=== PATIENT | female | born 1970 | race Caucasian/White ===

== ENCOUNTER 2021-07-03 11:08 | Outpatient (REF) | payer OTHER, SELFPAY ==
--- NOTE | ~2021-07-03 | US_ITS ---
EXAMINATION: US VENOUS ULTRASOUND WITH DOPPLER LOWER EXTREMITY, LEFT CLINICAL INFORMATION: Left leg pain COMPARISON: None TECHNIQUE: Ultrasound of the deep veins is performed from the hip to the calf with compression sonography and color and pulse Doppler assessment. Spectral analysis with color-flow imaging is performed. FINDINGS: There is normal venous compression and respiratory variation and augmented flow. The visualized common femoral vein, superficial femoral vein, profunda femoral vein, popliteal vein, and the trifurcation region shows no evidence of deep venous thrombosis. There is no significant popliteal fossa cyst. There is a small amount of fluid in the muscle in the left medial calf in the area of patient's pain. Appearance is questionable for partial muscle tear. US/US venous duplex LE LT IMPRESSION: No DVT demonstrated in the left lower extremity.
== END 2021-07-03 11:09 | disposition home or self-care (01) ==
LOC: HO.US 11:08
PROVIDERS: PCP Internal Medicine; Visit Provider Advanced Practice Midwife
DX: M79.662 Pain in left lower leg (principal)
CPT/HCPCS: 93971

== ENCOUNTER → 2021-08-15 08:50 | Outpatient (BNVA) | payer OTHER, SELFPAY | PROVIDERS: PCP Internal Medicine; Visit Provider Physician Assistant | DX: S86.112A Strain of other muscle(s) and tendon(s) of posterior muscle group at lower leg level, left leg, initial encounter (principal) | CPT/HCPCS: 99202 ==

== ENCOUNTER 2022-03-23 15:58 | Inpatient (IN) | payer OTHER, SELFPAY ==
[2022-03-23 16:03] VITALS: BP 123/94; BP 138/90; PULSE 92; PULSE 97; RESP 18; TEMP 37.4; O2SAT 97; O2SAT 98; BMI 34.3
--- NOTE | 2022-03-23 16:31 | ECG_ITS ---
Test Reason : MED CLEARANCE Blood Pressure : / mmHG Vent. Rate : 091 BPM Atrial Rate : 091 BPM P-R Int : 134 ms QRS Dur : 078 ms QT Int : 380 ms P-R-T Axes : 046 063 056 degrees QTc Int : 467 ms Normal sinus rhythm Normal ECG When compared with ECG of 18-APR-2020 17:51, No significant change was found Referred By: Ofelia Wang Electronically Signed By:MICHAEL VELASCO MD
--- NOTE | 2022-03-23 16:41 | PC.NURSE ---
Attempted med rec- unable to complete due to questions of accurate list of medication. Pharmacy aware.
[2022-03-23 16:45] VITALS: RESP 16
[2022-03-23 16:57] LABS: Appearance Urine CLEAR; Color Urine YELLOW; Glucose Urine UA NEG (NEG); Leukocyte Esterase Urine NEG (NEG); Nitrite Urine NEG (NEG); PH 5.5 (5.0-8.0); Specific Gravity - Urine <= 1.005 (1.005-1.025); Urine Blood NEG (NEG); Urine Ketones NEG (NEG); Urine Protein NEG (NEG-TRACE)
--- NOTE | 2022-03-23 17:03 | PHA.MEDREC ---
MED REC COMPLETE Pharmacy Consult ? Medication Reconciliation Pharmacy has completed the medication reconciliation.
[2022-03-23 17:11] LABS: MANUAL DIFF FLAG NO
[2022-03-23 17:11] LABS: COVID-19 Test Negative (Negative); IDNOW Serial# 55D5AD1C
[2022-03-23 17:20] LABS: Basophils Absolute Auto 0.1 X10*3/uL (0.0-0.2); Basophils Percent Auto 0.5 % (0-2); Eosinophils Absolute Auto 0.2 X10*3/uL (0.0-0.4); Eosinophils Percent Auto 2.5 % (0-4); Hematocrit 37.7 % (37.0-47.0); Imm Gran Abs Auto 0.03 X10*3/uL (0.00-0.03); Imm Gran Pct Auto 0.3 % (0.0-0.4); Lymphocytes Absolute Auto 2.6 X10*3/uL (1.2-4.9); Lymphocytes Percent Auto 27.9 % (20-40); Mean Corpuscular HGB Conc 34.5 g/dl (31.0-35.0); Mean Corpuscular Hemoglobin 30.3 pg (27.0-33.0); Mean Corpuscular Volume 87.9 fL (80.0-98.0); Mean Platelet Volume 12.1 fL (9.4-12.3); Monocytes Absolute Auto 0.4 X10*3/uL (0.1-1.2); Monocytes Percent Auto 4.7 % (2-11); Neutrophils Absolute Auto 5.9 x10*3/uL (2.0-8.3); Neutrophils Percent Auto 64.1 % (45-73); Platelet Count 198 X10*3/uL (160-400); Red Blood Count 4.29 X10*6/uL (4.20-5.50); Red Cell Distribution Width 13.2 % (11.0-16.0); White Blood Count 9.1 X10*3/uL (4.8-10.8)
--- NOTE | 2022-03-23 17:21 | PC.NURSE ---
Per pt: okay to talk to Jeremias Ramos ([facility]) [phone] Jeremias was hyperverbal on phone during status update. We live in a mental health building, but separate. [the patient] walks 2 feet to my house. I noticed that she was almost ignoring me when I was speaking to her. I'm pretty sure she was hearing voices. how do you check for that? can you really tell? do you think it has to do with our home covid tests? spouse updated on team process and [facility] referral.
[2022-03-23 17:24] LABS: Amphetamine Screen Urine Not Detected (Not Detect); Barbiturates, Urine Not Detected (Not Detect); Benzodiazepines Screen Urine Not Detected (Not Detect); Cannabinoid Screen Urine Not Detected (Not Detect); Cocaine Screen Urine Not Detected (Not Detect); Fentanyl, urine Not Detected (Not Detect); Opiate Screen Urine Not Detected (Not Detect); Phencyclidine Screen Urine Not Detected (Not Detect)
[2022-03-23 17:30] LABS: Alanine Aminotransferase 23 U/L (0-31); Albumin Level 3.9 g/dL (3.5-5.0); Alkaline Phosphatase 125 U/L (39-117); Anion Gap 13 (12-20); Aspartate Amino Transferase 24 U/L (5-31); Bilirubin Total 0.6 mg/dL (0.0-1.0); Blood Urea Nitrogen 12 mg/dL (9-16); Calcium 8.4 mg/dL (8.4-10.2); Carbon Dioxide 24 mmol/L (22-29); Chloride 105 mmol/L (96-108); Creatinine Clr Calc Pharmacy 82.5; Estimated Glomerular Filt Rate > 60; Ethanol < 10 mg/dL; Glucose Random 85 mg/dL (60-115); Potassium 4.1 mmol/L (3.3-5.1); Sodium 138 mmol/L (135-145); Total Protein 6.3 g/dL (6.5-8.0)
[2022-03-23 18:00] VITALS: RESP 16
--- NOTE | 2022-03-23 18:01 | MHC.CARE ---
Per pt: okay to talk to Jeremias Ramos ([facility]) [phone] Jeremias called CARE team reporting Rita called him crying and stating she is alone . CARE informed him that there is an RN and staff in POD and she is not alone. He reports he called 911 after she reported audio hallucinations of her ex-fiance that was murdered telling her to 'kill herself . CARE explained the process and that she would get a crisis evaluation and disposition would be decided. He reports he will wait to called to provided collateral information.
--- NOTE | 2022-03-23 18:17 | PC.NURSE ---
Contact made to care team about Spouse's concerns. Spouse has contacted the BH pod multiple times asking similar questions. Care team reiterated education regarding BHN process.
--- NOTE | 2022-03-23 20:53 | ED_ITS ---
HPI - Psych General Chief Complaint: Psychiatric Symptoms <Ofelia WangSUGAR - Last Filed: 03/23/22 21:09> Stated Complaint: SI no plan <Ofelia Wang SUGAR - Last Filed: 03/23/22 21:09> Time Seen by Provider: 03/23/22 16:19 <Ofelia WangSUGAR - Last Filed: 03/23/22 21:09> Source: patient <Ofelia Wang SUGAR - Last Filed: 03/23/22 21:09> Mode of arrival: EMS <Ofelia WangSUGAR - Last Filed: 03/23/22 21:09> Limitations: no limitations <Ofelia Wang SUGAR - Last Filed: 03/23/22 21:09> History of Present Illness HPI Narrative: Patient presents emergency department via EMS for evaluation of suicidal ideations. She reports that for the past week she has been hearing auditory hallucinations of her ex-boyfriend's voice telling her to kill herself. States that she is being told to cut herself. States that she has no intention of acting on this, but she feels unsafe being at home. She states she is currently living at home with her fiance. She denies any recent medication changes. She denies any homicidal ideations. Denies fevers, chills, upper respiratory symptoms, chest pain, shortness of breath, difficulty breathing. <Ofelia WangSUGAR - Last Filed: 03/23/22 21:09> Related Data Home Medications: Home Medications Medication Instructions Recorded Confirmed albuterol sulfate 90 mcg/actuation 2 inh inhalation Q4H PRN 03/23/22 03/23/22 aerosol inhaler Respiratory Distress atorvastatin 20 mg tablet 20 mg PO BEDTIME 03/23/22 03/23/22 benztropine 0.5 mg tablet 0.5 mg PO BEDTIME 03/23/22 03/23/22 calcium carbonate 600 mg-vitamin 1 cap PO BID 03/23/22 03/23/22 D3 10 mcg (400 unit) capsule cariprazine 3 mg capsule (Vraylar) 3 mg PO DAILY 03/23/22 03/23/22 clonazepam 0.5 mg tablet 0.5 mg PO BEDTIME 03/23/22 03/23/22 clonazepam 0.5 mg tablet 0.5 mg PO DAILY PRN Anxiety 03/23/22 03/23/22 cyanocobalamin (vitamin B-12) 500 500 mcg PO DAILY 03/23/22 03/23/22 mcg tablet diclofenac sodium 1 % topical gel 2 g topical DAILY PRN Pain 03/23/22 03/23/22 duloxetine 60 mg capsule,delayed 60 mg PO BID 03/23/22 03/23/22 release fluticasone 100 mcg-salmeterol 50 1 puff inhalation BID 03/23/22 03/23/22 mcg/dose blistr powdr for inhalation haloperidol 10 mg tablet 1 tab PO BID 03/23/22 03/23/22 levothyroxine 50 mcg tablet 50 mcg PO DAILY@0600 03/23/22 03/23/22 lidocaine 5 % topical cream 1 appl topical BID 03/23/22 03/23/22 loratadine 10 mg tablet 10 mg PO DAILY 03/23/22 03/23/22 mirtazapine 7.5 mg tablet 7.5 mg PO BEDTIME 03/23/22 03/23/22 naproxen 500 mg tablet 500 mg PO BID PRN Moderate Pain 03/23/22 03/23/22 (Scale Score 5-6) nitrofurantoin macrocrystal 100 mg 100 mg PO DAILY PRN UTI PREVENTION 03/23/22 03/23/22 capsule sumatriptan succinate 50 mg tablet 50 mg PO DAILY PRN Migraine 03/23/22 03/23/22 (Imitrex) Headache verapamil 40 mg tablet 40 mg PO BID 03/23/22 03/23/22 <Ofelia Wang, TABLE ASSEMBLER [employer] - Last Filed: 03/23/22 21:09> Allergies/Adverse Reactions: Allergies Allergy/AdvReac Type Severity Reaction Status Date / Time amoxicillin [AMOXICILLIN] Allergy Intermediate HIVES Verified 03/23/22 16:51 carisoprodol [From SOMA] Allergy Intermediate HIVES Verified 03/23/22 16:51 Fish Containing Products Allergy Intermediate HIVES Verified 03/23/22 16:51 Penicillins [PENICILLINS] Allergy Intermediate HIVES Verified 03/23/22 16:51 latex [LATEX] Allergy Mild RASH Verified 03/23/22 16:51 fish Allergy Unknown shortness Uncoded 03/23/22 16:51 of breath MEAT AdvReac Mild SICK Uncoded 03/23/22 16:51 <Ofelia Wang CNP - Last Filed: 03/23/22 21:09> Review of Systems Review of Systems: Constitutional : No Fever, No Chills ENT/Mouth : No Ear Pain, No Nasal Congestion, No sore throat Eyes: No Eye Pain, No Swelling, No Redness Cardiovascular : No Chest Pain, No SOB Respiratory : No Cough, No Sputum, No Dyspnea Gastrointestinal : No Nausea, No Vomiting, No Diarrhea, No Hematochezia, No Melena Genitourinary : No Dysuria, No Urinary Frequency, No Hematuria Musculoskeletal : No Myalgias Skin : No Skin Lesions, No rash Neuro : No Weakness, No Numbness, No Paresthesias, No Dizziness, No Headache Psych : positive Anxiety, positive Depression, positive SI/HI Heme/Lymph: No Lymphadenopathy Endocrine : No Polyuria, No Polydipsia <Ofelia Wang CNP - Last Filed: 03/23/22 21:09> Yes all other systems are reviewed and are negative <Ofelia Wang CNP - Last Filed: 03/23/22 21:09> PMF Past Medical History Attestation statement: The following information was validated with the patient. <Ofelia Wang CNP - Last Filed: 03/23/22 21:09> Source: old records reviewed <Ofelia Wang CNP - Last Filed: 03/23/22 21:09> Medical History: Medical History Anxiety Asthma Borderline intellectual functioning Chronic back pain Classic migraine Depression History of ETOH abuse Hx of drug overdose Hx of renal calculi Ovarian cyst PTSD (post-traumatic stress disorder) Schizoaffective disorder Sight impaired <Ofelia Wang CNP - Last Filed: 03/23/22 21:09> Surgical History: Surgical History Hx of appendectomy Hx of cholecystectomy Hx of tubal ligation <Ofelia Wang CNP - Last Filed: 03/23/22 21:09> Social History Social History: Social History Alcohol intake: unknown Patient Tobacco Use Status: Tobacco use Unknown Smoked in Last 30 Days: Yes Use of substances other than those prescribed or required for medical reasons: Unknown Advance Directives: No Advance Directives Information Provided: No Current occupational status: unemployed Current occupation: rt handed <Ofelia Wang CNP - Last Filed: 03/23/22 21:09> Physical Exam Vital Signs: Vital Signs: Last Vital Signs Temp 98.3 F 03/24/22 07:54 Pulse 92 03/24/22 07:54 Resp 16 03/24/22 07:54 BP 146/80 H 03/24/22 07:54 Pulse Ox 96 03/24/22 07:54 O2 Del Method 03/24/22 07:54 BMI result Body Mass Index 34.3 <Ofelia Wang CNP - Last Filed: 03/23/22 21:09> Vital Signs: Last Vital Signs Temp 98.3 F 03/24/22 07:54 Pulse 92 03/24/22 07:54 Resp 16 03/24/22 07:54 BP 146/80 H 03/24/22 07:54 Pulse Ox 96 03/24/22 07:54 O2 Del Method 03/24/22 07:54 BMI result Body Mass Index 34.3 <Stephen Asif MD - Last Filed: 03/24/22 04:38> Vital Signs: Last Vital Signs Temp 98.3 F 03/24/22 07:54 Pulse 92 03/24/22 07:54 Resp 16 03/24/22 07:54 BP 146/80 H 03/24/22 07:54 Pulse Ox 96 03/24/22 07:54 O2 Del Method 03/24/22 07:54 BMI result Body Mass Index 34.3 <Maco Cedillo MD - Last Filed: 03/24/22 14:11> Appearance: Alert.?Oriented to person, place and time. No acute distress.?Normal affect. Eyes: Pupils equal, round and reactive to light.? ENT: Pharynx normal.?? Neck: Normal inspection.? Neck supple.?? CVS: Heart sounds normal. Normal heart rate and rhythm.? Pulses normal.?? Respiratory: No respiratory distress.? Lung sounds clear to auscultation bilaterally?? Abdomen: Soft and non-tender. Normoactive bowel sounds. Skin: Skin warm and dry.? Normal skin color.?.?? Extremities: No lower extremity edema.? Neuro: Moves all extremities spontaneously. Sensation intact bilaterally. CN II- XII intact. No focal neuro deficits. Ambulates with normal steady gait. <Ofelia Wang CNP - Last Filed: 03/23/22 21:09> Course Course Course Narrative: Patient is a 51-year-old female with a past medical history of anxiety, depression, asthma, history of EtOH abuse, history of overdose, PTSD, schizoaffective disorder who presents emergency department for evaluation of SI and auditory hallucinations. She reports feeling feeling unsafe being at home, she does report that she currently resides with her fiance but feels safe in her relationship denies any concerns for domestic violence. She states that she has been compliant with her medications, has not had any recent changes to her medications. She is overall well appearing, vital signs are stable, no apparent distress. Will obtain basic labs, COVID-19 testing, drug of abuse screen, ethanol level. Patient will need to be referred to crisis team for further evaluation and safe disposition planning. <Ofelia Wang CNP - Last Filed: 03/23/22 21:09> Reevaluation(s) Reevaluation #1: Serum labs overall unremarkable. COVID-19 testing is negative. EKG reveals normal sinus rhythm no acute ischemic findings. Toxicology is u nremarkable. Patient placed in physician observation at this time she needs additional time to be evaluated by crisis and has a disposition. <Ofelia Wang CNP - Last Filed: 03/23/22 21:09> Time: 21:04 <Ofelia Wang CNP - Last Filed: 03/23/22 21:09> Reevaluation #2: Start physician observation: The patient was seen by [facility]. The patient is having auditory hallucinations with commands to hurt h erself. Apparently she took a knife and put it to her throat but did not carry out with the 2 males told early do. Patient has had suicide attempt in the past by trying to hang herself with a bed sheet. Given these findings, the patient was placed on a Section 12 and [facility] will do a bed search. Therefore the patient will be placed in physician observation. The patient is a wake and alert no distress, lungs were clear, heart regular rate rhythm, abdomen soft nontender neurologic exam is nonfocal <Stephen Asif MD - Last Filed: 03/24/22 04:38> Time: 04:36 <Stephen Asif MD - Last Filed: 03/24/22 04:38> Time: 14:10 <Maco Cedillo MD - Last Filed: 03/24/22 14:11> Additional Reevaluation(s): Bed search continue on section 12 inpatient level of care <Maco Cedillo MD - Last Filed: 03/24/22 14:11> MDM - Psych Medical Records Attestation: I reviewed the patient's medical records. <Ofelia Wang CNP - Last Filed: 03/23/22 21:09> Lab Data Attestation: I reviewed the patient's lab results. <Ofelia Wang CNP - Last Filed: 03/23/22 21:09> Result diagrams: : 03/23/22 17:07 03/23/22 17:07 <Ofelia Wang CNP - Last Filed: 03/23/22 21:09> Labs: Lab Results 03/23/22 03/23/22 03/23/22 Range/Units 16:46 16:46 16:46 WBC (4.8-10.8) X10*3/uL RBC (4.20-5.50) X10*6/uL Hgb (12.0-16.0) g/dl Hct (37.0-47.0) % MCV (80.0-98.0) fL MCH (27.0-33.0) pg MCHC (31.0-35.0) g/dl RDW (11.0-16.0) % Plt Count (160-400) X10*3/uL MPV (9.4-12.3) fL Immature Gran % (Auto) (0.0-0.4) % Neut % (Auto) (45-73) % Lymph % (Auto) (20-40) % Towns % (Auto) (2-11) % Eos % (Auto) (0-4) % Baso % (Auto) (0-2) % Lymph # (Auto) (1.2-4.9) X10*3/uL Towns # (Auto) (0.1-1.2) X10*3/uL Eos # (Auto) (0.0-0.4) X10*3/uL Baso # (Auto) (0.0-0.2) X10*3/uL Abs Immat Gran (auto) (0.00-0.03) X10*3/uL Absolute Neuts (auto) (2.0-8.3) x10*3/uL Absolute Nucleated RBC (0.0-0.012) X10*3/uL Nucleated RBC % (auto) (0.0-0.2) /100WBC Sodium (135-145) mmol/L Potassium (3.3-5.1) mmol/L Chloride (96-108) mmol/L Carbon Dioxide (22-29) mmol/L Anion Gap (12-20) BUN (9-16) mg/dL Creatinine (0.5-1.4) mg/dL Estim Creat Clear Calc Estimated GFR Random Glucose (60-115) mg/dL Calcium (8.4-10.2) mg/dL Total Bilirubin (0.0-1.0) mg/dL AST (5-31) U/L ALT (0-31) U/L Alkaline Phosphatase (39-117) U/L Total Protein (6.5-8.0) g/dL Albumin (3.5-5.0) g/dL Urine Color YELLOW Urine Appearance CLEAR Urine pH 5.5 (5.0-8.0) Ur Specific [place] <= 1.005 (1.005-1.025) Urine Protein NEG (NEG-TRACE) MG/DL Urine Glucose (UA) NEG (NEG) MG/DL Urine Ketones NEG (NEG) MG/DL Urine Blood NEG (NEG) Urine Nitrite NEG (NEG) Ur Leukocyte Esterase NEG (NEG) Urine Opiates Screen Not Detected (Not Detect) Urine Fentanyl Screen Not Detected (Not Detect) Ur Barbiturates Screen Not Detected (Not Detect) Ur Phencyclidine Scrn Not Detected (Not Detect) Ur Amphetamines Screen Not Detected (Not Detect) U Benzodiazepines Scrn Not Detected (Not Detect) Urine Cocaine Screen Not Detected (Not Detect) U Marijuana (THC) Screen Not Detected (Not Detect) Ethyl Alcohol mg/dL COVID-19 (RAGHU) Negative (Negative) COVID-19 Clin Com See Note 03/23/22 03/23/22 Range/Units 17:07 17:07 WBC 9.1 (4.8-10.8) X10*3/uL RBC 4.29 (4.20-5.50) X10*6/uL Hgb 13.0 (12.0-16.0) g/dl Hct 37.7 (37.0-47.0) % MCV 87.9 (80.0-98.0) fL MCH 30.3 (27.0-33.0) pg MCHC 34.5 (31.0-35.0) g/dl RDW 13.2 (11.0-16.0) % Plt Count 198 (160-400) X10*3/uL MPV 12.1 (9.4-12.3) fL Immature Gran % (Auto) 0.3 (0.0-0.4) % Neut % (Auto) 64.1 (45-73) % Lymph % (Auto) 27.9 (20-40) % Towns % (Auto) 4.7 (2-11) % Eos % (Auto) 2.5 (0-4) % Baso % (Auto) 0.5 (0-2) % Lymph # (Auto) 2.6 (1.2-4.9) X10*3/uL Towns # (Auto) 0.4 (0.1-1.2) X10*3/uL Eos # (Auto) 0.2 (0.0-0.4) X10*3/uL Baso # (Auto) 0.1 (0.0-0.2) X10*3/uL Abs Immat Gran (auto) 0.03 (0.00-0.03) X10*3/uL Absolute Neuts (auto) 5.9 (2.0-8.3) x10*3/uL Absolute Nucleated RBC 0.000 (0.0-0.012) X10*3/uL Nucleated RBC % (auto) 0.0 (0.0-0.2) /100WBC Sodium 138 (135-145) mmol/L Potassium 4.1 (3.3-5.1) mmol/L Chloride 105 (96-108) mmol/L Carbon Dioxide 24 (22-29) mmol/L Anion Gap 13 (12-20) BUN 12 (9-16) mg/dL Creatinine 0.88 (0.5-1.4) mg/dL Estim Creat Clear Calc 82.5 Estimated GFR > 60 Random Glucose 85 (60-115) mg/dL Calcium 8.4 (8.4-10.2) mg/dL Total Bilirubin 0.6 (0.0-1.0) mg/dL AST 24 (5-31) U/L ALT 23 (0-31) U/L Alkaline Phosphatase 125 H (39-117) U/L Total Protein 6.3 L (6.5-8.0) g/dL Albumin 3.9 (3.5-5.0) g/dL Urine Color Urine Appearance Urine pH (5.0-8.0) Ur Specific [place] (1.005-1.025) Urine Protein (NEG-TRACE) MG/DL Urine Glucose (UA) (NEG) MG/DL Urine Ketones (NEG) MG/DL Urine Blood (NEG) Urine Nitrite (NEG) Ur Leukocyte Esterase (NEG) Urine Opiates Screen (Not Detect) Urine Fentanyl Screen (Not Detect) Ur Barbiturates Screen (Not Detect) Ur Phencyclidine Scrn (Not Detect) Ur Amphetamines Screen (Not Detect) U Benzodiazepines Scrn (Not Detect) Urine Cocaine Screen (Not Detect) U Marijuana (THC) Screen (Not Detect) Ethyl Alcohol < 10 mg/dL COVID-19 (RAGHU) (Negative) COVID-19 Clin Com <Ofelia Wang, TABLE ASSEM[employer]ER [employer] - Last Filed: 03/23/22 21:09> Lab Results 03/23/22 03/23/22 03/23/22 Range/Units 16:46 16:46 16:46 WBC (4.8-10.8) X10*3/uL RBC (4.20-5.50) X10*6/uL Hgb (12.0-16.0) g/dl Hct (37.0-47.0) % MCV (80.0-98.0) fL MCH (27.0-33.0) pg MCHC (31.0-35.0) g/dl RDW (11.0-16.0) % Plt Count (160-400) X10*3/uL MPV (9.4-12.3) fL Immature Gran % (Auto) (0.0-0.4) % Neut % (Auto) (45-73) % Lymph % (Auto) (20-40) % Towns % (Auto) (2-11) % Eos % (Auto) (0-4) % Baso % (Auto) (0-2) % Lymph # (Auto) (1.2-4.9) X10*3/uL Towns # (Auto) (0.1-1.2) X10*3/uL Eos # (Auto) (0.0-0.4) X10*3/uL Baso # (Auto) (0.0-0.2) X10*3/uL Abs Immat Gran (auto) (0.00-0.03) X10*3/uL Absolute Neuts (auto) (2.0-8.3) x10*3/uL Absolute Nucleated RBC (0.0-0.012) X10*3/uL Nucleated RBC % (auto) (0.0-0.2) /100WBC Sodium (135-145) mmol/L Potassium (3.3-5.1) mmol/L Chloride (96-108) mmol/L Carbon Dioxide (22-29) mmol/L Anion Gap (12-20) BUN (9-16) mg/dL Creatinine (0.5-1.4) mg/dL Estim Creat Clear Calc Estimated GFR Random Glucose (60-115) mg/dL Calcium (8.4-10.2) mg/dL Total Bilirubin (0.0-1.0) mg/dL AST (5-31) U/L ALT (0-31) U/L Alkaline Phosphatase (39-117) U/L Total Protein (6.5-8.0) g/dL Albumin (3.5-5.0) g/dL Urine Color YELLOW Urine Appearance CLEAR Urine pH 5.5 (5.0-8.0) Ur Specific [place] <= 1.005 (1.005-1.025) Urine Protein NEG (NEG-TRACE) MG/DL Urine Glucose (UA) NEG (NEG) MG/DL Urine Ketones NEG (NEG) MG/DL Urine Blood NEG (NEG) Urine Nitrite NEG (NEG) Ur Leukocyte Esterase NEG (NEG) Urine Opiates Screen Not Detected (Not Detect) Urine Fentanyl Screen Not Detected (Not Detect) Ur Barbiturates Screen Not Detected (Not Detect) Ur Phencyclidine Scrn Not Detected (Not Detect) Ur Amphetamines Screen Not Detected (Not Detect) U Benzodiazepines Scrn Not Detected (Not Detect) Urine Cocaine Screen Not Detected (Not Detect) U Marijuana (THC) Screen Not Detected (Not Detect) Ethyl Alcohol mg/dL COVID-19 (RAGHU) Negative (Negative) COVID-19 Clin Com See Note 03/23/22 03/23/22 Range/Units 17:07 17:07 WBC 9.1 (4.8-10.8) X10*3/uL RBC 4.29 (4.20-5.50) X10*6/uL Hgb 13.0 (12.0-16.0) g/dl Hct 37.7 (37.0-47.0) % MCV 87.9 (80.0-98.0) fL MCH 30.3 (27.0-33.0) pg MCHC 34.5 (31.0-35.0) g/dl RDW 13.2 (11.0-16.0) % Plt Count 198 (160-400) X10*3/uL MPV 12.1 (9.4-12.3) fL Immature Gran % (Auto) 0.3 (0.0-0.4) % Neut % (Auto) 64.1 (45-73) % Lymph % (Auto) 27.9 (20-40) % Towns % (Auto) 4.7 (2-11) % Eos % (Auto) 2.5 (0-4) % Baso % (Auto) 0.5 (0-2) % Lymph # (Auto) 2.6 (1.2-4.9) X10*3/uL Towns # (Auto) 0.4 (0.1-1.2) X10*3/uL Eos # (Auto) 0.2 (0.0-0.4) X10*3/uL Baso # (Auto) 0.1 (0.0-0.2) X10*3/uL Abs Immat Gran (auto) 0.03 (0.00-0.03) X10*3/uL Absolute Neuts (auto) 5.9 (2.0-8.3) x10*3/uL Absolute Nucleated RBC 0.000 (0.0-0.012) X10*3/uL Nucleated RBC % (auto) 0.0 (0.0-0.2) /100WBC Sodium 138 (135-145) mmol/L Potassium 4.1 (3.3-5.1) mmol/L Chloride 105 (96-108) mmol/L Carbon Dioxide 24 (22-29) mmol/L Anion Gap 13 (12-20) BUN 12 (9-16) mg/dL Creatinine 0.88 (0.5-1.4) mg/dL Estim Creat Clear Calc 82.5 Estimated GFR > 60 Random Glucose 85 (60-115) mg/dL Calcium 8.4 (8.4-10.2) mg/dL Total Bilirubin 0.6 (0.0-1.0) mg/dL AST 24 (5-31) U/L ALT 23 (0-31) U/L Alkaline Phosphatase 125 H (39-117) U/L Total Protein 6.3 L (6.5-8.0) g/dL Albumin 3.9 (3.5-5.0) g/dL Urine Color Urine Appearance Urine pH (5.0-8.0) Ur Specific [place] (1.005-1.025) Urine Protein (NEG-TRACE) MG/DL Urine Glucose (UA) (NEG) MG/DL Urine Ketones (NEG) MG/DL Urine Blood (NEG) Urine Nitrite (NEG) Ur Leukocyte Esterase (NEG) Urine Opiates Screen (Not Detect) Urine Fentanyl Screen (Not Detect) Ur Barbiturates Screen (Not Detect) Ur Phencyclidine Scrn (Not Detect) Ur Amphetamines Screen (Not Detect) U Benzodiazepines Scrn (Not Detect) Urine Cocaine Screen (Not Detect) U Marijuana (THC) Screen (Not Detect) Ethyl Alcohol < 10 mg/dL COVID-19 (RAGHU) (Negative) COVID-19 Clin Com <Stephen Asif MD - Last Filed: 03/24/22 04:38> Lab Results 0803/23/22 03/23/22 Range/Units 16:46 16:46 16:46 WBC (4.8-10.8) X10*3/uL RBC (4.20-5.50) X10*6/uL Hgb (12.0-16.0) g/dl Hct (37.0-47.0) % MCV (80.0-98.0) fL MCH (27.0-33.0) pg MCHC (31.0-35.0) g/dl RDW (11.0-16.0) % Plt Count (160-400) X10*3/uL MPV (9.4-12.3) fL Immature Gran % (Auto) (0.0-0.4) % Neut % (Auto) (45-73) % Lymph % (Auto) (20-40) % Towns % (Auto) (2-11) % Eos % (Auto) (0-4) % Baso % (Auto) (0-2) % Lymph # (Auto) (1.2-4.9) X10*3/uL Towns # (Auto) (0.1-1.2) X10*3/uL Eos # (Auto) (0.0-0.4) X10*3/uL Baso # (Auto) (0.0-0.2) X10*3/uL Abs Immat Gran (auto) (0.00-0.03) X10*3/uL Absolute Neuts (auto) (2.0-8.3) x10*3/uL Absolute Nucleated RBC (0.0-0.012) X10*3/uL Nucleated RBC % (auto) (0.0-0.2) /100WBC Sodium (135-145) mmol/L Potassium (3.3-5.1) mmol/L Chloride (96-108) mmol/L Carbon Dioxide (22-29) mmol/L Anion Gap (12-20) BUN (9-16) mg/dL Creatinine (0.5-1.4) mg/dL Estim Creat Clear Calc Estimated GFR Random Glucose (60-115) mg/dL Calcium (8.4-10.2) mg/dL Total Bilirubin (0.0-1.0) mg/dL AST (5-31) U/L ALT (0-31) U/L Alkaline Phosphatase (39-117) U/L Total Protein (6.5-8.0) g/dL Albumin (3.5-5.0) g/dL Urine Color YELLOW Urine Appearance CLEAR Urine pH 5.5 (5.0-8.0) Ur Specific [place] <= 1.005 (1.005-1.025) Urine Protein NEG (NEG-TRACE) MG/DL Urine Glucose (UA) NEG (NEG) MG/DL Urine Ketones NEG (NEG) MG/DL Urine Blood NEG (NEG) Urine Nitrite NEG (NEG) Ur Leukocyte Esterase NEG (NEG) Urine Opiates Screen Not Detected (Not Detect) Urine Fentanyl Screen Not Detected (Not Detect) Ur Barbiturates Screen Not Detected (Not Detect) Ur Phencyclidine Scrn Not Detected (Not Detect) Ur Amphetamines Screen Not Detected (Not Detect) U Benzodiazepines Scrn Not Detected (Not Detect) Urine Cocaine Screen Not Detected (Not Detect) U Marijuana (THC) Screen Not Detected (Not Detect) Ethyl Alcohol mg/dL COVID-19 (RAGHU) Negative (Negative) COVID-19 Clin Com See Note 03/23/22 03/23/22 Range/Units 17:07 17:07 WBC 9.1 (4.8-10.8) X10*3/uL RBC 4.29 (4.20-5.50) X10*6/uL Hgb 13.0 (12.0-16.0) g/dl Hct 37.7 (37.0-47.0) % MCV 87.9 (80.0-98.0) fL MCH 30.3 (27.0-33.0) pg MCHC 34.5 (31.0-35.0) g/dl RDW 13.2 (11.0-16.0) % Plt Count 198 (160-400) X10*3/uL MPV 12.1 (9.4-12.3) fL Immature Gran % (Auto) 0.3 (0.0-0.4) % Neut % (Auto) 64.1 (45-73) % Lymph % (Auto) 27.9 (20-40) % Towns % (Auto) 4.7 (2-11) % Eos % (Auto) 2.5 (0-4) % Baso % (Auto) 0.5 (0-2) % Lymph # (Auto) 2.6 (1.2-4.9) X10*3/uL Town[place] # (Auto) 0.4 (0.1-1.2) X10*3/uL Eos # (Auto) 0.2 (0.0-0.4) X10*3/uL Baso # (Auto) 0.1 (0.0-0.2) X10*3/uL Abs Immat Gran (auto) 0.03 (0.00-0.03) X10*3/uL Absolute Neuts (auto) 5.9 (2.0-8.3) x10*3/uL Absolute Nucleated RBC 0.000 (0.0-0.012) X10*3/uL Nucleated RBC % (auto) 0.0 (0.0-0.2) /100WBC Sodium 138 (135-145) mmol/L Potassium 4.1 (3.3-5.1) mmol/L Chloride 105 (96-108) mmol/L Carbon Dioxide 24 (22-29) mmol/L Anion Gap 13 (12-20) BUN 12 (9-16) mg/dL Creatinine 0.88 (0.5-1.4) mg/dL Estim Creat Clear Calc 82.5 Estimated GFR > 60 Random Glucose 85 (60-115) mg/dL Calcium 8.4 (8.4-10.2) mg/dL Total Bilirubin 0.6 (0.0-1.0) mg/dL AST 24 (5-31) U/L ALT 23 (0-31) U/L Alkaline Phosphatase 125 H (39-117) U/L Total Protein 6.3 L (6.5-8.0) g/dL Albumin 3.9 (3.5-5.0) g/dL Urine Color Urine Appearance Urine pH (5.0-8.0) Ur Specific [place] (1.005-1.025) Urine Protein (NEG-TRACE) MG/DL Urine Glucose (UA) (NEG) MG/DL Urine Ketones (NEG) MG/DL Urine Blood (NEG) Urine Nitrite (NEG) Ur Leukocyte Esterase (NEG) Urine Opiates Screen (Not Detect) Urine Fentanyl Screen (Not Detect) Ur Barbiturates Screen (Not Detect) Ur Phencyclidine Scrn (Not Detect) Ur Amphetamines Screen (Not Detect) U Benzodiazepines Scrn (Not Detect) Urine Cocaine Screen (Not Detect) U Marijuana (THC) Screen (Not Detect) Ethyl Alcohol < 10 mg/dL COVID-19 ([facility]) (Negative) COVID-19 Clin Com <Maco Cedillo MD - Last Filed: 03/24/22 14:11> ECG Data Attestation: I personally reviewed and interpreted this ECG as follows: <Ofelia Wang CNP - Last Filed: 03/23/22 21:09> ECG interpretation date: 03/23/22 <Ofelia Wang CNP - Last Filed: 03/23/22 21:09> Prior ECG tracings: available for review <Ofelia Wang CNP - Last Filed: 03/23/22 21:09> Interpretation: Rate: 91 Rhythm:? Normal sinus rhythm [place]:? Normal Normal P waves.? Normal JIMBO.?? Normal QRS complex.?? ST T wave :??No ST elevation, no ST depression, no T-wave inversion qTC:? 467 The study has been interpreted contemporaneously by me. <Ofelia Wang CNP - Last Filed: 03/23/22 21:09> Discharge Plan Discharge Clinical Impression: Suicidal ideations <Ofelia Wang CNP - Last Filed: 03/23/22 21:09> Patient Disposition: Still a Patient <Ofelia Wang CNP - Last Filed: 03/23/22 21:09> Prescriptions: No Action atorvastatin 20 mg Tablet 20 mg PO BEDTIME albuterol sulfate 90 mcg/actuation HFA aerosol inhaler 2 inh inhalation Q4H PRN (Reason: Respiratory Distress) levothyroxine 50 mcg Tablet 50 mcg PO DAILY@0600 cyanocobalamin (vitamin B-12) 500 mcg Tablet 500 mcg PO DAILY haloperidol 10 mg tablet 1 tab PO BID mirtazapine 7.5 mg Tablet 7.5 mg PO BEDTIME fluticasone propion-salmeterol 100-50 mcg/dose blister with device 1 puff inhalation BID loratadine 10 mg Tablet 10 mg PO DAILY naproxen 500 mg Tablet 500 mg PO BID PRN (Reason: Moderate Pain (Scale Score 5-6)) clonazepam 0.5 mg Tablet 0.5 mg PO BEDTIME Rx Instructions: administer 30 minutes before bedtime clonazepam 0.5 mg Tablet 0.5 mg PO DAILY PRN (Reason: Anxiety) benztropine 0.5 mg Tablet 0.5 mg PO BEDTIME verapamil 40 mg Tablet 40 mg PO BID duloxetine 60 mg Capsule,Delayed Release(Dr/Ec) 60 mg PO BID calcium carbonate-vitamin D3 [Calcium 600 with Vitamin D3] 600 mg-10 mcg (400 unit) Capsule 1 cap PO BID Vraylar 3 mg Capsule 3 mg PO DAILY diclofenac sodium 1 % Gel 2 g TOPICAL DAILY PRN (Reason: Pain) Rx Instructions: apply to single elbow, wrist or hand; for hand includes palm/fingers/back of hand sumatriptan succinate [Imitrex] 50 mg Tablet 50 mg PO DAILY PRN (Reason: Migraine Headache) Rx Instructions: do not exceed 4 doses per 24 hrs lidocaine 5 % Cream 1 appl TOPICAL BID nitrofurantoin macrocrystal 100 mg Capsule 100 mg PO DAILY PRN (Reason: UTI PREVENTION) Rx Instructions: must administer with a meal/food <Ofleia Wang, SUGAR - Last Filed: 03/23/22 21:09>
[2022-03-23 21:09] VITALS: BP 110/74; PULSE 109; RESP 17; O2SAT 96
[2022-03-23] MEDS: DULoxetine HCl 60 MG CAPSULE.DR PO (21:18)
[2022-03-23] MEDS: Benztropine Mesylate 0.5 MG TABLET PO (21:18)
[2022-03-23] MEDS: HaloperidoL 5 MG TABLET 10 MG PO (21:19)
[2022-03-23] MEDS: Mirtazapine 7.5 MG TABLET PO (21:19)
[2022-03-23] MEDS: Calcium + Vitamin D 250 MG TABLET 500 MG PO (21:19)
[2022-03-23] MEDS: clonazePAM 0.5 MG TABLET PO (21:19)
[2022-03-23] MEDS: Atorvastatin Calcium 20 MG TABLET PO (21:20)
[2022-03-23] MEDS: Lidocaine 4 % Cream KIT 1 APPL TOPICAL (21:20)
[2022-03-23] MEDS: Albuterol Sulfate 90 MCG 8 GM INHALER 2 PUFF INHALE (21:24)
[2022-03-23] MEDS: VerapamiL HCL 40 MG TABLET PO (21:53)
[2022-03-24] MEDS: clonazePAM 0.5 MG TABLET PO ×3 (03:57→20:09)
--- NOTE | 2022-03-24 04:35 | PC.NURSE ---
Patient slept adequate, woke up for BHN assessment, engaged well during assessment, disposition section 12 inpatient bed search, prn klonopin 0.5 mg administered at 0357 pending effect, behavior non concerning, will continue to monitor.
[2022-03-24] MEDS: Levothyroxine Sodium 50 MCG TABLET PO (07:03)
[2022-03-24] MEDS: HaloperidoL 5 MG TABLET 10 MG PO ×2 (07:37→20:09)
[2022-03-24] MEDS: Calcium + Vitamin D 250 MG TABLET 500 MG PO ×2 (07:38→20:08)
[2022-03-24] MEDS: Loratadine 10 MG TABLET PO (07:38)
[2022-03-24] MEDS: Cyanocobalamin (Vitamin B-12) 500 MCG TABLET PO (07:38)
[2022-03-24] MEDS: DULoxetine HCl 60 MG CAPSULE.DR PO ×2 (07:38→20:09)
[2022-03-24] MEDS: VerapamiL HCL 40 MG TABLET PO (07:44)
[2022-03-24] MEDS: Cariprazine HCl 3 MG CAPSULE PO (07:45)
[2022-03-24 07:54] VITALS: BP 146/80; PULSE 92; RESP 16; TEMP 36.8; O2SAT 96
[2022-03-24] MEDS: Lidocaine 4 % Cream KIT 1 APPL TOPICAL ×2 (08:01→20:33)
[2022-03-24] MEDS: Fluticasone/Vilanterol 100/25 BLST.W.DEV 1 PUFF INHALE (08:09)
--- NOTE | 2022-03-24 09:20 | PC.NURSE ---
Patient slept through the night, no distress observed/reported, medication compliant, behavior appropriate and non concerning, disposition per [facility] is section 12 inpatient bed search, will continue to monitor.
[2022-03-24 14:33] VITALS: BP 100/51; PULSE 77; RESP 16; TEMP 36.8; O2SAT 95
--- NOTE | 2022-03-24 17:54 | PC.NURSE ---
PT HAS BEEN IN [facility] THROUGHOUT THE DAY, ACTING APPROPRIATELY IN THE [place], STATING EFFECTIVENESS OF PRN ANXIETY RX SHE REQUESTED. REMAINS A [facility] BED SEARCH.
[2022-03-24] MEDS: Atorvastatin Calcium 20 MG TABLET PO (20:09)
[2022-03-24] MEDS: Mirtazapine 7.5 MG TABLET PO (20:09)
[2022-03-24] MEDS: Benztropine Mesylate 0.5 MG TABLET PO (20:09)
[2022-03-24 20:15] VITALS: BP 91/61; PULSE 87; RESP 16; TEMP 36.6; O2SAT 95
--- NOTE | 2022-03-25 05:19 | PC.NURSE ---
Patient slept through the night, no distress observed/reported, medication compliant, BP 91/61 @ 2015 HS Verapamil held, behavior appropriate and non concerning, disposition per [facility] is section 12 inpatient bed search, no update on bed search, will continue to monitor
[2022-03-25] MEDS: Levothyroxine Sodium 50 MCG TABLET PO (06:29)
--- NOTE | 2022-03-25 07:28 | PC.NURSE ---
patient appears to remain asleep respirations are even and unlabored patient appears in no distress
[2022-03-25] MEDS: HaloperidoL 5 MG TABLET 10 MG PO ×2 (09:39→20:22)
[2022-03-25] MEDS: Calcium + Vitamin D 250 MG TABLET 500 MG PO ×2 (09:39→20:21)
[2022-03-25] MEDS: Fluticasone/Vilanterol 100/25 BLST.W.DEV 1 PUFF INHALE (09:39)
[2022-03-25] MEDS: DULoxetine HCl 60 MG CAPSULE.DR PO ×2 (09:39→20:22)
[2022-03-25] MEDS: Cyanocobalamin (Vitamin B-12) 500 MCG TABLET PO (09:39)
[2022-03-25] MEDS: Cariprazine HCl 3 MG CAPSULE PO (09:40)
[2022-03-25] MEDS: Loratadine 10 MG TABLET PO (09:40)
[2022-03-25] MEDS: Lidocaine 4 % Cream KIT 1 APPL TOPICAL (09:40)
[2022-03-25] MEDS: VerapamiL HCL 40 MG TABLET PO ×2 (09:41→20:22)
[2022-03-25 11:54] LABS: COVID-19 Test Negative (Negative); IDNOW Serial# 08D9AD1C
[2022-03-25] MEDS: clonazePAM 0.5 MG TABLET PO ×2 (14:29→20:22)
[2022-03-25 17:29] VITALS: BP 124/69; PULSE 107; TEMP 36.1; O2SAT 95
--- NOTE | 2022-03-25 17:39 | PC.ADMIT ---
Addendum entered by Charla Walsh RN 03/25/22 18:51: pt reports that doing art helps her cope and her boyfriend is very supportive of her and denies any domestic abuse. pt is can be distracted at times moving from subjects to subject. Original Note: pt is a 51 year old who presents to from the [facility] ED at 1500 on CV status. pt is COVID negative, Utox negative. Per chart review, pt was evaluated by [facility] crisis with SI without a plan and auditory hallucinations of a female voice commanding her to slit her throat. EKG is normal. pt appears social and was able to answer questions during admission. pt has an extensive psychriatic issues including ETOH and schizoaffective.
[2022-03-25] MEDS: hydrOXYzine HCL 25 MG TABLET PO (18:04)
[2022-03-25] MEDS: Benztropine Mesylate 0.5 MG TABLET PO (20:22)
[2022-03-25] MEDS: Atorvastatin Calcium 20 MG TABLET PO (20:22)
[2022-03-25] MEDS: Mirtazapine 7.5 MG TABLET PO (21:02)
[2022-03-26 06:00] VITALS: BP 109/57; PULSE 85; RESP 18; TEMP 36; O2SAT 98
[2022-03-26] MEDS: Levothyroxine Sodium 50 MCG TABLET PO (06:42)
[2022-03-26 08:46] LABS: Estimated Average Glucose 97 mg/dL
[2022-03-26 08:53] LABS: Cholesterol 131 mg/dL; HDL Cholesterol 38 mg/dL; LDL Cholesterol Calculated 66 mg/dl; Triglycerides 139 mg/dL
[2022-03-26] MEDS: VerapamiL HCL 40 MG TABLET PO ×2 (09:14→20:17)
[2022-03-26] MEDS: DULoxetine HCl 60 MG CAPSULE.DR PO ×2 (09:14→20:18)
[2022-03-26] MEDS: HaloperidoL 5 MG TABLET 10 MG PO ×2 (09:14→20:16)
[2022-03-26] MEDS: Cyanocobalamin (Vitamin B-12) 500 MCG TABLET PO (09:14)
[2022-03-26] MEDS: Cariprazine HCl 3 MG CAPSULE PO (09:14)
[2022-03-26 09:15] LABS: Free T4 (Free Thyroxine) 0.96 ng/dL (0.71-1.85); Thyroid Stimulating Hormone 2.25 uIU/mL (0.32-4.0)
[2022-03-26] MEDS: Calcium + Vitamin D 250 MG TABLET 500 MG PO ×2 (09:15→20:15)
[2022-03-26] MEDS: Loratadine 10 MG TABLET PO (09:15)
[2022-03-26] MEDS: Fluticasone/Vilanterol 100/25 BLST.W.DEV 1 PUFF INHALE (09:15)
[2022-03-26] MEDS: Lidocaine 4 % Cream KIT 1 APPL TOPICAL (09:20)
[2022-03-26 09:27] LABS: Folate 10.5 ng/mL (> or = 4.0); Vitamin B12 1158 pg/mL (200-900)
--- NOTE | 2022-03-26 09:38 | HO.PSYADMNOT ---
HPI Date of Service: 03/26/22 Chief Complaint: Major Depression with Psychotic Features Sources of Information: patient interviewed, chart reviewed and crisis/core team assessment reviewed HPI Subjective Notes: Jones Warning and Conditional Voluntary Narrative: Patient is a 51-year-old female, client of [facility] with ACCS services, with hx of Schizoaffective disorder, PTSD, chronic UTI TBI who, has been stable and out of the hospital for the past 2 years but now presents for depression and command AH to harm herself and plan/intention to cut her neck. Patient is adherent with her medications and reports that she has overall done well for the past 2 years, without auditory hallucinations or much depression. Last week however she started thinking about her belated fiancee and started feeling sad and missing him, even thoughts of wanting to be with him; patient said she lost her appetite and was feeling overall depressed with increased trouble sleeping. On Friday for the 1st time she heard auditory hallucination of his voice telling her to cut her neck. Patient went and got a knife to do so but was stopped by her current boyfriend and presented to the hospital. Patient has a history of trauma and reports resurgence of nightmares for this past month in addition to her chronic intermittent flashbacks. Patient denies any ETOH/drug abuse. Patient wants to continue with her current medication regimen but is open to changes. Elsewhere patient reported that she has had intermittent auditory hallucinations for the past month Past Psychiatric History: last admission to [place] [id number] client of [facility] with ACCS service -out reach worker Alejo [phone] -[facility] motor coach supervisor Kiara [phone] -psychiatric provider Tom Davila [phone] Past suicide attempt reported in crisis note Medical Evaluation Reviewed: Yes [facility] Medical History (Updated 03/26/22 @ 14:57 by Dayron Fuentes MD) Anxiety Asthma Borderline intellectual functioning Chronic back pain Chronic post-traumatic stress disorder (PTSD) Classic migraine Depression History of ETOH abuse Hx of drug overdose Hx of renal calculi Ovarian cyst PTSD (post-traumatic stress disorder) Schizoaffective disorder Sight impaired TBI (traumatic brain injury) Surgical History Hx of appendectomy Hx of cholecystectomy Hx of tubal ligation Family History: Family history of substance abuse and mental health issues Social History: Born in [place] raised by both parents, now ; 2 sibling patient Pt and has 1 daughter Janelle murdered over 10 years ago Patient has current, supportive boyfriend for the past 10 years CHD services Lives alone in own apartment Substance History: History of alcohol, opiate, cocaine abuse, in sustained sobriety sober Trauma History: Childhood and adolescent trauma Diagnostics Vital Signs (24Hr): Vital Signs - 24 hr 03/25/22 17:29 03/26/22 06:00 Temperature 97 F 96.8 F Pulse Rate 107 H 85 Respiratory Rate 18 Blood Pressure 124/69 109/57 L Pulse Oximetry 95 98 Oxygen Delivery Method Room Air BMI result Body Mass Index 34.3 Labs Results: 03/23/22 17:07 03/23/22 17:07 Labs: Laboratory Results - last 48 hr 03/25/22 03/26/22 03/26/22 11:25 08:16 08:16 Estimat Average Glucose 97 Hemoglobin A1c % 5.0 Magnesium 2.0 Triglycerides 139 Cholesterol 131 LDL Cholesterol, Calc 66 HDL Cholesterol 38 Vitamin B12 Folate TSH 2.25 Free T4 0.96 COVID-19 ([facility]) Negative COVID-19 Clin Com See Note 03/26/22 08:16 Estimat Average Glucose Hemoglobin A1c % Magnesium Triglycerides Cholesterol LDL Cholesterol, Calc HDL Cholesterol Vitamin B12 1158 H Folate 10.5 TSH Free T4 COVID-19 ([facility]) COVID-19 Clin Com Meds/Allergies Meds Home Medications Medication Instructions Recorded Confirmed Type albuterol sulfate 90 mcg/actuation 2 inh inhalation Q4H PRN 03/23/22 03/23/22 History aerosol inhaler Respiratory Distress atorvastatin 20 mg tablet 20 mg PO BEDTIME 03/23/22 03/23/22 History benztropine 0.5 mg tablet 0.5 mg PO BEDTIME 03/23/22 03/23/22 History calcium carbonate 600 mg-vitamin 1 cap PO BID 03/23/22 03/23/22 History D3 10 mcg (400 unit) capsule cariprazine 3 mg capsule (Vraylar) 3 mg PO DAILY 03/23/22 03/23/22 History clonazepam 0.5 mg tablet 0.5 mg PO BEDTIME 03/23/22 03/23/22 History clonazepam 0.5 mg tablet 0.5 mg PO DAILY PRN Anxiety 03/23/22 03/23/22 History cyanocobalamin (vitamin B-12) 500 500 mcg PO DAILY 03/23/22 03/23/22 History mcg tablet diclofenac sodium 1 % topical gel 2 g topical DAILY PRN Pain 03/23/22 03/23/22 History duloxetine 60 mg capsule,delayed 60 mg PO BID 03/23/22 03/23/22 History release fluticasone 100 mcg-salmeterol 50 1 puff inhalation BID 03/23/22 03/23/22 History mcg/dose blistr powdr for inhalation haloperidol 10 mg tablet 1 tab PO BID 03/23/22 03/23/22 History levothyroxine 50 mcg tablet 50 mcg PO DAILY@0600 03/23/22 03/23/22 History lidocaine 5 % topical cream 1 appl topical BID 03/23/22 03/23/22 History loratadine 10 mg tablet 10 mg PO DAILY 03/23/22 03/23/22 History mirtazapine 7.5 mg tablet 7.5 mg PO BEDTIME 03/23/22 03/23/22 History naproxen 500 mg tablet 500 mg PO BID PRN Moderate Pain 03/23/22 03/23/22 History (Scale Score 5-6) nitrofurantoin macrocrystal 100 mg 100 mg PO DAILY PRN UTI PREVENTION 03/23/22 03/23/22 History capsule sumatriptan succinate 50 mg tablet 50 mg PO DAILY PRN Migraine 03/23/22 03/23/22 History (Imitrex) Headache verapamil 40 mg tablet 40 mg PO BID 03/23/22 03/23/22 History Allergies Allergies Allergy/AdvReac Type Severity Reaction Status Date / Time amoxicillin [AMOXICILLIN] Allergy Intermediate HIVES Verified 03/23/22 16:51 carisoprodol [From SOMA] Allergy Intermediate HIVES Verified 03/23/22 16:51 Fish Containing Products Allergy Intermediate HIVES Verified 03/23/22 16:51 Penicillins [PENICILLINS] Allergy Intermediate HIVES Verified 03/23/22 16:51 latex [LATEX] Allergy Mild RASH Verified 03/23/22 16:51 fish Allergy Unknown shortness Uncoded 03/23/22 16:51 of breath MEAT AdvReac Mild SICK Uncoded 03/23/22 16:51 Mental Status Exam Mental Status Exam Narrative: Pt is alert and oriented; behavior is cooperative, friendly and calm; patient is not in distress; dressed in hospital attire with unkempt hair but adequate hygiene; mood is described as sad and affect congruent, downcaste; eye contact appropriate; Speech is with chronic impediment; little bit slowed and soft; psychomotor retardation present; thought process is organized and goal directed; Thought content is missing fiance; otherwise pertinent to relevant topics; still with SI but less intense; no HI. AH continues; Patients insight and judgment are impaired but knows needs and wants tx. Assessment & Plan Assessment & Plan (1) Schizoaffective disorder: Status: Acute Code(s): F25.9 - Schizoaffective disorder, unspecified (2) Chronic post-traumatic stress disorder (PTSD): Status: Acute Code(s): F43.12 - Post-traumatic stress disorder, chronic (3) TBI (traumatic brain injury): Status: Acute Code(s): S06.9X9A - Unspecified intracranial injury with loss of consciousness of unspecified duration, initial encounter Plan Patient is a 51-year-old female, client of [facility] with ACCS services, with hx of Schizoaffective disorder, PTSD, chronic UTI, TBI who, has been stable and out of the hospital for the past 2 years but now presents for depression and command AH to harm herself and plan/intention to cut her neck. -patient reports that here aunt's with medications and that she has done over well for the past couple years; patient reports that depression has been going on for a week but seems like probably longer and early reported auditory hallucinations re-emerged about 4 weeks ago. Patient still feeling suicidal but no intent or plan and wants treatment. Not sure what trigger however patient does continue to have PTSD symptoms which are problematic - Trazodone 150mg qhs? Says has been on in the past but does not seem bed helpful Mirtazapine 7.5 mg q.h.s. was started in the ED for help with sleep and depression and though she says it has not helped with sleep, she does report that her depression and AH are a little less. Patient is already on multiple medications, including 2 antipsychotics and it is significant that she has been stable for about 2 years on current regimen. Will try to avoid polypharmacy. It is preferable to treat these current symptoms with medications with less side effect risks than antipsychotics. -starting Prazosin to see if symptoms can subside by eliminating nightmares (as nightmares can significantly effect the following day and may be etiology for decompensation) -will continue mirtazapine for now (started in ED) since patient reports feeling a little better (though this could also be milieu therapy) -It looks like patient was recently started on Vraylar 02/22; will try to confirm. Perhaps this medication is unnecessary mirtazapine and prazosin could be helpful PLAN CV Q 15 minute checks START Prazosin 1mg Qhs for nightmares (reviewed risks/side effects and patient agrees) CONTINUE Mirtazapine 7.5 mg q.h.s. (started in ED; but will dc to avoid polypharmacy; may restart) add back trazodone prn (she says was on 150mg in past but stopped working) continue cariprazine 3 mg capsule (Vraylar) daily (recently started) continue Clonazepam 0.5 mg q.h.s. and 0.5 mg p.r.n. daily continue Duloxetine DR 60 mg b.i.d. continue Haldol 10 mg b.i.d. continue Levothyroxine 50 mcg q.day continue benztropine 0.5 mg tablet bed Other home meds: Nifurnontin 100 mg daily p.r.n(?). UTI prevention Naproxen 500 mg b.i.d. p.r.n. Sumatriptan 50 mg daily p.r.n. migraine Verapamil 40 mg b.i.d. atorvastatin 20 mg tablet bed benztropine 0.5 mg tablet bed Albuterol inhaler Q for [place] -Discontinue B12 for now as it is supratherapeutic -hx of tubal ligation; Patient educated on: diagnosis, medication risk/benefits and therapeutic strategies Informed Consent: understands Reason for continued inpatient stay Substantial Risk for: harm to self and rapid decompensation
[2022-03-26] MEDS: clonazePAM 0.5 MG TABLET PO ×2 (14:37→20:15)
[2022-03-26] MEDS: Nicotine 21 MG PATCH.TD24 TRANSDERMA (14:38)
[2022-03-26 18:00] VITALS: BP 113/80; PULSE 110; RESP 18; TEMP 36; O2SAT 97
[2022-03-26] MEDS: Atorvastatin Calcium 20 MG TABLET PO (20:15)
[2022-03-26] MEDS: Benztropine Mesylate 0.5 MG TABLET PO (20:15)
[2022-03-26] MEDS: Prazosin HCL 1 MG CAPSULE PO (20:15)
[2022-03-26] MEDS: Mirtazapine 7.5 MG TABLET PO (20:16)
[2022-03-26] MEDS: traZODone HCL 50 MG TABLET PO ×2 (20:18→23:56)
[2022-03-26] MEDS: hydrOXYzine HCL 25 MG TABLET PO (23:56)
[2022-03-27] MEDS: Cariprazine HCl 1.5 MG CAPSULE PO ×2 (00:19→15:00)
[2022-03-27] MEDS: clonazePAM 0.5 MG TABLET PO ×2 (00:19→21:16)
[2022-03-27 09:00] VITALS: BP 108/61; PULSE 100; TEMP 36.4
[2022-03-27] MEDS: Nicotine 21 MG PATCH.TD24 TRANSDERMA (09:04)
[2022-03-27] MEDS: Lidocaine 4 % Cream KIT 1 APPL TOPICAL ×2 (09:04→21:25)
[2022-03-27] MEDS: Loratadine 10 MG TABLET PO (09:05)
[2022-03-27] MEDS: VerapamiL HCL 40 MG TABLET PO ×2 (09:05→21:14)
[2022-03-27] MEDS: Calcium + Vitamin D 250 MG TABLET 500 MG PO ×2 (09:05→21:13)
[2022-03-27] MEDS: Cyanocobalamin (Vitamin B-12) 500 MCG TABLET PO (09:05)
[2022-03-27] MEDS: HaloperidoL 5 MG TABLET 10 MG PO ×2 (09:05→21:15)
[2022-03-27] MEDS: Levothyroxine Sodium 50 MCG TABLET PO (09:05)
[2022-03-27] MEDS: Cariprazine HCl 3 MG CAPSULE PO (09:05)
[2022-03-27] MEDS: Fluticasone/Vilanterol 100/25 BLST.W.DEV 1 PUFF INHALE (09:06)
[2022-03-27] MEDS: DULoxetine HCl 60 MG CAPSULE.DR PO ×2 (09:19→21:16)
--- NOTE | 2022-03-27 11:23 | P.PNPSI_ITS ---
Subjective Subjective Date of Service: 03/27/22 Reason For Visit: Major Depression with Psychotic Features Interim History: reports still hearing AH, voices to hurt herself; they're scary....they say to slit my throat....i don't want to be but the voices are telling me to hurt myself. She reports and voice is of a fiance and a woman. Pt got prn of Vraylar and clonazepam last night and said it helped voices go away. Thinks voices are real and not mind playing tricks. She agrees to increase in daily dose. Trouble sleeping last night due to voices (and roommate snoring). Pt says she wants to retry trazodone and agrees to 100mg; agrees to stop Mirtazpine. No nightmares. Mental Status Exam Mental Status Exam Narrative: Pt is alert and oriented; behavior is cooperative, friendly and calm; patient is not in distress; dressed in casual cloths, groomed with good hygiene; mood is described as depressed and affect congruent, downcast; eye contact appropriate; Speech is with chronic impediment; little latent possibly due to some thought blocking; little bit slowed, normal volume; psychomotor retardation present; thought process maybe with some thought blocking; is concrete but goal directed; Thought content is on want to feel better and get AH resolved; also on missing fiance; otherwise pertinent to relevant topics; no active SI;no HI. Command AH continues; Patients insight and judgment are impaired but knows needs and wants tx. Diagnostics Vital Signs (24Hr): Vital Signs - 24 hr 03/26/22 18:00 Temperature 96.8 F Pulse Rate 110 H Respiratory Rate 18 Blood Pressure 113/80 Pulse Oximetry 97 Oxygen Delivery Method Room Air BMI result Body Mass Index 34.3 Labs Results: 03/23/22 17:07 03/23/22 17:07 Labs: Laboratory Results - last 48 hr 03/25/22 03/26/22 03/26/22 11:25 08:16 08:16 Estimat Average Glucose 97 Hemoglobin A1c % 5.0 Magnesium 2.0 Triglycerides 139 Cholesterol 131 LDL Cholesterol, Calc 66 HDL Cholesterol 38 Vitamin B12 Folate TSH 2.25 Free T4 0.96 COVID-19 ([facility]) Negative COVID-19 Clin Com See Note 03/26/22 08:16 Estimat Average Glucose Hemoglobin A1c % Magnesium Triglycerides Cholesterol LDL Cholesterol, Calc HDL Cholesterol Vitamin B12 1158 H Folate 10.5 TSH Free T4 COVID-19 ([facility]) COVID-19 Clin Com Medications Medications Current Medications Acetaminophen (Acetaminophen 325 Mg Tablet) 650 mg PO Q6H PRN PRN Reason: Headache/Pain Mild Scale (1-3) Al Hydroxide/Mg Hydroxide (Magnesium Hydrox/Alum Hydrox 30 Ml Oral.Susp) 30 ml PO Q6H PRN PRN Reason: Heartburn/Nausea Albuterol Sulfate (Albuterol Sulfate 90 Mcg 8 Gm Inhaler) 2 puff INHALE Q4H PRN PRN Reason: Respiratory Distress Last Admin: 03/23/22 21:24 Dose: 2 puff Atorvastatin Calcium (Atorvastatin Calcium 20 Mg Tablet) 20 mg PO BEDTIME [facility] Last Admin: 03/26/22 20:15 Dose: 20 mg Benztropine Mesylate (Benztropine Mesylate 0.5 Mg Tablet) 0.5 mg PO BEDTIME [facility] Last Admin: 03/26/22 20:15 Dose: 0.5 mg Calcium Carbonate/Cholecalciferol (Calcium + Vitamin D 250 Mg Tablet) 500 mg PO BID [facility] Last Admin: 03/27/22 09:05 Dose: 500 mg Cariprazine (Cariprazine Hcl 1.5 Mg Capsule) 1.5 mg PO ONCE ONE Stop: 03/27/22 11:23 Cariprazine (Cariprazine Hcl 1.5 Mg Capsule) 4.5 mg PO DAILY [facility] Clonazepam (Clonazepam 0.5 Mg Tablet) 0.5 mg PO BEDTIME [facility] Last Admin: 03/26/22 20:15 Dose: 0.5 mg Clonazepam (Clonazepam 0.5 Mg Tablet) 0.5 mg PO DAILY PRN PRN Reason: Anxiety Last Admin: 03/26/22 14:37 Dose: 0.5 mg Cyanocobalamin (Cyanocobalamin (Vitamin B-12) 500 Mcg Tablet) 500 mcg PO DAILY [facility] Last Admin: 03/27/22 09:05 Dose: 500 mcg Duloxetine HCl (Duloxetine Hcl 60 Mg Capsule.Dr) 60 mg PO BID [facility] Last Admin: 03/27/22 09:19 Dose: 60 mg Fluticasone/Vilanterol (Fluticasone/Vilanterol 100/25 Blst.W.Dev) 1 puff INHALE RDAILY [facility] Last Admin: 03/27/22 09:06 Dose: 1 puff Haloperidol (Haloperidol 5 Mg Tablet) 10 mg PO BID [facility] Last Admin: 03/27/22 09:05 Dose: 10 mg Hydroxyzine HCl (Hydroxyzine Hcl 25 Mg Tablet) 25 mg PO Q6H PRN PRN Reason: Anxiety Last Admin: 03/26/22 23:56 Dose: 25 mg Levothyroxine Sodium (Levothyroxine Sodium 50 Mcg Tablet) 50 mcg PO DAILY@0600 [facility] Last Admin: 03/27/22 09:05 Dose: 50 mcg Lidocaine HCl (Lidocaine 4 % Cream Kit) 1 appl TOPICAL BID [facility] Last Admin: 03/27/22 09:04 Dose: 1 appl Loratadine (Loratadine 10 Mg Tablet) 10 mg PO DAILY [facility] Last Admin: 03/27/22 09:05 Dose: 10 mg Magnesium Hydroxide (Milk Of Magnesia 30 Ml Oral.Susp) 30 ml PO DAILY PRN PRN Reason: Constipation Naproxen (Naproxen 500 Mg Tablet) 500 mg PO BID PRN PRN Reason: Moderate Pain (Scale Score 5-6) Nicotine (Nicotine 21 Mg Patch.Td24) 21 mg TRANSDERMA DAILY [facility] Last Admin: 03/27/22 09:04 Dose: 21 mg Nitrofurantoin Macrocrystals (Nitrofurantoin Macrocrystal 50 Mg Capsule) 100 mg PO DAILY PRN PRN Reason: UTI PREVENTION Prazosin HCl (Prazosin Hcl 1 Mg Capsule) 1 mg PO BEDTIME [facility]; Protocol Last Admin: 03/26/22 20:15 Dose: 1 mg Sumatriptan Succinate (Sumatriptan Succinate 50 Mg Tablet) 50 mg PO DAILY PRN PRN Reason: Migraine Headache Trazodone HCl (Trazodone Hcl 100 Mg Tablet) 100 mg PO BEDTIME [facility] Verapamil HCl (Verapamil Hcl 40 Mg Tablet) 40 mg PO BID [facility]; Protocol Last Admin: 03/27/22 09:05 Dose: 40 mg Allergies Allergies Allergy/AdvReac Type Severity Reaction Status Date / Time amoxicillin [AMOXICILLIN] Allergy Intermediate HIVES Verified 03/23/22 16:51 carisoprodol [From SOMA] Allergy Intermediate HIVES Verified 03/23/22 16:51 Fish Containing Products Allergy Intermediate HIVES Verified 03/23/22 16:51 Penicillins [PENICILLINS] Allergy Intermediate HIVES Verified 03/23/22 16:51 latex [LATEX] Allergy Mild RASH Verified 03/23/22 16:51 fish Allergy Unknown shortness Uncoded 03/23/22 16:51 of breath MEAT AdvReac Mild SICK Uncoded 03/23/22 16:51 Assessment & Plan Assessment & Plan (1) Schizoaffective disorder: Status: Acute Code(s): F25.9 - Schizoaffective disorder, unspecified (2) Chronic post-traumatic stress disorder (PTSD): Status: Acute Code(s): F43.12 - Post-traumatic stress disorder, chronic (3) TBI (traumatic brain injury): Status: Acute Code(s): S06.9X9A - Unspecified intracranial injury with loss of consciousness of unspecified duration, initial encounter Plan Patient is a 51-year-old female, client of [facility] with ACCS services, with hx of Schizoaffective disorder, PTSD, chronic UTI, TBI who, has been stable and out of the hospital for the past 2 years but now presents for depression and command AH to harm herself and plan/intention to cut her neck. -patient reports that here aunt's with medications and that she has done over well for the past couple years; patient reports that depression has been going on for a week but seems like probably longer and early reported auditory hallucinations re-emerged about 4 weeks ago. Patient still feeling suicidal but no intent or plan and wants treatment. Not sure what trigger however patient d oes continue to have PTSD symptoms which are problematic - Trazodone 150mg qhs? Says has been on in the past but does not seem bed helpful Mirtazapine 7.5 mg q.h.s. was started in the ED for help with sleep and depression and though she says it has not helped with sleep, she does report that her depression and AH are a little less. Patient is already on multiple medications, including 2 antipsychotics and it is significant that she has been stable for about 2 years on current regimen. Will try to avoid polypharmacy. It is preferable to treat these current symptoms with medications with less side effect risks than antipsychotics. -starting Prazosin to see if symptoms can subside by eliminating nightmares (as nightmares can significantly effect the following day and may be etiology for decompensation) -will continue mirtazapine for now (started in ED) since patient reports feeling a little better (though this could also be milieu therapy) -It looks like patient was recently started on Vraylar 02/22; will try to confirm. Perhaps this medication is unnecessary mirtazapine and prazosin could be helpful 03/27 still with CA[facility], depressed; increase Vraylar since prn helped reduce voices; still not sure if voices causing depression or vice versa. While want to avoid side-effect risks of antipsychotics, AH is scary and causing SI. PLAN CV Q 15 minute checks Continue Prazosin 1mg Qhs for nightmares (reviewed risks/side effects and patient agrees) DC Mirtazapine 7.5 mg q.h.s. (started in ED; but will dc to avoid polypharmacy; does not seem helpful for sleep) START trazodone 100mg (she says was on 150mg in past but stopped working) INCREASE TO cariprazine 4.5 mg capsule (Vraylar) daily (recently started last month) continue Clonazepam 0.5 mg q.h.s. and 0.5 mg p.r.n. daily continue Duloxetine DR 60 mg b.i.d. continue Haldol 10 mg b.i.d. continue Levothyroxine 50 mcg q.day continue benztropine 0.5 mg tablet bed Other home meds: Nifurnontin 100 mg daily p.r.n(?). UTI prevention Naproxen 500 mg b.i.d. p.r.n. Sumatriptan 50 mg daily p.r.n. migraine Verapamil 40 mg b.i.d. atorvastatin 20 mg tablet bed benztropine 0.5 mg tablet bed Albuterol inhaler Q for [place] -Discontinue B12 for now as it is supratherapeutic -hx of tubal ligation; I spent minutes with the patient and/or on the patient floor today, greater than?50% of which was spent counseling/coordinating care. Patient educated on: diagnosis and medication risk/benefits Informed Consent: understands, does not understand and further education needed Reason for contiued inpatient stay Substantial Risk for: harm to self and rapid decompensation
[2022-03-27] MEDS: hydrOXYzine HCL 25 MG TABLET PO (14:46)
[2022-03-27 21:00] VITALS: BP 97/63; PULSE 110; TEMP 36.2
[2022-03-27] MEDS: Prazosin HCL 1 MG CAPSULE PO (21:15)
[2022-03-27] MEDS: Atorvastatin Calcium 20 MG TABLET PO (21:15)
[2022-03-27] MEDS: traZODone HCL 100 MG TABLET PO (21:25)
[2022-03-27] MEDS: Benztropine Mesylate 0.5 MG TABLET PO (21:25)
[2022-03-28 08:30] VITALS: BP 105/77; PULSE 113; TEMP 35.9
--- NOTE | 2022-03-28 10:33 | P.PNPSI_ITS ---
Subjective Subjective Date of Service: 03/28/22 Reason For Visit: Major Depression with Psychotic Features Interim History: Patient reports she slept well last night. She says she still depressed and still intermittently hearing auditory hallucinations but these have lessened in intensity; no SI. Golf Course Architect discussed case with her termite renewal inspector boyfriend who says that patient was doing great up until this past weekend; he said they got into an argument because she accused him of messing around which he says is unfounded but that as long as he has known her she has struggled with being jealous. An argument ensued and he said just get your shit and go. He was not really ending the relationship and did not want her to leave but just was upset and said this thing in a heated moment. He also reports that he apologized and that they made up. It was after this that she started to complain of auditory hallucinations of her blanca. He said he was looking at her and could tell she was upset. She said she had some kind of a blackout and then shared about the command auditory hallucinations to herself. He asked if she wanted him to call an ambulance which she did. Jeremias says she did not talk about suicide at all and that there was no knife involved in any way (patient said she put a knife to her neck to slit her throat and that her boyfriend stopped her). He says it has been years since she complained of auditory hallucinations however he says it has happened in the past at different times. Golf Course Architect further reviewed history and prior admission notes for talk about patient's AH being more likely trauma related and mood congruent then psychotic; also at past admissions some concern for the veracity of patient's report about suicidality Diagnostics Vital Signs (24Hr): Vital Signs - 24 hr 03/27/22 21:00 Temperature 97.2 F Pulse Rate 110 H Blood Pressure 97/63 BMI result Body Mass Index 34.3 Labs Results: 03/23/22 17:07 03/23/22 17:07 Medications Medications Current Medications Acetaminophen (Acetaminophen 325 Mg Tablet) 650 mg PO Q6H PRN PRN Reason: Headache/Pain Mild Scale (1-3) Al Hydroxide/Mg Hydroxide (Magnesium Hydrox/Alum Hydrox 30 Ml Oral.Susp) 30 ml PO Q6H PRN PRN Reason: Heartburn/Nausea Albuterol Sulfate (Albuterol Sulfate 90 Mcg 8 Gm Inhaler) 2 puff INHALE Q4H PRN PRN Reason: Respiratory Distress Last Admin: 03/23/22 21:24 Dose: 2 puff Atorvastatin Calcium (Atorvastatin Calcium 20 Mg Tablet) 20 mg PO BEDTIME [facility] Last Admin: 03/27/22 21:15 Dose: 20 mg Benztropine Mesylate (Benztropine Mesylate 0.5 Mg Tablet) 0.5 mg PO BEDTIME [facility] Last Admin: 03/27/22 21:25 Dose: 0.5 mg Calcium Carbonate/Cholecalciferol (Calcium + Vitamin D 250 Mg Tablet) 500 mg PO BID [facility] Last Admin: 03/27/22 21:13 Dose: 500 mg Cariprazine (Cariprazine Hcl 1.5 Mg Capsule) 4.5 mg PO DAILY [facility] Clonazepam (Clonazepam 0.5 Mg Tablet) 0.5 mg PO BEDTIME [facility] Last Admin: 03/27/22 21:16 Dose: 0.5 mg Clonazepam (Clonazepam 0.5 Mg Tablet) 0.5 mg PO DAILY PRN PRN Reason: Anxiety Last Admin: 03/26/22 14:37 Dose: 0.5 mg Cyanocobalamin (Cyanocobalamin (Vitamin B-12) 500 Mcg Tablet) 500 mcg PO DAILY [facility] Last Admin: 03/27/22 09:05 Dose: 500 mcg Duloxetine HCl (Duloxetine Hcl 60 Mg Capsule.Dr) 60 mg PO BID [facility] Last Admin: 03/27/22 21:16 Dose: 60 mg Fluticasone/Vilanterol (Fluticasone/Vilanterol 100/25 Blst.W.Dev) 1 puff INHALE RDAILY [facility] Last Admin: 03/27/22 09:06 Dose: 1 puff Haloperidol (Haloperidol 5 Mg Tablet) 10 mg PO BID [facility] Last Admin: 03/27/22 21:15 Dose: 10 mg Hydroxyzine HCl (Hydroxyzine Hcl 25 Mg Tablet) 25 mg PO Q6H PRN PRN Reason: Anxiety Last Admin: 03/27/22 14:46 Dose: 25 mg Levothyroxine Sodium (Levothyroxine Sodium 50 Mcg Tablet) 50 mcg PO DAILY@0600 [facility] Last Admin: 03/27/22 09:05 Dose: 50 mcg Lidocaine HCl (Lidocaine 4 % Cream Kit) 1 appl TOPICAL BID [facility] Last Admin: 03/27/22 21:25 Dose: 1 appl Loratadine (Loratadine 10 Mg Tablet) 10 mg PO DAILY [facility] Last Admin: 03/27/22 09:05 Dose: 10 mg Magnesium Hydroxide (Milk Of Magnesia 30 Ml Oral.Susp) 30 ml PO DAILY PRN PRN Reason: Constipation Naproxen (Naproxen 500 Mg Tablet) 500 mg PO BID PRN PRN Reason: Moderate Pain (Scale Score 5-6) Nicotine (Nicotine 21 Mg Patch.Td24) 21 mg TRANSDERMA DAILY [facility] Last Admin: 03/27/22 09:04 Dose: 21 mg Nitrofurantoin Macrocrystals (Nitrofurantoin Macrocrystal 50 Mg Capsule) 100 mg PO DAILY PRN PRN Reason: UTI PREVENTION Prazosin HCl (Prazosin Hcl 1 Mg Capsule) 1 mg PO BEDTIME [facility]; Protocol Last Admin: 03/27/22 21:15 Dose: 1 mg Sumatriptan Succinate (Sumatriptan Succinate 50 Mg Tablet) 50 mg PO DAILY PRN PRN Reason: Migraine Headache Trazodone HCl (Trazodone Hcl 100 Mg Tablet) 100 mg PO BEDTIME [facility] Last Admin: 03/27/22 21:25 Dose: 100 mg Verapamil HCl (Verapamil Hcl 40 Mg Tablet) 40 mg PO BID [facility]; Protocol Last Admin: 03/27/22 21:14 Dose: 40 mg Allergies Allergies Allergy/AdvReac Type Severity Reaction Status Date / Time amoxicillin [AMOXICILLIN] Allergy Intermediate HIVES Verified 03/23/22 16:51 carisoprodol [From SOMA] Allergy Intermediate HIVES Verified 03/23/22 16:51 Fish Containing Products Allergy Intermediate HIVES Verified 03/23/22 16:51 Penicillins [PENICILLINS] Allergy Intermediate HIVES Verified 03/23/22 16:51 latex [LATEX] Allergy Mild RASH Verified 03/23/22 16:51 fish Allergy Unknown shortness Uncoded 03/23/22 16:51 of breath MEAT AdvReac Mild SICK Uncoded 03/23/22 16:51 Assessment & Plan Assessment & Plan (1) Schizoaffective disorder: Status: Acute Code(s): F25.9 - Schizoaffective disorder, unspecified (2) Chronic post-traumatic stress disorder (PTSD): Status: Acute Code(s): F43.12 - Post-traumatic stress disorder, chronic (3) TBI (traumatic brain injury): Status: Acute Code(s): S06.9X9A - Unspecified intracranial injury with loss of consciousness of unspecified duration, initial encounter Plan Patient is a 51-year-old female, client of [facility] with [facility] services, with hx of Schizoaffective disorder, PTSD, chronic UTI, TBI who, has been stable and out of the hospital for the past 2 years but now presents for depression and command AH to harm herself and plan/intention to cut her neck. -patient reports that here aunt's with medications and that she has done over well for the past couple years; patient reports that depression has been going on for a week but seems like probably longer and early reported auditory hallucinations re-emerged about 4 weeks ago. Patient still feeling suicidal but no intent or plan and wants treatment. Not sure what trigger however patient does continue to have PTSD symptoms which are problematic - Trazodone 150mg qhs? Says has been on in the past but does not seem bed helpful Mirtazapine 7.5 mg q.h.s. was started in the ED for help with sleep and depression and though she says it has not helped with sleep, she does report that her depression and AH are a little less. Patient is already on multiple medications, including 2 antipsychotics and it is significant that she has been stable for about 2 years on current regimen. Will try to avoid polypharmacy. It is preferable to treat these current symptoms with medications with less side effect risks than antipsychotics. -starting Prazosin to see if symptoms can subside by eliminating nightmares (as nightmares can significantly effect the following day and may be etiology for decompensation) -will continue mirtazapine for now (started in ED) since patient reports feeling a little better (though this could also be milieu therapy) -It looks like patient was recently started on Vraylar 02/22; will try to confirm. Perhaps this medication is unnecessary mirtazapine and prazosin could be helpful 03/27 still with CAH, depressed; increase Vraylar since prn helped reduce voices; still not sure if voices causing depression or vice versa. While want to avoid side-effect risks of antipsychotics, AH is scary and causing SI. 03/28 Golf Course Architect discussed case with her long-term boyfriend who says that patient was doing great up until this past weekend; he said they got into an argument because she accused him of messing around which he says is unfounded but that as long as he has known her she has struggled with being jealous. An argument ensued and he said just get your shit and go. He was not really ending the relationship and did not want her to leave but just was upset and said this thing in a heated moment. He also reports that he apologized and that they made up. It was after this that she started to complain of auditory hallucinations of her blanca. He said he was looking at her and could tell she was upset. She said she had some kind of a blackout and then shared about the command auditory hallucinations to herself. He asked if she wanted him to call an ambulance which she did. Jeremias says she did not talk about suicide at all and that there was no knife involved in any way (patient said she put a knife to her neck to slit her throat and that her boyfriend stopped her). He says it has been years since she complained of auditory hallucinations however he says it has happened in the past at different times. Golf Course Architect further reviewed history and prior admission notes for talk about patient 's AH being more likely trauma related and mood congruent then psychotic -patient out-patient staff reports that they have some concerns that patient more likely than not, is hoping to stay in the hospital for an extended period of time, wanting the attention and a break from her home living PLAN CV Q 15 minute checks Continue Prazosin 1mg Qhs for nightmares (reviewed risks/side effects and reji brown agrees) DC Mirtazapine 7.5 mg q.h.s. (started in ED; but will dc to avoid polypharmacy; does not seem helpful for sleep) START trazodone 100mg (she says was on 150mg in past but stopped working) INCREASE TO cariprazine 4.5 mg capsule (Vraylar) daily (recently started last month) continue Clonazepam 0.5 mg q.h.s. and 0.5 mg p.r.n. daily continue Duloxetine DR 60 mg b.i.d. continue Haldol 10 mg b.i.d. continue Levothyroxine 50 mcg q.day continue benztropine 0.5 mg tablet bed Other home meds: Nifurnontin 100 mg daily p.r.n(?). UTI prevention Naproxen 500 mg b.i.d. p.r.n. Sumatriptan 50 mg daily p.r.n. migraine Verapamil 40 mg b.i.d. atorvastatin 20 mg tablet bed benztropine 0.5 mg tablet bed Albuterol inhaler Q for [place] -Discontinue B12 for now as it is supratherapeutic -hx of tubal ligation; I spent minutes with the patient and/or on the patient floor today, greater than?50% of which was spent counseling/coordinating care. Patient educated on: medication risk/benefits Informed Consent: understands Reason for contiued inpatient stay Substantial Risk for: inability to function
[2022-03-28] MEDS: Levothyroxine Sodium 50 MCG TABLET PO (11:12)
[2022-03-28] MEDS: HaloperidoL 5 MG TABLET 10 MG PO ×2 (11:13→19:49)
[2022-03-28] MEDS: Loratadine 10 MG TABLET PO (11:13)
[2022-03-28] MEDS: DULoxetine HCl 60 MG CAPSULE.DR PO ×2 (11:13→19:49)
[2022-03-28] MEDS: VerapamiL HCL 40 MG TABLET PO ×2 (11:13→20:06)
[2022-03-28] MEDS: Fluticasone/Vilanterol 100/25 BLST.W.DEV 1 PUFF INHALE (11:14)
[2022-03-28] MEDS: Calcium + Vitamin D 250 MG TABLET 500 MG PO ×2 (11:14→20:13)
[2022-03-28] MEDS: Cyanocobalamin (Vitamin B-12) 500 MCG TABLET PO (11:14)
[2022-03-28] MEDS: Cariprazine HCl 1.5 MG CAPSULE 4.5 MG PO (11:24)
[2022-03-28] MEDS: Nicotine 21 MG PATCH.TD24 TRANSDERMA (11:25)
[2022-03-28 11:30] VITALS: BP 114/64; PULSE 75; TEMP 36.3
[2022-03-28 18:00] VITALS: BP 132/82; PULSE 99; RESP 16; TEMP 36.5; O2SAT 99
[2022-03-28] MEDS: Benztropine Mesylate 0.5 MG TABLET PO (19:48)
[2022-03-28] MEDS: Atorvastatin Calcium 20 MG TABLET PO (19:49)
[2022-03-28] MEDS: traZODone HCL 100 MG TABLET PO (19:49)
[2022-03-28] MEDS: clonazePAM 0.5 MG TABLET PO (19:49)
[2022-03-28] MEDS: Prazosin HCL 1 MG CAPSULE PO (19:49)
[2022-03-29] MEDS: Levothyroxine Sodium 50 MCG TABLET PO (06:10)
[2022-03-29 08:25] VITALS: BP 114/58; PULSE 91; RESP 17; TEMP 36.3; O2SAT 96
[2022-03-29] MEDS: Cyanocobalamin (Vitamin B-12) 500 MCG TABLET PO (08:52)
[2022-03-29] MEDS: HaloperidoL 5 MG TABLET 10 MG PO ×2 (08:52→21:36)
[2022-03-29] MEDS: Cariprazine HCl 1.5 MG CAPSULE 4.5 MG PO (08:52)
[2022-03-29] MEDS: DULoxetine HCl 60 MG CAPSULE.DR PO ×2 (08:52→21:36)
[2022-03-29] MEDS: Calcium + Vitamin D 250 MG TABLET 500 MG PO ×2 (08:52→21:36)
[2022-03-29] MEDS: VerapamiL HCL 40 MG TABLET PO ×2 (08:53→21:36)
[2022-03-29] MEDS: Loratadine 10 MG TABLET PO (08:53)
[2022-03-29] MEDS: Milk of Magnesia 30 ML ORAL.SUSP PO (08:53)
[2022-03-29] MEDS: Fluticasone/Vilanterol 100/25 BLST.W.DEV 1 PUFF INHALE (09:02)
--- NOTE | 2022-03-29 10:36 | HO.PSYCHPN ---
Subjective Subjective Date of Service: 03/29/22 Reason For Visit: Major Depression with Psychotic Features Interim History: Patient continues to sleep much of the day however She said she is feeling all right And not as depressed. Still reports hearing auditory hallucinations. Oracle Dba shared about her boyfriend's comments about their argument and she said that it was indeed a trigger to her feeling depressed. She agrees that she said something that probably hurt his feelings, prompting him to say something her fund return. Initially she said she was not ready to make up, but said she will reconsider this. Oracle Dba prompted her to get out of bed and socialize in the milieu; patient was able to smile and even chuckle in agreement that this would be helpful. Mental Status Exam Mental Status Exam Narrative: Pt is alert and oriented; behavior is cooperative, friendly and calm; patient is not in distress; dressed in casual cloths, groomed with good hygiene; mood is described as All right and affect congruent, Brighter; eye contact appropriate; Speech is with chronic impediment; Not much latency; Normal rate, normal volume; Still somepsychomotor retardation present; thought process overall goal oriented; remains concrete. Thought content is on Argument with boyfriend and getting AH resolved; otherwise pertinent to relevant topics; no active SI;no HI. She reports AH continues; Patients insight and judgment are impaired but improved. Diagnostics Vital Signs (24Hr): Vital Signs - 24 hr 03/28/22 11:30 03/28/22 18:00 03/29/22 08:25 Temperature 97.4 F 97.7 F 97.4 F Pulse Rate 75 99 91 Respiratory Rate 16 17 Blood Pressure 114/64 132/82 114/58 L Pulse Oximetry 99 96 Oxygen Delivery Method Room Air Room Air BMI result Body Mass Index 34.3 Labs Results: 03/23/22 17:07 03/23/22 17:07 Medications Medications Current Medications Acetaminophen (Acetaminophen 325 Mg Tablet) 650 mg PO Q6H PRN PRN Reason: Headache/Pain Mild Scale (1-3) Al Hydroxide/Mg Hydroxide (Magnesium Hydrox/Alum Hydrox 30 Ml Oral.Susp) 30 ml PO Q6H PRN PRN Reason: Heartburn/Nausea Albuterol Sulfate (Albuterol Sulfate 90 Mcg 8 Gm Inhaler) 2 puff INHALE Q4H PRN PRN Reason: Respiratory Distress Last Admin: 03/23/22 21:24 Dose: 2 puff Atorvastatin Calcium (Atorvastatin Calcium 20 Mg Tablet) 20 mg PO BEDTIME [facility] Last Admin: 03/28/22 19:49 Dose: 20 mg Benztropine Mesylate (Benztropine Mesylate 0.5 Mg Tablet) 0.5 mg PO BEDTIME [facility] Last Admin: 03/28/22 19:48 Dose: 0.5 mg Calcium Carbonate/Cholecalciferol (Calcium + Vitamin D 250 Mg Tablet) 500 mg PO BID [facility] Last Admin: 03/29/22 08:52 Dose: 500 mg Cariprazine (Cariprazine Hcl 1.5 Mg Capsule) 4.5 mg PO DAILY [facility] Last Admin: 03/29/22 08:52 Dose: 4.5 mg Cyanocobalamin (Cyanocobalamin (Vitamin B-12) 500 Mcg Tablet) 500 mcg PO DAILY [facility] Last Admin: 03/29/22 08:52 Dose: 500 mcg Duloxetine HCl (Duloxetine Hcl 60 Mg Capsule.Dr) 60 mg PO BID [facility] Last Admin: 03/29/22 08:52 Dose: 60 mg Fluticasone/Vilanterol (Fluticasone/Vilanterol 100/25 Blst.W.Dev) 1 puff INHALE RDAILY [facility] Last Admin: 03/29/22 09:02 Dose: 1 puff Haloperidol (Haloperidol 5 Mg Tablet) 10 mg PO BID [facility] Last Admin: 03/29/22 08:52 Dose: 10 mg Hydroxyzine HCl (Hydroxyzine Hcl 25 Mg Tablet) 25 mg PO Q6H PRN PRN Reason: Anxiety Last Admin: 03/27/22 14:46 Dose: 25 mg Levothyroxine Sodium (Levothyroxine Sodium 50 Mcg Tablet) 50 mcg PO DAILY@0600 [facility] Last Admin: 03/29/22 06:10 Dose: 50 mcg Lidocaine HCl (Lidocaine 4 % Cream Kit) 1 appl TOPICAL BID [facility] Last Admin: 03/29/22 09:07 Dose: Not Given Loratadine (Loratadine 10 Mg Tablet) 10 mg PO DAILY [facility] Last Admin: 03/29/22 08:53 Dose: 10 mg Magnesium Hydroxide (Milk Of Magnesia 30 Ml Oral.Susp) 30 ml PO DAILY PRN PRN Reason: Constipation Last Admin: 03/29/22 08:53 Dose: 30 ml Naproxen (Naproxen 500 Mg Tablet) 500 mg PO BID PRN PRN Reason: Moderate Pain (Scale Score 5-6) Nicotine (Nicotine 21 Mg Patch.Td24) 21 mg TRANSDERMA DAILY [facility] Last Admin: 03/29/22 09:08 Dose: 21 mg Nitrofurantoin Macrocrystals (Nitrofurantoin Macrocrystal 50 Mg Capsule) 100 mg PO DAILY PRN PRN Reason: UTI PREVENTION Prazosin HCl (Prazosin Hcl 1 Mg Capsule) 1 mg PO BEDTIME [facility]; Protocol Last Admin: 03/28/22 19:49 Dose: 1 mg Sumatriptan Succinate (Sumatriptan Succinate 50 Mg Tablet) 50 mg PO DAILY PRN PRN Reason: Migraine Headache Trazodone HCl (Trazodone Hcl 100 Mg Tablet) 100 mg PO BEDTIME [facility] Last Admin: 03/28/22 19:49 Dose: 100 mg Verapamil HCl (Verapamil Hcl 40 Mg Tablet) 40 mg PO BID [facility]; Protocol Last Admin: 03/29/22 08:53 Dose: 40 mg Allergies Allergies Allergy/AdvReac Type Severity Reaction Status Date / Time amoxicillin [AMOXICILLIN] Allergy Intermediate HIVES Verified 03/23/22 16:51 carisoprodol [From SOMA] Allergy Intermediate HIVES Verified 03/23/22 16:51 Fish Containing Products Allergy Intermediate HIVES Verified 03/23/22 16:51 Penicillins [PENICILLINS] Allergy Intermediate HIVES Verified 03/23/22 16:51 latex [LATEX] Allergy Mild RASH Verified 03/23/22 16:51 fish Allergy Unknown shortness Uncoded 03/23/22 16:51 of breath MEAT AdvReac Mild SICK Uncoded 03/23/22 16:51 Assessment & Plan Assessment & Plan (1) Schizoaffective disorder: Status: Acute Code(s): F25.9 - Schizoaffective disorder, unspecified (2) Chronic post-traumatic stress disorder (PTSD): Status: Acute Code(s): F43.12 - Post-traumatic stress disorder, chronic (3) TBI (traumatic brain injury): Status: Acute Code(s): S06.9X9A - Unspecified intracranial injury with loss of consciousness of unspecified duration, initial encounter Plan Patient is a 51-year-old female, client of [facility] with [facility] services, with hx of Schizoaffective disorder, PTSD, chronic UTI, TBI who, has been stable and out of the hospital for the past 2 years but now presents for depression and command AH to harm herself and plan/intention to cut her neck. -patient reports that here aunt's with medications and that she has done over well for the past couple years; patient reports that depression has been going on for a week but seems like probably longer and early reported auditory hallucinations re-emerged about 4 weeks ago. Patient still feeling suicidal but no intent or plan and wants treatment. Not sure what trigger however patient does continue to have PTSD symptoms which are problematic - Trazodone 150mg qhs? Says has been on in the past but does not seem bed helpful Mirtazapine 7.5 mg q.h.s. was started in the ED for help with sleep and depression and though she says it has not helped with sleep, she does report that her depression and AH are a little less. Patient is already on multiple medications, including 2 antipsychotics and it is significant that she has been stable for about 2 years on current regimen. Will try to avoid polypharmacy. It is preferable to treat these current symptoms with medications with less side effect risks than antipsychotics. -starting Prazosin to see if symptoms can subside by eliminating nightmares (as nightmares can significantly effect the following day and may be etiology for decompensation) -will continue mirtazapine for now (started in ED) since patient reports feeling a little better (though this could also be milieu therapy) -It looks like patient was recently started on Vraylar 02/22; will try to confirm. Perhaps this medication is unnecessary mirtazapine and prazosin could be helpful 03/27 still with CAH, depressed; increase Vraylar since prn helped reduce voices; still not sure if voices causing depression or vice versa. While want to avoid side-effect risks of antipsychotics, AH is scary and causing SI. 03/28 Oracle Dba discussed case with her computer terminal operator boyfriend who says that patient was doing great up until this past weekend; he said they got into an argument because she accused him of messing around which he says is unfounded but that as long as he has known her she has struggled with being jealous. An argument ensued and he said just get your shit and go. He was not really ending the relationship and did not want her to leave but just was upset and said this thing in a heated moment. He also reports that he apologized and that they made up. It was after this that she started to complain of auditory hallucinations of her blanca. He said he was looking at her and could tell she was upset. She said she had some kind of a blackout and then shared about the command auditory hallucinations to herself. He asked if she wanted him to call an ambulance which she did. Jeremias says she did not talk about suicide at all and that there was no knife involved in any way (patient said she put a knife to her neck to slit her throat and that her boyfriend stopped her). He says it has been years since she complained of auditory hallucinations however he says it has happened in the past at different times. Oracle Dba further reviewed history and prior admission notes for talk about patient's AH being more likely trauma related and mood congruent then psychotic; Also in prior notes, patient reported overdose of medications but the veracity of Her report was questioned as it did not seem to match up with collateral. -patient out-patient staff reports that they have some concerns that patient more likely than not, is hoping to stay in the hospital for an extended period of time, wanting the attention and a break from her home living 03/29 Affect brighter and she smiled and chuckled today. Says depression a little better. Continues to complain of auditory hallucinations, however given history and recent triggering event, it seems more likely these are mood congruent. Will leave current medications as they are. Patient agrees that her decompensation was triggered by an argument with her boyfriend; she is considering resolving the issue but not quite there yet. PLAN CV Q 15 minute checks Continue Prazosin 1mg Qhs for nightmares (reviewed risks/side effects and patient agrees) DC Mirtazapine 7.5 mg q.h.s. (started in ED; but will dc to avoid polypharmacy; does not seem helpful for sleep) START trazodone 100mg (she says was on 150mg in past but stopped working) INCREASEd TO cariprazine 4.5 mg capsule (Vraylar) daily (recently started last month) continue Clonazepam 0.5 mg q.h.s. and 0.5 mg p.r.n. daily continue Duloxetine DR 60 mg b.i.d. continue Haldol 10 mg b.i.d. continue Levothyroxine 50 mcg q.day continue benztropine 0.5 mg tablet bed Other home meds: Nifurnontin 100 mg daily p.r.n(?). UTI prevention Naproxen 500 mg b.i.d. p.r.n. Sumatriptan 50 mg daily p.r.n. migraine Verapamil 40 mg b.i.d. atorvastatin 20 mg tablet bed benztropine 0.5 mg tablet bed Albuterol inhaler Q for [place] -Discontinue B12 for now as it is supratherapeutic -hx of tubal ligation; I spent minutes with the patient and/or on the patient floor today, greater than?50% of which was spent counseling/coordinating care. Patient educated on: diagnosis and therapeutic strategies Informed Consent: understands and further education needed Reason for contiued inpatient stay Substantial Risk for: stable for discharge
[2022-03-29] MEDS: hydrOXYzine HCL 25 MG TABLET PO (15:36)
[2022-03-29 18:00] VITALS: BP 97/65; PULSE 104; RESP 14; TEMP 36.3
[2022-03-29] MEDS: traZODone HCL 100 MG TABLET PO (21:36)
[2022-03-29] MEDS: Prazosin HCL 1 MG CAPSULE PO (21:36)
[2022-03-29] MEDS: Atorvastatin Calcium 20 MG TABLET PO (21:36)
[2022-03-29] MEDS: Benztropine Mesylate 0.5 MG TABLET PO (21:37)
[2022-03-30] MEDS: traZODone HCL 100 MG TABLET PO ×2 (01:28→19:28)
[2022-03-30 06:00] VITALS: BP 124/60; PULSE 77
[2022-03-30] MEDS: Cariprazine HCl 1.5 MG CAPSULE 4.5 MG PO (08:21)
[2022-03-30] MEDS: VerapamiL HCL 40 MG TABLET PO ×2 (08:21→19:28)
[2022-03-30] MEDS: Calcium + Vitamin D 250 MG TABLET 500 MG PO ×2 (08:21→19:29)
[2022-03-30] MEDS: Loratadine 10 MG TABLET PO (08:21)
[2022-03-30] MEDS: Cyanocobalamin (Vitamin B-12) 500 MCG TABLET PO (08:21)
[2022-03-30] MEDS: Levothyroxine Sodium 50 MCG TABLET PO (08:21)
[2022-03-30] MEDS: DULoxetine HCl 60 MG CAPSULE.DR PO ×2 (08:21→19:28)
[2022-03-30] MEDS: HaloperidoL 5 MG TABLET 10 MG PO ×2 (08:21→19:29)
[2022-03-30] MEDS: Fluticasone/Vilanterol 100/25 BLST.W.DEV 1 PUFF INHALE (08:22)
--- NOTE | 2022-03-30 16:29 | P.PNPSI_ITS ---
Subjective Subjective Date of Service: 03/30/22 Reason For Visit: Major Depression with Psychotic Features Interim History: Patient reports mood is a little better; denies SI. Still has auditory hallucinations but she says they are mostly just at nighttime and not really present during the day. She agrees to increasing prazosin. Patient said she had a good talk with her boyfriend and the to have reconciled. She agrees that relationships take hard work. Patient out of bed today, showered, dressed and in the milieu. Mental Status Exam Mental Status Exam Narrative: Pt is alert and oriented; behavior is cooperative, friendly and calm; patient is not in distress; dressed in casual cloths, groomed with good hygiene; mood is described as ok and affect congruent, Brighter; eye contact appropriate; Speech is with chronic impediment; Not much latency; Normal rate, normal volume; Still somepsychomotor retardation present; thought process overall goal oriented; remains concrete. Thought content is on Argument with boyfriend and getting AH resolved; otherwise pertinent to relevant topics; no active SI;no HI. She reports AH continues; Patients insight and judgment are impaired but improved. Diagnostics Vital Signs (24Hr): Vital Signs - 24 hr 03/29/22 18:00 03/30/22 06:00 Temperature 97.4 F Pulse Rate 104 H 77 Respiratory Rate 14 Blood Pressure 97/65 124/60 BMI result Body Mass Index 34.3 Labs Results: 03/23/22 17:07 03/23/22 17:07 Medications Medications Current Medications Acetaminophen (Acetaminophen 325 Mg Tablet) 650 mg PO Q6H PRN PRN Reason: Headache/Pain Mild Scale (1-3) Al Hydroxide/Mg Hydroxide (Magnesium Hydrox/Alum Hydrox 30 Ml Oral.Susp) 30 ml PO Q6H PRN PRN Reason: Heartburn/Nausea Albuterol Sulfate (Albuterol Sulfate 90 Mcg 8 Gm Inhaler) 2 puff INHALE Q4H PRN PRN Reason: Respiratory Distress Last Admin: 03/23/22 21:24 Dose: 2 puff Atorvastatin Calcium (Atorvastatin Calcium 20 Mg Tablet) 20 mg PO BEDTIME [facility] Last Admin: 03/29/22 21:36 Dose: 20 mg Benztropine Mesylate (Benztropine Mesylate 0.5 Mg Tablet) 0.5 mg PO BEDTIME [facility] Last Admin: 03/29/22 21:37 Dose: 0.5 mg Calcium Carbonate/Cholecalciferol (Calcium + Vitamin D 250 Mg Tablet) 500 mg PO BID [facility] Last Admin: 03/30/22 08:21 Dose: 500 mg Cariprazine (Cariprazine Hcl 1.5 Mg Capsule) 4.5 mg PO DAILY [facility] Last Admin: 03/30/22 08:21 Dose: 4.5 mg Cyanocobalamin (Cyanocobalamin (Vitamin B-12) 500 Mcg Tablet) 500 mcg PO DAILY [facility] Last Admin: 03/30/22 08:21 Dose: 500 mcg Duloxetine HCl (Duloxetine Hcl 60 Mg Capsule.Dr) 60 mg PO BID [facility] Last Admin: 03/30/22 08:21 Dose: 60 mg Fluticasone/Vilanterol (Fluticasone/Vilanterol 100/25 Blst.W.Dev) 1 puff INHALE RDAILY [facility] Last Admin: 03/30/22 08:22 Dose: 1 puff Haloperidol (Haloperidol 5 Mg Tablet) 10 mg PO BID [facility] Last Admin: 03/30/22 08:21 Dose: 10 mg Hydroxyzine HCl (Hydroxyzine Hcl 25 Mg Tablet) 25 mg PO Q6H PRN PRN Reason: Anxiety Last Admin: 03/29/22 15:36 Dose: 25 mg Levothyroxine Sodium (Levothyroxine Sodium 50 Mcg Tablet) 50 mcg PO DAILY@0600 [facility] Last Admin: 03/30/22 08:21 Dose: 50 mcg Lidocaine HCl (Lidocaine 4 % Cream Kit) 1 appl TOPICAL BID [facility] Last Admin: 03/30/22 08:25 Dose: Not Given Loratadine (Loratadine 10 Mg Tablet) 10 mg PO DAILY [facility] Last Admin: 03/30/22 08:21 Dose: 10 mg Magnesium Hydroxide (Milk Of Magnesia 30 Ml Oral.Susp) 30 ml PO DAILY PRN PRN Reason: Constipation Last Admin: 03/29/22 08:53 Dose: 30 ml Naproxen (Naproxen 500 Mg Tablet) 500 mg PO BID PRN PRN Reason: Moderate Pain (Scale Score 5-6) Nicotine (Nicotine 21 Mg Patch.Td24) 21 mg TRANSDERMA DAILY [facility] Last Admin: 03/30/22 08:22 Dose: Not Given Nitrofurantoin Macrocrystals (Nitrofurantoin Macrocrystal 50 Mg Capsule) 100 mg PO DAILY PRN PRN Reason: UTI PREVENTION Prazosin HCl (Prazosin Hcl 1 Mg Capsule) 2 mg PO BEDTIME [facility]; Protocol Sumatriptan Succinate (Sumatriptan Succinate 50 Mg Tablet) 50 mg PO DAILY PRN PRN Reason: Migraine Headache Trazodone HCl (Trazodone Hcl 100 Mg Tablet) 100 mg PO BEDTIME [facility] Last Admin: 03/30/22 01:28 Dose: 100 mg Verapamil HCl (Verapamil Hcl 40 Mg Tablet) 40 mg PO BID [facility]; Protocol Last Admin: 03/30/22 08:21 Dose: 40 mg Allergies Allergies Allergy/AdvReac Type Severity Reaction Status Date / Time amoxicillin [AMOXICILLIN] Allergy Intermediate HIVES Verified 03/23/22 16:51 carisoprodol [From SOMA] Allergy Intermediate HIVES Verified 03/23/22 16:51 Fish Containing Products Allergy Intermediate HIVES Verified 03/23/22 16:51 Penicillins [PENICILLINS] Allergy Intermediate HIVES Verified 03/23/22 16:51 latex [LATEX] Allergy Mild RASH Verified 03/23/22 16:51 fish Allergy Unknown shortness Uncoded 03/23/22 16:51 of breath MEAT AdvReac Mild SICK Uncoded 03/23/22 16:51 Assessment & Plan Assessment & Plan (1) Schizoaffective disorder: Status: Acute Code(s): F25.9 - Schizoaffective disorder, unspecified (2) Chronic post-traumatic stress disorder (PTSD): Status: Acute Code(s): F43.12 - Post-traumatic stress disorder, chronic (3) TBI (traumatic brain injury): Status: Acute Code(s): S06.9X9A - Unspecified intracranial injury with loss of consciousness of unspecified duration, initial encounter Plan Patient is a 51-year-old female, client of [facility] with ACCS services, with hx of Schizoaffective disorder, PTSD, chronic UTI, TBI who, has been stable and out of the hospital for the past 2 years but now presents for depression and command AH to harm herself and plan/intention to cut her neck. -patient reports that here aunt's with medications and that she has done over well for the past couple years; patient reports that depression has been going on for a week but seems like probably longer and early reported auditory hallucinations re-emerged about 4 weeks ago. Patient still feeling suicidal but no intent or plan and wants treatment. Not sure what trigger however patient does continue to have PTSD symptoms which are problematic - Trazodone 150mg qhs? Says has been on in the past but does not seem bed helpful Mirtazapine 7.5 mg q.h.s. was started in the ED for help with sleep and depression and though she says it has not helped with sleep, she does report that her depression and AH are a little less. Patient is already on multiple medications, including 2 antipsychotics and it is significant that she has been stable for about 2 years on current regimen. Will try to avoid polypharmacy. It is preferable to treat these current symptoms with medications with less side effect risks than antipsychotics. -starting Prazosin to see if symptoms can subside by eliminating nightmares (as nightmares can significantly effect the following day and may be etiology for decompensation) -will continue mirtazapine for now (started in ED) since patient reports feeling a little better (though this could also be milieu therapy) -It looks like patient was recently started on Vraylar 02/22; will try to confirm. Perhaps this medication is unnecessary mirtazapine and prazosin could be helpful 03/27 still with CAH, depressed; increase Vraylar since prn helped reduce voices; still not sure if voices causing depression or vice versa. While want to avoid side-effect risks of antipsychotics, AH is scary and causing SI. 03/28 Manager Cardiology discussed case with her assisted boyfriend who says that patient was doing great up until this past weekend; he said they got into an argument because she accused him of messing around which he says is unfounded but that as long as he has known her she has struggled with being jealous. An argument ensued and he said just get your shit and go. He was not really ending the relationship and did not want her to leave but just was upset and said this thing in a heated moment. He also reports that he apologized and that they made up. It was after this that she started to complain of auditory hallucinations of her blanca. He said he was looking at her and could tell she was upset. She said she had some kind of a blackout and then shared about the command auditory hallucinations to herself. He asked if she wanted him to call an ambulance which she did. Jeremias says she did not talk about suicide at all and that there was no knife involved in any way (patient said she put a knife to her neck to slit her throat and that her boyfriend stopped her). He says it has been years since she complained of auditory hallucinations however he says it has happened in the past at different times. Manager Cardiology further reviewed history and prior admission notes for talk about patient's AH being more likely trauma related and mood congruent then psychotic; Also in prior notes, patient reported overdose of medications but the veracity of Her report was questioned as it did not seem to match up with collateral. -patient out-patient staff reports that they have some concerns that patient more likely than not, is hoping to stay in the hospital for an extended period of time, wanting the attention and a break from her home living 03/29 Affect brighter and she smiled and chuckled today. Says depression a little better. Continues to complain of auditory hallucinations, however given history and recent triggering event, it seems more likely these are mood congruent. Will leave current medications as they are. Patient agrees that her decompensation was triggered by an argument with her boyfriend; she is considering resolving the issue but not quite there yet. 03/30 patient's mood remains better and no SI. AH also remains but she says it is mostly just at night other supporting likelihood that they are mood congruent. Made up with boyfriend and is feeling better about it. PLAN CV Q 15 minute checks Increased to Prazosin 2mg Qhs for nightmares (reviewed risks/side effects and patient agrees) DC Mirtazapine 7.5 mg q.h.s. (started in ED; but will dc to avoid polypharmacy; does not seem helpful for sleep) START trazodone 100mg (she says was on 150mg in past but stopped working) INCREASEd TO cariprazine 4.5 mg capsule (Vraylar) daily (recently started last month) continue Clonazepam 0.5 mg q.h.s. and 0.5 mg p.r.n. daily continue Duloxetine DR 60 mg b.i.d. continue Haldol 10 mg b.i.d. continue Levothyroxine 50 mcg q.day continue benztropine 0.5 mg tablet bed Other home meds: Nifurnontin 100 mg daily p.r.n(?). UTI prevention Naproxen 500 mg b.i.d. p.r.n. Sumatriptan 50 mg daily p.r.n. migraine Verapamil 40 mg b.i.d. atorvastatin 20 mg tablet bed benztropine 0.5 mg tablet bed Albuterol inhaler Q for MS -Discontinue B12 for now as it is supratherapeutic -hx of tubal ligation; I spent minutes with the patient and/or on the patient floor today, greater than?50% of which was spent counseling/coordinating care. Patient educated on: diagnosis, medication risk/benefits and therapeutic strategies Informed Consent: understands Reason for contiued inpatient stay Substantial Risk for: stable for discharge
[2022-03-30 19:25] VITALS: BP 121/82; PULSE 78; RESP 14; TEMP 36.6; O2SAT 95
[2022-03-30] MEDS: Prazosin HCL 1 MG CAPSULE 2 MG PO (19:27)
[2022-03-30] MEDS: Atorvastatin Calcium 20 MG TABLET PO (19:28)
[2022-03-30] MEDS: Benztropine Mesylate 0.5 MG TABLET PO (19:28)
[2022-03-31 09:18] VITALS: BP 121/75; PULSE 85; RESP 16; TEMP 36.5
[2022-03-31] MEDS: HaloperidoL 5 MG TABLET 10 MG PO ×2 (09:19→20:20)
[2022-03-31] MEDS: Calcium + Vitamin D 250 MG TABLET 500 MG PO ×2 (09:19→20:19)
[2022-03-31] MEDS: DULoxetine HCl 60 MG CAPSULE.DR PO ×2 (09:20→20:19)
[2022-03-31] MEDS: Cariprazine HCl 1.5 MG CAPSULE 4.5 MG PO (09:20)
[2022-03-31] MEDS: Levothyroxine Sodium 50 MCG TABLET PO (09:21)
[2022-03-31] MEDS: VerapamiL HCL 40 MG TABLET PO ×2 (09:21→20:19)
[2022-03-31] MEDS: Cyanocobalamin (Vitamin B-12) 500 MCG TABLET PO (09:21)
[2022-03-31] MEDS: Loratadine 10 MG TABLET PO (09:21)
[2022-03-31] MEDS: Fluticasone/Vilanterol 100/25 BLST.W.DEV 1 PUFF INHALE (09:23)
--- NOTE | 2022-03-31 13:54 | HO.PSYCHPN ---
Subjective Subjective Date of Service: 03/31/22 Reason For Visit: Major Depression with Psychotic Features Interim History: Patient reports that no auditory hallucinations last night. She said that she is feeling better and glad that the medication helped. No SI and depression continues to get better. Again sleeping in late but out of her room, showered and in the milieu. Mental Status Exam Mental Status Exam Narrative: Pt is alert and oriented; behavior is cooperative, friendly and calm; patient is not in distress; dressed in casual cloths, groomed with good hygiene; mood is described as better and affect congruent, Brighter; eye contact appropriate; Speech is with chronic impediment; some latency; Normal rate, normal volume; no psychomotor retardation present; thought process overall goal oriented; remains concrete. Thought content is on boyfriend, tx; otherwise pertinent to relevant topics; no active SI;no HI. No AH; Patients insight and judgment are impaired but adequate and likely baseline. Diagnostics Vital Signs (24Hr): Vital Signs - 24 hr 03/30/22 19:25 03/31/22 09:18 Temperature 97.8 F 97.7 F Pulse Rate 78 85 Respiratory Rate 14 16 Blood Pressure 121/82 121/75 Pulse Oximetry 95 Oxygen Delivery Method Room Air Room Air BMI result Body Mass Index 34.3 Labs Results: 03/23/22 17:07 03/23/22 17:07 Medications Medications Current Medications Acetaminophen (Acetaminophen 325 Mg Tablet) 650 mg PO Q6H PRN PRN Reason: Headache/Pain Mild Scale (1-3) Al Hydroxide/Mg Hydroxide (Magnesium Hydrox/Alum Hydrox 30 Ml Oral.Susp) 30 ml PO Q6H PRN PRN Reason: Heartburn/Nausea Albuterol Sulfate (Albuterol Sulfate 90 Mcg 8 Gm Inhaler) 2 puff INHALE Q4H PRN PRN Reason: Respiratory Distress Last Admin: 03/23/22 21:24 Dose: 2 puff Atorvastatin Calcium (Atorvastatin Calcium 20 Mg Tablet) 20 mg PO BEDTIME [facility] Last Admin: 03/30/22 19:28 Dose: 20 mg Benztropine Mesylate (Benztropine Mesylate 0.5 Mg Tablet) 0.5 mg PO BEDTIME [facility] Last Admin: 03/30/22 19:28 Dose: 0.5 mg Calcium Carbonate/Cholecalciferol (Calcium + Vitamin D 250 Mg Tablet) 500 mg PO BID [facility] Last Admin: 03/31/22 09:19 Dose: 500 mg Cariprazine (Cariprazine Hcl 1.5 Mg Capsule) 4.5 mg PO DAILY [facility] Last Admin: 03/31/22 09:20 Dose: 4.5 mg Cyanocobalamin (Cyanocobalamin (Vitamin B-12) 500 Mcg Tablet) 500 mcg PO DAILY [facility] Last Admin: 03/31/22 09:21 Dose: 500 mcg Duloxetine HCl (Duloxetine Hcl 60 Mg Capsule.Dr) 60 mg PO BID [facility] Last Admin: 03/31/22 09:20 Dose: 60 mg Fluticasone/Vilanterol (Fluticasone/Vilanterol 100/25 Blst.W.Dev) 1 puff INHALE RDAILY [facility] Last Admin: 03/31/22 09:23 Dose: 1 puff Haloperidol (Haloperidol 5 Mg Tablet) 10 mg PO BID [facility] Last Admin: 03/31/22 09:19 Dose: 10 mg Hydroxyzine HCl (Hydroxyzine Hcl 25 Mg Tablet) 25 mg PO Q6H PRN PRN Reason: Anxiety Last Admin: 03/29/22 15:36 Dose: 25 mg Levothyroxine Sodium (Levothyroxine Sodium 50 Mcg Tablet) 50 mcg PO DAILY@0600 [facility] Last Admin: 03/31/22 09:21 Dose: 50 mcg Lidocaine HCl (Lidocaine 4 % Cream Kit) 1 appl TOPICAL BID [facility] Last Admin: 03/31/22 09:22 Dose: Not Given Loratadine (Loratadine 10 Mg Tablet) 10 mg PO DAILY [facility] Last Admin: 03/31/22 09:21 Dose: 10 mg Magnesium Hydroxide (Milk Of Magnesia 30 Ml Oral.Susp) 30 ml PO DAILY PRN PRN Reason: Constipation Last Admin: 03/29/22 08:53 Dose: 30 ml Naproxen (Naproxen 500 Mg Tablet) 500 mg PO BID PRN PRN Reason: Moderate Pain (Scale Score 5-6) Nicotine (Nicotine 21 Mg Patch.Td24) 21 mg TRANSDERMA DAILY [facility] Last Admin: 03/31/22 09:22 Dose: Not Given Nitrofurantoin Macrocrystals (Nitrofurantoin Macrocrystal 50 Mg Capsule) 100 mg PO DAILY PRN PRN Reason: UTI PREVENTION Prazosin HCl (Prazosin Hcl 1 Mg Capsule) 2 mg PO BEDTIME [facility]; Protocol Last Admin: 03/30/22 19:27 Dose: 2 mg Sumatriptan Succinate (Sumatriptan Succinate 50 Mg Tablet) 50 mg PO DAILY PRN PRN Reason: Migraine Headache Trazodone HCl (Trazodone Hcl 100 Mg Tablet) 100 mg PO BEDTIME [facility] Last Admin: 03/30/22 19:28 Dose: 100 mg Verapamil HCl (Verapamil Hcl 40 Mg Tablet) 40 mg PO BID [facility]; Protocol Last Admin: 03/31/22 09:21 Dose: 40 mg Allergies Allergies Allergy/AdvReac Type Severity Reaction Status Date / Time amoxicillin [AMOXICILLIN] Allergy Intermediate HIVES Verified 03/23/22 16:51 carisoprodol [From SOMA] Allergy Intermediate HIVES Verified 03/23/22 16:51 Fish Containing Products Allergy Intermediate HIVES Verified 03/23/22 16:51 Penicillins [PENICILLINS] Allergy Intermediate HIVES Verified 03/23/22 16:51 latex [LATEX] Allergy Mild RASH Verified 03/23/22 16:51 fish Allergy Unknown shortness Uncoded 03/23/22 16:51 of breath MEAT AdvReac Mild SICK Uncoded 03/23/22 16:51 Assessment & Plan Assessment & Plan (1) Schizoaffective disorder: Status: Acute Code(s): F25.9 - Schizoaffective disorder, unspecified (2) Chronic post-traumatic stress disorder (PTSD): Status: Acute Code(s): F43.12 - Post-traumatic stress disorder, chronic (3) TBI (traumatic brain injury): Status: Acute Code(s): S06.9X9A - Unspecified intracranial injury with loss of consciousness of unspecified duration, initial encounter Plan Patient is a 51-year-old female, client of [facility] with ACCS services, with hx of Schizoaffective disorder, PTSD, chronic UTI, TBI who, has been stable and out of the hospital for the past 2 years but now presents for depression and command AH to harm herself and plan/intention to cut her neck. -patient reports that here aunt's with medications and that she has done over well for the past couple years; patient reports that depression has been going on for a week but seems like probably longer and early reported auditory hallucinations re-emerged about 4 weeks ago. Patient still feeling suicidal but no intent or plan and wants treatment. Not sure what trigger however patient does continue to have PTSD symptoms which are problematic - Trazodone 150mg qhs? Says has been on in the past but does not seem bed helpful Mirtazapine 7.5 mg q.h.s. was started in the ED for help with sleep and depression and though she says it has not helped with sleep, she does report that her depression and AH are a little less. Patient is already on multiple medications, including 2 antipsychotics and it is significant that she has been stable for about 2 years on current regimen. Will try to avoid polypharmacy. It is preferable to treat these current symptoms with medications with less side effect risks than antipsychotics. -starting Prazosin to see if symptoms can subside by eliminating nightmares (as nightmares can significantly effect the following day and may be etiology for decompensation) -will continue mirtazapine for now (started in ED) since patient reports feeling a little better (though this could also be milieu therapy) -It looks like patient was recently started on Vraylar 02/22; will try to confirm. Perhaps this medication is unnecessary mirtazapine and prazosin could be helpful 03/27 still with CAH, depressed; increase Vraylar since prn helped reduce voices; still not sure if voices causing depression or vice versa. While want to avoid side-effect risks of antipsychotics, AH is scary and causing SI. 03/28 Tool Maker Bench discussed case with her retirement boyfriend who says that patient was doing great up until this past weekend; he said they got into an argument because she accused him of messing around which he says is unfounded but that as long as he has known her she has struggled with being jealous. An argument ensued and he said just get your shit and go. He was not really ending the relationship and did not want her to leave but just was upset and said this thing in a heated moment. He also reports that he apologized and that they made up. It was after this that she started to complain of auditory hallucinations of her blanca. He said he was looking at her and could tell she was upset. She said she had some kind of a blackout and then shared about the command auditory hallucinations to herself. He asked if she wanted him to call an ambulance which she did. Jeremias says she did not talk about suicide at all and that there was no knife involved in any way (patient said she put a knife to her neck to slit her throat and that her boyfriend stopped her). He says it has been years since she complained of auditory hallucinations however he says it has happened in the past at different times. Tool Maker Bench further reviewed history and prior admission notes for talk about patient's AH being more likely trauma related and mood congruent then psychotic; Also in prior notes, patient reported overdose of medications but the veracity of Her report was questioned as it did not seem to match up with collateral. -patient out-patient staff reports that they have some concerns that patient more likely than not, is hoping to stay in the hospital for an extended period of time, wanting the attention and a break from her home living 03/29 Affect brighter and she smiled and chuckled today. Says depression a little better. Continues to complain of auditory hallucinations, however given history and recent triggering event, it seems more likely these are mood congruent. Will leave current medications as they are. Patient agrees that her decompensation was triggered by an argument with her boyfriend; she is considering resolving the issue but not quite there yet. 03/30 patient's mood remains better and no SI. AH also remains but she says it is mostly just at night other supporting likelihood that they are mood congruent. Made up with boyfriend and is feeling better about it. 03/31 no AH last night and patient says she has feeling better still. Seems approaching baseline PLAN CV Q 15 minute checks continue Prazosin 2mg Qhs for nightmares (reviewed risks/side effects and patient agrees) DC Mirtazapine 7.5 mg q.h.s. (started in ED; but will dc to avoid polypharmacy; does not seem helpful for sleep) continue trazodone 100mg (she says was on 150mg in past but stopped working) INCREASEd TO cariprazine 4.5 mg capsule (Vraylar) daily (recently started last month) continue Clonazepam 0.5 mg q.h.s. and 0.5 mg p.r.n. daily continue Duloxetine DR 60 mg b.i.d. continue Haldol 10 mg b.i.d. continue Levothyroxine 50 mcg q.day continue benztropine 0.5 mg tablet bed Other home meds: Nifurnontin 100 mg daily p.r.n(?). UTI prevention Naproxen 500 mg b.i.d. p.r.n. Sumatriptan 50 mg daily p.r.n. migraine Verapamil 40 mg b.i.d. atorvastatin 20 mg tablet bed benztropine 0.5 mg tablet bed Albuterol inhaler Q for [place] -Discontinue B12 for now as it is supratherapeutic -hx of tubal ligation; I spent minutes with the patient and/or on the patient floor today, greater than?50% of which was spent counseling/coordinating care. Patient educated on: diagnosis and medication risk/benefits Informed Consent: understands Reason for contiued inpatient stay Substantial Risk for: stable for discharge
--- NOTE | 2022-03-31 14:02 | PC.NURSE ---
Patient reported to staff members that a fall occured while in the shower. Patient reported ?I fell down to my knees?. Patient denied any head injury during the incident. Post fall patient is alert and oriented x4, vital signs stable, 108/75, HR of 109, and Patient denied pain. Patient presented with a full range of motion BLE. No open areas, bruising, or redness on BLE. Doctor Alfredo notified.?Patient offered Tylenol and declined.
[2022-03-31] MEDS: hydrOXYzine HCL 25 MG TABLET PO (16:43)
[2022-03-31 16:45] VITALS: BP 97/60; PULSE 108; RESP 16; O2SAT 96
[2022-03-31] MEDS: Benztropine Mesylate 0.5 MG TABLET PO (20:19)
[2022-03-31] MEDS: Atorvastatin Calcium 20 MG TABLET PO (20:19)
[2022-03-31] MEDS: Prazosin HCL 1 MG CAPSULE 2 MG PO (20:20)
[2022-03-31] MEDS: traZODone HCL 100 MG TABLET PO (20:20)
[2022-03-31] MEDS: Acetaminophen 325 MG TABLET 650 MG PO (20:22)
[2022-03-31 20:24] VITALS: BP 93/67; PULSE 112
[2022-04-01 09:30] VITALS: BP 97/58; PULSE 87; RESP 20; TEMP 36.7; O2SAT 96
[2022-04-01] MEDS: Calcium + Vitamin D 250 MG TABLET 500 MG PO ×2 (09:31→20:23)
[2022-04-01] MEDS: HaloperidoL 5 MG TABLET 10 MG PO ×2 (09:31→20:23)
[2022-04-01] MEDS: Cariprazine HCl 1.5 MG CAPSULE 4.5 MG PO (09:32)
[2022-04-01] MEDS: Loratadine 10 MG TABLET PO (09:33)
[2022-04-01] MEDS: Cyanocobalamin (Vitamin B-12) 500 MCG TABLET PO (09:33)
[2022-04-01] MEDS: DULoxetine HCl 60 MG CAPSULE.DR PO ×2 (09:33→20:23)
[2022-04-01] MEDS: Levothyroxine Sodium 50 MCG TABLET PO (09:34)
[2022-04-01] MEDS: Nicotine 21 MG PATCH.TD24 TRANSDERMA (09:56)
[2022-04-01] MEDS: Fluticasone/Vilanterol 100/25 BLST.W.DEV 1 PUFF INHALE (09:56)
--- NOTE | 2022-04-01 11:43 | PC.NURSE ---
Late entry: Verapamil held in AM due to decreased BP, recent hx fall-MD notified.
--- NOTE | 2022-04-01 16:01 | P.PNPSI_ITS ---
Subjective Subjective Date of Service: 04/01/22 Reason For Visit: Major Depression with Psychotic Features Interim History: Patient reports that her depression remains much improved and denies any SI. She did have some AH last night but says overall it is much less. She feels ready to go home. Mental Status Exam Mental Status Exam Narrative: Pt is alert and oriented; behavior is cooperative, friendly and calm; patient is not in distress; dressed in casual cloths, groomed with good hygiene; mood is described as alright and affect congruent, Brighter; eye contact appropriate; Speech is with chronic impediment; some latency; Normal rate, normal volume; no psychomotor retardation present; thought process overall goal oriented; remains concrete. Thought content is on boyfriend, tx; otherwise pertinent to relevant topics; no active SI;no HI. No AH; Patients insight and judgment are impaired but adequate and likely baseline. Diagnostics Vital Signs (24Hr): Vital Signs - 24 hr 03/31/22 16:45 03/31/22 20:24 04/01/22 09:30 Temperature 98.0 F Pulse Rate 108 H 112 H 87 Respiratory Rate 16 20 Blood Pressure 97/60 93/67 97/58 L Pulse Oximetry 96 96 Oxygen Delivery Method Room Air Room Air BMI result Body Mass Index 34.3 Labs Results: 03/23/22 17:07 03/23/22 17:07 Medications Medications Current Medications Acetaminophen (Acetaminophen 325 Mg Tablet) 650 mg PO Q6H PRN PRN Reason: Headache/Pain Mild Scale (1-3) Last Admin: 03/31/22 20:22 Dose: 650 mg Al Hydroxide/Mg Hydroxide (Magnesium Hydrox/Alum Hydrox 30 Ml Oral.Susp) 30 ml PO Q6H PRN PRN Reason: Heartburn/Nausea Albuterol Sulfate (Albuterol Sulfate 90 Mcg 8 Gm Inhaler) 2 puff INHALE Q4H PRN PRN Reason: Respiratory Distress Last Admin: 03/23/22 21:24 Dose: 2 puff Atorvastatin Calcium (Atorvastatin Calcium 20 Mg Tablet) 20 mg PO BEDTIME TIRSO Last Admin: 03/31/22 20:19 Dose: 20 mg Benztropine Mesylate (Benztropine Mesylate 0.5 Mg Tablet) 0.5 mg PO BEDTIME TIRSO Last Admin: 03/31/22 20:19 Dose: 0.5 mg Calcium Carbonate/Cholecalciferol (Calcium + Vitamin D 250 Mg Tablet) 500 mg PO BID [facility] Last Admin: 04/01/22 09:31 Dose: 500 mg Cariprazine (Cariprazine Hcl 1.5 Mg Capsule) 4.5 mg PO DAILY [facility] Last Admin: 04/01/22 09:32 Dose: 4.5 mg Cyanocobalamin (Cyanocobalamin (Vitamin B-12) 500 Mcg Tablet) 500 mcg PO DAILY [facility] Last Admin: 04/01/22 09:33 Dose: 500 mcg Duloxetine HCl (Duloxetine Hcl 60 Mg Capsule.Dr) 60 mg PO BID [facility] Last Admin: 04/01/22 09:33 Dose: 60 mg Fluticasone/Vilanterol (Fluticasone/Vilanterol 100/25 Blst.W.Dev) 1 puff INHALE RDAILY [facility] Last Admin: 04/01/22 09:56 Dose: 1 puff Haloperidol (Haloperidol 5 Mg Tablet) 10 mg PO BID [facility] Last Admin: 04/01/22 09:31 Dose: 10 mg Hydroxyzine HCl (Hydroxyzine Hcl 25 Mg Tablet) 25 mg PO Q6H PRN PRN Reason: Anxiety Last Admin: 03/31/22 16:43 Dose: 25 mg Levothyroxine Sodium (Levothyroxine Sodium 50 Mcg Tablet) 50 mcg PO DAILY@0600 [facility] Last Admin: 04/01/22 09:34 Dose: 50 mcg Lidocaine HCl (Lidocaine 4 % Cream Kit) 1 appl TOPICAL BID [facility] Last Admin: 04/01/22 09:57 Dose: Not Given Loratadine (Loratadine 10 Mg Tablet) 10 mg PO DAILY [facility] Last Admin: 04/01/22 09:33 Dose: 10 mg Magnesium Hydroxide (Milk Of Magnesia 30 Ml Oral.Susp) 30 ml PO DAILY PRN PRN Reason: Constipation Last Admin: 03/29/22 08:53 Dose: 30 ml Naproxen (Naproxen 500 Mg Tablet) 500 mg PO BID PRN PRN Reason: Moderate Pain (Scale Score 5-6) Nicotine (Nicotine 21 Mg Patch.Td24) 21 mg TRANSDERMA DAILY [facility] Last Admin: 04/01/22 09:56 Dose: 21 mg Nitrofurantoin Macrocrystals (Nitrofurantoin Macrocrystal 50 Mg Capsule) 100 mg PO DAILY PRN PRN Reason: UTI PREVENTION Prazosin HCl (Prazosin Hcl 1 Mg Capsule) 2 mg PO BEDTIME [facility]; Protocol Last Admin: 03/31/22 20:20 Dose: 2 mg Sumatriptan Succinate (Sumatriptan Succinate 50 Mg Tablet) 50 mg PO DAILY PRN PRN Reason: Migraine Headache Trazodone HCl (Trazodone Hcl 100 Mg Tablet) 100 mg PO BEDTIME TIRSO Last Admin: 03/31/22 20:20 Dose: 100 mg Verapamil HCl (Verapamil Hcl 40 Mg Tablet) 40 mg PO BID TIRSO; Protocol Last Admin: 04/01/22 10:11 Dose: Not Given Allergies Allergies Allergy/AdvReac Type Severity Reaction Status Date / Time amoxicillin [AMOXICILLIN] Allergy Intermediate HIVES Verified 03/23/22 16:51 carisoprodol [From SOMA] Allergy Intermediate HIVES Verified 03/23/22 16:51 Fish Containing Products Allergy Intermediate HIVES Verified 03/23/22 16:51 Penicillins [PENICILLINS] Allergy Intermediate HIVES Verified 03/23/22 16:51 latex [LATEX] Allergy Mild RASH Verified 03/23/22 16:51 fish Allergy Unknown shortness Uncoded 03/23/22 16:51 of breath MEAT AdvReac Mild SICK Uncoded 03/23/22 16:51 Assessment & Plan Assessment & Plan (1) Schizoaffective disorder: Status: Acute Code(s): F25.9 - Schizoaffective disorder, unspecified (2) Chronic post-traumatic stress disorder (PTSD): Status: Acute Code(s): F43.12 - Post-traumatic stress disorder, chronic (3) TBI (traumatic brain injury): Status: Acute Code(s): S06.9X9A - Unspecified intracranial injury with loss of consciousness of unspeci fied duration, initial encounter Plan Patient is a 51-year-old female, client of [facility] with ACCS services, with hx of Schizoaffective disorder (vs mood congruent AH), PTSD, chronic UTI, TBI who, has been stable and out of the hospital for the past 2 years but now presents for depression and command AH to harm herself and plan/intention to cut her neck. -patient reports that here aunt's with medications and that she has done over well for the past couple years; patient reports that depression has been going on for a week but seems like probably longer and early reported auditory hallucinations re-emerged about 4 weeks ago. Patient still feeling suicidal but no intent or plan and wants treatment. Not sure what trigger however patient does continue to have PTSD symptoms which are problematic - Trazodone 150mg qhs? Says has been on in the past but does not seem bed helpful Mirtazapine 7.5 mg q.h.s. was started in the ED for help with sleep and depres venita and though she says it has not helped with sleep, she does report that her depression and AH are a little less. Patient is already on multiple medications, including 2 antipsychotics and it is significant that she has been stable for about 2 years on current regimen. Will try to avoid polypharmacy. It is preferable to treat these current symptoms with medications with less side effect risks than antipsychotics. -starting Prazosin to see if symptoms can subside by eliminating nightmares (as nightmares can significantly effect the following day and may be etiology for decompensation) -will continue mirtazapine for now (started in ED) since patient reports feeling a little better (though this could also be milieu therapy) -It looks like patient was recently started on Vraylar 02/22; will try to confirm. Perhaps this medication is unnecessary mirtazapine and prazosin could be helpful 03/27 still with CAH, depressed; increase Vraylar since prn helped reduce voices; still not sure if voices causing depression or vice versa. While want to avoid side-effect risks of antipsychotics, AH is scary and causing SI. 03/28 Primary Mill Roller discussed case with her shellacker boyfriend who says that patient was doing great up until this past weekend; he said they got into an argument because she accused him of messing around which he says is unfounded but that as long as he has known her she has struggled with being jealous. An argument ensued and he said just get your shit and go. He was not really ending the relationship and did not want her to leave but just was upset and said this thing in a heated moment. He also reports that he apologized and that they made up. It was after this that she started to complain of auditory hallucinations of her blanca. He said he was looking at her and could tell she was upset. She said she had some kind of a blackout and then shared about the command auditory hallucinations to herself. He asked if she wanted him to call an ambulance which she did. Jeremias says she did not talk about suicide at all and that there was no knife involved in any way (patient said she put a knife to her neck to slit her throat and that her boyfriend stopped her). He says it has been years since she complained of auditory hallucinations however he says it has happened in the past at different times. Primary Mill Roller further reviewed history and prior admission notes for talk about patient's AH being more likely trauma related and mood congruent then psychotic; Also in prior notes, patient reported overdose of medications but the veracity of Her report was questioned as it did not seem to match up with collateral. -patient out-patient staff reports that they have some concerns that patient more likely than not, is hoping to stay in the hospital for an extended period of time, wanting the attention and a break from her home living 03/29 Affect brighter and she smiled and chuckled today. Says depression a little better. Continues to complain of auditory hallucinations, however given history and recent triggering event, it seems more likely these are mood congruent. Will leave current medications as they are. Patient agrees that her decompensation was triggered by an argument with her boyfriend; she is considering resolving the issue but not quite there yet. 03/30 patient's mood remains better and no SI. AH also remains but she says it is mostly just at night other supporting likelihood that they are mood congruent. Made up with boyfriend and is feeling better about it. 03/31 no AH last night and patient says she has feeling better still. Seems approaching baseline 04/01 Some AH last night but overall they remain significantly decreased in patient remains in good mood and no SI. Will proceed with discharge plans. PLAN CV Q 15 minute checks continue Prazosin 2mg Qhs for nightmares (reviewed risks/side effects and patien t agrees) DC Mirtazapine 7.5 mg q.h.s. (started in ED; but will dc to avoid polypharmacy; does not seem helpful for sleep) continue trazodone 100mg (she says was on 150mg in past but stopped working) INCREASEd TO cariprazine 4.5 mg capsule (Vraylar) daily (recently started last month) continue Clonazepam 0.5 mg q.h.s. and 0.5 mg p.r.n. daily continue Duloxetine DR 60 mg b.i.d. continue Haldol 10 mg b.i.d. continue Levothyroxine 50 mcg q.day continue benztropine 0.5 mg tablet bed Other home meds: Nifurnontin 100 mg daily p.r.n(?). UTI prevention Naproxen 500 mg b.i.d. p.r.n. Sumatriptan 50 mg daily p.r.n. migraine Verapamil 40 mg b.i.d. atorvastatin 20 mg tablet bed benztropine 0.5 mg tablet bed Albuterol inhaler Q for ID -Discontinue B12 for now as it is supratherapeutic -hx of tubal ligation; I spent minutes with the patient and/or on the patient floor today, greater than?50% of which was spent counseling/coordinating care. Patient educated on: medication risk/benefits Informed Consent: understands Reason for contiued inpatient stay Substantial Risk for: stable for discharge
[2022-04-01] MEDS: hydrOXYzine HCL 25 MG TABLET PO (16:07)
[2022-04-01 18:00] VITALS: BP 89/58; PULSE 110; RESP 14; TEMP 36.6
[2022-04-01 20:22] VITALS: BP 94/60; PULSE 108
[2022-04-01] MEDS: traZODone HCL 100 MG TABLET PO (20:23)
[2022-04-01] MEDS: Atorvastatin Calcium 20 MG TABLET PO (20:23)
[2022-04-01] MEDS: Benztropine Mesylate 0.5 MG TABLET PO (20:23)
[2022-04-01] MEDS: Prazosin HCL 1 MG CAPSULE 2 MG PO (20:24)
[2022-04-01] MEDS: VerapamiL HCL 40 MG TABLET PO (20:24)
[2022-04-02 06:00] VITALS: BP 102/63; PULSE 82; RESP 18; TEMP 36.7; O2SAT 99
[2022-04-02] MEDS: Levothyroxine Sodium 50 MCG TABLET PO (06:00)
[2022-04-02 08:40] VITALS: BP 102/63; PULSE 82; RESP 18; TEMP 36.7; O2SAT 99
[2022-04-02] MEDS: Nicotine 21 MG PATCH.TD24 TRANSDERMA (09:24)
[2022-04-02] MEDS: Lidocaine 4 % Cream KIT 1 APPL TOPICAL (09:25)
[2022-04-02] MEDS: DULoxetine HCl 60 MG CAPSULE.DR PO (09:25)
[2022-04-02] MEDS: HaloperidoL 5 MG TABLET 10 MG PO (09:25)
[2022-04-02] MEDS: Cariprazine HCl 1.5 MG CAPSULE 4.5 MG PO (09:25)
[2022-04-02] MEDS: Calcium + Vitamin D 250 MG TABLET 500 MG PO (09:25)
--- NOTE | 2022-04-02 09:25 | PM.PSYDC ---
DS: Providers Provider Date of Service: 04/02/22 Date of admission: 03/25/22 14:26 Date of discharge: 04/02/22 Primary care physician: Bon Jurado MD Attending physician on admission: Dayron Fuentes Attending physician on discharge: Dayron Fuentes DS: Diagnosis Discharge Diagnosis (1) Schizoaffective disorder: Status: Acute (2) Chronic post-traumatic stress disorder (PTSD): Status: Acute (3) TBI (traumatic brain injury): Status: Acute DS: Medications Discharge Medications Home Medications: Home Medications Medication Instructions Recorded Confirmed albuterol sulfate 90 mcg/actuation 2 inh inhalation Q4H PRN 03/23/22 03/23/22 aerosol inhaler Respiratory Distress atorvastatin 20 mg tablet 20 mg PO BEDTIME 03/23/22 03/23/22 benztropine 0.5 mg tablet 0.5 mg PO BEDTIME 03/23/22 03/23/22 calcium carbonate 600 mg-vitamin 1 cap PO BID 03/23/22 03/23/22 D3 10 mcg (400 unit) capsule clonazepam 0.5 mg tablet 0.5 mg PO DAILY PRN Anxiety 03/23/22 03/23/22 cyanocobalamin (vitamin B-12) 500 500 mcg PO DAILY 03/23/22 03/23/22 mcg tablet diclofenac sodium 1 % topical gel 2 g topical DAILY PRN Pain 03/23/22 03/23/22 duloxetine 60 mg capsule,delayed 60 mg PO BID 03/23/22 03/23/22 release fluticasone 100 mcg-salmeterol 50 1 puff inhalation BID 03/23/22 03/23/22 mcg/dose blistr powdr for inhalation haloperidol 10 mg tablet 1 tab PO BID 03/23/22 03/23/22 levothyroxine 50 mcg tablet 50 mcg PO DAILY@0600 03/23/22 03/23/22 lidocaine 5 % topical cream 1 appl topical BID 03/23/22 03/23/22 loratadine 10 mg tablet 10 mg PO DAILY 03/23/22 03/23/22 naproxen 500 mg tablet 500 mg PO BID PRN Moderate Pain 03/23/22 03/23/22 (Scale Score 5-6) nitrofurantoin macrocrystal 100 mg 100 mg PO DAILY PRN UTI PREVENTION 03/23/22 03/23/22 capsule sumatriptan succinate 50 mg tablet 50 mg PO DAILY PRN Migraine 03/23/22 03/23/22 (Imitrex) Headache verapamil 40 mg tablet 40 mg PO BID 03/23/22 03/23/22 Previous Rx's Medication Instructions Recorded cariprazine 1.5 mg capsule 4.5 mg PO DAILY 30 days #90 caps 04/02/22 (Vraylar) prazosin 2 mg capsule 2 mg PO BEDTIME 30 days #30 caps 04/02/22 Mental Status Exam Mental Status Exam Narrative: Pt is alert and oriented; behavior is cooperative, friendly and calm; patient is not in distress; dressed in casual cloths, groomed with good hygiene; mood is described as euthymic and affect congruent, Brighter; eye contact appropriate; Speech is with chronic impediment; some latency; Normal rate, normal volume; no psychomotor retardation present; thought process overall goal oriented; remains concrete. Thought content is on boyfriend, tx; otherwise pertinent to relevant topics; no active SI;no HI. No AH; Patients insight and judgment are impaired but adequate and likely baseline. Data Data Completed and Pending Completed studies during hospitalization [Text1]: 03/26/22 08:16 Vitamin B12 1158 H Folate 10.5 DS: Summary Hospital Course Hospital Course: Patient is a 51-year-old female, client of [facility] with ACCS services, with hx of Schizoaffective disorder (vs mood congruent AH), PTSD, chronic UTI, TBI who, has been stable and out of the hospital for the past 2 years but now presents for depression and command AH to harm herself (on admission, she said she had a knife with thought to cut her neck; however boyfriend said this was not so at all and denies that she had SI). It was revealed that episode happened following argument with boyfriend. Otherwise patient reports that on current medications that she has done over well for the past couple years; boyfriend corroborates. - Trazodone 150mg qhs?? Says has been on in the past but does not seem bed helpful Mirtazapine 7.5 mg q.h.s. was started in the ED for help with sleep and depression and though she says it has not helped with sleep, she does report that her depression and AH are a little less. Patient is already on multiple medications, including 2 antipsychotics and it is significant that she has been stable for about 2 years on current regimen.? Will try to avoid polypharmacy.? It is preferable to treat these current symptoms with medications with less side effect risks than antipsychotics.? -starting Prazosin to see if symptoms can subside by eliminating nightmares (as nightmares can significantly effect the following day and may be etiology for decompensation) -will continue mirtazapine for now (started in ED) since patient reports feeling a little better (though this could also be milieu therapy) -It looks like patient was recently started on Vraylar 02/22; will try to confirm.? Perhaps this medication is unnecessary mirtazapine and prazosin could be helpful On admission patient was depressed and reported she continued to have command auditory hallucinations; she said that she was suicidal and had put a knife to her neck however collateral disputes this and says there was never any knife and she never talked about suicidality at all only command auditory hallucinations. Patient has regular was increased to help with voices; she was also started on prazosin as she eventually said voices only happened tonight. Patient slept much of the time and mostly kept to herself. Patient however resolved her problems with her boyfriend. With that, her depression resolved and voices mostly resolved, with some intermittent minimal AH that she said was insignificant. Patient's affect brightened and she was smiling and even laughing some, out the milieu more, attending to all ADLs. Patient said she resolved Patient was ready for discharge. Patient has strong support in the community including ACCS team and lives with her supportive boyfriend. She was not in imminent risk for harm to self or others and her request for discharge was appropriate. Patient has a history of diagnosis of schizoaffective disorder however voices seem to be more mood= congruent and though schizoaffective disorder was left as a diagnosis writer producer believes it is provisional (Hydroelectric Station Operator further reviewed history and prior admission notes for talk about patient's AH being more likely trauma related and mood congruent then psychotic; Also in prior notes, patient reported overdose of medications but the veracity of Her report was questioned as it did not seem to match up with collateral.). Patient was started on trazodone which she had been on before, however she slept most of the time and her outpatient team, and boyfriend both report patient has no trouble sleeping at night and overall sleeps too much. Patient's blood pressure was also little lowered, likely with combination of trazodone and prazosin and so trazodone was not continued. Time spent discussing smoking cessation with patient: 3 to 10 minutes Status at Discharge Functional status at discharge: independent ambulation Overall status at discharge: patient is back to baseline Time Spent with Patient Time attestation: Total time spent providing and/or coordinating discharge services: Time spent: Less than 30 minutes Discharge Plan Discharge Patient Disposition: Home, Self-Care Discharge Diagnosis: Schizoaffective disorder (provisional vs mdd with psychosis) Referrals: Psychiatry: Dr. Tom Reyna [Other] - 04/23/22 9:00 am (This appointment is in-office) Bon Jurado MD [Primary Care Provider] - 1 Week Discharge Medications: New prazosin 2 mg capsule 2 mg PO BEDTIME 30 Days Qty: 30 0RF Vraylar 1.5 mg Capsule 4.5 mg PO DAILY 30 Days Qty: 90 0RF Continued atorvastatin 20 mg Tablet 20 mg PO BEDTIME albuterol sulfate 90 mcg/actuation HFA aerosol inhaler 2 inh inhalation Q4H PRN (Reason: Respiratory Distress) levothyroxine 50 mcg Tablet 50 mcg PO DAILY@0600 cyanocobalamin (vitamin B-12) 500 mcg Tablet 500 mcg PO DAILY haloperidol 10 mg tablet 1 tab PO BID fluticasone propion-salmeterol 100-50 mcg/dose blister with device 1 puff inhalation BID loratadine 10 mg Tablet 10 mg PO DAILY naproxen 500 mg Tablet 500 mg PO BID PRN (Reason: Moderate Pain (Scale Score 5-6)) clonazepam 0.5 mg Tablet 0.5 mg PO DAILY PRN (Reason: Anxiety) benztropine 0.5 mg Tablet 0.5 mg PO BEDTIME verapamil 40 mg Tablet 40 mg PO BID Hold Instructions: Resume on 04/25/22. DISCUSS WITH PCP duloxetine 60 mg Capsule,Delayed Release(Dr/Ec) 60 mg PO BID calcium carbonate-vitamin D3 600 mg-10 mcg (400 unit) Capsule 1 cap PO BID diclofenac sodium 1 % Gel 2 g TOPICAL DAILY PRN (Reason: Pain) Rx Instructions: apply to single elbow, wrist or hand; for hand includes palm/fingers/back of hand sumatriptan succinate [Imitrex] 50 mg Tablet 50 mg PO DAILY PRN (Reason: Migraine Headache) Rx Instructions: do not exceed 4 doses per 24 hrs lidocaine 5 % Cream 1 appl TOPICAL BID nitrofurantoin macrocrystal 100 mg Capsule 100 mg PO DAILY PRN (Reason: UTI PREVENTION) Rx Instructions: must administer with a meal/food Discontinued mirtazapine 7.5 mg Tablet 7.5 mg PO BEDTIME clonazepam 0.5 mg Tablet 0.5 mg PO BEDTIME Rx Instructions: administer 30 minutes before bedtime Vraylar 3 mg Capsule 3 mg PO DAILY Discharge Orders: Discharge Order (Routine); Ordered 04/02/22 Ordered By: Dayron Fuentes Diet: Regular diet Activity on Discharge: As tolerated Stand Alone Forms: Patient Portal Discharge page Care Plan Goals: Maintain mood and safe behaviors Take medications as prescribed Continue to pursue sobriety Practice coping skills Continue with outpatient providers and reach out to them as needed Health Concerns: Mood stability and behaviors Hypertension Plan of Treatment: Follow up with your PCP, psychiatric provider and other outpatient providers regarding above concerns Take medications as prescribed Assessment: Risk assessment at time of discharge:? Patient was interviewed prior to discharge and found to be fully oriented and without any SI or HI. Patient has insight and demonstrates good judgment in terms of wanting to pursue treatment. Patient is not in imminent risk of harm to self or others and has a safety plan that includes presenting to the closest ER or calling 911 if feeling unsafe.? Patient has been observed closely by nursing and unit staff throughout admission; patient has not engaged in any behaviors that suggest dangerousness to self or others and has demonstrated appropriate behaviors and impulse control
[2022-04-02] MEDS: VerapamiL HCL 40 MG TABLET PO (09:26)
[2022-04-02] MEDS: Loratadine 10 MG TABLET PO (09:26)
[2022-04-02] MEDS: Cyanocobalamin (Vitamin B-12) 500 MCG TABLET PO (09:26)
[2022-04-02] MEDS: Fluticasone/Vilanterol 100/25 BLST.W.DEV 1 PUFF INHALE (09:27)
[2022-04-02] MEDS: Calcium Carbonate 750 MG TAB.CHEW PO (12:38)
== END 2022-04-02 13:36 | disposition home or self-care (01) | DRG 885 ==
LOC: HO.ED 21:08 → HO.PM5 03-25 14:31
PROVIDERS: Clinical Nurse Specialist Psychiatric/Mental Health, Adult; Emergency Medicine; Nurse Practitioner Family; Admitting Provider Psychiatry & Neurology Psychiatry; Emergency Provider Student in an Organized Health Care Education/Training Program; PCP Internal Medicine; Visit Provider Psychiatry & Neurology Psychiatry
DX: F25.9 Schizoaffective disorder, unspecified (principal); R45.851 Suicidal ideations; Z98.51 Tubal ligation status; M54.9 Dorsalgia, unspecified; G89.29 Other chronic pain; F43.12 Post-traumatic stress disorder, chronic; Z20.822 Contact with and (suspected) exposure to COVID-19; Z87.820 Personal history of traumatic brain injury; Z91.040 Latex allergy status; Z91.013 Allergy to seafood; Z88.0 Allergy status to penicillin; Z88.8 Allergy status to other drugs, medicaments and biological substances; Z79.51 Long term (current) use of inhaled steroids; Z79.890 Hormone replacement therapy; Z79.899 Other long term (current) drug therapy
CPT/HCPCS: 36415; 80053; 80061; 80307; 81003; 82077; 82607; 82746; 83036; 83735; 84439; 84443; 85025; 87635; 93005; 99285

== ENCOUNTER 2022-06-29 21:02 | Inpatient (IN) | payer OTHER, SELFPAY ==
--- NOTE | 2022-06-29 21:05 | ED_ITS ---
HPI - Psych General Chief Complaint: Psychiatric Symptoms <MICKIE Montanez - Last Filed: 06/30/22 00:30> Stated Complaint: crisis <MICKIE Montanez Last Filed: 06/30/22 00:30> Time Seen by Provider: 06/29/22 21:05 <MICKIE Montanez Last Filed: 06/30/22 00:30> Source: patient and EMS <MICKIE Montanez - Last Filed: 06/30/22 00:30> Mode of arrival: EMS <MICKIE Montanez Last Filed: 06/30/22 00:30> Limitations: no limitations <MICKIE Montanez Last Filed: 06/30/22 00:30> History of Present Illness HPI Narrative: 51-year-old female history of schizoaffective disorder, PTSD, TBI, presenting to the emergency department via ambulance for complaints of visual and auditory hallucinations, suicidal ideation x2 weeks. Patient reports she is hearing voices, and seeing dark shadows unable to tell me exactly what they are saying. Patient reports suicidal ideation without particular plan. Tells me that her brother recently about 3 weeks ago and this may be an inciting trigger. Taking all psychiatric medications as prescribed. Denies drugs & alcohol reports smoking 1 pack per day. Denies homicidal ideation. Denies medical complaints. <MICKIE Montanez Last Filed: 06/30/22 00:30> Related Data Home Medications: Home Medications Medication Instructions Recorded Confirmed albuterol sulfate 90 mcg/actuation 2 inh inhalation Q4H PRN 03/23/22 06/30/22 aerosol inhaler Respiratory Distress atorvastatin 20 mg tablet 20 mg PO BEDTIME 03/23/22 06/30/22 benztropine 0.5 mg tablet 0.5 mg PO BEDTIME 03/23/22 06/30/22 calcium carbonate 600 mg-vitamin 1 cap PO BID 03/23/22 06/30/22 D3 10 mcg (400 unit) capsule clonazepam 0.5 mg tablet 0.5 mg PO DAILY PRN Anxiety 03/23/22 06/30/22 cyanocobalamin (vitamin B-12) 500 500 mcg PO DAILY 03/23/22 06/30/22 mcg tablet duloxetine 60 mg capsule,delayed 60 mg PO BID 03/23/22 06/30/22 release fluticasone 100 mcg-salmeterol 50 1 puff inhalation BID 03/23/22 06/30/22 mcg/dose blistr powdr for inhalation haloperidol 10 mg tablet 1 tab PO BID 03/23/22 06/30/22 levothyroxine 50 mcg tablet 50 mcg PO DAILY@0600 03/23/22 06/30/22 loratadine 10 mg tablet 10 mg PO DAILY 03/23/22 06/30/22 naproxen 500 mg tablet 500 mg PO BID PRN Moderate Pain 03/23/22 06/30/22 (Scale Score 5-6) sumatriptan succinate 50 mg tablet 50 mg PO DAILY PRN Migraine 03/23/22 06/30/22 (Imitrex) Headache verapamil 40 mg tablet 40 mg PO BID 03/23/22 06/30/22 cholecalciferol (vitamin D3) 25 1 tab PO DAILY 06/30/22 06/30/22 mcg (1,000 unit) tablet (Vitamin D3) fluticasone propionate 50 1 spray intranasal DAILY PRN 06/30/22 06/30/22 mcg/actuation nasal Allergy Symptoms spray,suspension Previous Rx's Medication Instructions Recorded cariprazine 1.5 mg capsule 4.5 mg PO DAILY 30 days #90 caps 04/02/22 (Vraylar) prazosin 2 mg capsule 2 mg PO BEDTIME 30 days #30 caps 04/02/22 trazodone 100 mg tablet 100 mg PO BEDTIME PRN insomnia 30 04/02/22 days #30 tabs <MICKIE Montanez - Last Filed: 06/30/22 00:30> Allergies/Adverse Reactions: Allergies Allergy/AdvReac Type Severity Reaction Status Date / Time amoxicillin [AMOXICILLIN] Allergy Intermediate HIVES Verified 03/23/22 16:51 carisoprodol [From SOMA] Allergy Intermediate HIVES Verified 03/23/22 16:51 Fish Containing Products Allergy Intermediate HIVES Verified 03/23/22 16:51 Penicillins [PENICILLINS] Allergy Intermediate HIVES Verified 03/23/22 16:51 latex [LATEX] Allergy Mild RASH Verified 03/23/22 16:51 fish Allergy Unknown shortness Uncoded 03/23/22 16:51 of breath MEAT AdvReac Mild SICK Uncoded 03/23/22 16:51 <MICKIE Montanez - Last Filed: 06/30/22 00:30> Review of Systems Review of Systems: Constitutional : No Fever, No Chills ENT/Mouth : No Ear Pain, No Nasal Congestion, No sore throat Eyes: No Eye Pain, No Swelling, No Redness Cardiovascular : No Chest Pain, No SOB Respiratory : No Cough, No Sputum, No Dyspnea Gastrointestinal : No Nausea, No Vomiting, No Diarrhea, No Hematochezia, No Melena Genitourinary : No Dysuria, No Urinary Frequency, No Hematuria Musculoskeletal : No Myalgias Skin : No Skin Lesions, No rash Neuro : No Weakness, No Numbness, No Paresthesias, No Dizziness, No Headache Psych : positive Anxiety, positive Depression, + hallucinations, + SI, No HI Heme/Lymph: No Lymphadenopathy Endocrine : No Polyuria, No Polydipsia All other systems reviewed and are negative <MICKIE Montanez - Last Filed: 06/30/22 00:30> Yes all other systems are reviewed and are negative <MICKIE Montanez - Last Filed: 06/30/22 00:30> [facility] Past Medical History Attestation statement: The following information was validated with the patient. <MICKIE Montanez - Last Filed: 06/30/22 00:30> Source: old records reviewed and nursing notes reviewed <MICKIE Montanez - Last Filed: 06/30/22 00:30> Medical History: Medical History Anxiety Asthma Borderline intellectual functioning Chronic back pain Chronic post-traumatic stress disorder (PTSD) Classic migraine Depression History of ETOH abuse Hx of drug overdose Hx of renal calculi Ovarian cyst PTSD (post-traumatic stress disorder) Schizoaffective disorder Sight impaired TBI (traumatic brain injury) <MICKIE Montanez - Last Filed: 06/30/22 00:30> Surgical History: Surgical History Hx of appendectomy Hx of cholecystectomy Hx of tubal ligation <MICKIE Montanez - Last Filed: 06/30/22 00:30> Social History Social History: Social History Housing: Apartment Do you presently have visiting nurse or other home services: No Alcohol intake: never Patient Tobacco Use Status: Never used Tobacco Smoked in Last 30 Days: Yes Use of substances other than those prescribed or required for medical reasons: No Advance Directives: No Advance Directives Information Provided: Yes Patient : No service: No Current occupational status: unemployed Current occupation: rt handed Sexual orientation: Straight/Heterosexual <MICKIE Montanez - Last Filed: 06/30/22 00:30> Physical Exam Vital Signs: Vital Signs: Last Vital Signs Temp 98.2 F 06/30/22 06:34 Pulse 79 06/30/22 06:34 Resp 16 06/30/22 06:34 BP 114/70 06/30/22 06:34 Pulse Ox 93 06/30/22 06:34 O2 Del Method 06/30/22 06:34 BMI result Body Mass Index 22.3 vss <MICKIE Montanez - Last Filed: 06/30/22 00:30> Vital Signs: Last Vital Signs Temp 98.2 F 06/30/22 06:34 Pulse 79 06/30/22 06:34 Resp 16 06/30/22 06:34 BP 114/70 06/30/22 06:34 Pulse Ox 93 06/30/22 06:34 O2 Del Method 06/30/22 06:34 BMI result Body Mass Index 22.3 <Kira Dietz NP - Last Filed: 06/30/22 11:47> Appearance: Alert.? Oriented X3.? No acute distress.? Patient appears well. Head: Normocephalic, atraumatic, no step-offs or deformities Eyes: Pupils equal, round and reactive to light.? ENT: Pharynx normal.? Neck: Normal inspection.? Neck supple.? CVS: Normal heart rate and rhythm.? Pulses normal.? Respiratory: No respiratory distress.? Breath sounds normal.? No stridor. Abdomen: Soft and nontender.? Skin: Skin warm and dry.? Normal skin color.? Normal skin turgor.? Extremities: No lower extremity edema.? No calf ttp. 5/5 strength to bilateral upper and lower extremities Back: No midline tenderness, no C-spine tenderness, full range of motion, no CVA tenderness bilaterally Neuro: Oriented X 3.? No motor deficit.? No sensory deficit. CN 2-12 intact <MICKIE Montanez - Last Filed: 06/30/22 00:30> Course Reevaluation(s) Reevaluation #1: CBC appears to be around patient's baseline. Chemistry with no acute electrolyte abnormalities requiring intervention. Ethanol negative. At this time patient will be placed into physician observation to allow more time to be evaluated by the behavioral health team. At time observation was started patient common cooperative no acute distress will continue to monitor. <MICKIE Montanez - Last Filed: 06/30/22 00:30> Time: 00:14 <MICKIE Montanez - Last Filed: 06/30/22 00:30> Consultations Consultation #1: [id number] patient seen by and [facility]. Plan for Section 12 bed search <Kira Dietz NP - Last Filed: 06/30/22 11:47> Medications Administered Generic Name Dose Route Start Last Admin Trade Name Freq PRN Reason Stop Dose Admin Nitrofurantoin Macrocrystals 100 mg 06/30/22 10:05 06/30/22 10:37 Nitrofurantoin Monohyd/M-Cryst 100 Mg Capsule PO 07/06/22 21:00 100 mg BID TIRSO Administration <MICKIE Montanez - Last Filed: 06/30/22 00:30> Medications Administered Generic Name Dose Route Start Last Admin Trade Name Freq PRN Reason Stop Dose Admin Nitrofurantoin Macrocrystals 100 mg 06/30/22 10:05 06/30/22 10:37 Nitrofurantoin Monohyd/M-Cryst 100 Mg Capsule PO 07/06/22 21:00 100 mg BID TIRSO Administration <Kira Dietz NP - Last Filed: 06/30/22 11:47> MDM - Psych MDM Narrative Medical decision making narrative: 2105 51-year-old female presents with visual and auditory hallucinations, si w/o plan x2 weeks worsening. Physical examination benign Plan medical clearance evaluation by the behavioral health team. <MICKIE Montanez Last Filed: 06/30/22 00:30> Medical Records Attestation: I reviewed the patient's medical records. <MICKIE Montanez - Last Filed: 06/30/22 00:30> Lab Data Attestation: I reviewed the patient's lab results. <MICKIE Montanez - Last Filed: 06/30/22 00:30> Result diagrams: : 06/30/22 00:02 06/30/22 00:02 <MICKIE Montanez - Last Filed: 06/30/22 00:30> Labs: Lab Results 06/30/22 06/30/22 06/30/22 Range/Units 00:02 00:02 00:02 WBC 8.2 (4.8-10.8) X10*3/uL RBC 4.04 L (4.20-5.50) X10*6/uL Hgb 11.7 L (12.0-16.0) g/dl Hct 35.0 L (37.0-47.0) % MCV 86.6 (80.0-98.0) fL MCH 29.0 (27.0-33.0) pg MCHC 33.4 (31.0-35.0) g/dl RDW 13.1 (11.0-16.0) % Plt Count 165 (160-400) X10*3/uL MPV 11.7 (9.4-12.3) fL Immature Gran % (Auto) 0.4 (0.0-0.4) % Neut % (Auto) 54.3 (45-73) % Lymph % (Auto) 35.4 (20-40) % [place] % (Auto) 5.0 (2-11) % Eos % (Auto) 4.3 H (0-4) % Baso % (Auto) 0.6 (0-2) % Lymph # (Auto) 2.9 (1.2-4.9) X10*3/uL [place] # (Auto) 0.4 (0.1-1.2) X10*3/uL Eos # (Auto) 0.4 (0.0-0.4) X10*3/uL Baso # (Auto) 0.1 (0.0-0.2) X10*3/uL Abs Immat Gran (auto) 0.03 (0.00-0.03) X10*3/uL Absolute Neuts (auto) 4.4 (2.0-8.3) x10*3/uL Absolute Nucleated RBC 0.000 (0.0-0.012) X10*3/uL Nucleated RBC % (auto) 0.0 (0.0-0.2) /100WBC Sodium 140 (135-145) mmol/L Potassium 4.0 (3.3-5.1) mmol/L Chloride 108 (96-108) mmol/L Carbon Dioxide 22 (22-29) mmol/L Anion Gap 14 (12-20) BUN 9 (9-16) mg/dL Creatinine 0.90 (0.5-1.4) mg/dL Estim Creat Clear Calc 63.8 Estimated GFR > 60 Random Glucose 86 (60-115) mg/dL Calcium 8.7 (8.4-10.2) mg/dL Magnesium 2.0 (1.6-2.6) mg/dL Total Bilirubin 0.4 (0.0-1.0) mg/dL AST 18 (5-31) U/L ALT 18 (0-31) U/L Alkaline Phosphatase 84 D (39-117) U/L Total Protein 5.4 L (6.5-8.0) g/dL Albumin 3.4 L (3.5-5.0) g/dL Urine Color Urine Appearance Urine pH (5.0-9.0) Ur Specific [place] (1.005-1.025) Urine Protein (Neg-Trace) mg/dL Urine Glucose (UA) (Negative) mg/dL Urine Ketones (Negative) mg/dL Urine Blood (Negative) Urine Nitrite (Negative) Ur Leukocyte Esterase (Negative) Urine RBC (0-2) /HPF Urine WBC (0-5) /HPF Ur Squamous Epith Cells (0-2) /HPF Urine Bacteria (None Seen) Hyaline Casts (0-2) /LPF Urine Opiates Screen (Not Detect) Urine Fentanyl Screen (Not Detect) Ur Barbiturates Screen (Not Detect) Ur Phencyclidine Scrn (Not Detect) Ur Amphetamines Screen (Not Detect) U Benzodiazepines Scrn (Not Detect) Urine Cocaine Screen (Not Detect) U Marijuana (THC) Screen (Not Detect) Ethyl Alcohol < 10 mg/dL COVID-19 (RAGHU) Negative (Negative) COVID-19 Clin Com See Note 06/30/22 06/30/22 Range/Units 03:14 03:14 WBC (4.8-10.8) X10*3/uL RBC (4.20-5.50) X10*6/uL Hgb (12.0-16.0) g/dl Hct (37.0-47.0) % MCV (80.0-98.0) fL MCH (27.0-33.0) pg MCHC (31.0-35.0) g/dl RDW (11.0-16.0) % Plt Count (160-400) X10*3/uL MPV (9.4-12.3) fL Immature Gran % (Auto) (0.0-0.4) % Neut % (Auto) (45-73) % Lymph % (Auto) (20-40) % [place] % (Auto) (2-11) % Eos % (Auto) (0-4) % Baso % (Auto) (0-2) % Lymph # (Auto) (1.2-4.9) X10*3/uL [place] # (Auto) (0.1-1.2) X10*3/uL Eos # (Auto) (0.0-0.4) X10*3/uL Baso # (Auto) (0.0-0.2) X10*3/uL Abs Immat Gran (auto) (0.00-0.03) X10*3/uL Absolute Neuts (auto) (2.0-8.3) x10*3/uL Absolute Nucleated RBC (0.0-0.012) X10*3/uL Nucleated RBC % (auto) (0.0-0.2) /100WBC Sodium (135-145) mmol/L Potassium (3.3-5.1) mmol/L Chloride (96-108) mmol/L Carbon Dioxide (22-29) mmol/L Anion Gap (12-20) BUN (9-16) mg/dL Creatinine (0.5-1.4) mg/dL Estim Creat Clear Calc Estimated GFR Random Glucose (60-115) mg/dL Calcium (8.4-10.2) mg/dL Magnesium (1.6-2.6) mg/dL Total Bilirubin (0.0-1.0) mg/dL AST (5-31) U/L ALT (0-31) U/L Alkaline Phosphatase (39-117) U/L Total Protein (6.5-8.0) g/dL Albumin (3.5-5.0) g/dL Urine Color Yellow Urine Appearance Clear Urine pH 8.5 (5.0-9.0) Ur Specific [place] 1.010 (1.005-1.025) Urine Protein Negative (Neg-Trace) mg/dL Urine Glucose (UA) Negative (Negative) mg/dL Urine Ketones Negative (Negative) mg/dL Urine Blood Negative (Negative) Urine Nitrite Positive H (Negative) Ur Leukocyte Esterase Moderate (2+) H (Negative) Urine RBC 0-2 (0-2) /HPF Urine WBC 11-20 H (0-5) /HPF Ur Squamous Epith Cells 0-2 (0-2) /HPF Urine Bacteria 4+ (None Seen) Hyaline Casts 0-2 (0-2) /LPF Urine Opiates Screen Not Detected (Not Detect) Urine Fentanyl Screen POSITIVE H (Not Detect) Ur Barbiturates Screen Not Detected (Not Detect) Ur Phencyclidine Scrn Not Detected (Not Detect) Ur Amphetamines Screen Not Detected (Not Detect) U Benzodiazepines Scrn Not Detected (Not Detect) Urine Cocaine Screen Not Detected (Not Detect) U Marijuana (THC) Screen Not Detected (Not Detect) Ethyl Alcohol mg/dL COVID-19 (RAGHU) (Negative) COVID-19 Clin Com <MICKIE Montanez - Last Filed: 06/30/22 00:30> Lab Results 06/30/22 06/30/22 06/30/22 Range/Units 00:02 00:02 00:02 WBC 8.2 (4.8-10.8) X10*3/uL RBC 4.04 L (4.20-5.50) X10*6/uL Hgb 11.7 L (12.0-16.0) g/dl Hct 35.0 L (37.0-47.0) % MCV 86.6 (80.0-98.0) fL MCH 29.0 (27.0-33.0) pg MCHC 33.4 (31.0-35.0) g/dl RDW 13.1 (11.0-16.0) % Plt Count 165 (160-400) X10*3/uL MPV 11.7 (9.4-12.3) fL Immature Gran % (Auto) 0.4 (0.0-0.4) % Neut % (Auto) 54.3 (45-73) % Lymph % (Auto) 35.4 (20-40) % [place] % (Auto) 5.0 (2-11) % Eos % (Auto) 4.3 H (0-4) % Baso % (Auto) 0.6 (0-2) % Lymph # (Auto) 2.9 (1.2-4.9) X10*3/uL [place] # (Auto) 0.4 (0.1-1.2) X10*3/uL Eos # (Auto) 0.4 (0.0-0.4) X10*3/uL Baso # (Auto) 0.1 (0.0-0.2) X10*3/uL Abs Immat Gran (auto) 0.03 (0.00-0.03) X10*3/uL Absolute Neuts (auto) 4.4 (2.0-8.3) x10*3/uL Absolute Nucleated RBC 0.000 (0.0-0.012) X10*3/uL Nucleated RBC % (auto) 0.0 (0.0-0.2) /100WBC Sodium 140 (135-145) mmol/L Potassium 4.0 (3.3-5.1) mmol/L Chloride 108 (96-108) mmol/L Carbon Dioxide 22 (22-29) mmol/L Anion Gap 14 (12-20) BUN 9 (9-16) mg/dL Creatinine 0.90 (0.5-1.4) mg/dL Estim Creat Clear Calc 63.8 Estimated GFR > 60 Random Glucose 86 (60-115) mg/dL Calcium 8.7 (8.4-10.2) mg/dL Magnesium 2.0 (1.6-2.6) mg/dL Total Bilirubin 0.4 (0.0-1.0) mg/dL AST 18 (5-31) U/L ALT 18 (0-31) U/L Alkaline Phosphatase 84 D (39-117) U/L Total Protein 5.4 L (6.5-8.0) g/dL Albumin 3.4 L (3.5-5.0) g/dL Urine Color Urine Appearance Urine pH (5.0-9.0) Ur Specific [place] (1.005-1.025) Urine Protein (Neg-Trace) mg/dL Urine Glucose (UA) (Negative) mg/dL Urine Ketones (Negative) mg/dL Urine Blood (Negative) Urine Nitrite (Negative) Ur Leukocyte Esterase (Negative) Urine RBC (0-2) /HPF Urine WBC (0-5) /HPF Ur Squamous Epith Cells (0-2) /HPF Urine Bacteria (None Seen) Hyaline Casts (0-2) /LPF Urine Opiates Screen (Not Detect) Urine Fentanyl Screen (Not Detect) Ur Barbiturates Screen (Not Detect) Ur Phencyclidine Scrn (Not Detect) Ur Amphetamines Screen (Not Detect) U Benzodiazepines Scrn (Not Detect) Urine Cocaine Screen (Not Detect) U Marijuana (THC) Screen (Not Detect) Ethyl Alcohol < 10 mg/dL COVID-19 (RAGHU) Negative (Negative) COVID-19 Clin Com See Note 06/30/22 06/30/22 Range/Units 03:14 03:14 WBC (4.8-10.8) X10*3/uL RBC (4.20-5.50) X10*6/uL Hgb (12.0-16.0) g/dl Hct (37.0-47.0) % MCV (80.0-98.0) fL MCH (27.0-33.0) pg MCHC (31.0-35.0) g/dl RDW (11.0-16.0) % Plt Count (160-400) X10*3/uL MPV (9.4-12.3) fL Immature Gran % (Auto) (0.0-0.4) % Neut % (Auto) (45-73) % Lymph % (Auto) (20-40) % [place] % (Auto) (2-11) % Eos % (Auto) (0-4) % Baso % (Auto) (0-2) % Lymph # (Auto) (1.2-4.9) X10*3/uL [place] # (Auto) (0.1-1.2) X10*3/uL Eos # (Auto) (0.0-0.4) X10*3/uL Baso # (Auto) (0.0-0.2) X10*3/uL Abs Immat Gran (auto) (0.00-0.03) X10*3/uL Absolute Neuts (auto) (2.0-8.3) x10*3/uL Absolute Nucleated RBC (0.0-0.012) X10*3/uL Nucleated RBC % (auto) (0.0-0.2) /100WBC Sodium (135-145) mmol/L Potassium (3.3-5.1) mmol/L Chloride (96-108) mmol/L Carbon Dioxide (22-29) mmol/L Anion Gap (12-20) BUN (9-16) mg/dL Creatinine (0.5-1.4) mg/dL Estim Creat Clear Calc Estimated GFR Random Glucose (60-115) mg/dL Calcium (8.4-10.2) mg/dL Magnesium (1.6-2.6) mg/dL Total Bilirubin (0.0-1.0) mg/dL AST (5-31) U/L ALT (0-31) U/L Alkaline Phosphatase (39-117) U/L Total Protein (6.5-8.0) g/dL Albumin (3.5-5.0) g/dL Urine Color Yellow Urine Appearance Clear Urine pH 8.5 (5.0-9.0) Ur Specific [place] 1.010 (1.005-1.025) Urine Protein Negative (Neg-Trace) mg/dL Urine Glucose (UA) Negative (Negative) mg/dL Urine Ketones Negative (Negative) mg/dL Urine Blood Negative (Negative) Urine Nitrite Positive H (Negative) Ur Leukocyte Esterase Moderate (2+) H (Negative) Urine RBC 0-2 (0-2) /HPF Urine WBC 11-20 H (0-5) /HPF Ur Squamous Epith Cells 0-2 (0-2) /HPF Urine Bacteria 4+ (None Seen) Hyaline Casts 0-2 (0-2) /LPF Urine Opiates Screen Not Detected (Not Detect) Urine Fentanyl Screen POSITIVE H (Not Detect) Ur Barbiturates Screen Not Detected (Not Detect) Ur Phencyclidine Scrn Not Detected (Not Detect) Ur Amphetamines Screen Not Detected (Not Detect) U Benzodiazepines Scrn Not Detected (Not Detect) Urine Cocaine Screen Not Detected (Not Detect) U Marijuana (THC) Screen Not Detected (Not Detect) Ethyl Alcohol mg/dL COVID-19 (RAGHU) (Negative) COVID-19 Clin Com <Kira iDetz NP - Last Filed: 06/30/22 11:47> Discharge Plan Discharge Clinical Impression: Hallucinations, Depression, Acute anxiety, Suicidal ideation UTI (urinary tract infection) Qualifiers: Encounter type: initial encounter <MICKIE Montanez - Last Filed: 06/30/22 00:30> Patient Disposition: Still a Patient <MICKIE Montanez - Last Filed: 06/30/22 00:30> Additional Instructions: Macrobid twice daily for 7 days <MICKIE Montanez - Last Filed: 06/30/22 00:30> Prescriptions: No Action atorvastatin 20 mg Tablet 20 mg PO BEDTIME albuterol sulfate 90 mcg/actuation HFA aerosol inhaler 2 inh inhalation Q4H PRN (Reason: Respiratory Distress) levothyroxine 50 mcg Tablet 50 mcg PO DAILY@0600 cyanocobalamin (vitamin B-12) 500 mcg Tablet 500 mcg PO DAILY haloperidol 10 mg tablet 1 tab PO BID fluticasone propion-salmeterol 100-50 mcg/dose blister with device 1 puff inhalation BID loratadine 10 mg Tablet 10 mg PO DAILY naproxen 500 mg Tablet 500 mg PO BID PRN (Reason: Moderate Pain (Scale Score 5-6)) clonazepam 0.5 mg Tablet 0.5 mg PO DAILY PRN (Reason: Anxiety) benztropine 0.5 mg Tablet 0.5 mg PO BEDTIME verapamil 40 mg Tablet 40 mg PO BID Hold Instructions: Resume on 04/25/22. DISCUSS WITH PCP duloxetine 60 mg Capsule,Delayed Release(Dr/Ec) 60 mg PO BID calcium carbonate-vitamin D3 600 mg-10 mcg (400 unit) Capsule 1 cap PO BID sumatriptan succinate [Imitrex] 50 mg Tablet 50 mg PO DAILY PRN (Reason: Migraine Headache) Rx Instructions: do not exceed 4 doses per 24 hrs prazosin 2 mg capsule 2 mg PO BEDTIME 30 Days Qty: 30 0RF Vraylar 1.5 mg Capsule 4.5 mg PO DAILY 30 Days Qty: 90 0RF trazodone 100 mg tablet 100 mg PO BEDTIME PRN (Reason: insomnia) 30 Days Qty: 30 0RF fluticasone propionate 50 mcg/actuation spray,suspension 1 spray intranasal DAILY PRN (Reason: Allergy Symptoms) cholecalciferol (vitamin D3) [Vitamin D3] 25 mcg (1,000 unit) tablet 1 tab PO DAILY <MICKIE Montanez - Last Filed: 06/30/22 00:30>
[2022-06-29 21:14] VITALS: BP 128/86; PULSE 114; RESP 18; O2SAT 98; BMI 22.3
[2022-06-29 21:34] VITALS: BP 128/86; PULSE 114; RESP 18; O2SAT 98
[2022-06-30] VITALS (8 sets, daily range): BP systolic 100–148; BP diastolic 57–78; PULSE 77–80; RESP 14–18; TEMP 36.3–36.8; O2SAT 93–98
--- NOTE | 2022-06-30 00:04 | PC.NURSE ---
PRERNA King completed at this time.
--- NOTE | 2022-06-30 00:04 | PC.NURSE ---
Pt is resting quietly in bed at this time. Pt reported that she is still feeling depressed. She has been hearing voices that are telling her to kill herself with a knife.
[2022-06-30 00:08] LABS: MANUAL DIFF FLAG NO
[2022-06-30 00:12] LABS: Basophils Absolute Auto 0.1 X10*3/uL (0.0-0.2); Basophils Percent Auto 0.6 % (0-2); Eosinophils Absolute Auto 0.4 X10*3/uL (0.0-0.4); Eosinophils Percent Auto 4.3 % (0-4); Hemoglobin 11.7 g/dl (12.0-16.0); Imm Gran Abs Auto 0.03 X10*3/uL (0.00-0.03); Imm Gran Pct Auto 0.4 % (0.0-0.4); Lymphocytes Absolute Auto 2.9 X10*3/uL (1.2-4.9); Lymphocytes Percent Auto 35.4 % (20-40); Mean Corpuscular HGB Conc 33.4 g/dl (31.0-35.0); Mean Corpuscular Volume 86.6 fL (80.0-98.0); Mean Platelet Volume 11.7 fL (9.4-12.3); Monocytes Absolute Auto 0.4 X10*3/uL (0.1-1.2); Neutrophils Absolute Auto 4.4 x10*3/uL (2.0-8.3); Neutrophils Percent Auto 54.3 % (45-73); Platelet Count 165 X10*3/uL (160-400); Red Blood Count 4.04 X10*6/uL (4.20-5.50); Red Cell Distribution Width 13.1 % (11.0-16.0); White Blood Count 8.2 X10*3/uL (4.8-10.8)
[2022-06-30 00:25] LABS: Alanine Aminotransferase 18 U/L (0-31); Albumin Level 3.4 g/dL (3.5-5.0); Alkaline Phosphatase 84 U/L (39-117); Anion Gap 14 (12-20); Aspartate Amino Transferase 18 U/L (5-31); Bilirubin Total 0.4 mg/dL (0.0-1.0); Blood Urea Nitrogen 9 mg/dL (9-16); Calcium 8.7 mg/dL (8.4-10.2); Carbon Dioxide 22 mmol/L (22-29); Chloride 108 mmol/L (96-108); Creatinine Clr Calc Pharmacy 63.8; Estimated Glomerular Filt Rate > 60; Ethanol < 10 mg/dL; Glucose Random 86 mg/dL (60-115); Sodium 140 mmol/L (135-145); Total Protein 5.4 g/dL (6.5-8.0)
[2022-06-30 00:30] LABS: COVID-19 Test Negative (Negative)
[2022-06-30 03:31] LABS: Barbiturates, Urine Not Detected (Not Detect); Benzodiazepines Screen Urine Not Detected (Not Detect); Cannabinoid Screen Urine Not Detected (Not Detect); Cocaine Screen Urine Not Detected (Not Detect); Fentanyl, urine POSITIVE (Not Detect); Opiate Screen Urine Not Detected (Not Detect); Phencyclidine Screen Urine Not Detected (Not Detect)
[2022-06-30 03:32] LABS: Amphetamine Screen Urine Not Detected (Not Detect)
[2022-06-30 03:46] LABS: Appearance Urine Clear; Color Urine Yellow; Glucose Urine UA Negative (Negative); Leukocyte Esterase Urine Moderate (2+) (Negative); Nitrite Urine Positive (Negative); PH 8.5 (5.0-9.0); UMIC TRIGGER UACC YES; Urine Blood Negative (Negative); Urine Ketones Negative (Negative); Urine Protein Negative (Neg-Trace)
[2022-06-30 03:51] LABS: Bacteria Urine 4+ (None Seen); Hyaline Casts Urine 0-2 /LPF (0-2); RBC Urine 0-2 /HPF (0-2); Squamous Epithelial Cell Urine 0-2 /HPF (0-2); UACC Culture Trigger YES
--- NOTE | 2022-06-30 08:33 | PC.NURSE ---
patient's fiance called and was very upset, he stated that someone from this hospital called him at 2:30am regarding the patient. He did not know the number and did not poultry picker as he didnt know the number. Even though he is her health care proxy and lives with her he has no further information to give us. this rn could not find any note regarding this phone call.
--- NOTE | 2022-06-30 10:12 | PHA.MEDREC ---
Pharmacy Consult ? Medication Reconciliation Pharmacy has completed the medication reconciliation.
[2022-06-30] MEDS: Nitrofurantoin Monohyd/M-Cryst 100 MG CAPSULE PO ×2 (10:37→20:57)
--- NOTE | 2022-06-30 12:17 | PC.NURSE ---
Addendum entered by Danna Hare 06/30/22 13:54: Plan admit to M3. Pt signed CV. Original Note: Ambulated with steady gait from 6H to BH7. Denies complaints at this time. Dispo confirmed with Care team. Pt is inpt bedsearch via [facility].
--- NOTE | 2022-06-30 13:43 | ECG_ITS ---
Test Reason : MED CLEARANCE FOR M3 UNDER 50 Blood Pressure : / mmHG Vent. Rate : 083 BPM Atrial Rate : 083 BPM P-R Int : 142 ms QRS Dur : 080 ms QT Int : 390 ms P-R-T Axes : 039 055 051 degrees QTc Int : 458 ms Normal sinus rhythm RSR' or QR pattern in V1 suggests right ventricular conduction delay Otherwise normal ECG When compared with ECG of 23-MAR-2022 17:04, No significant change was found Referred By: Martha Caldwell Electronically Signed By:MARLENE PEÑA MD
--- NOTE | 2022-06-30 18:59 | PC.NURSE ---
Rita was admitted to M3 at 1750 from [facility] Pod on CV for treatment of suicidal ideation to kill self with a knife. She denies Ideation, plan or intent to harm self or others on the unit. She has a longstanding history of schizoaffective disorder and has been compliant with prescribed medications per her report. She reports becoming more depressed since the of her brother 3 weeks ago. She is alert, fully oriented, pleasant and cooperative with admission process. Mood is depressed. Affect is anxious. I'm just anxious because they didn't give me my meds in the emergency room. She reports visual hallucinations of shadows but denies other hallucinations. Patient appears somewhat paranoid, watching all entries I madein to the computer. She denies any formal supports in the community. I don't have a therapist. They are all too nosey Thought Process is organized. Ability to focus is fair. I don't eat a lot. I have no appetite. It's not anything new. Weight is 187 and height is 5 ft 4 inches Sleep is reportedly good. Rita denies any drug or alcohol use for over 20 years. She is a 1.5 ppd smoker who declines nicotine replacement. She reports having already gotten flu shot this year. Medical Issues?include asthma but she denies cough, wheeze or shortness of breath. Rita denies physical complaint at present. She is placed on 15 minute checks for safety.
[2022-06-30] MEDS: HaloperidoL 5 MG TABLET 10 MG PO (20:57)
[2022-06-30] MEDS: DULoxetine HCl 60 MG CAPSULE.DR PO (20:57)
[2022-06-30] MEDS: Prazosin HCL 1 MG CAPSULE 2 MG PO (20:57)
[2022-06-30] MEDS: Benztropine Mesylate 0.5 MG TABLET PO (20:57)
[2022-06-30] MEDS: Atorvastatin Calcium 20 MG TABLET PO (20:57)
[2022-07-01] MEDS: Calcium + Vitamin D 250 MG TABLET 500 MG PO ×2 (09:38→20:12)
[2022-07-01] MEDS: Cariprazine HCl 1.5 MG CAPSULE 4.5 MG PO (09:39)
[2022-07-01] MEDS: HaloperidoL 5 MG TABLET 10 MG PO ×2 (09:40→20:12)
[2022-07-01] MEDS: Cholecalciferol (Vitamin D3) 25 MCG TABLET PO (09:40)
[2022-07-01] MEDS: Nitrofurantoin Monohyd/M-Cryst 100 MG CAPSULE PO ×2 (09:40→20:12)
[2022-07-01] MEDS: Levothyroxine Sodium 50 MCG TABLET PO (09:40)
[2022-07-01] MEDS: Cyanocobalamin (Vitamin B-12) 500 MCG TABLET PO (09:41)
[2022-07-01] MEDS: DULoxetine HCl 60 MG CAPSULE.DR PO ×2 (09:41→20:12)
[2022-07-01] MEDS: Loratadine 10 MG TABLET PO (09:41)
[2022-07-01 10:36] VITALS: BP 141/76; PULSE 86; TEMP 36.6; O2SAT 97
[2022-07-01] MEDS: VerapamiL HCL 40 MG TABLET PO ×2 (10:38→20:12)
[2022-07-01] MEDS: Fluticasone/Vilanterol 100/25 BLST.W.DEV 1 PUFF INHALE (10:40)
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
[2022-07-01] MEDS: clonazePAM 0.5 MG TABLET PO (17:34)
[2022-07-01 20:00] VITALS: BP 104/67; PULSE 89; RESP 18; TEMP 36.6; O2SAT 95
[2022-07-01] MEDS: Atorvastatin Calcium 20 MG TABLET PO (20:12)
[2022-07-01] MEDS: hydrOXYzine HCL 25 MG TABLET PO (20:12)
[2022-07-01] MEDS: Prazosin HCL 1 MG CAPSULE 2 MG PO (20:12)
[2022-07-01] MEDS: traZODone HCL 100 MG TABLET PO (20:12)
[2022-07-01] MEDS: Benztropine Mesylate 0.5 MG TABLET PO (20:12)
[2022-07-02 08:20] VITALS: BP 140/70; PULSE 104; RESP 18; TEMP 36.6; O2SAT 98
[2022-07-02] MEDS: Nitrofurantoin Monohyd/M-Cryst 100 MG CAPSULE PO ×2 (09:08→20:48)
[2022-07-02] MEDS: Calcium + Vitamin D 250 MG TABLET 500 MG PO ×2 (09:08→20:47)
[2022-07-02] MEDS: DULoxetine HCl 60 MG CAPSULE.DR PO ×2 (09:08→20:47)
[2022-07-02] MEDS: Levothyroxine Sodium 50 MCG TABLET PO (09:09)
[2022-07-02] MEDS: Cariprazine HCl 1.5 MG CAPSULE 4.5 MG PO (09:10)
[2022-07-02] MEDS: HaloperidoL 5 MG TABLET 10 MG PO ×2 (09:10→20:47)
[2022-07-02] MEDS: Cyanocobalamin (Vitamin B-12) 500 MCG TABLET PO (09:10)
[2022-07-02] MEDS: Loratadine 10 MG TABLET PO (09:11)
[2022-07-02] MEDS: Cholecalciferol (Vitamin D3) 25 MCG TABLET PO (09:12)
[2022-07-02] MEDS: VerapamiL HCL 40 MG TABLET PO ×2 (09:12→20:47)
[2022-07-02] MEDS: Fluticasone Propionate Nasal 16 GM SPRAY 1 SPRAY NOSTRIL-B (09:13)
--- NOTE | 2022-07-02 11:03 | P.PNPSI_ITS ---
Subjective Subjective Date of Service: 07/02/22 Reason For Visit: SI Subjective Notes: Conditional Voluntary Interim History: Pt is in bed. Eys close. She reports she continues to feel depressed, intermittent suicidal ideation with plan to cut her wrist. She reports seeing shadows. Pt reports fair sleep. She reports poor appetite. She reports medications helping and does not want change but at same time not able to state in what way they are helpful as she is symptomatic. Medication Compliance: Yes Review of Systems Review of Systems Constitutional : No Fever, No Chills ENT/Mouth : No Ear Pain, No Nasal Congestion, No sore throat Eyes: No Eye Pain, No Swelling, No Redness Cardiovascular : No Chest Pain, No SOB Respiratory : No Cough, No Sputum, No Dyspnea Gastrointestinal : No Nausea, No Vomiting, No Diarrhea, No Hematochezia, No Melena Genitourinary : No Dysuria, No Urinary Frequency, No Hematuria Musculoskeletal : No Myalgias Skin : No Skin Lesions, No rash Neuro : No Weakness, No Numbness, No Paresthesias, No Dizziness, No Headache Psych : positive Anxiety, positive Depression, + hallucinations, + SI, No HI Heme/Lymph: No Lymphadenopathy Endocrine : No Polyuria, No Polydipsia All other systems reviewed and are negative Yes all other systems are reviewed and are negative Mental Status Exam Mental Status Exam Narrative: Pt is alert and oriented; behavior is indifferent; patient is not in distress; dressed in hospital attire with unkempt hair but adequate hygiene; no PMA/PMR; mood is described as sad and affect congruent, downcast; eye contact appropriate; Speech is with chronic impediment; speech nml rate, amount, loudness, tone, latency; thought process is organized and goal directed; Thought content on losses, in particular of her brother 3 weeks ago; +SI of cutting; no HI/AH; c/o seeing shadows. Patients insight and judgment are impaired but knows needs and wants tx. Diagnostics Vital Signs (24Hr): Vital Signs - 24 hr 07/01/22 20:00 07/02/22 08:20 Temperature 97.9 F 97.9 F Pulse Rate 89 104 H Respiratory Rate 18 18 Blood Pressure 104/67 140/70 H Pulse Oximetry 95 98 Oxygen Delivery Method Room Air Room Air BMI result Body Mass Index 22.3 Labs Results: 06/30/22 00:02 06/30/22 00:02 Medications Medications Current Medications Acetaminophen (Acetaminophen 325 Mg Tablet) 650 mg PO Q6H PRN PRN Reason: Headache/Pain Mild Scale (1-3) Al Hydroxide/Mg Hydroxide (Magnesium Hydrox/Alum Hydrox 30 Ml Oral.Susp) 30 ml PO Q6H PRN PRN Reason: Heartburn/Nausea Albuterol Sulfate (Albuterol Sulfate 90 Mcg 8 Gm Inhaler) 2 puff INHALE RQ4H PRN PRN Reason: Respiratory Distress Atorvastatin Calcium (Atorvastatin Calcium 20 Mg Tablet) 20 mg PO BEDTIME [facility] Last Admin: 07/01/22 20:12 Dose: 20 mg Benztropine Mesylate (Benztropine Mesylate 0.5 Mg Tablet) 0.5 mg PO BEDTIME [facility] Last Admin: 07/01/22 20:12 Dose: 0.5 mg Calcium Carbonate/Cholecalciferol (Calcium + Vitamin D 250 Mg Tablet) 500 mg PO BID [facility] Last Admin: 07/02/22 09:08 Dose: 500 mg Cariprazine (Cariprazine Hcl 1.5 Mg Capsule) 4.5 mg PO DAILY [facility] Last Admin: 07/02/22 09:10 Dose: 4.5 mg Clonazepam (Clonazepam 0.5 Mg Tablet) 0.5 mg PO DAILY PRN PRN Reason: Anxiety Last Admin: 07/01/22 17:34 Dose: 0.5 mg Cyanocobalamin (Cyanocobalamin (Vitamin B-12) 500 Mcg Tablet) 500 mcg PO DAILY [facility] Last Admin: 07/02/22 09:10 Dose: 500 mcg Duloxetine HCl (Duloxetine Hcl 60 Mg Capsule.Dr) 60 mg PO BID [facility] Last Admin: 07/02/22 09:08 Dose: 60 mg Fluticasone Propionate (Fluticasone Propionate Nasal 16 Gm [place]) 1 spray NOSTRIL-B DAILY PRN PRN Reason: Allergy Symptoms Last Admin: 07/02/22 09:13 Dose: 1 spray Fluticasone/Vilanterol (Fluticasone/Vilanterol 100/25 Blst.W.Dev) 1 puff INHALE DAILY [facility] Last Admin: 07/01/22 10:40 Dose: 1 puff Haloperidol (Haloperidol 5 Mg Tablet) 10 mg PO BID [facility] Last Admin: 07/02/22 09:10 Dose: 10 mg Hydroxyzine HCl (Hydroxyzine Hcl 25 Mg Tablet) 25 mg PO Q6H PRN PRN Reason: Anxiety Last Admin: 07/01/22 20:12 Dose: 25 mg Levothyroxine Sodium (Levothyroxine Sodium 50 Mcg Tablet) 50 mcg PO DAILY@0600 [facility] Last Admin: 07/02/22 09:09 Dose: 50 mcg Loratadine (Loratadine 10 Mg Tablet) 10 mg PO DAILY [facility] Last Admin: 07/02/22 09:11 Dose: 10 mg Magnesium Hydroxide (Milk Of Magnesia 30 Ml Oral.Susp) 30 ml PO DAILY PRN PRN Reason: Constipation Naproxen (Naproxen 500 Mg Tablet) 500 mg PO BID PRN PRN Reason: Moderate Pain (Scale Score 5-6) Nicotine Polacrilex (Nicotine Polacrilex 2 Mg Gum) 2 mg BUCCAL Q2H PRN PRN Reason: Nicotine Cravings Nitrofurantoin Macrocrystals (Nitrofurantoin Monohyd/M-Cryst 100 Mg Capsule) 100 mg PO BID [facility] Stop: 07/06/22 21:00 Last Admin: 07/02/22 09:08 Dose: 100 mg Prazosin HCl (Prazosin Hcl 1 Mg Capsule) 2 mg PO BEDTIME [facility]; Protocol Last Admin: 07/01/22 20:12 Dose: 2 mg Sumatriptan Succinate (Sumatriptan Succinate 50 Mg Tablet) 50 mg PO DAILY PRN PRN Reason: Migraine Headache Trazodone HCl (Trazodone Hcl 100 Mg Tablet) 100 mg PO BEDTIME PRN PRN Reason: insomnia Last Admin: 07/01/22 20:12 Dose: 100 mg Verapamil HCl (Verapamil Hcl 40 Mg Tablet) 40 mg PO BID [facility]; Protocol Last Admin: 07/02/22 09:12 Dose: 40 mg Vitamin D (Cholecalciferol (Vitamin D3) 25 Mcg Tablet) 25 mcg PO DAILY [facility] Last Admin: 07/02/22 09:12 Dose: 25 mcg Allergies Allergies Allergy/AdvReac Type Severity Reaction Status Date / Time amoxicillin [AMOXICILLIN] Allergy Intermediate HIVES Verified 03/23/22 16:51 carisoprodol [From SOMA] Allergy Intermediate HIVES Verified 03/23/22 16:51 Fish Containing Products Allergy Intermediate HIVES Verified 03/23/22 16:51 Penicillins [PENICILLINS] Allergy Intermediate HIVES Verified 03/23/22 16:51 latex [LATEX] Allergy Mild RASH Verified 03/23/22 16:51 fish Allergy Unknown shortness Uncoded 03/23/22 16:51 of breath MEAT AdvReac Mild SICK Uncoded 03/23/22 16:51 Assessment & Plan Assessment & Plan (1) Schizoaffective disorder: Status: Acute Code(s): F25.9 - Schizoaffective disorder, unspecified (2) Chronic post-traumatic stress disorder (PTSD): Status: Acute Code(s): F43.12 - Post-traumatic stress disorder, chronic (3) TBI (traumatic brain injury): Status: Acute Code(s): S06.9X9A - Unspecified intracranial injury with loss of consciousness of unspecified duration, initial encounter (4) Suicidal ideation: Status: Acute Code(s): R45.851 - Suicidal ideations Plan continue outpt meds for now. keep safe on locked unit, observe behaviors. collect collateral information from family, friends, treaters as able. 07/02 continue tx. I spent minutes with the patient and/or on the patient floor today, greater than?50% of which was spent counseling/coordinating care. Reason for contiued inpatient stay Substantial Risk for: inability to function
[2022-07-02] MEDS: Acetaminophen 325 MG TABLET 650 MG PO (14:31)
[2022-07-02 18:00] VITALS: BP 108/69; PULSE 76; RESP 16; TEMP 36.4; O2SAT 97
[2022-07-02] MEDS: hydrOXYzine HCL 25 MG TABLET PO (20:47)
[2022-07-02] MEDS: traZODone HCL 100 MG TABLET PO (20:47)
[2022-07-02] MEDS: Atorvastatin Calcium 20 MG TABLET PO (20:47)
[2022-07-02] MEDS: Benztropine Mesylate 0.5 MG TABLET PO (20:47)
[2022-07-02] MEDS: Prazosin HCL 1 MG CAPSULE 2 MG PO (20:48)
[2022-07-02] MEDS: SUMAtriptan succinate 50 MG TABLET PO (20:51)
[2022-07-03 08:15] VITALS: BP 123/74; PULSE 69; RESP 18; TEMP 36.6; O2SAT 97
[2022-07-03] MEDS: Cariprazine HCl 1.5 MG CAPSULE 4.5 MG PO (09:47)
[2022-07-03] MEDS: Cyanocobalamin (Vitamin B-12) 500 MCG TABLET PO (09:48)
[2022-07-03] MEDS: DULoxetine HCl 60 MG CAPSULE.DR PO ×2 (09:48→20:07)
[2022-07-03] MEDS: Levothyroxine Sodium 50 MCG TABLET PO (09:49)
[2022-07-03] MEDS: HaloperidoL 5 MG TABLET 10 MG PO ×2 (09:49→20:07)
[2022-07-03] MEDS: Nitrofurantoin Monohyd/M-Cryst 100 MG CAPSULE PO ×2 (09:49→20:07)
[2022-07-03] MEDS: VerapamiL HCL 40 MG TABLET PO ×2 (09:50→20:08)
[2022-07-03] MEDS: Cholecalciferol (Vitamin D3) 25 MCG TABLET PO (09:50)
[2022-07-03] MEDS: Calcium + Vitamin D 250 MG TABLET 500 MG PO ×2 (09:51→20:07)
[2022-07-03] MEDS: Loratadine 10 MG TABLET PO (09:51)
[2022-07-03] MEDS: Fluticasone/Vilanterol 100/25 BLST.W.DEV 1 PUFF INHALE (09:52)
[2022-07-03] MEDS: Fluticasone Propionate Nasal 16 GM SPRAY 1 SPRAY NOSTRIL-B (09:52)
--- NOTE | 2022-07-03 12:18 | P.PNPSI_ITS ---
Subjective Subjective Date of Service: 07/03/22 Reason For Visit: SI Subjective Notes: Conditional Voluntary Interim History: Pt more visible today. She reports feeling slightly better, continues to report AH. She reports sleeping well. She reports eating well. She is taking medications as prescribed. She continues to report SI no plan or intent. Medication Compliance: Yes Side effects from medications: No Review of Systems Review of Systems Constitutional : No Fever, No Chills ENT/Mouth : No Ear Pain, No Nasal Congestion, No sore throat Eyes: No Eye Pain, No Swelling, No Redness Cardiovascular : No Chest Pain, No SOB Respiratory : No Cough, No Sputum, No Dyspnea Gastrointestinal : No Nausea, No Vomiting, No Diarrhea, No Hematochezia, No Melena Genitourinary : No Dysuria, No Urinary Frequency, No Hematuria Musculoskeletal : No Myalgias Skin : No Skin Lesions, No rash Neuro : No Weakness, No Numbness, No Paresthesias, No Dizziness, No Headache Psych : positive Anxiety, positive Depression, + hallucinations, + SI, No HI Heme/Lymph: No Lymphadenopathy Endocrine : No Polyuria, No Polydipsia All other systems reviewed and are negative Yes all other systems are reviewed and are negative Mental Status Exam Mental Status Exam Narrative: Pt is alert and oriented; behavior is indifferent; patient is not in distress; dressed in hospital attire with unkempt hair but adequate hygiene; no PMA/PMR; mood is described as sad and affect congruent, downcast; eye contact appropriate; Speech is with chronic impediment; speech nml rate, amount, loudness, tone, latency; thought process is organized and goal directed; Thought content on losses, in particular of her brother 3 weeks ago; +SI of cutting; no HI/AH; c/o seeing shadows. Patients insight and judgment are impaired but knows needs and wants tx. Diagnostics Vital Signs (24Hr): Vital Signs - 24 hr 07/03/22 20:05 Temperature 97.2 F Pulse Rate 112 H Respiratory Rate 16 Blood Pressure 97/57 L Pulse Oximetry 96 Oxygen Delivery Method Room Air BMI result Body Mass Index 22.3 Labs Results: 06/30/22 00:02 06/30/22 00:02 Medications Medications Current Medications Acetaminophen (Acetaminophen 325 Mg Tablet) 650 mg PO Q6H PRN PRN Reason: Headache/Pain Mild Scale (1-3) Last Admin: 07/02/22 14:31 Dose: 650 mg Al Hydroxide/Mg Hydroxide (Magnesium Hydrox/Alum Hydrox 30 Ml Oral.Susp) 30 ml PO Q6H PRN PRN Reason: Heartburn/Nausea Albuterol Sulfate (Albuterol Sulfate 90 Mcg 8 Gm Inhaler) 2 puff INHALE RQ4H PRN PRN Reason: Respiratory Distress Atorvastatin Calcium (Atorvastatin Calcium 20 Mg Tablet) 20 mg PO BEDTIME [facility] Last Admin: 07/03/22 20:07 Dose: 20 mg Benztropine Mesylate (Benztropine Mesylate 0.5 Mg Tablet) 0.5 mg PO BEDTIME [facility] Last Admin: 07/03/22 20:07 Dose: 0.5 mg Calcium Carbonate/Cholecalciferol (Calcium + Vitamin D 250 Mg Tablet) 500 mg PO BID [facility] Last Admin: 07/03/22 20:07 Dose: 500 mg Cariprazine (Cariprazine Hcl 1.5 Mg Capsule) 4.5 mg PO DAILY [facility] Last Admin: 07/03/22 09:47 Dose: 4.5 mg Clonazepam (Clonazepam 0.5 Mg Tablet) 0.5 mg PO DAILY PRN PRN Reason: Anxiety Last Admin: 07/03/22 15:00 Dose: 0.5 mg Cyanocobalamin (Cyanocobalamin (Vitamin B-12) 500 Mcg Tablet) 500 mcg PO DAILY [facility] Last Admin: 07/03/22 09:48 Dose: 500 mcg Duloxetine HCl (Duloxetine Hcl 60 Mg Capsule.Dr) 60 mg PO BID [facility] Last Admin: 07/03/22 20:07 Dose: 60 mg Fluticasone Propionate (Fluticasone Propionate Nasal 16 Gm [place]) 1 spray NOSTRIL-B DAILY PRN PRN Reason: Allergy Symptoms Last Admin: 07/03/22 09:52 Dose: 1 spray Fluticasone/Vilanterol (Fluticasone/Vilanterol 100/25 Blst.W.Dev) 1 puff INHALE DAILY [facility] Last Admin: 07/03/22 09:52 Dose: 1 puff Haloperidol (Haloperidol 5 Mg Tablet) 10 mg PO BID [facility] Last Admin: 07/03/22 20:07 Dose: 10 mg Hydroxyzine HCl (Hydroxyzine Hcl 25 Mg Tablet) 25 mg PO Q6H PRN PRN Reason: Anxiety Last Admin: 07/02/22 20:47 Dose: 25 mg Levothyroxine Sodium (Levothyroxine Sodium 50 Mcg Tablet) 50 mcg PO DAILY@0600 [facility] Last Admin: 07/03/22 09:49 Dose: 50 mcg Loratadine (Loratadine 10 Mg Tablet) 10 mg PO DAILY [facility] Last Admin: 07/03/22 09:51 Dose: 10 mg Magnesium Hydroxide (Milk Of Magnesia 30 Ml Oral.Susp) 30 ml PO DAILY PRN PRN Reason: Constipation Naproxen (Naproxen 500 Mg Tablet) 500 mg PO BID PRN PRN Reason: Moderate Pain (Scale Score 5-6) Nicotine Polacrilex (Nicotine Polacrilex 2 Mg Gum) 2 mg BUCCAL Q2H PRN PRN Reason: Nicotine Cravings Nitrofurantoin Macrocrystals (Nitrofurantoin Monohyd/M-Cryst 100 Mg Capsule) 100 mg PO BID [facility] Stop: 07/06/22 21:00 Last Admin: 07/03/22 20:07 Dose: 100 mg Prazosin HCl (Prazosin Hcl 1 Mg Capsule) 2 mg PO BEDTIME [facility]; Protocol Last Admin: 07/03/22 20:08 Dose: 2 mg Sumatriptan Succinate (Sumatriptan Succinate 50 Mg Tablet) 50 mg PO DAILY PRN PRN Reason: Migraine Headache Last Admin: 07/02/22 20:51 Dose: 50 mg Trazodone HCl (Trazodone Hcl 100 Mg Tablet) 100 mg PO BEDTIME PRN PRN Reason: insomnia Last Admin: 07/03/22 20:07 Dose: 100 mg Verapamil HCl (Verapamil Hcl 40 Mg Tablet) 40 mg PO BID [facility]; Protocol Last Admin: 07/03/22 20:08 Dose: 40 mg Vitamin D (Cholecalciferol (Vitamin D3) 25 Mcg Tablet) 25 mcg PO DAILY [facility] Last Admin: 07/03/22 09:50 Dose: 25 mcg Allergies Allergies Allergy/AdvReac Type Severity Reaction Status Date / Time amoxicillin [AMOXICILLIN] Allergy Intermediate HIVES Verified 03/23/22 16:51 carisoprodol [From SOMA] Allergy Intermediate HIVES Verified 03/23/22 16:51 Fish Containing Products Allergy Intermediate HIVES Verified 03/23/22 16:51 Penicillins [PENICILLINS] Allergy Intermediate HIVES Verified 03/23/22 16:51 latex [LATEX] Allergy Mild RASH Verified 03/23/22 16:51 fish Allergy Unknown shortness Uncoded 08/06/22 16:51 of breath MEAT AdvReac Mild SICK Uncoded 03/23/22 16:51 Assessment & Plan Assessment & Plan (1) Schizoaffective disorder: Status: Acute Code(s): F25.9 - Schizoaffective disorder, unspecified (2) Chronic post-traumatic stress disorder (PTSD): Status: Acute Code(s): F43.12 - Post-traumatic stress disorder, chronic (3) TBI (traumatic brain injury): Status: Acute Code(s): S06.9X9A - Unspecified intracranial injury with loss of consciousness of unspecified duration, initial encounter (4) Suicidal ideation: Status: Acute Code(s): R45.851 - Suicidal ideations Plan continue outpt meds for now. keep safe on locked unit, observe behaviors. collect collateral information from family, friends, treaters as able. 07/02 continue tx. 07/03 continue tx. I spent minutes with the patient and/or on the patient floor today, greater than?50% of which was spent counseling/coordinating care. Reason for contiued inpatient stay Substantial Risk for: harm to self and inability to function
[2022-07-03] MEDS: clonazePAM 0.5 MG TABLET PO (15:00)
[2022-07-03 20:05] VITALS: BP 97/57; PULSE 112; RESP 16; TEMP 36.2; O2SAT 96
[2022-07-03] MEDS: traZODone HCL 100 MG TABLET PO (20:07)
[2022-07-03] MEDS: Benztropine Mesylate 0.5 MG TABLET PO (20:07)
[2022-07-03] MEDS: Atorvastatin Calcium 20 MG TABLET PO (20:07)
[2022-07-03] MEDS: Prazosin HCL 1 MG CAPSULE 2 MG PO (20:08)
[2022-07-04 09:45] VITALS: BP 98/62; PULSE 87; RESP 18; TEMP 36.3; O2SAT 95
[2022-07-04] MEDS: Fluticasone/Vilanterol 100/25 BLST.W.DEV 1 PUFF INHALE (09:53)
[2022-07-04] MEDS: Nitrofurantoin Monohyd/M-Cryst 100 MG CAPSULE PO ×2 (09:56→20:11)
[2022-07-04] MEDS: DULoxetine HCl 60 MG CAPSULE.DR PO ×2 (09:56→20:11)
[2022-07-04] MEDS: Levothyroxine Sodium 50 MCG TABLET PO (09:56)
[2022-07-04] MEDS: Loratadine 10 MG TABLET PO (09:56)
[2022-07-04] MEDS: Cariprazine HCl 1.5 MG CAPSULE 4.5 MG PO (09:57)
[2022-07-04] MEDS: HaloperidoL 5 MG TABLET 10 MG PO ×2 (09:57→20:11)
[2022-07-04] MEDS: Cyanocobalamin (Vitamin B-12) 500 MCG TABLET PO (09:58)
[2022-07-04] MEDS: Calcium + Vitamin D 250 MG TABLET 500 MG PO ×2 (09:58→20:11)
[2022-07-04] MEDS: Cholecalciferol (Vitamin D3) 25 MCG TABLET PO (09:58)
[2022-07-04] MEDS: clonazePAM 0.5 MG TABLET PO (12:54)
--- NOTE | 2022-07-04 13:23 | HO.PSYCHPN ---
Subjective Subjective Date of Service: 07/04/22 Reason For Visit: SI Subjective Notes: Conditional Voluntary Interim History: Pt reports not feeling well today. She reports someone looked at her in a way that she did not like, therefore, she did not attend group as peers was attenting this group. Pt reports sleeping and eating well. She denies SI/HI. She reports seeing shadows, denies CAH. Still reports she does not think she should be discharged soon. Medication Compliance: Yes Review of Systems Review of Systems Constitutional : No Fever, No Chills ENT/Mouth : No Ear Pain, No Nasal Congestion, No sore throat Eyes: No Eye Pain, No Swelling, No Redness Cardiovascular : No Chest Pain, No SOB Respiratory : No Cough, No Sputum, No Dyspnea Gastrointestinal : No Nausea, No Vomiting, No Diarrhea, No Hematochezia, No Melena Genitourinary : No Dysuria, No Urinary Frequency, No Hematuria Musculoskeletal : No Myalgias Skin : No Skin Lesions, No rash Neuro : No Weakness, No Numbness, No Paresthesias, No Dizziness, No Headache Psych : positive Anxiety, positive Depression, + hallucinations, + SI, No HI Heme/Lymph: No Lymphadenopathy Endocrine : No Polyuria, No Polydipsia All other systems reviewed and are negative Yes all other systems are reviewed and are negative Mental Status Exam Mental Status Exam Narrative: Pt is alert and oriented; behavior is indifferent; patient is not in distress; dressed in hospital attire with unkempt hair but adequate hygiene; no PMA/PMR; mood is described as sad and affect congruent, downcast; eye contact appropriate; Speech is with chronic impediment; speech nml rate, amount, loudness, tone, latency; thought process is organized and goal directed; Thought content on losses, in particular of her brother 3 weeks ago; +SI of cutting; no HI/AH;? c/o seeing shadows. ? Patients insight and judgment are impaired but knows needs and wants tx. Diagnostics Vital Signs (24Hr): Vital Signs - 24 hr 07/05/22 13:00 07/05/22 14:00 07/05/22 20:50 Temperature 97.0 F 97.2 F Pulse Rate 90 100 Respiratory Rate 18 20 16 Blood Pressure 115/64 134/82 Pulse Oximetry 98 98 Oxygen Delivery Method Room Air Room Air BMI result Body Mass Index 22.3 Labs Results: 06/30/22 00:02 06/30/22 00:02 Medications Medications Current Medications Acetaminophen (Acetaminophen 325 Mg Tablet) 650 mg PO Q6H PRN PRN Reason: Headache/Pain Mild Scale (1-3) Last Admin: 07/02/22 14:31 Dose: 650 mg Al Hydroxide/Mg Hydroxide (Magnesium Hydrox/Alum Hydrox 30 Ml Oral.Susp) 30 ml PO Q6H PRN PRN Reason: Heartburn/Nausea Albuterol Sulfate (Albuterol Sulfate 90 Mcg 8 Gm Inhaler) 2 puff INHALE RQ4H PRN PRN Reason: Respiratory Distress Atorvastatin Calcium (Atorvastatin Calcium 20 Mg Tablet) 20 mg PO BEDTIME [facility] Last Admin: 07/05/22 20:53 Dose: 20 mg Benztropine Mesylate (Benztropine Mesylate 0.5 Mg Tablet) 0.5 mg PO BEDTIME [facility] Last Admin: 07/05/22 20:53 Dose: 0.5 mg Calcium Carbonate/Cholecalciferol (Calcium + Vitamin D 250 Mg Tablet) 500 mg PO BID [facility] Last Admin: 07/05/22 20:53 Dose: 500 mg Cariprazine (Cariprazine Hcl 1.5 Mg Capsule) 4.5 mg PO DAILY [facility] Last Admin: 07/05/22 09:49 Dose: 4.5 mg Clonazepam (Clonazepam 0.5 Mg Tablet) 0.5 mg PO DAILY PRN PRN Reason: Anxiety Last Admin: 07/05/22 20:57 Dose: 0.5 mg Cyanocobalamin (Cyanocobalamin (Vitamin B-12) 500 Mcg Tablet) 500 mcg PO DAILY [facility] Last Admin: 07/05/22 09:52 Dose: 500 mcg Duloxetine HCl (Duloxetine Hcl 60 Mg Capsule.Dr) 60 mg PO BID [facility] Last Admin: 07/05/22 20:54 Dose: 60 mg Fluticasone Propionate (Fluticasone Propionate Nasal 16 Gm [place]) 1 spray NOSTRIL-B DAILY PRN PRN Reason: Allergy Symptoms Last Admin: 07/03/22 09:52 Dose: 1 spray Fluticasone/Vilanterol (Fluticasone/Vilanterol 100/25 Blst.W.Dev) 1 puff INHALE DAILY [facility] Last Admin: 07/05/22 09:48 Dose: 1 puff Haloperidol (Haloperidol 5 Mg Tablet) 10 mg PO BID [facility] Last Admin: 07/05/22 20:54 Dose: 10 mg Hydroxyzine HCl (Hydroxyzine Hcl 25 Mg Tablet) 25 mg PO Q6H PRN PRN Reason: Anxiety Last Admin: 07/06/22 02:41 Dose: 25 mg Levothyroxine Sodium (Levothyroxine Sodium 50 Mcg Tablet) 50 mcg PO DAILY@0600 [facility] Last Admin: 07/05/22 09:52 Dose: 50 mcg Loratadine (Loratadine 10 Mg Tablet) 10 mg PO DAILY [facility] Last Admin: 07/05/22 09:52 Dose: 10 mg Magnesium Hydroxide (Milk Of Magnesia 30 Ml Oral.Susp) 30 ml PO DAILY PRN PRN Reason: Constipation Naproxen (Naproxen 500 Mg Tablet) 500 mg PO BID PRN PRN Reason: Moderate Pain (Scale Score 5-6) Last Admin: 07/05/22 00:13 Dose: 500 mg Nicotine Polacrilex (Nicotine Polacrilex 2 Mg Gum) 2 mg BUCCAL Q2H PRN PRN Reason: Nicotine Cravings Nitrofurantoin Macrocrystals (Nitrofurantoin Monohyd/M-Cryst 100 Mg Capsule) 100 mg PO BID [facility] Stop: 07/06/22 21:00 Last Admin: 07/05/22 20:54 Dose: 100 mg Prazosin HCl (Prazosin Hcl 1 Mg Capsule) 2 mg PO BEDTIME [facility]; Protocol Last Admin: 07/05/22 20:55 Dose: 2 mg Sumatriptan Succinate (Sumatriptan Succinate 50 Mg Tablet) 50 mg PO DAILY PRN PRN Reason: Migraine Headache Last Admin: 07/02/22 20:51 Dose: 50 mg Trazodone HCl (Trazodone Hcl 100 Mg Tablet) 100 mg PO BEDTIME PRN PRN Reason: insomnia Last Admin: 07/06/22 02:41 Dose: 100 mg Verapamil HCl (Verapamil Hcl 40 Mg Tablet) 40 mg PO BID [facility]; Protocol Last Admin: 07/05/22 20:55 Dose: 40 mg Vitamin D (Cholecalciferol (Vitamin D3) 25 Mcg Tablet) 25 mcg PO DAILY [facility] Last Admin: 07/05/22 09:51 Dose: 25 mcg Allergies Allergies Allergy/AdvReac Type Severity Reaction Status Date / Time amoxicillin [AMOXICILLIN] Allergy Intermediate HIVES Verified 03/23/22 16:51 carisoprodol [From SOMA] Allergy Intermediate HIVES Verified 03/23/22 16:51 Fish Containing Products Allergy Intermediate HIVES Verified 03/23/22 16:51 Penicillins [PENICILLINS] Allergy Intermediate HIVES Verified 03/23/22 16:51 latex [LATEX] Allergy Mild RASH Verified 03/23/22 16:51 fish Allergy Unknown shortness Uncoded 03/23/22 16:51 of breath MEAT AdvReac Mild SICK Uncoded 03/23/22 16:51 Assessment & Plan Assessment & Plan (1) Schizoaffective disorder: Status: Acute Code(s): F25.9 - Schizoaffective disorder, unspecified (2) Chronic post-traumatic stress disorder (PTSD): Status: Acute Code(s): F43.12 - Post-traumatic stress disorder, chronic (3) TBI (traumatic brain injury): Status: Acute Code(s): S06.9X9A - Unspecified intracranial injury with loss of consciousness of unspecified duration, initial encounter (4) Suicidal ideation: Status: Acute Code(s): R45.851 - Suicidal ideations Plan continue outpt meds for now. keep safe on locked unit, observe behaviors. collect collateral information from family, friends, treaters as able. 07/02 continue tx. 07/03 continue tx. 07/04 continue tx. I spent minutes with the patient and/or on the patient floor today, greater than?50% of which was spent counseling/coordinating care. Reason for contiued inpatient stay Substantial Risk for: harm to self
--- NOTE | 2022-07-04 15:40 | PC.NURSE ---
Pat Morocho RN, assuming patient's care.
[2022-07-04 20:08] VITALS: BP 116/65; PULSE 76; RESP 16; TEMP 36.2; O2SAT 96
[2022-07-04] MEDS: VerapamiL HCL 40 MG TABLET PO (20:11)
[2022-07-04] MEDS: Atorvastatin Calcium 20 MG TABLET PO (20:11)
[2022-07-04] MEDS: Prazosin HCL 1 MG CAPSULE 2 MG PO (20:11)
[2022-07-04] MEDS: Benztropine Mesylate 0.5 MG TABLET PO (20:11)
[2022-07-05] MEDS: NaPROXEN 500 MG TABLET PO (00:13)
[2022-07-05] MEDS: traZODone HCL 100 MG TABLET PO (00:14)
[2022-07-05] MEDS: Fluticasone/Vilanterol 100/25 BLST.W.DEV 1 PUFF INHALE (09:48)
[2022-07-05] MEDS: Cariprazine HCl 1.5 MG CAPSULE 4.5 MG PO (09:49)
[2022-07-05] MEDS: Calcium + Vitamin D 250 MG TABLET 500 MG PO ×2 (09:49→20:53)
[2022-07-05] MEDS: HaloperidoL 5 MG TABLET 10 MG PO ×2 (09:50→20:54)
[2022-07-05] MEDS: VerapamiL HCL 40 MG TABLET PO ×2 (09:50→20:55)
[2022-07-05] MEDS: DULoxetine HCl 60 MG CAPSULE.DR PO ×2 (09:51→20:54)
[2022-07-05] MEDS: Nitrofurantoin Monohyd/M-Cryst 100 MG CAPSULE PO ×2 (09:51→20:54)
[2022-07-05] MEDS: Cholecalciferol (Vitamin D3) 25 MCG TABLET PO (09:51)
[2022-07-05] MEDS: Loratadine 10 MG TABLET PO (09:52)
[2022-07-05] MEDS: Cyanocobalamin (Vitamin B-12) 500 MCG TABLET PO (09:52)
[2022-07-05] MEDS: Levothyroxine Sodium 50 MCG TABLET PO (09:52)
--- NOTE | 2022-07-05 12:25 | HO.PSYCHPN ---
Subjective Subjective Date of Service: 07/05/22 Reason For Visit: SI Subjective Notes: Conditional Voluntary Interim History: Pt has been more visible, improved hygiene, going to some groups. Today, she states she feels better. She denies SI/HI. She continues to report seeing shadows but denies CAH. No plan or intent to harm herself. She reports she does not want to be discharged this coming Friday but instead next Friday, explained to pt that given that she is going better, no imminent safety concern there may no be reason to keep her longer unless something changes. Per nursing, pt more visible, no behavioral concerns. Medication Compliance: Yes Side effects from medications: No Attending Groups: Intermittent Review of Systems Review of Systems Constitutional : No Fever, No Chills ENT/Mouth : No Ear Pain, No Nasal Congestion, No sore throat Eyes: No Eye Pain, No Swelling, No Redness Cardiovascular : No Chest Pain, No SOB Respiratory : No Cough, No Sputum, No Dyspnea Gastrointestinal : No Nausea, No Vomiting, No Diarrhea, No Hematochezia, No Melena Genitourinary : No Dysuria, No Urinary Frequency, No Hematuria Musculoskeletal : No Myalgias Skin : No Skin Lesions, No rash Neuro : No Weakness, No Numbness, No Paresthesias, No Dizziness, No Headache Psych : positive Anxiety, positive Depression, + hallucinations, + SI, No HI Heme/Lymph: No Lymphadenopathy Endocrine : No Polyuria, No Polydipsia All other systems reviewed and are negative Yes all other systems are reviewed and are negative Mental Status Exam Mental Status Exam Narrative: Pt is alert and oriented; behavior is indifferent; patient is not in distress; dressed in hospital attire with unkempt hair but adequate hygiene; no PMA/PMR; mood is described as sad and affect congruent, downcast; eye contact appropriate; Speech is with chronic impediment; speech nml rate, amount, loudness, tone, latency; thought process is organized and goal directed; Thought content on losses, in particular of her brother 3 weeks ago; +SI of cutting; no HI/AH;? c/o seeing shadows. ? Patients insight and judgment are impaired but knows needs and wants tx. Diagnostics Vital Signs (24Hr): Vital Signs - 24 hr 07/05/22 13:00 07/05/22 14:00 07/05/22 20:50 Temperature 97.0 F 97.2 F Pulse Rate 90 100 Respiratory Rate 18 20 16 Blood Pressure 115/64 134/82 Pulse Oximetry 98 98 Oxygen Delivery Method Room Air Room Air BMI result Body Mass Index 22.3 Labs Results: 06/30/22 00:02 06/30/22 00:02 Medications Medications Current Medications Acetaminophen (Acetaminophen 325 Mg Tablet) 650 mg PO Q6H PRN PRN Reason: Headache/Pain Mild Scale (1-3) Last Admin: 07/02/22 14:31 Dose: 650 mg Al Hydroxide/Mg Hydroxide (Magnesium Hydrox/Alum Hydrox 30 Ml Oral.Susp) 30 ml PO Q6H PRN PRN Reason: Heartburn/Nausea Albuterol Sulfate (Albuterol Sulfate 90 Mcg 8 Gm Inhaler) 2 puff INHALE RQ4H PRN PRN Reason: Respiratory Distress Atorvastatin Calcium (Atorvastatin Calcium 20 Mg Tablet) 20 mg PO BEDTIME [facility] Last Admin: 07/05/22 20:53 Dose: 20 mg Benztropine Mesylate (Benztropine Mesylate 0.5 Mg Tablet) 0.5 mg PO BEDTIME [facility] Last Admin: 07/05/22 20:53 Dose: 0.5 mg Calcium Carbonate/Cholecalciferol (Calcium + Vitamin D 250 Mg Tablet) 500 mg PO BID [facility] Last Admin: 07/05/22 20:53 Dose: 500 mg Cariprazine (Cariprazine Hcl 1.5 Mg Capsule) 4.5 mg PO DAILY [facility] Last Admin: 07/05/22 09:49 Dose: 4.5 mg Clonazepam (Clonazepam 0.5 Mg Tablet) 0.5 mg PO DAILY PRN PRN Reason: Anxiety Last Admin: 07/05/22 20:57 Dose: 0.5 mg Cyanocobalamin (Cyanocobalamin (Vitamin B-12) 500 Mcg Tablet) 500 mcg PO DAILY [facility] Last Admin: 07/05/22 09:52 Dose: 500 mcg Duloxetine HCl (Duloxetine Hcl 60 Mg Capsule.Dr) 60 mg PO BID [facility] Last Admin: 07/05/22 20:54 Dose: 60 mg Fluticasone Propionate (Fluticasone Propionate Nasal 16 Gm [place]) 1 spray NOSTRIL-B DAILY PRN PRN Reason: Allergy Symptoms Last Admin: 07/03/22 09:52 Dose: 1 spray Fluticasone/Vilanterol (Fluticasone/Vilanterol 100/25 Blst.W.Dev) 1 puff INHALE DAILY [facility] Last Admin: 07/05/22 09:48 Dose: 1 puff Haloperidol (Haloperidol 5 Mg Tablet) 10 mg PO BID [facility] Last Admin: 07/05/22 20:54 Dose: 10 mg Hydroxyzine HCl (Hydroxyzine Hcl 25 Mg Tablet) 25 mg PO Q6H PRN PRN Reason: Anxiety Last Admin: 07/06/22 02:41 Dose: 25 mg Levothyroxine Sodium (Levothyroxine Sodium 50 Mcg Tablet) 50 mcg PO DAILY@0600 [facility] Last Admin: 07/05/22 09:52 Dose: 50 mcg Loratadine (Loratadine 10 Mg Tablet) 10 mg PO DAILY [facility] Last Admin: 07/05/22 09:52 Dose: 10 mg Magnesium Hydroxide (Milk Of Magnesia 30 Ml Oral.Susp) 30 ml PO DAILY PRN PRN Reason: Constipation Naproxen (Naproxen 500 Mg Tablet) 500 mg PO BID PRN PRN Reason: Moderate Pain (Scale Score 5-6) Last Admin: 07/05/22 00:13 Dose: 500 mg Nicotine Polacrilex (Nicotine Polacrilex 2 Mg Gum) 2 mg BUCCAL Q2H PRN PRN Reason: Nicotine Cravings Nitrofurantoin Macrocrystals (Nitrofurantoin Monohyd/M-Cryst 100 Mg Capsule) 100 mg PO BID [facility] Stop: 07/06/22 21:00 Last Admin: 07/05/22 20:54 Dose: 100 mg Prazosin HCl (Prazosin Hcl 1 Mg Capsule) 2 mg PO BEDTIME [facility]; Protocol Last Admin: 07/05/22 20:55 Dose: 2 mg Sumatriptan Succinate (Sumatriptan Succinate 50 Mg Tablet) 50 mg PO DAILY PRN PRN Reason: Migraine Headache Last Admin: 07/02/22 20:51 Dose: 50 mg Trazodone HCl (Trazodone Hcl 100 Mg Tablet) 100 mg PO BEDTIME PRN PRN Reason: insomnia Last Admin: 07/06/22 02:41 Dose: 100 mg Verapamil HCl (Verapamil Hcl 40 Mg Tablet) 40 mg PO BID [facility]; Protocol Last Admin: 07/05/22 20:55 Dose: 40 mg Vitamin D (Cholecalciferol (Vitamin D3) 25 Mcg Tablet) 25 mcg PO DAILY [facility] Last Admin: 07/05/22 09:51 Dose: 25 mcg Allergies Allergies Allergy/AdvReac Type Severity Reaction Status Date / Time amoxicillin [AMOXICILLIN] Allergy Intermediate HIVES Verified 03/23/22 16:51 carisoprodol [From [facility]] Allergy Intermediate HIVES Verified 03/23/22 16:51 Fish Containing Products Allergy Intermediate HIVES Verified 03/23/22 16:51 Penicillins [PENICILLINS] Allergy Intermediate HIVES Verified 03/23/22 16:51 latex [LATEX] Allergy Mild RASH Verified 03/23/22 16:51 fish Allergy Unknown shortness Uncoded 03/23/22 16:51 of breath MEAT AdvReac Mild SICK Uncoded 03/23/22 16:51 Assessment & Plan Assessment & Plan (1) Schizoaffective disorder: Status: Acute Code(s): F25.9 - Schizoaffective disorder, unspecified (2) Chronic post-traumatic stress disorder (PTSD): Status: Acute Code(s): F43.12 - Post-traumatic stress disorder, chronic (3) TBI (traumatic brain injury): Status: Acute Code(s): S06.9X9A - Unspecified intracranial injury with loss of consciousness of unspecified duration, initial encounter (4) Suicidal ideation: Status: Acute Code(s): R45.851 - Suicidal ideations Plan continue outpt meds for now. keep safe on locked unit, observe behaviors. collect collateral information from family, friends, treaters as able. 07/02 continue tx. 07/03 continue tx. 07/04 continue tx. 07/05 continue tx. I spent minutes with the patient and/or on the patient floor today, greater than?50% of which was spent counseling/coordinating care. Reason for contiued inpatient stay Substantial Risk for: inability to function
[2022-07-05 13:00] VITALS: BP 115/64; PULSE 90; RESP 18; TEMP 36.1; O2SAT 98
[2022-07-05 14:00] VITALS: RESP 20
[2022-07-05 20:50] VITALS: BP 134/82; PULSE 100; RESP 16; TEMP 36.2; O2SAT 98
[2022-07-05] MEDS: Benztropine Mesylate 0.5 MG TABLET PO (20:53)
[2022-07-05] MEDS: Atorvastatin Calcium 20 MG TABLET PO (20:53)
[2022-07-05] MEDS: Prazosin HCL 1 MG CAPSULE 2 MG PO (20:55)
[2022-07-05] MEDS: clonazePAM 0.5 MG TABLET PO (20:57)
--- NOTE | 2022-07-06 00:53 | HO.PSYCHPN ---
Subjective Subjective Date of Service: 07/06/22 Reason For Visit: SI Interim History: Discussed with team. Pt did not sleep well, had nightmares. I spoke with pt. Says she had a rough night, woke up crying, thinking of brother and sister who . Her mood is so, so. Reports she wants to get off klonopin and says put me on something else that is not addictive. Willing to trial hydroxyzine. Pt says I just dont feel right, feels dizzy. BP is somewhat variable, on verapamil for headaches. Medication Compliance: Yes Side effects from medications: No Attending Groups: No Review of Systems Acute medical concerns: No Medical Review of Systems: unchanged Mental Status Exam Mental Status Exam Narrative: Pt is alert and oriented; behavior is indifferent; patient is not in distress; dressed in hospital attire with unkempt hair but adequate hygiene; no PMA/PMR; mood is described as sad and affect congruent, downcast; eye contact appropriate; Speech is with chronic impediment; speech nml rate, amount, loudness, tone, latency; thought process is organized and goal directed; Thought content on losses, in particular of her brother 3 weeks ago; +SI of cutting; no HI/AH;? c/o seeing shadows. ? Patients insight and judgment are impaired but knows needs and wants tx. Diagnostics Vital Signs (24Hr): Vital Signs - 24 hr 07/05/22 13:00 07/05/22 14:00 07/05/22 20:50 Temperature 97.0 F 97.2 F Pulse Rate 90 100 Respiratory Rate 18 20 16 Blood Pressure 115/64 134/82 Pulse Oximetry 98 98 Oxygen Delivery Method Room Air Room Air BMI result Body Mass Index 22.3 Labs Results: 06/30/22 00:02 06/30/22 00:02 Medications Medications Current Medications Acetaminophen (Acetaminophen 325 Mg Tablet) 650 mg PO Q6H PRN PRN Reason: Headache/Pain Mild Scale (1-3) Last Admin: 07/02/22 14:31 Dose: 650 mg Al Hydroxide/Mg Hydroxide (Magnesium Hydrox/Alum Hydrox 30 Ml Oral.Susp) 30 ml PO Q6H PRN PRN Reason: Heartburn/Nausea Albuterol Sulfate (Albuterol Sulfate 90 Mcg 8 Gm Inhaler) 2 puff INHALE RQ4H PRN PRN Reason: Respiratory Distress Atorvastatin Calcium (Atorvastatin Calcium 20 Mg Tablet) 20 mg PO BEDTIME [facility] Last Admin: 07/05/22 20:53 Dose: 20 mg Benztropine Mesylate (Benztropine Mesylate 0.5 Mg Tablet) 0.5 mg PO BEDTIME [facility] Last Admin: 07/05/22 20:53 Dose: 0.5 mg Calcium Carbonate/Cholecalciferol (Calcium + Vitamin D 250 Mg Tablet) 500 mg PO BID [facility] Last Admin: 07/05/22 20:53 Dose: 500 mg Cariprazine (Cariprazine Hcl 1.5 Mg Capsule) 4.5 mg PO DAILY [facility] Last Admin: 07/05/22 09:49 Dose: 4.5 mg Clonazepam (Clonazepam 0.5 Mg Tablet) 0.5 mg PO DAILY PRN PRN Reason: Anxiety Last Admin: 07/05/22 20:57 Dose: 0.5 mg Cyanocobalamin (Cyanocobalamin (Vitamin B-12) 500 Mcg Tablet) 500 mcg PO DAILY [facility] Last Admin: 07/05/22 09:52 Dose: 500 mcg Duloxetine HCl (Duloxetine Hcl 60 Mg Capsule.Dr) 60 mg PO BID [facility] Last Admin: 07/05/22 20:54 Dose: 60 mg Fluticasone Propionate (Fluticasone Propionate Nasal 16 Gm [place]) 1 spray NOSTRIL-B DAILY PRN PRN Reason: Allergy Symptoms Last Admin: 07/03/22 09:52 Dose: 1 spray Fluticasone/Vilanterol (Fluticasone/Vilanterol 100/25 Blst.W.Dev) 1 puff INHALE DAILY [facility] Last Admin: 07/05/22 09:48 Dose: 1 puff Haloperidol (Haloperidol 5 Mg Tablet) 10 mg PO BID [facility] Last Admin: 07/05/22 20:54 Dose: 10 mg Hydroxyzine HCl (Hydroxyzine Hcl 25 Mg Tablet) 25 mg PO Q6H PRN PRN Reason: Anxiety Last Admin: 07/02/22 20:47 Dose: 25 mg Levothyroxine Sodium (Levothyroxine Sodium 50 Mcg Tablet) 50 mcg PO DAILY@0600 [facility] Last Admin: 07/05/22 09:52 Dose: 50 mcg Loratadine (Loratadine 10 Mg Tablet) 10 mg PO DAILY [facility] Last Admin: 07/05/22 09:52 Dose: 10 mg Magnesium Hydroxide (Milk Of Magnesia 30 Ml Oral.Susp) 30 ml PO DAILY PRN PRN Reason: Constipation Naproxen (Naproxen 500 Mg Tablet) 500 mg PO BID PRN PRN Reason: Moderate Pain (Scale Score 5-6) Last Admin: 07/05/22 00:13 Dose: 500 mg Nicotine Polacrilex (Nicotine Polacrilex 2 Mg Gum) 2 mg BUCCAL Q2H PRN PRN Reason: Nicotine Cravings Nitrofurantoin Macrocrystals (Nitrofurantoin Monohyd/M-Cryst 100 Mg Capsule) 100 mg PO BID [facility] Stop: 07/06/22 21:00 Last Admin: 07/05/22 20:54 Dose: 100 mg Prazosin HCl (Prazosin Hcl 1 Mg Capsule) 2 mg PO BEDTIME [facility]; Protocol Last Admin: 07/05/22 20:55 Dose: 2 mg Sumatriptan Succinate (Sumatriptan Succinate 50 Mg Tablet) 50 mg PO DAILY PRN PRN Reason: Migraine Headache Last Admin: 07/02/22 20:51 Dose: 50 mg Trazodone HCl (Trazodone Hcl 100 Mg Tablet) 100 mg PO BEDTIME PRN PRN Reason: insomnia Last Admin: 07/05/22 00:14 Dose: 100 mg Verapamil HCl (Verapamil Hcl 40 Mg Tablet) 40 mg PO BID [facility]; Protocol Last Admin: 07/05/22 20:55 Dose: 40 mg Vitamin D (Cholecalciferol (Vitamin D3) 25 Mcg Tablet) 25 mcg PO DAILY [facility] Last Admin: 07/05/22 09:51 Dose: 25 mcg Allergies Allergies Allergy/AdvReac Type Severity Reaction Status Date / Time amoxicillin [AMOXICILLIN] Allergy Intermediate HIVES Verified 03/23/22 16:51 carisoprodol [From [facility]] Allergy Intermediate HIVES Verified 03/23/22 16:51 Fish Containing Products Allergy Intermediate HIVES Verified 03/23/22 16:51 Penicillins [PENICILLINS] Allergy Intermediate HIVES Verified 03/23/22 16:51 latex [LATEX] Allergy Mild RASH Verified 03/23/22 16:51 fish Allergy Unknown shortness Uncoded 03/23/22 16:51 of breath MEAT AdvReac Mild SICK Uncoded 03/23/22 16:51 Assessment & Plan Assessment & Plan (1) Schizoaffective disorder: Status: Acute Code(s): F25.9 - Schizoaffective disorder, unspecified (2) Chronic post-traumatic stress disorder (PTSD): Status: Acute Code(s): F43.12 - Post-traumatic stress disorder, chronic (3) TBI (traumatic brain injury): Status: Acute Code(s): S06.9X9A - Unspecified intracranial injury with loss of consciousness of unspecified duration, initial encounter (4) Suicidal ideation: Status: Acute Code(s): R45.851 - Suicidal ideations Plan continue outpt meds for now. keep safe on locked unit, observe behaviors. collect collateral information from family, friends, treaters as able. 07/02 continue tx. 07/03 continue tx. 07/04 continue tx. 07/05 continue tx. 07/06 Decrease klonopin to 0.25 mg QD PRN as pt wants to get off it I spent minutes with the patient and/or on the patient floor today, greater than?50% of which was spent counseling/coordinating care. Patient educated on: medication risk/benefits and therapeutic strategies Reason for contiued inpatient stay Substantial Risk for: inability to function, rapid decompensation and med/psych decompensation
[2022-07-06] MEDS: hydrOXYzine HCL 25 MG TABLET PO ×3 (02:41→20:07)
[2022-07-06] MEDS: traZODone HCL 100 MG TABLET PO ×2 (02:41→20:06)
[2022-07-06 08:00] VITALS: BP 108/66; PULSE 81; RESP 18; TEMP 36.6; O2SAT 97
[2022-07-06] MEDS: Levothyroxine Sodium 50 MCG TABLET PO (08:44)
[2022-07-06] MEDS: Cyanocobalamin (Vitamin B-12) 500 MCG TABLET PO (08:44)
[2022-07-06] MEDS: Nitrofurantoin Monohyd/M-Cryst 100 MG CAPSULE PO ×2 (08:44→20:06)
[2022-07-06] MEDS: HaloperidoL 5 MG TABLET 10 MG PO ×2 (08:45→20:07)
[2022-07-06] MEDS: Calcium + Vitamin D 250 MG TABLET 500 MG PO ×2 (08:46→20:06)
[2022-07-06] MEDS: Cariprazine HCl 1.5 MG CAPSULE 4.5 MG PO (08:46)
[2022-07-06] MEDS: Cholecalciferol (Vitamin D3) 25 MCG TABLET PO (08:47)
[2022-07-06] MEDS: VerapamiL HCL 40 MG TABLET PO ×2 (08:48→20:07)
[2022-07-06] MEDS: Loratadine 10 MG TABLET PO (08:49)
[2022-07-06] MEDS: DULoxetine HCl 60 MG CAPSULE.DR PO ×2 (08:49→20:06)
[2022-07-06] MEDS: Fluticasone Propionate Nasal 16 GM SPRAY 1 SPRAY NOSTRIL-B (08:50)
[2022-07-06] MEDS: Fluticasone/Vilanterol 100/25 BLST.W.DEV 1 PUFF INHALE (08:50)
--- NOTE | 2022-07-06 14:43 | PC.NURSE ---
Pt overheard roommate having Scabies. I spoke to Rita and reassured her that Scabies is transmitted through close skin skin contact. She verbalized understanding . She then went back to her room to lay down.
[2022-07-06] MEDS: NaPROXEN 500 MG TABLET PO ×2 (15:25→20:06)
[2022-07-06 18:55] VITALS: BP 98/63; PULSE 93; RESP 16; TEMP 36.6; O2SAT 98
[2022-07-06] MEDS: Atorvastatin Calcium 20 MG TABLET PO (20:06)
[2022-07-06] MEDS: Benztropine Mesylate 0.5 MG TABLET PO (20:06)
[2022-07-06] MEDS: Prazosin HCL 1 MG CAPSULE 2 MG PO (20:07)
--- NOTE | 2022-07-07 01:51 | P.PNPSI_ITS ---
Subjective Subjective Date of Service: 07/07/22 Reason For Visit: SI Interim History: Discussed with team. Spoke with pt. She says her back is killing her, naproxen doesnt touch the pain, used to take vicodin, discussed that this is controlled substance and will not prescribe. Then asks for muscle relaxant. She is feeling alright on the decreased klonopin dose. Says her back pain affects her sleep. Feeling depressed. Says her BP runs low but also feels lightheaded and feels like she is going to fall. Discussed decreasing verapamil but pt doesnt want this to be touched due to migraines. Medication Compliance: Yes Side effects from medications: No Attending Groups: No Review of Systems Acute medical concerns: No Medical Review of Systems: unchanged Mental Status Exam Mental Status Exam Narrative: Pt is alert and oriented; behavior is indifferent; patient is not in distress; dressed in hospital attire with unkempt hair but adequate hygiene; no PMA/PMR; mood is described as sad and affect congruent, downcast; eye contact ap propriate; Speech is with chronic impediment; speech nml rate, amount, loudness, tone, latency; thought process is organized and goal directed; Thought content on losses, in particular of her brother 3 weeks ago; +SI of cutting; no HI/AH;? c/o seeing shadows. ? Patients insight and judgment are impaired but knows needs and wants tx. Diagnostics Vital Signs (24Hr): Vital Signs - 24 hr 07/06/22 08:00 07/06/22 18:55 Temperature 97.9 F 98 F Pulse Rate 81 93 Respiratory Rate 18 16 Blood Pressure 108/66 98/63 Pulse Oximetry 97 98 Oxygen Delivery Method Room Air Room Air BMI result Body Mass Index 22.3 Labs Results: 06/30/22 00:02 06/30/22 00:02 Medications Medications Current Medications Acetaminophen (Acetaminophen 325 Mg Tablet) 650 mg PO Q6H PRN PRN Reason: Headache/Pain Mild Scale (1-3) Last Admin: 07/02/22 14:31 Dose: 650 mg Al Hydroxide/Mg Hydroxide (Magnesium Hydrox/Alum Hydrox 30 Ml Oral.Susp) 30 ml PO Q6H PRN PRN Reason: Heartburn/Nausea Albuterol Sulfate (Albuterol Sulfate 90 Mcg 8 Gm Inhaler) 2 puff INHALE RQ4H PRN PRN Reason: Respiratory Distress Atorvastatin Calcium (Atorvastatin Calcium 20 Mg Tablet) 20 mg PO BEDTIME [facility] Last Admin: 07/06/22 20:06 Dose: 20 mg Benztropine Mesylate (Benztropine Mesylate 0.5 Mg Tablet) 0.5 mg PO BEDTIME [facility] Last Admin: 07/06/22 20:06 Dose: 0.5 mg Calcium Carbonate/Cholecalciferol (Calcium + Vitamin D 250 Mg Tablet) 500 mg PO BID [facility] Last Admin: 07/06/22 20:06 Dose: 500 mg Cariprazine (Cariprazine Hcl 1.5 Mg Capsule) 4.5 mg PO DAILY [facility] Last Admin: 07/06/22 08:46 Dose: 4.5 mg Clonazepam (Clonazepam 0.125 Mg Tab.Rapdis) 0.25 mg PO DAILY PRN PRN Reason: anxiety Cyanocobalamin (Cyanocobalamin (Vitamin B-12) 500 Mcg Tablet) 500 mcg PO DAILY [facility] Last Admin: 07/06/22 08:44 Dose: 500 mcg Duloxetine HCl (Duloxetine Hcl 60 Mg Capsule.Dr) 60 mg PO BID [facility] Last Admin: 07/06/22 20:06 Dose: 60 mg Fluticasone Propionate (Fluticasone Propionate Nasal 16 Gm [place]) 1 spray NOSTRIL-B DAILY PRN PRN Reason: Allergy Symptoms Last Admin: 07/06/22 08:50 Dose: 1 spray Fluticasone/Vilanterol (Fluticasone/Vilanterol 100/25 Blst.W.Dev) 1 puff INHALE DAILY [facility] Last Admin: 07/06/22 08:50 Dose: 1 puff Haloperidol (Haloperidol 5 Mg Tablet) 10 mg PO BID [facility] Last Admin: 07/06/22 20:07 Dose: 10 mg Hydroxyzine HCl (Hydroxyzine Hcl 25 Mg Tablet) 25 mg PO Q6H PRN PRN Reason: Anxiety Last Admin: 07/06/22 20:07 Dose: 25 mg Levothyroxine Sodium (Levothyroxine Sodium 50 Mcg Tablet) 50 mcg PO DAILY@0600 [facility] Last Admin: 07/06/22 08:44 Dose: 50 mcg Loratadine (Loratadine 10 Mg Tablet) 10 mg PO DAILY [facility] Last Admin: 07/06/22 08:49 Dose: 10 mg Magnesium Hydroxide (Milk Of Magnesia 30 Ml Oral.Susp) 30 ml PO DAILY PRN PRN Reason: Constipation Naproxen (Naproxen 500 Mg Tablet) 500 mg PO BID PRN PRN Reason: Moderate Pain (Scale Score 5-6) Last Admin: 07/06/22 20:06 Dose: 500 mg Nicotine Polacrilex (Nicotine Polacrilex 2 Mg Gum) 2 mg BUCCAL Q2H PRN PRN Reason: Nicotine Cravings Prazosin HCl (Prazosin Hcl 1 Mg Capsule) 2 mg PO BEDTIME [facility]; Protocol Last Admin: 07/06/22 20:07 Dose: 2 mg Sumatriptan Succinate (Sumatriptan Succinate 50 Mg Tablet) 50 mg PO DAILY PRN PRN Reason: Migraine Headache Last Admin: 07/02/22 20:51 Dose: 50 mg Trazodone HCl (Trazodone Hcl 100 Mg Tablet) 100 mg PO BEDTIME PRN PRN Reason: insomnia Last Admin: 07/06/22 20:06 Dose: 100 mg Verapamil HCl (Verapamil Hcl 40 Mg Tablet) 40 mg PO BID [facility]; Protocol Last Admin: 07/06/22 20:07 Dose: 40 mg Vitamin D (Cholecalciferol (Vitamin D3) 25 Mcg Tablet) 25 mcg PO DAILY [facility] Last Admin: 07/06/22 08:47 Dose: 25 mcg Allergies Allergies Allergy/AdvReac Type Severity Reaction Status Date / Time amoxicillin [AMOXICILLIN] Allergy Intermediate HIVES Verified 03/23/22 16:51 carisoprodol [From SOMA] Allergy Intermediate HIVES Verified 03/23/22 16:51 Fish Containing Products Allergy Intermediate HIVES Verified 03/23/22 16:51 Penicillins [PENICILLINS] Allergy Intermediate HIVES Verified 03/23/22 16:51 latex [LATEX] Allergy Mild RASH Verified 03/23/22 16:51 fish Allergy Unknown shortness Uncoded 03/23/22 16:51 of breath MEAT AdvReac Mild SICK Uncoded 03/23/22 16:51 Assessment & Plan Assessment & Plan (1) Schizoaffective disorder: Status: Acute Code(s): F25.9 - Schizoaffective disorder, unspecified (2) Chronic post-traumatic stress disorder (PTSD): Status: Acute Code(s): F43.12 - Post-traumatic stress disorder, chronic (3) TBI (traumatic brain injury): Status: Acute Code(s): S06.9X9A - Unspecified intracranial injury with loss of consciousness of unspecified duration, initial encounter (4) Suicidal ideation: Status: Acute Code(s): R45.851 - Suicidal ideations Plan continue outpt meds for now. keep safe on locked unit, observe behaviors. collect collateral information from family, friends, treaters as able. 07/02 continue tx. 07/03 continue tx. 07/04 continue tx. 07/05 continue tx. 07/06 Decrease klonopin to 0.25 mg QD PRN as pt wants to get off it 07/07 no med changes I spent minutes with the patient and/or on the patient floor today, greater than?50% of which was spent counseling/coordinating care. Patient educated on: medication risk/benefits and therapeutic strategies Reason for contiued inpatient stay Substantial Risk for: inability to function, rapid decompensation and med/psych decompensation
[2022-07-07 08:00] VITALS: BP 107/68; PULSE 72; RESP 18; TEMP 36.6; O2SAT 98
[2022-07-07] MEDS: Levothyroxine Sodium 50 MCG TABLET PO (09:15)
[2022-07-07] MEDS: Calcium + Vitamin D 250 MG TABLET 500 MG PO ×2 (09:15→19:52)
[2022-07-07] MEDS: Cariprazine HCl 1.5 MG CAPSULE 4.5 MG PO (09:16)
[2022-07-07] MEDS: Cholecalciferol (Vitamin D3) 25 MCG TABLET PO (09:16)
[2022-07-07] MEDS: VerapamiL HCL 40 MG TABLET PO ×2 (09:17→19:52)
[2022-07-07] MEDS: Cyanocobalamin (Vitamin B-12) 500 MCG TABLET PO (09:17)
[2022-07-07] MEDS: HaloperidoL 5 MG TABLET 10 MG PO ×2 (09:18→19:53)
[2022-07-07] MEDS: NaPROXEN 500 MG TABLET PO ×2 (09:18→16:49)
[2022-07-07] MEDS: DULoxetine HCl 60 MG CAPSULE.DR PO ×2 (09:19→19:53)
[2022-07-07] MEDS: Loratadine 10 MG TABLET PO (09:19)
[2022-07-07] MEDS: Fluticasone/Vilanterol 100/25 BLST.W.DEV 1 PUFF INHALE (09:20)
[2022-07-07] MEDS: Fluticasone Propionate Nasal 16 GM SPRAY 1 SPRAY NOSTRIL-B (09:20)
[2022-07-07] MEDS: hydrOXYzine HCL 25 MG TABLET PO ×2 (13:22→19:52)
[2022-07-07] MEDS: Acetaminophen 325 MG TABLET 650 MG PO (15:16)
[2022-07-07 19:50] VITALS: BP 109/70; PULSE 112; RESP 16; TEMP 36.6; O2SAT 98
[2022-07-07] MEDS: Prazosin HCL 1 MG CAPSULE 2 MG PO (19:52)
[2022-07-07] MEDS: Atorvastatin Calcium 20 MG TABLET PO (19:52)
[2022-07-07] MEDS: Benztropine Mesylate 0.5 MG TABLET PO (19:52)
[2022-07-08] MEDS: traZODone HCL 100 MG TABLET PO (00:59)
[2022-07-08 06:00] VITALS: BP 95/52; PULSE 75; RESP 16; TEMP 36.4; O2SAT 98
[2022-07-08] MEDS: Fluticasone/Vilanterol 100/25 BLST.W.DEV 1 PUFF INHALE (09:20)
[2022-07-08] MEDS: Fluticasone Propionate Nasal 16 GM SPRAY 1 SPRAY NOSTRIL-B (09:20)
[2022-07-08] MEDS: Calcium + Vitamin D 250 MG TABLET 500 MG PO (09:25)
[2022-07-08] MEDS: HaloperidoL 5 MG TABLET 10 MG PO (09:26)
[2022-07-08] MEDS: DULoxetine HCl 60 MG CAPSULE.DR PO (09:26)
[2022-07-08] MEDS: Levothyroxine Sodium 50 MCG TABLET PO (09:26)
[2022-07-08] MEDS: Cariprazine HCl 1.5 MG CAPSULE 4.5 MG PO (09:26)
[2022-07-08] MEDS: Loratadine 10 MG TABLET PO (09:27)
[2022-07-08] MEDS: Cyanocobalamin (Vitamin B-12) 500 MCG TABLET PO (09:27)
[2022-07-08] MEDS: Cholecalciferol (Vitamin D3) 25 MCG TABLET PO (09:28)
--- NOTE | 2022-07-08 11:13 | P.PNPSI_ITS ---
Subjective Subjective Date of Service: 07/08/22 Reason For Visit: SI Subjective Notes: Conditional Voluntary Interim History: Pt reports she continues to see shadows. She denies SI/HI, any plan or intent. She also reports medications are working. However, when discussing discharge for tomorrow, pt states she does not feel ready. Pt reports fair/poor sleep. No behavioral concerns. Per nursing, pt is visible at times. taking medications no side effects. Medication Compliance: Yes Side effects from medications: No Attending Groups: Intermittent Review of Systems Review of Systems Constitutional : No Fever, No Chills ENT/Mouth : No Ear Pain, No Nasal Congestion, No sore throat Eyes: No Eye Pain, No Swelling, No Redness Cardiovascular : No Chest Pain, No SOB Respiratory : No Cough, No Sputum, No Dyspnea Gastrointestinal : No Nausea, No Vomiting, No Diarrhea, No Hematochezia, No Melena Genitourinary : No Dysuria, No Urinary Frequency, No Hematuria Musculoskeletal : No Myalgias Skin : No Skin Lesions, No rash Neuro : No Weakness, No Numbness, No Paresthesias, No Dizziness, No Headache Psych : positive Anxiety, positive Depression, + hallucinations, + SI, No HI Heme/Lymph: No Lymphadenopathy Endocrine : No Polyuria, No Polydipsia All other systems reviewed and are negative Yes all other systems are reviewed and are negative Mental Status Exam Mental Status Exam Narrative: Pt is alert and oriented; behavior is indifferent; patient is not in distress; dressed in hospital attire with unkempt hair but adequate hygiene; no PMA/PMR; mood is described as sad and affect congruent, downcast; eye contact appropriate; Speech is with chronic impediment; speech nml rate, amount, loudness, tone, latency; thought process is organized and goal directed; Thought content on losses, in particular of her brother 3 weeks ago; +SI of cutting; no HI/AH;? c/o seeing shadows. ? Patients insight and judgment are impaired but knows needs and wants tx. Diagnostics Vital Signs (24Hr): Vital Signs - 24 hr 07/08/22 18:00 Respiratory Rate 16 BMI result Body Mass Index 22.3 Labs Results: 06/30/22 00:02 06/30/22 00:02 Medications Medications Current Medications Acetaminophen (Acetaminophen 325 Mg Tablet) 650 mg PO Q6H PRN PRN Reason: Headache/Pain Mild Scale (1-3) Last Admin: 07/07/22 15:16 Dose: 650 mg Al Hydroxide/Mg Hydroxide (Magnesium Hydrox/Alum Hydrox 30 Ml Oral.Susp) 30 ml PO Q6H PRN PRN Reason: Heartburn/Nausea Albuterol Sulfate (Albuterol Sulfate 90 Mcg 8 Gm Inhaler) 2 puff INHALE RQ4H PRN PRN Reason: Respiratory Distress Atorvastatin Calcium (Atorvastatin Calcium 20 Mg Tablet) 20 mg PO BEDTIME [facility] Last Admin: 07/08/22 23:17 Dose: Not Given Benztropine Mesylate (Benztropine Mesylate 0.5 Mg Tablet) 0.5 mg PO BEDTIME [facility] Last Admin: 07/08/22 23:17 Dose: Not Given Calcium Carbonate/Cholecalciferol (Calcium + Vitamin D 250 Mg Tablet) 500 mg PO BID [facility] Last Admin: 07/08/22 23:17 Dose: Not Given Cariprazine (Cariprazine Hcl 1.5 Mg Capsule) 4.5 mg PO DAILY [facility] Last Admin: 07/08/22 09:26 Dose: 4.5 mg Clonazepam (Clonazepam 0.125 Mg Tab.Rapdis) 0.25 mg PO DAILY PRN PRN Reason: anxiety Last Admin: 07/08/22 14:22 Dose: 0.25 mg Cyanocobalamin (Cyanocobalamin (Vitamin B-12) 500 Mcg Tablet) 500 mcg PO DAILY [facility] Last Admin: 07/08/22 09:27 Dose: 500 mcg Duloxetine HCl (Duloxetine Hcl 60 Mg Capsule.Dr) 60 mg PO BID [facility] Last Admin: 07/08/22 23:17 Dose: Not Given Fluticasone Propionate (Fluticasone Propionate Nasal 16 Gm [place]) 1 spray NOSTRIL-B DAILY PRN PRN Reason: Allergy Symptoms Last Admin: 07/08/22 09:20 Dose: 1 spray Fluticasone/Vilanterol (Fluticasone/Vilanterol 100/25 Blst.W.Dev) 1 puff INHALE DAILY [facility] Last Admin: 07/08/22 09:20 Dose: 1 puff Haloperidol (Haloperidol 5 Mg Tablet) 10 mg PO BID [facility] Last Admin: 07/08/22 23:17 Dose: Not Given Hydroxyzine HCl (Hydroxyzine Hcl 25 Mg Tablet) 25 mg PO Q6H PRN PRN Reason: Anxiety Last Admin: 07/08/22 14:22 Dose: 25 mg Levothyroxine Sodium (Levothyroxine Sodium 50 Mcg Tablet) 50 mcg PO DAILY@0600 [facility] Last Admin: 07/08/22 09:26 Dose: 50 mcg Loratadine (Loratadine 10 Mg Tablet) 10 mg PO DAILY [facility] Last Admin: 07/08/22 09:27 Dose: 10 mg Magnesium Hydroxide (Milk Of Magnesia 30 Ml Oral.Susp) 30 ml PO DAILY PRN PRN Reason: Constipation Naproxen (Naproxen 500 Mg Tablet) 500 mg PO BID PRN PRN Reason: Moderate Pain (Scale Score 5-6) Last Admin: 07/07/22 16:49 Dose: 500 mg Nicotine Polacrilex (Nicotine Polacrilex 2 Mg Gum) 2 mg BUCCAL Q2H PRN PRN Reason: Nicotine Cravings Prazosin HCl (Prazosin Hcl 1 Mg Capsule) 2 mg PO BEDTIME [facility]; Protocol Last Admin: 07/08/22 23:17 Dose: Not Given Sumatriptan Succinate (Sumatriptan Succinate 50 Mg Tablet) 50 mg PO DAILY PRN PRN Reason: Migraine Headache Last Admin: 07/02/22 20:51 Dose: 50 mg Trazodone HCl (Trazodone Hcl 100 Mg Tablet) 100 mg PO BEDTIME PRN PRN Reason: insomnia Last Admin: 07/08/22 00:59 Dose: 100 mg Verapamil HCl (Verapamil Hcl 40 Mg Tablet) 40 mg PO BID [facility]; Protocol Last Admin: 07/08/22 23:17 Dose: Not Given Vitamin D (Cholecalciferol (Vitamin D3) 25 Mcg Tablet) 25 mcg PO DAILY [facility] Last Admin: 07/08/22 09:28 Dose: 25 mcg Allergies Allergies Allergy/AdvReac Type Severity Reaction Status Date / Time amoxicillin [AMOXICILLIN] Allergy Intermediate HIVES Verified 03/23/22 16:51 carisoprodol [From [facility]OMA] Allergy Intermediate HIVES Verified 03/23/22 16:51 Fish Containing Products Allergy Intermediate HIVES Verified 03/23/22 16:51 Penicillins [PENICILLINS] Allergy Intermediate HIVES Verified 03/23/22 16:51 latex [LATEX] Allergy Mild RASH Verified 03/23/22 16:51 fish Allergy Unknown shortness Uncoded 03/23/22 16:51 of breath MEAT AdvReac Mild SICK Uncoded 03/23/22 16:51 Assessment & Plan Assessment & Plan (1) Schizoaffective disorder: Status: Acute Code(s): F25.9 - Schizoaffective disorder, unspecified (2) Chronic post-traumatic stress disorder (PTSD): Status: Acute Code(s): F43.12 - Post-traumatic stress disorder, chronic (3) TBI (traumatic brain injury): Status: Acute Code(s): S06.9X9A - Unspecified intracranial injury with loss of consciousness of unspecified duration, initial encounter (4) Suicidal ideation: Status: Acute Code(s): R45.851 - Suicidal ideations Plan continue outpt meds for now. keep safe on locked unit, observe behaviors. collect collateral information from family, friends, treaters as able. 07/02 continue tx. 07/03 continue tx. 07/04 continue tx. 07/05 continue tx. 07/06 Decrease klonopin to 0.25 mg QD PRN as pt wants to get off it 07/07 no med changes 07/08 continue tx. I spent minutes with the patient and/or on the patient floor today, gr eater than?50% of which was spent counseling/coordinating care. Reason for contiued inpatient stay Substantial Risk for: inability to function
[2022-07-08] MEDS: hydrOXYzine HCL 25 MG TABLET PO (14:22)
[2022-07-08 18:00] VITALS: RESP 16
[2022-07-09 08:10] VITALS: BP 115/75; PULSE 69; RESP 18; TEMP 36.6; O2SAT 96
[2022-07-09] MEDS: Cyanocobalamin (Vitamin B-12) 500 MCG TABLET PO (09:15)
[2022-07-09] MEDS: Levothyroxine Sodium 50 MCG TABLET PO (09:16)
[2022-07-09] MEDS: Cariprazine HCl 1.5 MG CAPSULE 4.5 MG PO (09:16)
[2022-07-09] MEDS: DULoxetine HCl 60 MG CAPSULE.DR PO (09:16)
[2022-07-09] MEDS: HaloperidoL 5 MG TABLET 10 MG PO (09:18)
[2022-07-09] MEDS: Calcium + Vitamin D 250 MG TABLET 500 MG PO (09:19)
[2022-07-09] MEDS: VerapamiL HCL 40 MG TABLET PO (09:20)
[2022-07-09] MEDS: Fluticasone/Vilanterol 100/25 BLST.W.DEV 1 PUFF INHALE (09:20)
[2022-07-09] MEDS: Cholecalciferol (Vitamin D3) 25 MCG TABLET PO (09:20)
[2022-07-09] MEDS: Loratadine 10 MG TABLET PO (09:20)
[2022-07-09] MEDS: Fluticasone Propionate Nasal 16 GM SPRAY 1 SPRAY NOSTRIL-B (09:21)
--- NOTE | 2022-07-09 11:10 | PM.PSYDC ---
DS: Providers Provider Date of Service: 07/09/22 Date of admission: 06/30/22 17:18 Primary care physician: Bon Jurado MD DS: Diagnosis Discharge Diagnosis (1) Schizoaffective disorder: Status: Acute (2) Chronic post-traumatic stress disorder (PTSD): Status: Acute (3) TBI (traumatic brain injury): Status: Acute (4) Suicidal ideation: Status: Acute DS: Medications Discharge Medications Home Medications: Home Medications Medication Instructions Recorded Confirmed albuterol sulfate 90 mcg/actuation 2 inh inhalation Q4H PRN 03/23/22 06/30/22 aerosol inhaler Respiratory Distress atorvastatin 20 mg tablet 20 mg PO BEDTIME 03/23/22 06/30/22 benztropine 0.5 mg tablet 0.5 mg PO BEDTIME 03/23/22 06/30/22 calcium carbonate 600 mg-vitamin 1 cap PO BID 03/23/22 06/30/22 D3 10 mcg (400 unit) capsule clonazepam 0.5 mg tablet 0.5 mg PO DAILY PRN Anxiety 03/23/22 06/30/22 cyanocobalamin (vitamin B-12) 500 500 mcg PO DAILY 03/23/22 06/30/22 mcg tablet duloxetine 60 mg capsule,delayed 60 mg PO BID 03/23/22 06/30/22 release fluticasone 100 mcg-salmeterol 50 1 puff inhalation BID 03/23/22 06/30/22 mcg/dose blistr powdr for inhalation haloperidol 10 mg tablet 1 tab PO BID 03/23/22 06/30/22 levothyroxine 50 mcg tablet 50 mcg PO DAILY@0600 03/23/22 06/30/22 loratadine 10 mg tablet 10 mg PO DAILY 03/23/22 06/30/22 naproxen 500 mg tablet 500 mg PO BID PRN Moderate Pain 03/23/22 06/30/22 (Scale Score 5-6) sumatriptan succinate 50 mg tablet 50 mg PO DAILY PRN Migraine 03/23/22 06/30/22 (Imitrex) Headache verapamil 40 mg tablet 40 mg PO BID 03/23/22 06/30/22 cholecalciferol (vitamin D3) 25 1 tab PO DAILY 06/30/22 06/30/22 mcg (1,000 unit) tablet (Vitamin D3) fluticasone propionate 50 1 spray intranasal DAILY PRN 06/30/22 06/30/22 mcg/actuation nasal Allergy Symptoms spray,suspension Previous Rx's Medication Instructions Recorded cariprazine 1.5 mg capsule 4.5 mg PO DAILY 30 days #90 caps 04/02/22 (Vraylar) prazosin 2 mg capsule 2 mg PO BEDTIME 30 days #30 caps 04/02/22 trazodone 100 mg tablet 100 mg PO BEDTIME PRN insomnia 30 04/02/22 days #30 tabs Mental Status Exam Mental Status Exam Narrative: Pt is alert and oriented; behavior is indifferent; patient is not in distress; dressed in hospital attire with unkempt hair but adequate hygiene; no PMA/PMR; mood is described as sad and affect congruent, downcast; eye contact appropriate; Speech is with chronic impediment; speech nml rate, amount, loudness, tone, latency; thought process is organized and goal directed; Thought content on losses, in particular of her brother 3 weeks ago; denies SI, plan or intent; no HI/AH;? c/o seeing shadows. ? Patients insight and judgment are impaired but knows needs and wants tx. Data Data Completed and Pending Completed studies during hospitalization [Text1]: 06/30/22 Unknown Urine clean catch - Urine puentes top Urine Culture - Final Escherichia coli DS: Summary Hospital Course Hospital Course: HPI: Ms. Mendoza is a 51 year-old woman with hx of schizoaffective disorder, who reports her boyfriend called for an ambulance to take her to the ED, as he was concerned for her safety.? she reported she has been experiencing depressed mood with SI in the wake of the of her brother 3 weeks ago and the upcoming anniversary of her sister's (2 years ago) the day after thanksgi.? reports seeing shadows, denies AH.? endorses SI with plan to cut, denies HI.? on being asked how we can help her, she suggests keeping her safe.? plan developed to continue her outpt meds for now and keep her safe on locked unit, reassessing day by day. Past Psychiatric History: last admission to [facility] 2019 numerous inpatient stays h/o multiple [facility] stays h/o SIB of cutting, see scars on wrists. client of [facility] with [facility] service -out reach worker Alejo [phone] -[employer] supervisor Kiara [phone] -psychiatric provider Tom Davila [phone] Past suicide attempt reported in crisis note HOSPITAL COURSE On the unit, Ms. Mendoza was admitted on a CV and placed on 15 minutes checks for safety. Pt reported feeling depressed, seeing shadows, initially intermittent suicidal ideation but denies any plan or intent to harm herself. After reviewing risks, benefits and alternative treatment option, pt reports that medications were helpful in that she reported it help with her anxiety and voices. She declined any further medication changes. She was continued on combination of haldol and vraylar. Ms. Mendoza gradually presented with brighter affect, more visible on the unit. She reported feeling less depressed, less VH mostly of shadows. Some residual suspiciousness noted towards peers and staff on the unit. She denies throughout admission any plan or intent to harm herself. She attended some groups, social with select peers. Her affect overall is constricted and wonder to what degree high dose of haldol contributing to it. She showed no EPS or cogwheel. There were no incidences of disruptive behaviors nor need for restraints. Despite pt reporting improvement in mood and denies any safety concerns, she asked to stay longer on the unit without clear therapeutic benefit. Collateral information from OP providers was gathered, her [facility] team visits her weekly and denied any safety concerns at time of discharge. Her partner reported during this time of the year, there is usually increase in VH but he denied any safety concerns in terms of suicidal or homicidal ideation with actual plan or intent to harm herself. Status at Discharge Cognitive/behavioral status at discharge: Pt with slightly brighter, but constricted affect. No SI/H, no plan or intent to harm herself. Future oriented, looking forward to see partner and continues OP psych tx. Less VH/AH. no signs of aggression towards self or others. Functional status at discharge: independent ambulation Time Spent with Patient Time attestation: Total time spent providing and/or coordinating discharge services: Time spent: Greater than 30 minutes Discharge Plan Discharge Anticipated Discharge Date/Time: 07/09/22 11:05 Patient Disposition: Home, Self-Care Discharge Diagnosis: Schizoaffective disorder Referrals: Medication Provider: Tom Davila [Other] - 08/06/22 9:00 am (IN OFFICE APPOINTMENT If you are unable to make it in-office, please call and reschedule. ) [facility] [Provider Group] - 1 Week Discharge Medications: Continued atorvastatin 20 mg Tablet 20 mg PO BEDTIME albuterol sulfate 90 mcg/actuation HFA aerosol inhaler 2 inh inhalation Q4H PRN (Reason: Respiratory Distress) levothyroxine 50 mcg Tablet 50 mcg PO DAILY@0600 cyanocobalamin (vitamin B-12) 500 mcg Tablet 500 mcg PO DAILY haloperidol 10 mg tablet 1 tab PO BID fluticasone propion-salmeterol 100-50 mcg/dose blister with device 1 puff inhalation BID loratadine 10 mg Tablet 10 mg PO DAILY naproxen 500 mg Tablet 500 mg PO BID PRN (Reason: Moderate Pain (Scale Score 5-6)) clonazepam 0.5 mg Tablet 0.5 mg PO DAILY PRN (Reason: Anxiety) benztropine 0.5 mg Tablet 0.5 mg PO BEDTIME verapamil 40 mg Tablet 40 mg PO BID Hold Instructions: Resume on 04/25/22. DISCUSS WITH PCP duloxetine 60 mg Capsule,Delayed Release(Dr/Ec) 60 mg PO BID calcium carbonate-vitamin D3 600 mg-10 mcg (400 unit) Capsule 1 cap PO BID sumatriptan succinate [Imitrex] 50 mg Tablet 50 mg PO DAILY PRN (Reason: Migraine Headache) Rx Instructions: do not exceed 4 doses per 24 hrs prazosin 2 mg capsule 2 mg PO BEDTIME 30 Days Qty: 30 0RF Vraylar 1.5 mg Capsule 4.5 mg PO DAILY 30 Days Qty: 90 0RF trazodone 100 mg tablet 100 mg PO BEDTIME PRN (Reason: insomnia) 30 Days Qty: 30 0RF fluticasone propionate 50 mcg/actuation spray,suspension 1 spray intranasal DAILY PRN (Reason: Allergy Symptoms) cholecalciferol (vitamin D3) [Vitamin D3] 25 mcg (1,000 unit) tablet 1 tab PO DAILY Discharge Orders: Discharge Order (Routine); Ordered 07/09/22 Ordered By: Nuvia Bartlett Diet: Regular diet Activity on Discharge: As tolerated Stand Alone Forms: Patient Portal Discharge page Activity Restrictions/Additional Instructions: Macrobid twice daily for 7 days Care Plan Goals: 1. Maintain mood 2. No SI/HI. 3. Less AH/VH 4. No signs of aggression towards self or others. Health Concerns: follow up with PCP Plan of Treatment: 1. Take medications as prescribed. 2. Go to nearest ED or call 911 in event of emergency Assessment: Pt with slightly brighter affect, although is constricted as baseline. No SI/HI. Less AH/VH. No signs of aggression towards self or others.
[2022-07-09] MEDS: hydrOXYzine HCL 25 MG TABLET PO (12:15)
--- NOTE | 2022-07-09 13:19 | PC.NURSE ---
Pt discharged to alf. she stated that she was not ready to leave. she states she still has thoughts of suicide . She denies that she would ever harm anyone else. Discharge instructions were reviewed with Rita to include medications and appointments. Pt verbalized understanding.
== END 2022-07-09 12:50 | disposition home or self-care (01) | DRG 885 ==
LOC: HO.ED 06-30 15:50 → HO.PADLT16 06-30 17:21
PROVIDERS: Physician Assistant; Admitting Provider Psychiatry & Neurology Psychiatry; Emergency Provider Student in an Organized Health Care Education/Training Program; PCP Internal Medicine; Visit Provider Social Worker
DX: F25.9 Schizoaffective disorder, unspecified (principal); R45.851 Suicidal ideations; F43.12 Post-traumatic stress disorder, chronic; F17.210 Nicotine dependence, cigarettes, uncomplicated; Z71.6 Tobacco abuse counseling; Z20.822 Contact with and (suspected) exposure to COVID-19; Z87.820 Personal history of traumatic brain injury; Z91.040 Latex allergy status; Z91.013 Allergy to seafood; Z91.52 Personal history of nonsuicidal self-harm; Z88.0 Allergy status to penicillin; Z88.8 Allergy status to other drugs, medicaments and biological substances; Z79.51 Long term (current) use of inhaled steroids; Z79.890 Hormone replacement therapy; Z79.899 Other long term (current) drug therapy
CPT/HCPCS: 80053; 80307; 81001; 82077; 83735; 85025; 87086; 87088; 87186; 87635; 93005; 99285

== ENCOUNTER 2022-07-13 20:15 | Emergency (ER) | payer OTHER, SELFPAY ==
--- NOTE | ~2022-07-13 | XR_ITS ---
EXAMINATION: XR CHEST CLINICAL INFORMATION: Wheezing, URI COMPARISON: 10/13/2019 and 10/02/2015 TECHNIQUE: 2 views of the chest were obtained. FINDINGS: The heart and pulmonary vessels appear normal. There is some mild patchy density seen in the posterior basal segment of the left lower lobe representing either atelectasis or an early infiltrate. XR/XR chest 2V IMPRESSION: Left lower lobe atelectasis versus early infiltrate.
[2022-07-13 20:22] VITALS: BP 98/60; PULSE 118; RESP 19; TEMP 36.6; O2SAT 94; BMI 25.7
[2022-07-13 20:47] LABS: MANUAL DIFF FLAG NO
--- NOTE | 2022-07-13 20:50 | ED.PSYCH ---
HPI - Psych General Chief Complaint: Psychiatric Symptoms Stated Complaint: crisis Time Seen by Provider: 07/13/22 20:49 Source: patient and EMS Mode of arrival: EMS Limitations: no limitations History of Present Illness HPI Narrative: 51-year-old female presents via EMS for psychiatric evaluation for depression. Patient states this the anniversary of her sister's demise, and is unable to cope with life. She denies suicidal ideation, homicidal ideation, auditory visual hallucinations. She does report some upper respiratory symptoms and a cough. Patient was discharged on 07/09/2022 from psychiatric unit at this facility. complaint: feels depressed and anxiety Onset (ago): week(s) Duration: constant History of same: Yes Relieving factors: none Context: significant life stressor Associated psychiatric symptoms: depression Associated symptoms: denies other symptoms Treatments prior to arrival: none Related Data Home Medications Medication Instructions Recorded Confirmed atorvastatin 20 mg tablet 1 tab PO DAILY 07/13/22 07/13/22 benztropine 0.5 mg tablet 1 tab PO DAILY 07/13/22 07/13/22 calcium carbonate 600 mg-vitamin 1 tab PO BID 07/13/22 07/13/22 D3 10 mcg (400 unit) tablet cariprazine 4.5 mg capsule 1 cap PO DAILY 07/13/22 07/13/22 (Vraylar) cyanocobalamin (vitamin B-12) 500 500 mcg PO DAILY 07/13/22 07/13/22 mcg tablet (Vitamin B-12) duloxetine 60 mg capsule,delayed 1 cap PO BID 07/13/22 07/13/22 release fluticasone 100 mcg-salmeterol 50 1 puff inhalation BID 07/13/22 07/13/22 mcg/dose blistr powdr for inhalation haloperidol 10 mg tablet 1 tab PO BID 07/13/22 07/13/22 levothyroxine 50 mcg tablet 1 tab PO DAILY 07/13/22 07/13/22 loratadine 10 mg tablet 1 tab PO DAILY 07/13/22 07/13/22 naproxen 500 mg tablet 1 tab PO BID PRN Pain (Scale Score 07/13/22 07/13/22 4-6) prazosin 2 mg capsule 1 cap PO BEDTIME 07/13/22 07/13/22 trazodone 100 mg tablet 1 tab PO BEDTIME 07/13/22 07/13/22 verapamil 40 mg tablet 1 tab PO BID 07/13/22 07/13/22 Previous Rx's Medication Instructions Recorded albuterol sulfate 90 mcg/actuation 2 inh inhalation Q4H PRN 07/10/22 aerosol inhaler Respiratory Distress #6.7 grams Allergies Allergy/AdvReac Type Severity Reaction Status Date / Time amoxicillin [AMOXICILLIN] Allergy Intermediate HIVES Verified 03/23/22 16:51 carisoprodol [From SOMA] Allergy Intermediate HIVES Verified 03/23/22 16:51 Fish Containing Products Allergy Intermediate HIVES Verified 03/23/22 16:51 Penicillins [PENICILLINS] Allergy Intermediate HIVES Verified 03/23/22 16:51 latex [LATEX] Allergy Mild RASH Verified 03/23/22 16:51 fish Allergy Unknown shortness Uncoded 03/23/22 16:51 of breath MEAT AdvReac Mild SICK Uncoded 03/23/22 16:51 Review of Systems Review of Systems: Constitutional: No Fever, No Chills ENT/Mouth: No Ear Pain, No Nasal Congestion, No sore throat Eyes: No Eye Pain, No Swelling, No Redness Cardiovascular: No Chest Pain, No SOB Respiratory: Positive Cough, No Sputum, No Dyspnea Gastrointestinal: No Nausea, No Vomiting, No Diarrhea, No Hematochezia, No Melena Genitourinary: No Dysuria, No Urinary Frequency, No Hematuria Musculoskeletal: No Myalgias Skin: No Skin Lesions, No rash Neuro: No Weakness, No Numbness, No Paresthesias, No Dizziness, No Headache Psych: positive Anxiety, positive Depression, no SI/HI Heme/Lymph: No Lymphadenopathy Endocrine: No Polyuria, No Polydipsia Yes all other systems are reviewed and are negative [facility] Past Medical History Attestation statement: The following information was validated with the patient. Source: old records reviewed Medical History Anxiety Asthma Borderline intellectual functioning Chronic back pain Chronic post-traumatic stress disorder (PTSD) Classic migraine Depression History of ETOH abuse Hx of drug overdose Hx of renal calculi Ovarian cyst PTSD (post-traumatic stress disorder) Schizoaffective disorder Sight impaired TBI (traumatic brain injury) Surgical History Hx of appendectomy Hx of cholecystectomy Hx of tubal ligation Social History Social History Housing: Apartment Do you presently have visiting nurse or other home services: No Alcohol intake: never Patient Tobacco Use Status: Current everyday Tobacco user Tobacco use type: Cigarette Cigarette Packs Per Day: 1.5 Cigarettes Per Day: 30.0 Years Smoked: 37 years Second Hand Smoke Exposure: Yes Substance Use Type: Caffiene Advance Directives: No Advance Directives Information Provided: No service: No Current occupational status: unemployed Current occupation: rt handed Sexual orientation: Don't Know Physical Exam Vital Signs: Vital Signs: Last Vital Signs Temp 97.9 F 07/13/22 20:22 Pulse 118 H 07/13/22 20:22 Resp 19 07/13/22 20:22 BP 98/60 07/13/22 20:22 Pulse Ox 94 07/13/22 20:22 O2 Del Method 07/13/22 20:22 BMI result Body Mass Index 25.7 Appearance: Alert. Oriented X3. No acute distress. Eyes: Pupils equal, round and reactive to light. ENT: Pharynx normal. Positive nasal congestion. Neck: Normal inspection. Neck supple. CVS: Normal heart rate and rhythm. Pulses normal. Respiratory: No respiratory distress. Breath sounds normal. Abdomen: Soft and nontender. Skin: Skin warm and dry. Normal skin color. Normal skin turgor. Extremities: No lower extremity edema. Gait well-balanced well coordinated. Neuro: No motor deficit. No sensory deficit. Cranial nerves 2-12 intact. Course Course Course Narrative: 51-year-old female presents for psychiatric evaluation, states that she is not doing well due to the anniversary of her sister's demise. Patient has had a recent admission to and was discharged on 07/09/2022. Her brother 3 weeks ago, and this is the anniversary of her sister's 2 years ago. Patient states that she does have some upper respiratory symptoms, cough and sinus pressure. Will order chest x-ray for the cough, COVID influenza test, and lab values. [facility] consult is pending. Chest x-ray is negative. Urinalysis positive for trace leukocyte esterase. Will treat with Macrobid. Chest x-ray positive for infiltrate could possibly be infection versus atelectasis. Will treat with doxycycline. Patient is on multiple QT prolonging agents. Considering patient's significant life stressors, brother 3 weeks ago, and her sister's 2 year anniversary of her the day after Thanksgiving, I feel that inpatient psychiatry may be more appropriate than discharge for this patient. Medications Administered Generic Name Dose Route Start Last Admin Trade Name Catrachoq PRN Reason Stop Dose Admin Atorvastatin Calcium 20 mg 07/13/22 21:00 07/13/22 22:45 Atorvastatin Calcium 20 Mg Tablet PO Not Given DAILY TIRSO Duloxetine HCl 60 mg 07/13/22 21:00 07/13/22 22:45 Duloxetine Hcl 60 Mg Capsule.Dr PO Not Given BID TIRSO Fluticasone/Vilanterol 1 puff 07/13/22 21:30 07/13/22 22:43 Fluticasone/Vilanterol 100/25 Blst.W.Dev INHALE Not Given QD TIRSO Haloperidol 10 mg 07/13/22 21:00 07/13/22 22:00 Haloperidol 5 Mg Tablet PO 10 mg BID TIRSO Administration Prazosin HCl 2 mg 07/13/22 21:00 07/13/22 22:45 Prazosin Hcl 1 Mg Capsule PO Not Given BEDTIME TIRSO Protocol Trazodone HCl 100 mg 07/13/22 21:00 07/13/22 22:45 Trazodone Hcl 100 Mg Tablet PO Not Given BEDTIME TIRSO Verapamil HCl 40 mg 07/13/22 21:00 07/13/22 22:44 Verapamil Hcl 40 Mg Tablet PO Not Given BID TIRSO Protocol MDM - Psych Differential Diagnosis Differential diagnosis: Likely acute psychosis, depression, acute anxiety and post-traumatic stress disorder Medical Records Attestation: I reviewed the patient's medical records. Lab Data Attestation: I reviewed the patient's lab results. Result diagrams: 07/13/22 20:41 07/13/22 20:41 Labs: Lab Results 07/13/22 07/13/22 07/13/22 Range/Units 20:30 20:41 20:41 WBC 8.2 (4.8-10.8) X10*3/uL RBC 4.34 (4.20-5.50) X10*6/uL Hgb 12.6 (12.0-16.0) g/dl Hct 37.0 (37.0-47.0) % MCV 85.3 (80.0-98.0) fL MCH 29.0 (27.0-33.0) pg MCHC 34.1 (31.0-35.0) g/dl RDW 12.8 (11.0-16.0) % Plt Count 161 (160-400) X10*3/uL MPV 12.4 H (9.4-12.3) fL Immature Gran % (Auto) 0.1 (0.0-0.4) % Neut % (Auto) 53.3 (45-73) % Lymph % (Auto) 35.2 (20-40) % [place] % (Auto) 5.9 (2-11) % Eos % (Auto) 4.8 H (0-4) % Baso % (Auto) 0.7 (0-2) % Lymph # (Auto) 2.9 (1.2-4.9) X10*3/uL [place] # (Auto) 0.5 (0.1-1.2) X10*3/uL Eos # (Auto) 0.4 (0.0-0.4) X10*3/uL Baso # (Auto) 0.1 (0.0-0.2) X10*3/uL Abs Immat Gran (auto) 0.01 (0.00-0.03) X10*3/uL Absolute Neuts (auto) 4.4 (2.0-8.3) x10*3/uL Absolute Nucleated RBC 0.000 (0.0-0.012) X10*3/uL Nucleated RBC % (auto) 0.0 (0.0-0.2) /100WBC Sodium 141 (135-145) mmol/L Potassium 4.1 (3.3-5.1) mmol/L Chloride 107 (96-108) mmol/L Carbon Dioxide 24 (22-29) mmol/L Anion Gap 14 (12-20) BUN 12 (9-16) mg/dL Creatinine 0.98 (0.5-1.4) mg/dL Estim Creat Clear Calc 64.3 Estimated GFR 60 Random Glucose 101 (60-115) mg/dL Calcium 8.8 (8.4-10.2) mg/dL Total Bilirubin 0.3 (0.0-1.0) mg/dL AST 21 (5-31) U/L ALT 19 (0-31) U/L Alkaline Phosphatase 127 H D (39-117) U/L Total Protein 5.9 L (6.5-8.0) g/dL Albumin 3.7 (3.5-5.0) g/dL Urine Color Urine Appearance Urine pH (5.0-9.0) Ur Specific [place] (1.005-1.025) Urine Protein (Neg-Trace) mg/dL Urine Glucose (UA) (Negative) mg/dL Urine Ketones (Negative) mg/dL Urine Blood (Negative) Urine Nitrite (Negative) Ur Leukocyte Esterase (Negative) Urine RBC (0-2) /HPF Urine WBC (0-5) /HPF Ur Squamous Epith Cells (0-2) /HPF Urine Bacteria (None Seen) Hyaline Casts (0-2) /LPF Salicylates < 5.0 L (15-30) mg/dL Urine Opiates Screen (Not Detect) Urine Fentanyl Screen (Not Detect) Acetaminophen < 1 (<30) mcg/mL Ur Barbiturates Screen (Not Detect) Ur Phencyclidine Scrn (Not Detect) Ur Amphetamines Screen (Not Detect) U Benzodiazepines Scrn (Not Detect) Urine Cocaine Screen (Not Detect) U Marijuana (THC) Screen (Not Detect) Ethyl Alcohol mg/dL COVID-19 (RAGHU) Negative (Negative) COVID-19 Clin Com See Note Influenza Type A (AUBREY) (Negative) Influenza Type B (AUBREY) (Negative) Influenza A & B Note 07/13/22 07/13/22 07/13/22 Range/Units 20:41 21:10 22:42 WBC (4.8-10.8) X10*3/uL RBC (4.20-5.50) X10*6/uL Hgb (12.0-16.0) g/dl Hct (37.0-47.0) % MCV (80.0-98.0) fL MCH (27.0-33.0) pg MCHC (31.0-35.0) g/dl RDW (11.0-16.0) % Plt Count (160-400) X10*3/uL MPV (9.4-12.3) fL Immature Gran % (Auto) (0.0-0.4) % Neut % (Auto) (45-73) % Lymph % (Auto) (20-40) % [place] % (Auto) (2-11) % Eos % (Auto) (0-4) % Baso % (Auto) (0-2) % Lymph # (Auto) (1.2-4.9) X10*3/uL [place] # (Auto) (0.1-1.2) X10*3/uL Eos # (Auto) (0.0-0.4) X10*3/uL Baso # (Auto) (0.0-0.2) X10*3/uL Abs Immat Gran (auto) (0.00-0.03) X10*3/uL Absolute Neuts (auto) (2.0-8.3) x10*3/uL Absolute Nucleated RBC (0.0-0.012) X10*3/uL Nucleated RBC % (auto) (0.0-0.2) /100WBC Sodium (135-145) mmol/L Potassium (3.3-5.1) mmol/L Chloride (96-108) mmol/L Carbon Dioxide (22-29) mmol/L Anion Gap (12-20) BUN (9-16) mg/dL Creatinine (0.5-1.4) mg/dL Estim Creat Clear Calc Estimated GFR Random Glucose (60-115) mg/dL Calcium (8.4-10.2) mg/dL Total Bilirubin (0.0-1.0) mg/dL AST (5-31) U/L ALT (0-31) U/L Alkaline Phosphatase (39-117) U/L Total Protein (6.5-8.0) g/dL Albumin (3.5-5.0) g/dL Urine Color Urine Appearance Urine pH (5.0-9.0) Ur Specific [place] (1.005-1.025) Urine Protein (Neg-Trace) mg/dL Urine Glucose (UA) (Negative) mg/dL Urine Ketones (Negative) mg/dL Urine Blood (Negative) Urine Nitrite (Negative) Ur Leukocyte Esterase (Negative) Urine RBC (0-2) /HPF Urine WBC (0-5) /HPF Ur Squamous Epith Cells (0-2) /HPF Urine Bacteria (None Seen) Hyaline Casts (0-2) /LPF Salicylates (15-30) mg/dL Urine Opiates Screen Not Detected (Not Detect) Urine Fentanyl Screen Not Detected (Not Detect) Acetaminophen (<30) mcg/mL Ur Barbiturates Screen Not Detected (Not Detect) Ur Phencyclidine Scrn Not Detected (Not Detect) Ur Amphetamines Screen Not Detected (Not Detect) U Benzodiazepines Scrn Not Detected (Not Detect) Urine Cocaine Screen Not Detected (Not Detect) U Marijuana (THC) Screen Not Detected (Not Detect) Ethyl Alcohol < 10 mg/dL COVID-19 (RAGHU) (Negative) COVID-19 Clin Com Influenza Type A (AUBREY) Negative (Negative) Influenza Type B (AUBREY) Negative (Negative) Influenza A & B Note See Note 07/13/22 Range/Units 22:42 WBC (4.8-10.8) X10*3/uL RBC (4.20-5.50) X10*6/uL Hgb (12.0-16.0) g/dl Hct (37.0-47.0) % MCV (80.0-98.0) fL MCH (27.0-33.0) pg MCHC (31.0-35.0) g/dl RDW (11.0-16.0) % Plt Count (160-400) X10*3/uL MPV (9.4-12.3) fL Immature Gran % (Auto) (0.0-0.4) % Neut % (Auto) (45-73) % Lymph % (Auto) (20-40) % [place] % (Auto) (2-11) % Eos % (Auto) (0-4) % Baso % (Auto) (0-2) % Lymph # (Auto) (1.2-4.9) X10*3/uL [place] # (Auto) (0.1-1.2) X10*3/uL Eos # (Auto) (0.0-0.4) X10*3/uL Baso # (Auto) (0.0-0.2) X10*3/uL Abs Immat Gran (auto) (0.00-0.03) X10*3/uL Absolute Neuts (auto) (2.0-8.3) x10*3/uL Absolute Nucleated RBC (0.0-0.012) X10*3/uL Nucleated RBC % (auto) (0.0-0.2) /100WBC Sodium (135-145) mmol/L Potassium (3.3-5.1) mmol/L Chloride (96-108) mmol/L Carbon Dioxide (22-29) mmol/L Anion Gap (12-20) BUN (9-16) mg/dL Creatinine (0.5-1.4) mg/dL Estim Creat Clear Calc Estimated GFR Random Glucose (60-115) mg/dL Calcium (8.4-10.2) mg/dL Total Bilirubin (0.0-1.0) mg/dL AST (5-31) U/L ALT (0-31) U/L Alkaline Phosphatase (39-117) U/L Total Protein (6.5-8.0) g/dL Albumin (3.5-5.0) g/dL Urine Color Yellow Urine Appearance Clear Urine pH 7.0 (5.0-9.0) Ur Specific [place] 1.010 (1.005-1.025) Urine Protein Negative (Neg-Trace) mg/dL Urine Glucose (UA) Negative (Negative) mg/dL Urine Ketones Negative (Negative) mg/dL Urine Blood Negative (Negative) Urine Nitrite Negative (Negative) Ur Leukocyte Esterase Trace H (Negative) Urine RBC 0-2 (0-2) /HPF Urine WBC 0-5 (0-5) /HPF Ur Squamous Epith Cells 3-5 (0-2) /HPF Urine Bacteria 2+ (None Seen) Hyaline Casts 0-2 (0-2) /LPF Salicylates (15-30) mg/dL Urine Opiates Screen (Not Detect) Urine Fentanyl Screen (Not Detect) Acetaminophen (<30) mcg/mL Ur Barbiturates Screen (Not Detect) Ur Phencyclidine Scrn (Not Detect) Ur Amphetamines Screen (Not Detect) U Benzodiazepines Scrn (Not Detect) Urine Cocaine Screen (Not Detect) U Marijuana (THC) Screen (Not Detect) Ethyl Alcohol mg/dL COVID-19 (RAGHU) (Negative) COVID-19 Clin Com Influenza Type A (AUBREY) (Negative) Influenza Type B (AUBREY) (Negative) Influenza A & B Note Imaging Data Chest x-ray: Attestation: I personally reviewed and interpreted this imaging study as follows: Radiologist's impression: EXAMINATION: XR CHEST CLINICAL INFORMATION: Wheezing, URI COMPARISON: 10/13/2019 and 10/02/2015 TECHNIQUE: 2 views of the chest were obtained. FINDINGS: The heart and pulmonary vessels appear normal. There is some mild patchy density seen in the posterior basal segment of the left lower lobe representing either atelectasis or an early infiltrate. XR/XR chest 2V IMPRESSION: Left lower lobe atelectasis versus early infiltrate. Discharge Plan Discharge Clinical Impression: Depression, Acute anxiety, UTI (urinary tract infection), URI (upper respiratory infection) Patient Disposition: Still a Patient Prescriptions: No Action atorvastatin 20 mg tablet 1 tab PO DAILY benztropine 0.5 mg tablet 1 tab PO DAILY verapamil 40 mg tablet 1 tab PO BID cyanocobalamin (vitamin B-12) [Vitamin B-12] 500 mcg tablet 500 mcg PO DAILY trazodone 100 mg tablet 1 tab PO BEDTIME levothyroxine 50 mcg tablet 1 tab PO DAILY haloperidol 10 mg tablet 1 tab PO BID fluticasone propion-salmeterol 100-50 mcg/dose blister with device 1 puff inhalation BID loratadine 10 mg tablet 1 tab PO DAILY prazosin 2 mg capsule 1 cap PO BEDTIME naproxen 500 mg tablet 1 tab PO BID PRN (Reason: Pain (Scale Score 4-6)) duloxetine 60 mg capsule,delayed release(DR/EC) 1 cap PO BID calcium carbonate-vitamin D3 600 mg-10 mcg (400 unit) tablet 1 tab PO BID Vraylar 4.5 mg capsule 1 cap PO DAILY albuterol sulfate 90 mcg/actuation HFA aerosol inhaler 2 inh inhalation Q4H PRN (Reason: Respiratory Distress) Qty: 6.7 0RF Interventions: [place]-Suicide Risk Severity Scale Last Done: 07/13/22 21:05
[2022-07-13 20:51] LABS: COVID-19 Test Negative (Negative)
[2022-07-13 20:58] LABS: Basophils Absolute Auto 0.1 X10*3/uL (0.0-0.2); Basophils Percent Auto 0.7 % (0-2); Eosinophils Absolute Auto 0.4 X10*3/uL (0.0-0.4); Eosinophils Percent Auto 4.8 % (0-4); Hemoglobin 12.6 g/dl (12.0-16.0); Imm Gran Abs Auto 0.01 X10*3/uL (0.00-0.03); Imm Gran Pct Auto 0.1 % (0.0-0.4); Lymphocytes Absolute Auto 2.9 X10*3/uL (1.2-4.9); Lymphocytes Percent Auto 35.2 % (20-40); Mean Corpuscular HGB Conc 34.1 g/dl (31.0-35.0); Mean Corpuscular Volume 85.3 fL (80.0-98.0); Mean Platelet Volume 12.4 fL (9.4-12.3); Monocytes Absolute Auto 0.5 X10*3/uL (0.1-1.2); Monocytes Percent Auto 5.9 % (2-11); Neutrophils Absolute Auto 4.4 x10*3/uL (2.0-8.3); Neutrophils Percent Auto 53.3 % (45-73); Platelet Count 161 X10*3/uL (160-400); Red Blood Count 4.34 X10*6/uL (4.20-5.50); Red Cell Distribution Width 12.8 % (11.0-16.0); White Blood Count 8.2 X10*3/uL (4.8-10.8)
--- NOTE | 2022-07-13 20:58 | MHC.CARE ---
Care Team completed [facility] smart sheet.
[2022-07-13 21:03] LABS: Ethanol < 10 mg/dL
[2022-07-13 21:06] LABS: Acetaminophen LAB < 1 mcg/mL (<30); Alanine Aminotransferase 19 U/L (0-31); Albumin Level 3.7 g/dL (3.5-5.0); Alkaline Phosphatase 127 U/L (39-117); Anion Gap 14 (12-20); Aspartate Amino Transferase 21 U/L (5-31); Bilirubin Total 0.3 mg/dL (0.0-1.0); Blood Urea Nitrogen 12 mg/dL (9-16); Calcium 8.8 mg/dL (8.4-10.2); Carbon Dioxide 24 mmol/L (22-29); Chloride 107 mmol/L (96-108); Creatinine Clr Calc Pharmacy 64.3; Estimated Glomerular Filt Rate 60; Glucose Random 101 mg/dL (60-115); Potassium 4.1 mmol/L (3.3-5.1); Salicylate < 5.0 mg/dL (15-30); Sodium 141 mmol/L (135-145); Total Protein 5.9 g/dL (6.5-8.0)
[2022-07-13 21:31] LABS: Influenza A Negative (Negative); Influenza B2 Negative (Negative)
--- NOTE | 2022-07-13 21:44 | MHC.CARE ---
Care Team met with pt in Pod 6 for a risk assessment after presenting to [facility] ED with increased depression due to sister's demise 2 years ago. Pt denied SI/HI/AH, however, pt stated having visual hallucinations of a girl figure shadow on the wall. Pt reported feeling scared of the shadow as she does not know what the shadow wants from her. Pt stated she was hospitalized when she was 29 years old for attempting to commit suicide by cutting her wrist. Pt reported no recent suicide attempts. Pt stated she lives alone but does not spend time in her apartmenbt as she is always with her boyfriend Mick Ramos [phone] (pt was unable to recall number correctly). Pt stated [facility] staff help her with medication management. Care Team left a voice message for pt's boyfriend. Purpose of call was to gain insight into pt and if any concerns. Care team left voice message for [facility]. Purpose of call was to gain insight into pt and if any concerns. Disposition discussed with Keily CORADO. Pt is to remain in the ED to be reassess in the morning.
[2022-07-13] MEDS: HaloperidoL 5 MG TABLET 10 MG PO (22:00)
[2022-07-13 22:50] LABS: Appearance Urine Clear; Color Urine Yellow; Glucose Urine UA Negative (Negative); Leukocyte Esterase Urine Trace (Negative); Nitrite Urine Negative (Negative); UMIC TRIGGER UA YES; Urine Blood Negative (Negative); Urine Ketones Negative (Negative); Urine Protein Negative (Neg-Trace)
[2022-07-13 23:07] LABS: Amphetamine Screen Urine Not Detected (Not Detect); Barbiturates, Urine Not Detected (Not Detect); Benzodiazepines Screen Urine Not Detected (Not Detect); Cannabinoid Screen Urine Not Detected (Not Detect); Cocaine Screen Urine Not Detected (Not Detect); Fentanyl, urine Not Detected (Not Detect); Opiate Screen Urine Not Detected (Not Detect); Phencyclidine Screen Urine Not Detected (Not Detect)
[2022-07-13 23:35] LABS: Bacteria Urine 2+ (None Seen); Hyaline Casts Urine 0-2 /LPF (0-2); RBC Urine 0-2 /HPF (0-2); WBC Urine 0-5 /HPF (0-5)
[2022-07-14] MEDS: Doxycycline Monohydrate 100 MG CAPSULE PO ×2 (02:57→15:00)
[2022-07-14 04:18] VITALS: BP 99/62; PULSE 90; RESP 17; TEMP 36.6; O2SAT 95
--- NOTE | 2022-07-14 06:21 | PC.NURSE ---
Patient slept through the night, no distress observed/reported, behavior non concerning, mood depressive affect, patient is + for UTI and PNE per provider, Doxy 100 mg BID and Macrobid 100 mg BID started, doxy 100 mg administered during overnight shift, med rec completed, nighttime medication held because patient had already taken at home before coming to the hospital, patient was assessed by care team, disposition pending, patient will be reevaluated in the morning by care team, per provider patient needs psych inpatient level of care, VSS, will continue to monitor.
[2022-07-14 08:23] VITALS: BP 107/73; PULSE 80; RESP 17; TEMP 36.6; O2SAT 97
[2022-07-14] MEDS: Atorvastatin Calcium 20 MG TABLET PO (08:37)
[2022-07-14] MEDS: DULoxetine HCl 60 MG CAPSULE.DR PO ×2 (08:37→20:18)
[2022-07-14] MEDS: Levothyroxine Sodium 50 MCG TABLET PO (08:37)
[2022-07-14] MEDS: VerapamiL HCL 40 MG TABLET PO ×2 (08:37→20:17)
[2022-07-14] MEDS: HaloperidoL 5 MG TABLET 10 MG PO ×2 (08:38→20:17)
[2022-07-14] MEDS: Benztropine Mesylate 0.5 MG TABLET PO (08:38)
[2022-07-14] MEDS: Calcium + Vitamin D 250 MG TABLET 500 MG PO ×2 (08:38→20:17)
[2022-07-14] MEDS: Nitrofurantoin Monohyd/M-Cryst 100 MG CAPSULE PO ×2 (08:38→20:17)
[2022-07-14] MEDS: Cyanocobalamin (Vitamin B-12) 500 MCG TABLET PO (08:39)
[2022-07-14] MEDS: Loratadine 10 MG TABLET PO (08:39)
--- NOTE | 2022-07-14 08:39 | PC.NURSE ---
contact made to pharmacy for Vraylar dose. will be sent down
[2022-07-14] MEDS: Cariprazine HCl 1.5 MG CAPSULE 4.5 MG PO (09:25)
[2022-07-14 14:00] VITALS: RESP 14
[2022-07-14] MEDS: Prazosin HCL 1 MG CAPSULE 2 MG PO (20:17)
[2022-07-14] MEDS: traZODone HCL 100 MG TABLET PO (20:17)
[2022-07-14] MEDS: Fluticasone/Vilanterol 100/25 BLST.W.DEV 1 PUFF INHALE (20:20)
[2022-07-15] MEDS: Levothyroxine Sodium 50 MCG TABLET PO (04:46)
[2022-07-15] MEDS: Doxycycline Monohydrate 100 MG CAPSULE PO ×2 (04:46→14:48)
[2022-07-15 05:05] VITALS: BP 104/62; PULSE 78; RESP 18; TEMP 36.3; O2SAT 97
--- NOTE | 2022-07-15 05:20 | PC.NURSE ---
Patient slept through the night, no distress observed/reported, behavior non concerning, mood depressive affect, medication compliant, disposition per [facility] is section 12 inpatient Bed search, VSS, will continue to monitor.
[2022-07-15 10:11] VITALS: BP 109/81; PULSE 107; RESP 17; TEMP 36.5; O2SAT 95
[2022-07-15] MEDS: Benztropine Mesylate 0.5 MG TABLET PO (10:22)
[2022-07-15] MEDS: Cyanocobalamin (Vitamin B-12) 500 MCG TABLET PO (10:22)
[2022-07-15] MEDS: Nitrofurantoin Monohyd/M-Cryst 100 MG CAPSULE PO ×2 (10:22→20:27)
[2022-07-15] MEDS: HaloperidoL 5 MG TABLET 10 MG PO ×2 (10:22→20:28)
[2022-07-15] MEDS: Atorvastatin Calcium 20 MG TABLET PO (10:23)
[2022-07-15] MEDS: Calcium + Vitamin D 250 MG TABLET 500 MG PO ×2 (10:23→20:28)
[2022-07-15] MEDS: Loratadine 10 MG TABLET PO (10:24)
[2022-07-15] MEDS: DULoxetine HCl 60 MG CAPSULE.DR PO ×2 (10:24→20:27)
[2022-07-15] MEDS: VerapamiL HCL 40 MG TABLET PO ×2 (10:25→20:28)
--- NOTE | 2022-07-15 11:02 | PC.NURSE ---
slept most of the morning, pleasant, states she feels a little sick w some generalized weakness, reviewed her lab and xray results w her and her fiance, nad, pleasant and cooperative
--- NOTE | 2022-07-15 11:41 | ECG_ITS ---
Test Reason : POSSIBLE ADMISSION Blood Pressure : / mmHG Vent. Rate : 081 BPM Atrial Rate : 081 BPM P-R Int : 150 ms QRS Dur : 080 ms QT Int : 390 ms P-R-T Axes : 065 066 067 degrees QTc Int : 453 ms Normal sinus rhythm Normal ECG When compared with ECG of 30-JUN-2022 14:37, No significant change was found Referred By: Stephen Asif Electronically Signed By:MARLENE PEÑA MD
[2022-07-15] MEDS: Cariprazine HCl 1.5 MG CAPSULE 4.5 MG PO (11:52)
[2022-07-15] MEDS: traZODone HCL 100 MG TABLET PO (20:27)
[2022-07-15] MEDS: Prazosin HCL 1 MG CAPSULE 2 MG PO (20:28)
[2022-07-15] MEDS: Fluticasone/Vilanterol 100/25 BLST.W.DEV 1 PUFF INHALE (20:30)
[2022-07-15] MEDS: Benzonatate 100 MG CAPSULE 200 MG PO (22:15)
[2022-07-16 01:29] VITALS: BP 100/67; PULSE 68; RESP 16; TEMP 36.6; O2SAT 98
[2022-07-16] MEDS: Doxycycline Monohydrate 100 MG CAPSULE PO ×2 (02:21→15:05)
--- NOTE | 2022-07-16 05:45 | PC.NURSE ---
Patient slept intermittently, no distress observed/reported except intermittent coughing, medication compliant, appetite good, elimination intact, depressive mood, behavior appropriate and non concerning, disposition per [facility] is Section 12 inpatient bed search, yesterday's bed search is exhausted, VSS, will continue to monitor.
[2022-07-16] MEDS: Levothyroxine Sodium 50 MCG TABLET PO (05:57)
--- NOTE | 2022-07-16 07:22 | PC.NURSE ---
patient appears to remain at rest this am respirations are even and unlabored patient appears in no distress.
[2022-07-16] MEDS: Nitrofurantoin Monohyd/M-Cryst 100 MG CAPSULE PO (08:10)
[2022-07-16] MEDS: Atorvastatin Calcium 20 MG TABLET PO (08:10)
[2022-07-16] MEDS: VerapamiL HCL 40 MG TABLET PO (08:10)
[2022-07-16] MEDS: HaloperidoL 5 MG TABLET 10 MG PO (08:10)
[2022-07-16] MEDS: Cyanocobalamin (Vitamin B-12) 500 MCG TABLET PO (08:10)
[2022-07-16] MEDS: Calcium + Vitamin D 250 MG TABLET 500 MG PO (08:10)
[2022-07-16] MEDS: Loratadine 10 MG TABLET PO (08:10)
[2022-07-16] MEDS: DULoxetine HCl 60 MG CAPSULE.DR PO (08:10)
[2022-07-16] MEDS: Benztropine Mesylate 0.5 MG TABLET PO (08:10)
[2022-07-16] MEDS: Fluticasone/Vilanterol 100/25 BLST.W.DEV 1 PUFF INHALE (08:11)
[2022-07-16] MEDS: Cariprazine HCl 1.5 MG CAPSULE 4.5 MG PO (08:30)
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
== END 2022-07-16 15:38 | disposition home or self-care (01) ==
PROVIDERS: Nurse Practitioner Family; Emergency Provider Emergency Medicine Emergency Medical Services; PCP Internal Medicine
DX: F32.9 Major depressive disorder, single episode, unspecified (principal); F41.9 Anxiety disorder, unspecified; N39.0 Urinary tract infection, site not specified; J18.9 Pneumonia, unspecified organism; Z20.822 Contact with and (suspected) exposure to COVID-19; F25.9 Schizoaffective disorder, unspecified; F43.12 Post-traumatic stress disorder, chronic; F17.210 Nicotine dependence, cigarettes, uncomplicated; Z87.820 Personal history of traumatic brain injury; Z72.89 Other problems related to lifestyle; Z63.4 Disappearance and death of family member; Z79.02 Long term (current) use of antithrombotics/antiplatelets; Z79.899 Other long term (current) drug therapy
CPT/HCPCS: 36415; 71046; 80053; 80143; 80179; 80307; 81001; 81003; 82077; 85025; 87502; 87635; 93005; 99285

== ENCOUNTER 2023-04-02 15:51 | Inpatient (IN) | payer OTHER, SELFPAY ==
[2023-04-02 15:55] VITALS: BP 117/81; PULSE 107; O2SAT 96
[2023-04-02 16:03] VITALS: BP 127/79; PULSE 107; RESP 18; TEMP 36.1; O2SAT 97; BMI 74.5
[2023-04-02 16:24] LABS: COVID-19 Test Negative (Negative); IDNOW Serial# BCCEAD1C
[2023-04-02 16:28] LABS: Appearance Urine Clear; Color Urine Yellow; Glucose Urine UA Negative (Negative); Leukocyte Esterase Urine Negative (Negative); Nitrite Urine Negative (Negative); Specific Gravity - Urine <= 1.005 (1.005-1.025); Urine Blood Negative (Negative); Urine Ketones Negative (Negative); Urine Protein Negative (Neg-Trace)
[2023-04-02 16:29] LABS: UPreg QC Valid YES; Urine Pregnancy NEGATIVE (NEGATIVE)
[2023-04-02 16:30] LABS: MANUAL DIFF FLAG NO
--- NOTE | 2023-04-02 16:30 | ECG_ITS ---
Test Reason : CP Blood Pressure : / mmHG Vent. Rate : 092 BPM Atrial Rate : 092 BPM P-R Int : 142 ms QRS Dur : 084 ms QT Int : 382 ms P-R-T Axes : 054 056 050 degrees QTc Int : 472 ms Normal sinus rhythm Normal ECG When compared with ECG of 15-JUL-2022 14:08, No significant change was found Referred By: Bella Yao Electronically Signed By:LUPE CURRY
--- NOTE | 2023-04-02 16:31 | ED.PSYCH ---
HPI - Psych General Chief Complaint: Psychiatric Symptoms Stated Complaint: HEARING VOICES/PSYCH/CHEST AND LEFT ARM PAIN Time Seen by Provider: 04/02/23 16:01 Source: patient Mode of arrival: EMS Limitations: no limitations History of Present Illness HPI Narrative: Patient comes to the emergency room complaining of 2 weeks of chest pain and also stating that today she started hearing voices telling her to kill herself. Patient denies homicidal ideation. Patient complaining of chronic back pain. Related Data Home Medications Medication Instructions Recorded Confirmed atorvastatin 20 mg tablet 1 tab PO DAILY 07/13/22 07/13/22 benztropine 0.5 mg tablet 1 tab PO DAILY 07/13/22 07/13/22 calcium carbonate 600 mg-vitamin 1 tab PO BID 07/13/22 07/13/22 D3 10 mcg (400 unit) tablet cariprazine 4.5 mg capsule 1 cap PO DAILY 07/13/22 07/13/22 (Vraylar) cyanocobalamin (vitamin B-12) 500 500 mcg PO DAILY 07/13/22 07/13/22 mcg tablet (Vitamin B-12) duloxetine 60 mg capsule,delayed 1 cap PO BID 07/13/22 07/13/22 release fluticasone 100 mcg-salmeterol 50 1 puff inhalation BID 07/13/22 07/13/22 mcg/dose blistr powdr for inhalation haloperidol 10 mg tablet 1 tab PO BID 07/13/22 07/13/22 levothyroxine 50 mcg tablet 1 tab PO DAILY 07/13/22 07/13/22 loratadine 10 mg tablet 1 tab PO DAILY 07/13/22 07/13/22 naproxen 500 mg tablet 1 tab PO BID PRN Pain (Scale Score 07/13/22 07/13/22 4-6) prazosin 2 mg capsule 1 cap PO BEDTIME 07/13/22 07/13/22 trazodone 100 mg tablet 1 tab PO BEDTIME 07/13/22 07/13/22 verapamil 40 mg tablet 1 tab PO BID 07/13/22 07/13/22 Previous Rx's Medication Instructions Recorded albuterol sulfate 90 mcg/actuation 2 inh inhalation Q4H PRN 07/10/22 aerosol inhaler Respiratory Distress #6.7 grams doxycycline monohydrate 100 mg 100 mg PO BID #14 caps 07/16/22 capsule Allergies Allergy/AdvReac Type Severity Reaction Status Date / Time amoxicillin [AMOXICILLIN] Allergy Intermediate HIVES Verified 03/23/22 16:51 carisoprodol [From SOMA] Allergy Intermediate HIVES Verified 03/23/22 16:51 Fish Containing Products Allergy Intermediate HIVES Verified 03/23/22 16:51 Penicillins [PENICILLINS] Allergy Intermediate HIVES Verified 03/23/22 16:51 latex [LATEX] Allergy Mild RASH Verified 03/23/22 16:51 fish Allergy Unknown shortness Uncoded 03/23/22 16:51 of breath MEAT AdvReac Mild SICK Uncoded 03/23/22 16:51 Review of Systems Review of Systems: Constitutional : No Weight loss, No Fever, No Chills, No Night Sweats, No Fatigue, No Malaise ENT/Mouth : No Hearing loss, No Ear Pain, No Nasal Congestion, No Sinus Pain, No Hoarseness, No sore throat, No Rhinorrhea, No Swallowing Difficulty Eyes: No Eye Pain, No Swelling, No Redness, No Foreign Body, No Discharge, No Vision Changes Cardiovascular : No Chest Pain, No SOB, No Dyspnea on Exertion, No Orthopnea, No Edema, No Palpitations Respiratory : No Cough, No Sputum, No Wheezing, No Smoke Exposure, No Dyspnea Gastrointestinal : No Nausea, No Vomiting, No Diarrhea, No Constipation, No abdominal Pain, No Hematochezia, No Melena Genitourinary : no irregular bleeding, No Dysuria, No Urinary Frequency, No Hematuria, No Urinary Incontinence, No Urgency, No Flank Pain, No Urinary Flow Changes, No Hesitancy Musculoskeletal : Complaining of chronic back pain, No joint pain, No Myalgias, No Joint Swelling Skin : No Skin Lesions, No rash Neuro : No Weakness, No Numbness, No Paresthesias, No Loss of Consciousness, No Dizziness, No Headache Psych : No Anxiety/Panic, No Depression, complaining of hearing voices telling her to kill herself, no HI Heme/Lymph: No Bruising, No Bleeding,No Lymphadenopathy Endocrine : No Polyuria, No Polydipsia, No Temperature Intolerance PMFSH Past Medical History Medical History Anxiety Asthma Borderline intellectual functioning Chronic back pain Classic migraine Depression History of ETOH abuse Hx of drug overdose Hx of renal calculi Ovarian cyst PTSD (post-traumatic stress disorder) Schizoaffective disorder Sight impaired Surgical History Hx of appendectomy Hx of cholecystectomy Hx of tubal ligation Social History Social History Housing: Apartment Do you presently have visiting nurse or other home services: No Alcohol intake: current Alcohol intake frequency: a few times a week Patient Tobacco Use Status: Current everyday Tobacco user Tobacco use type: Cigarette Cigarette Packs Per Day: 1.5 Cigarettes Per Day: 30.0 Years Smoked: 37 years Second Hand Smoke Exposure: Yes Substance Use Type: Caffiene service: No Current occupational status: unemployed Current occupation: rt handed Sexual orientation: Don't Know Physical Exam Vital Signs: Vital Signs: Last Vital Signs Temp 97 F 04/02/23 16:03 Pulse 107 H 04/02/23 16:03 Resp 18 04/02/23 16:03 BP 127/79 04/02/23 16:03 Pulse Ox 97 04/02/23 16:03 O2 Del Method Room Air 04/02/23 16:03 BMI result Body Mass Index 74.5 Const: Other: Appearance: Alert. Oriented X3. No acute distress. Eyes: Pupils equal, round and reactive to light. ENT: Pharynx normal. Neck: Normal inspection. Neck supple. No lymph nodes noted. No crepitus CVS: Normal heart rate and rhythm. Pulses normal. Normal S1 and S2 Respiratory: No respiratory distress. Breath sounds normal. No Wheezing. No rales Abdomen: Soft and nontender. No rigidity. No distention. Skin: Skin warm and dry. Normal skin color. Normal skin turgor. Extremities: No lower extremity edema. No Lacerations. No Rash Neuro: Oriented X 3. No motor deficit. No sensory deficit. Moving all extremities. No slurred speech. CN 2 through 12 grossly intact Psych: calm, cooperative, flat affect Course Course Course Narrative: -of patient's labs pending -EKG pending -care team pending -physician observation started 16:30 Medical Decision Making Lab Data 04/02/23 16:23 04/02/23 16:23 Labs: Lab Results 04/02/23 04/02/23 04/02/23 Range/Units 16:06 16:06 16:06 Urine Color Yellow Urine Appearance Clear Urine pH 7.0 (5.0-9.0) Ur Specific [place] <= 1.005 (1.005-1.025) Urine Protein Negative (Neg-Trace) mg/dL Urine Glucose (UA) Negative (Negative) mg/dL Urine Ketones Negative (Negative) mg/dL Urine Blood Negative (Negative) Urine Nitrite Negative (Negative) Ur Leukocyte Esterase Negative (Negative) Urine Test NEGATIVE (NEGATIVE) COVID-19 (RAGHU) Negative (Negative) COVID-19 Clin Com See Note Discharge Plan Discharge Clinical Impression: Auditory hallucination, Chronic chest pain Patient Disposition: Still a Patient Prescriptions: No Action atorvastatin 20 mg tablet 1 tab PO DAILY benztropine 0.5 mg tablet 1 tab PO DAILY verapamil 40 mg tablet 1 tab PO BID cyanocobalamin (vitamin B-12) [Vitamin B-12] 500 mcg tablet 500 mcg PO DAILY trazodone 100 mg tablet 1 tab PO BEDTIME levothyroxine 50 mcg tablet 1 tab PO DAILY haloperidol 10 mg tablet 1 tab PO BID fluticasone propion-salmeterol 100-50 mcg/dose blister with device 1 puff inhalation BID loratadine 10 mg tablet 1 tab PO DAILY prazosin 2 mg capsule 1 cap PO BEDTIME naproxen 500 mg tablet 1 tab PO BID PRN (Reason: Pain (Scale Score 4-6)) duloxetine 60 mg capsule,delayed release(DR/EC) 1 cap PO BID calcium carbonate-vitamin D3 600 mg-10 mcg (400 unit) tablet 1 tab PO BID Vraylar 4.5 mg capsule 1 cap PO DAILY doxycycline monohydrate 100 mg capsule 100 mg PO BID Qty: 14 0RF albuterol sulfate 90 mcg/actuation HFA aerosol inhaler 2 inh inhalation Q4H PRN (Reason: Respiratory Distress) Qty: 6.7 0RF Interventions: [place]-Suicide Risk Severity Scale Last Done: 04/02/23 16:14
[2023-04-02 16:36] LABS: Basophils Absolute Auto 0.1 X10*3/uL (0.0-0.2); Basophils Percent Auto 0.6 % (0-2); Eosinophils Absolute Auto 0.2 X10*3/uL (0.0-0.4); Eosinophils Percent Auto 1.9 % (0-4); Hematocrit 39.4 % (37.0-47.0); Hemoglobin 13.3 g/dl (12.0-16.0); Imm Gran Abs Auto 0.03 X10*3/uL (0.00-0.03); Imm Gran Pct Auto 0.3 % (0.0-0.4); Lymphocytes Absolute Auto 3.3 X10*3/uL (1.2-4.9); Lymphocytes Percent Auto 30.5 % (20-40); Mean Corpuscular HGB Conc 33.8 g/dl (31.0-35.0); Mean Corpuscular Hemoglobin 28.5 pg (27.0-33.0); Mean Corpuscular Volume 84.4 fL (80.0-98.0); Mean Platelet Volume 11.5 fL (9.4-12.3); Monocytes Absolute Auto 0.6 X10*3/uL (0.1-1.2); Monocytes Percent Auto 5.3 % (2-11); Neutrophils Absolute Auto 6.6 x10*3/uL (2.0-8.3); Neutrophils Percent Auto 61.4 % (45-73); Platelet Count 215 X10*3/uL (160-400); Red Blood Count 4.67 X10*6/uL (4.20-5.50); Red Cell Distribution Width 13.9 % (11.0-16.0); White Blood Count 10.8 X10*3/uL (4.8-10.8)
[2023-04-02 16:38] LABS: Amphetamine Screen Urine Not Detected (Not Detect); Barbiturates, Urine Not Detected (Not Detect); Benzodiazepines Screen Urine Not Detected (Not Detect); Cannabinoid Screen Urine Not Detected (Not Detect); Cocaine Screen Urine Not Detected (Not Detect); Fentanyl, urine Not Detected (Not Detect); Opiate Screen Urine Not Detected (Not Detect); Phencyclidine Screen Urine Not Detected (Not Detect)
[2023-04-02] MEDS: NaPROXEN 500 MG TABLET PO (16:43)
[2023-04-02 16:47] LABS: Acetaminophen LAB < 17 mcg/mL (<30); Alanine Aminotransferase 19 U/L (0-31); Albumin Level 3.7 g/dL (3.5-5.0); Alkaline Phosphatase 134 U/L (39-117); Anion Gap 12 (12-20); Aspartate Amino Transferase 25 U/L (5-31); Bilirubin Total 0.3 mg/dL (0.0-1.0); Blood Urea Nitrogen 8 mg/dL (9-16); Calcium 8.8 mg/dL (8.4-10.2); Carbon Dioxide 26 mmol/L (22-29); Chloride 107 mmol/L (96-108); Creatinine Clr Calc Pharmacy 120.8; Estimated Glomerular Filt Rate > 60; Ethanol < 10 mg/dL; Glucose Random 94 mg/dL (60-115); Potassium 3.8 mmol/L (3.3-5.1); Salicylate < 5.0 mg/dL (15-30); Sodium 141 mmol/L (135-145); Total Protein 6.4 g/dL (6.5-8.0)
[2023-04-02 17:01] LABS: Troponin-I High Sensitivity < 2.7 ng/L (<3.5-17.0)
--- NOTE | 2023-04-02 18:45 | PC.NURSE ---
pt has been calm and cooperative, will be a bed search
[2023-04-02 19:27] VITALS: BP 116/81; PULSE 92; RESP 18; TEMP 36.5; O2SAT 97
[2023-04-02] MEDS: clonazePAM 0.5 MG TABLET PO (20:28)
--- NOTE | 2023-04-02 20:46 | PHA.MEDREC ---
Pharmacy Consult ? Medication Reconciliation Pharmacy has reviewed the medication reconciliation completed by nursing.
[2023-04-02 22:48] LABS: Gamma Glutamyl Transpeptidase 11 U/L (7-33)
[2023-04-02 23:50] VITALS: BP 131/75; PULSE 78; RESP 16; TEMP 36.4; O2SAT 98
[2023-04-03 00:30] VITALS: BMI 33.1
[2023-04-03] MEDS: traZODone HCL 100 MG TABLET PO ×2 (00:57→20:22)
[2023-04-03] MEDS: Acetaminophen 325 MG TABLET 650 MG PO (00:57)
--- NOTE | 2023-04-03 02:15 | PC.ADMIT ---
Patient admitted to [facility] on 04/02/23 at 2345 from [facility] on a CV for increased command hallucinations to kill herself, as well as increased SI due to these voices. Pt reports poor sleep and appetite. She has had multiple inpatient psychiatric hospitalizations in the past, the last time on this floor being in Jun 2022. Patient denies substance use and alcohol consumption. Negative toxicology. Patient denies smoking cigarettes to this senior technical writer, however crisis eval and ED summary report that she is a current everyday 1.5 pack per day smoker. Upon arrival to the unit, patient is pleasant upon approach and cooperative with the admission process. CLAIR?s have been signed. Patient continues to hear voices to hurt herself, but contracts for safety and feels comfortable approaching staff. Patient is med compliant and resting quietly.
[2023-04-03] MEDS: Levothyroxine Sodium 50 MCG TABLET PO (05:59)
[2023-04-03 06:00] VITALS: BP 110/69; PULSE 82; RESP 16; TEMP 36.2; O2SAT 97
[2023-04-03] MEDS: DULoxetine HCl 60 MG CAPSULE.DR PO ×2 (08:48→20:22)
[2023-04-03] MEDS: Benztropine Mesylate 0.5 MG TABLET PO (08:49)
[2023-04-03] MEDS: Atorvastatin Calcium 20 MG TABLET PO (08:49)
[2023-04-03] MEDS: VerapamiL HCL 40 MG TABLET PO ×2 (08:49→20:22)
[2023-04-03] MEDS: Loratadine 10 MG TABLET PO (08:49)
[2023-04-03 09:13] LABS: Estimated Average Glucose 97 mg/dL
[2023-04-03 09:49] LABS: Anion Gap 11 (12-20); Blood Urea Nitrogen 8 mg/dL (9-16); Carbon Dioxide 24 mmol/L (22-29); Chloride 109 mmol/L (96-108); Potassium 4.2 mmol/L (3.3-5.1); Sodium 140 mmol/L (135-145)
[2023-04-03 09:50] LABS: Alanine Aminotransferase 17 U/L (0-31); Albumin Level 3.4 g/dL (3.5-5.0); Alkaline Phosphatase 113 U/L (39-117); Aspartate Amino Transferase 24 U/L (5-31); Bilirubin Total 0.6 mg/dL (0.0-1.0); Calcium 8.7 mg/dL (8.4-10.2); Cholesterol 147 mg/dL; Creatinine Clr Calc Pharmacy 79.1; Estimated Glomerular Filt Rate > 60; Glucose Fasting 81 mg/dL (60-99); HDL Cholesterol 44 mg/dL; LDL Cholesterol Calculated 70 mg/dl; Triglycerides 165 mg/dL
[2023-04-03 09:56] LABS: Thyroid Stimulating Hormone 2.65 uIU/mL (0.32-4.0)
[2023-04-03 10:13] LABS: Vitamin B12 486 pg/mL (200-900)
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
[2023-04-03] MEDS: clonazePAM 0.5 MG TABLET PO (18:55)
[2023-04-03 19:25] VITALS: BP 103/74; PULSE 111; RESP 18; TEMP 36.1; O2SAT 96
[2023-04-03] MEDS: Prazosin HCL 1 MG CAPSULE PO (20:22)
[2023-04-03] MEDS: HaloperidoL 1 MG TABLET 2 MG PO (20:22)
[2023-04-04] MEDS: Levothyroxine Sodium 50 MCG TABLET PO (06:11)
[2023-04-04] MEDS: Atorvastatin Calcium 20 MG TABLET PO (09:21)
[2023-04-04] MEDS: Benztropine Mesylate 0.5 MG TABLET PO (09:21)
[2023-04-04] MEDS: DULoxetine HCl 60 MG CAPSULE.DR PO (09:21)
[2023-04-04] MEDS: HaloperidoL 1 MG TABLET 2 MG PO ×2 (09:21→19:31)
[2023-04-04] MEDS: Loratadine 10 MG TABLET PO (09:21)
[2023-04-04 09:27] VITALS: BP 77/48; PULSE 72; RESP 16; TEMP 35.8; O2SAT 96
[2023-04-04 09:58] VITALS: BP 119/69; PULSE 101
--- NOTE | 2023-04-04 10:21 | HO.PSYCHPN ---
Subjective Subjective Date of Service: 04/04/23 Reason For Visit: HEARING VOICES/PSYCH/CHEST AND LEFT ARM PAIN Interim History: Met with patient; discussed with team; reviewed medication regimen from long-term Patient up and about more, showered. She says depression is a little better but auditory hallucinations remain. She agrees to remain on current regimen for now which board writer again reviewed. She Denies any chest pain at all and repeat troponins negative. She Reports that her left hand an arm have been tingling a little bit for the past week Mental Status Exam Mental Status Exam Narrative: Pt is alert and oriented; behavior is cooperative, friendly, calm; patient is not in distress; dressed in casual attire with unkempt hair but adequate hygiene; mood is described as ok and affect congruent, blunted but a little brighter; eye contact improved; Speech is with a slowed rate, low volume; normal prosody; some psychomotor retardation present but less; thought process is goal directed; Thought content is on troubles auditory hallucinations; otherwise pertinent to relevant topics; currently no SI; no HI. Internally preoccupied and complains of Patients insight and judgment impaired. Diagnostics Vital Signs (24Hr): Vital Signs - 24 hr 04/03/23 19:25 04/04/23 09:27 04/04/23 09:58 Temperature 96.9 F 96.5 F L Pulse Rate 111 H 72 101 H Respiratory Rate 18 16 Blood Pressure 103/74 77/48 L 119/69 Pulse Oximetry 96 96 Oxygen Delivery Method Room Air Room Air BMI result Body Mass Index 33.1 Labs 04/02/23 16:23 04/03/23 08:20 Labs: Laboratory Results - last 48 hr 04/02/23 04/02/23 04/02/23 16:06 16:06 16:06 WBC RBC Hgb Hct MCV MCH MCHC RDW Plt Count MPV Immature Gran % (Auto) Neut % (Auto) Lymph % (Auto) [place] % (Auto) Eos % (Auto) Baso % (Auto) Lymph # (Auto) [place] # (Auto) Eos # (Auto) Baso # (Auto) Abs Immat Gran (auto) Absolute Neuts (auto) Absolute Nucleated RBC Nucleated RBC % (auto) Sodium Potassium Chloride Carbon Dioxide Anion Gap BUN Creatinine Estim Creat Clear Calc Estimated GFR Random Glucose Fasting Glucose Estimat Average Glucose Hemoglobin A1c % Calcium Total Bilirubin GGT AST ALT Alkaline Phosphatase Troponin I High Sens Total Protein Albumin Triglycerides Cholesterol LDL Cholesterol, Calc HDL Cholesterol Vitamin B12 TSH Urine Color Yellow Urine Appearance Clear Urine pH 7.0 Ur Specific [place] <= 1.005 Urine Protein Negative Urine Glucose (UA) Negative Urine Ketones Negative Urine Blood Negative Urine Nitrite Negative Ur Leukocyte Esterase Negative Urine Test NEGATIVE Salicylates Urine Opiates Screen Urine Fentanyl Screen Acetaminophen Ur Barbiturates Screen Ur Phencyclidine Scrn Ur Amphetamines Screen U Benzodiazepines Scrn Urine Cocaine Screen U Marijuana (THC) Screen Ethyl Alcohol COVID-19 ([facility]) Negative COVID-19 Clin Com See Note 04/02/23 04/02/23 04/02/23 16:06 16: 16:23 WBC RBC Hgb Hct MCV MCH MCHC RDW Plt Count MPV Immature Gran % (Auto) Neut % (Auto) Lymph % (Auto) [place] % (Auto) Eos % (Auto) Baso % (Auto) Lymph # (Auto) [place] # (Auto) Eos # (Auto) Baso # (Auto) Abs Immat Gran (auto) Absolute Neuts (auto) Absolute Nucleated RBC Nucleated RBC % (auto) Sodium 141 Potassium 3.8 Chloride 107 Carbon Dioxide 26 Anion Gap 12 BUN 8 L Creatinine 0.96 Estim Creat Clear Calc 120.8 Estimated GFR > 60 Random Glucose 94 Fasting Glucose Estimat Average Glucose Hemoglobin A1c % Calcium 8.8 Total Bilirubin 0.3 GGT 11 AST 25 ALT 19 Alkaline Phosphatase 134 H Troponin I High Sens Total Protein 6.4 L Albumin 3.7 Triglycerides Cholesterol LDL Cholesterol, Calc HDL Cholesterol Vitamin B12 TSH Urine Color Urine Appearance Urine pH Ur Specific [place] Urine Protein Urine Glucose (UA) Urine Ketones Urine Blood Urine Nitrite Ur Leukocyte Esterase Urine Test Salicylates < 5.0 L Urine Opiates Screen Not Detected Urine Fentanyl Screen Not Detected Acetaminophen < 17 Ur Barbiturates Screen Not Detected Ur Phencyclidine Scrn Not Detected Ur Amphetamines Screen Not Detected U Benzodiazepines Scrn Not Detected Urine Cocaine Screen Not Detected U Marijuana (THC) Screen Not Detected Ethyl Alcohol < 10 COVID-19 ([facility]) COVID-19 Clin Com 04/02/23 04/02/23 04/03/23 16:23 16:23 08:20 WBC 10.8 RBC 4.67 Hgb 13.3 Hct 39.4 MCV 84.4 MCH 28.5 MCHC 33.8 RDW 13.9 Plt Count 215 D MPV 11.5 Immature Gran % (Auto) 0.3 Neut % (Auto) 61.4 Lymph % (Auto) 30.5 [place] % (Auto) 5.3 Eos % (Auto) 1.9 Baso % (Auto) 0.6 Lymph # (Auto) 3.3 [place] # (Auto) 0.6 Eos # (Auto) 0.2 Baso # (Auto) 0.1 Abs Immat Gran (auto) 0.03 Absolute Neuts (auto) 6.6 Absolute Nucleated RBC 0.000 Nucleated RBC % (auto) 0.0 Sodium 140 Potassium 4.2 Chloride 109 H Carbon Dioxide 24 Anion Gap 11 L BUN 8 L Creatinine 0.89 Estim Creat Clear Calc 79.1 Estimated GFR > 60 Random Glucose Fasting Glucose 81 Estimat Average Glucose Hemoglobin A1c % Calcium 8.7 Total Bilirubin 0.6 GGT AST 24 ALT 17 Alkaline Phosphatase 113 Troponin I High Sens < 2.7 Total Protein 6.0 L Albumin 3.4 L Triglycerides 165 Cholesterol 147 LDL Cholesterol, Calc 70 HDL Cholesterol 44 Vitamin B12 TSH 2.65 Urine Color Urine Appearance Urine pH Ur Specific [place] Urine Protein Urine Glucose (UA) Urine Ketones Urine Blood Urine Nitrite Ur Leukocyte Esterase Urine Test Salicylates Urine Opiates Screen Urine Fentanyl Screen Acetaminophen Ur Barbiturates Screen Ur Phencyclidine Scrn Ur Amphetamines Screen U Benzodiazepines Scrn Urine Cocaine Screen U Marijuana (THC) Screen Ethyl Alcohol COVID-19 ([facility]) COVID-19 Clin Com 04/03/23 04/03/23 08:20 08:20 WBC RBC Hgb Hct MCV MCH MCHC RDW Plt Count MPV Immature Gran % (Auto) Neut % (Auto) Lymph % (Auto) [place] % (Auto) Eos % (Auto) Baso % (Auto) Lymph # (Auto) [place] # (Auto) Eos # (Auto) Baso # (Auto) Abs Immat Gran (auto) Absolute Neuts (auto) Absolute Nucleated RBC Nucleated RBC % (auto) Sodium Potassium Chloride Carbon Dioxide Anion Gap BUN Creatinine Estim Creat Clear Calc Estimated GFR Random Glucose Fasting Glucose Estimat Average Glucose 97 Hemoglobin A1c % 5.0 Calcium Total Bilirubin GGT AST ALT Alkaline Phosphatase Troponin I High Sens Total Protein Albumin Triglycerides Cholesterol LDL Cholesterol, Calc HDL Cholesterol Vitamin B12 486 TSH Urine Color Urine Appearance Urine pH Ur Specific [place] Urine Protein Urine Glucose (UA) Urine Ketones Urine Blood Urine Nitrite Ur Leukocyte Esterase Urine Test Salicylates Urine Opiates Screen Urine Fentanyl Screen Acetaminophen Ur Barbiturates Screen Ur Phencyclidine Scrn Ur Amphetamines Screen U Benzodiazepines Scrn Urine Cocaine Screen U Marijuana (THC) Screen Ethyl Alcohol COVID-19 ([facility]) COVID-19 Clin Com Medications Medications Current Medications Acetaminophen (Acetaminophen 325 Mg Tablet) 650 mg PO Q6H PRN PRN Reason: Headache/Pain Mild Scale (1-3) Last Admin: 04/03/23 00:57 Dose: 650 mg Al Hydroxide/Mg Hydroxide (Magnesium Hydrox/Alum Hydrox 30 Ml Oral.Susp) 30 ml PO Q6H PRN PRN Reason: Heartburn/Nausea Albuterol Sulfate (Albuterol Sulfate 90 Mcg 8 Gm Inhaler) 2 puff INHALE Q4H PRN PRN Reason: Respiratory Distress Atorvastatin Calcium (Atorvastatin Calcium 20 Mg Tablet) 20 mg PO DAILY [facility] Last Admin: 04/04/23 09:21 Dose: 20 mg Benztropine Mesylate (Benztropine Mesylate 0.5 Mg Tablet) 0.5 mg PO DAILY [facility] Last Admin: 04/04/23 09:21 Dose: 0.5 mg Clonazepam (Clonazepam 0.5 Mg Tablet) 0.5 mg PO BID PRN PRN Reason: Anxiety Last Admin: 04/03/23 18:55 Dose: 0.5 mg Duloxetine HCl (Duloxetine Hcl 60 Mg Capsule.Dr) 60 mg PO BID [facility] Last Admin: 04/04/23 09:21 Dose: 60 mg Haloperidol (Haloperidol 1 Mg Tablet) 2 mg PO BID [facility] Last Admin: 04/04/23 09:21 Dose: 2 mg Hydroxyzine HCl (Hydroxyzine Hcl 25 Mg Tablet) 25 mg PO Q6H PRN PRN Reason: Anxiety Hydroxyzine HCl (Hydroxyzine Hcl 50 Mg Tablet) 50 mg PO BID PRN PRN Reason: anxiety Levothyroxine Sodium (Levothyroxine Sodium 50 Mcg Tablet) 50 mcg PO DAILY@0600 [facility] Last Admin: 04/04/23 06:11 Dose: 50 mcg Loratadine (Loratadine 10 Mg Tablet) 10 mg PO DAILY [facility] Last Admin: 04/04/23 09:21 Dose: 10 mg Magnesium Hydroxide (Milk Of Magnesia 30 Ml Oral.Susp) 30 ml PO DAILY PRN PRN Reason: Constipation Nicotine (Nicotine 21 Mg Patch.Td24) 21 mg TRANSDERMA DAILY PRN PRN Reason: smoking cessation Nicotine Polacrilex (Nicotine Polacrilex 2 Mg Gum) 4 mg BUCCAL Q2H PRN PRN Reason: nicotine cravings Pharmacy Consult (Consult Rx Perform Med Rec) 1 each MISCELLANE ONCE PRN PRN Reason: Consult order Prazosin HCl (Prazosin Hcl 1 Mg Capsule) 1 mg PO BEDTIME [facility]; Protocol Last Admin: 04/03/23 20:22 Dose: 1 mg Trazodone HCl (Trazodone Hcl 100 Mg Tablet) 100 mg PO BEDTIME [facility] Last Admin: 04/03/23 20:22 Dose: 100 mg Trazodone HCl (Trazodone Hcl 50 Mg Tablet) 50 mg PO BEDTIME PRN PRN Reason: Insomnia Verapamil HCl (Verapamil Hcl 40 Mg Tablet) 40 mg PO BID [facility]; Protocol Last Admin: 04/04/23 09:22 Dose: Not Given Allergies Allergies Allergy/AdvReac Type Severity Reaction Status Date / Time amoxicillin [AMOXICILLIN] Allergy Intermediate HIVES Verified 04/02/23 17:39 carisoprodol [From [facility]] Allergy Intermediate HIVES Verified 04/02/23 17:39 Fish Containing Products Allergy Intermediate HIVES Verified 04/02/23 17:39 Penicillins [PENICILLINS] Allergy Intermediate HIVES Verified 04/02/23 17:39 latex [LATEX] Allergy Mild RASH Verified 04/02/23 17:39 fish Allergy Unknown shortness Uncoded 03/23/22 16:51 of breath MEAT AdvReac Mild SICK Uncoded 03/23/22 16:51 Assessment & Plan Assessment & Plan (1) Schizoaffective disorder: Status: Acute Code(s): F25.9 - Schizoaffective disorder, unspecified (2) PTSD (post-traumatic stress disorder): Status: Acute Code(s): F43.10 - Post-traumatic stress disorder, unspecified Plan Patient is a 52-year-old female, with CHD/ACCS services, history of schizoaffective disorder, PTSD, TBI, history of chronic UTI who presents for worsening auditory hallucinations without known trigger. -patient is cooperative but somewhat limited historian as she is not able to articulate much other than reporting symptoms -at this point it is not clear why patient all of the sudden developed auditory hallucinations. That said patient reports only 1 day of depression/auditory hallucinations; it would seem likely there is some trigger even if patient is unaware; will need collateral from long-term. To ED provider patient reported 2 weeks of chest pain though on admission she denied any chest pain and EKG WNL. However patient was experiencing this perhaps this was stressful enough to trigger symptoms. -some discrepancy with med reconciliation; will reach out to long-term for most updated med regimen -otherwise will continue home medication and monitor. Hospital course: 04/04 medications reviewed and patient continues on home medications. Says not so depressed today but AH remain bothersome. Agrees to continue on current medication regimen for now -consider increasing Haldol a little bit if AH remain; prior to coming to the emergency room, patient did complain of some chest pain (which resolved/neg trops) and left arm/hand tingling sensation which may have stressed her and triggered symptoms Plan: CV Q 15 minute checks Continue home medications for now: Haloperidol? 2 mg PO BID [facility] Duloxetine HCl 60 mg PO daily (not bID) Benztropine Mesylate 0.5 mg PO DAILY [facility] Clonazepam 0.5 mg PO BID PRN Hydroxyzine HCl (Hydroxyzine Hcl 50 Mg Tablet)? 50 mg PO BID PRN Levothyroxine Sodium (Levothyroxine Sodium 50 Mcg Tablet)? 50 mcg PO DAILY@0600 [facility] Loratadine (Loratadine 10 Mg Tablet)? 10 mg PO DAILY [facility] Prazosin HCl (Prazosin Hcl 1 Mg Capsule)? 1 mg PO BEDTIME [facility]; Protocol Trazodone HCl (Trazodone Hcl 100 Mg Tablet)? 100 mg PO BEDTIME [facility] Verapamil HCl)? 40 mg PO BID [facility]; Atorvastatin Calcium (mg PO DAILY [facility] ??? Patient educated on: diagnosis, medication risk/benefits and medical condition Informed Consent: understands Reason for continued inpatient stay Substantial Risk for: rapid decompensation Time Spent With Patient Time: Total time managing care of this patient today ____ minutes.
[2023-04-04] MEDS: clonazePAM 0.5 MG TABLET PO (14:20)
[2023-04-04 14:40] LABS: Troponin-I High Sensitivity < 2.7 ng/L (<3.5-17.0)
[2023-04-04 17:56] VITALS: BP 118/69; PULSE 100; RESP 16; TEMP 35.9; O2SAT 96
[2023-04-04] MEDS: VerapamiL HCL 40 MG TABLET PO (19:30)
[2023-04-04] MEDS: Prazosin HCL 1 MG CAPSULE PO (19:31)
[2023-04-04] MEDS: traZODone HCL 100 MG TABLET PO (19:31)
[2023-04-04] MEDS: traZODone HCL 50 MG TABLET PO (19:32)
[2023-04-05 08:10] VITALS: BP 114/65; PULSE 84; RESP 16; TEMP 36.4; O2SAT 95
[2023-04-05] MEDS: Levothyroxine Sodium 50 MCG TABLET PO (08:13)
[2023-04-05] MEDS: Atorvastatin Calcium 20 MG TABLET PO (08:13)
[2023-04-05] MEDS: Loratadine 10 MG TABLET PO (08:13)
[2023-04-05] MEDS: DULoxetine HCl 60 MG CAPSULE.DR PO (08:13)
[2023-04-05] MEDS: HaloperidoL 1 MG TABLET 2 MG PO ×2 (08:13→19:50)
[2023-04-05] MEDS: VerapamiL HCL 40 MG TABLET PO ×2 (08:14→19:50)
[2023-04-05] MEDS: Acetaminophen 325 MG TABLET 650 MG PO (08:38)
[2023-04-05] MEDS: Albuterol Sulfate 90 MCG 8 GM INHALER 2 PUFF INHALE (08:39)
--- NOTE | 2023-04-05 11:55 | HO.PSYCHPN ---
Subjective Subjective Date of Service: 04/05/23 Reason For Visit: HEARING VOICES/PSYCH/CHEST AND LEFT ARM PAIN Interim History: Met with patient; discussed with team; reviewed medication regimen. Patient up and about more, showered. She says depression is a little better but auditory hallucinations remain. She agrees to remain on current regimen for now which check writer salesperson again reviewed. She Denies any chest pain. Pt out of room and attended group today. Medication Compliance: Yes Side effects from medications: No Attending Groups: Yes Review of Systems Acute medical concerns: No Medical Review of Systems: unchanged Review of Systems Review of Systems Constitutional : No Weight loss, No Fever, No Chills, No Night Sweats, No Fatigue, No Malaise ENT/Mouth : No Hearing loss, No Ear Pain, No Nasal Congestion, No Sinus Pain, No Hoarseness, No sore throat, No Rhinorrhea, No Swallowing Difficulty Eyes: No Eye Pain, No Swelling, No Redness, No Foreign Body, No Discharge, No Vision Changes Cardiovascular : No Chest Pain, No SOB, No Dyspnea on Exertion, No Orthopnea, No Edema, No Palpitations Respiratory : No Cough, No Sputum, No Wheezing, No Smoke Exposure, No Dyspnea Gastrointestinal : No Nausea, No Vomiting, No Diarrhea, No Constipation, No abdominal Pain, No Hematochezia, No Melena Genitourinary : no irregular bleeding, No Dysuria, No Urinary Frequency, No Hematuria, No Urinary Incontinence, No Urgency, No Flank Pain, No Urinary Flow Changes, No Hesitancy Musculoskeletal : Complaining of chronic back pain, No joint pain, No Myalgias, No Joint Swelling Skin : No Skin Lesions, No rash Neuro : No Weakness, No Numbness, No Paresthesias, No Loss of Consciousness, No Dizziness, No Headache Psych : No Anxiety/Panic, No Depression, complaining of hearing voices telling her to kill herself, no HI Heme/Lymph: No Bruising, No Bleeding,No Lymphadenopathy Endocrine : No Polyuria, No Polydipsia, No Temperature Intolerance Mental Status Exam Mental Status Exam Narrative: Pt is alert and oriented; behavior is cooperative, friendly, calm; patient is not in distress; dressed in casual attire with unkempt hair but adequate hygiene; mood is described as ok and affect congruent, blunted but a little brighter; eye contact improved; Speech is with a slowed rate, low volume; normal prosody; some psychomotor retardation present but less; thought process is goal directed; Thought content is on troubles auditory hallucinations; otherwise pertinent to relevant topics; currently no SI; no HI. Internally preoccupied and complains of Patients insight and judgment impaired. Diagnostics Vital Signs (24Hr): Vital Signs - 24 hr 04/04/23 17:56 04/05/23 08:10 Temperature 96.7 F L 97.6 F Pulse Rate 100 84 Respiratory Rate 16 16 Blood Pressure 118/69 114/65 Pulse Oximetry 96 95 Oxygen Delivery Method Room Air Room Air BMI result Body Mass Index 33.1 Labs 04/02/23 16:23 04/03/23 08:20 Labs: Laboratory Results - last 48 hr 04/04/23 14:01 Troponin I High Sens < 2.7 Medications Medications Current Medications Acetaminophen (Acetaminophen 325 Mg Tablet) 650 mg PO Q6H PRN PRN Reason: Headache/Pain Mild Scale (1-3) Last Admin: 04/05/23 08:38 Dose: 650 mg Al Hydroxide/Mg Hydroxide (Magnesium Hydrox/Alum Hydrox 30 Ml Oral.Susp) 30 ml PO Q6H PRN PRN Reason: Heartburn/Nausea Albuterol Sulfate (Albuterol Sulfate 90 Mcg 8 Gm Inhaler) 2 puff INHALE Q4H PRN PRN Reason: Respiratory Distress Last Admin: 04/05/23 08:39 Dose: 2 puff Atorvastatin Calcium (Atorvastatin Calcium 20 Mg Tablet) 20 mg PO DAILY [facility] Last Admin: 04/05/23 08:13 Dose: 20 mg Benztropine Mesylate (Benztropine Mesylate 0.5 Mg Tablet) 0.5 mg PO BEDTIME [facility] Clonazepam (Clonazepam 0.5 Mg Tablet) 0.5 mg PO BID PRN PRN Reason: Anxiety Last Admin: 04/04/23 14:20 Dose: 0.5 mg Duloxetine HCl (Duloxetine Hcl 60 Mg Capsule.Dr) 60 mg PO DAILY [facility] Last Admin: 04/05/23 08:13 Dose: 60 mg Haloperidol (Haloperidol 1 Mg Tablet) 2 mg PO BID [facility] Last Admin: 04/05/23 08:13 Dose: 2 mg Hydroxyzine HCl (Hydroxyzine Hcl 50 Mg Tablet) 50 mg PO BID PRN PRN Reason: anxiety Levothyroxine Sodium (Levothyroxine Sodium 50 Mcg Tablet) 50 mcg PO DAILY@0600 [facility] Last Admin: 04/05/23 08:13 Dose: 50 mcg Loratadine (Loratadine 10 Mg Tablet) 10 mg PO DAILY [facility] Last Admin: 04/05/23 08:13 Dose: 10 mg Magnesium Hydroxide (Milk Of Magnesia 30 Ml Oral.Susp) 30 ml PO DAILY PRN PRN Reason: Constipation Melatonin (Melatonin 3 Mg Tablet) 6 mg PO BEDTIME PRN PRN Reason: Insomnia Nicotine (Nicotine 21 Mg Patch.Td24) 21 mg TRANSDERMA DAILY PRN PRN Reason: smoking cessation Nicotine Polacrilex (Nicotine Polacrilex 2 Mg Gum) 4 mg BUCCAL Q2H PRN PRN Reason: nicotine cravings Pharmacy Consult (Consult Rx Perform Med Rec) 1 each MISCELLANE ONCE PRN PRN Reason: Consult order Prazosin HCl (Prazosin Hcl 1 Mg Capsule) 1 mg PO BEDTIME [facility]; Protocol Last Admin: 04/04/23 19:31 Dose: 1 mg Trazodone HCl (Trazodone Hcl 100 Mg Tablet) 100 mg PO BEDTIME [facility] Last Admin: 04/04/23 19:31 Dose: 100 mg Trazodone HCl (Trazodone Hcl 50 Mg Tablet) 50 mg PO BEDTIME PRN PRN Reason: Insomnia Last Admin: 04/04/23 19:32 Dose: 50 mg Verapamil HCl (Verapamil Hcl 40 Mg Tablet) 40 mg PO BID [facility]; Protocol Last Admin: 04/05/23 08:14 Dose: 40 mg Allergies Allergies Allergy/AdvReac Type Severity Reaction Status Date / Time amoxicillin [AMOXICILLIN] Allergy Intermediate HIVES Verified 04/02/23 17:39 carisoprodol [From [facility]] Allergy Intermediate HIVES Verified 04/02/23 17:39 Fish Containing Products Allergy Intermediate HIVES Verified 04/02/23 17:39 Penicillins [PENICILLINS] Allergy Intermediate HIVES Verified 04/02/23 17:39 latex [LATEX] Allergy Mild RASH Verified 04/02/23 17:39 fish Allergy Unknown shortness Uncoded 03/23/22 16:51 of breath MEAT AdvReac Mild SICK Uncoded 03/23/22 16:51 Assessment & Plan Assessment & Plan (1) Schizoaffective disorder: Status: Acute Code(s): F25.9 - Schizoaffective disorder, unspecified (2) PTSD (post-traumatic stress disorder): Status: Acute Code(s): F43.10 - Post-traumatic stress disorder, unspecified Plan Patient is a 52-year-old female, with CHD/ACCS services, history of schizoaffective disorder, PTSD, TBI, history of chronic UTI who presents for worsening auditory hallucinations without known trigger. -patient is cooperative but somewhat limited historian as she is not able to articulate much other than reporting symptoms -at this point it is not clear why patient all of the sudden developed auditory hallucinations. That said patient reports only 1 day of depression/auditory hallucinations; it would seem likely there is some trigger even if patient is unaware; will need collateral from correction. To ED provider patient reported 2 weeks of chest pain though on admission she denied any chest pain and EKG WNL. However patient was experiencing this perhaps this was stressful enough to trigger symptoms. -some discrepancy with med reconciliation; will reach out to correction for most updated med regimen -otherwise will continue home medication and monitor. Hospital course: 04/04 medications reviewed and patient continues on home medications. Says not so depressed today but AH remain bothersome. Agrees to continue on current medication regimen for now -consider increasing Haldol a little bit if AH remain; prior to coming to the emergency room, patient did complain of some chest pain (which resolved/neg trops) and left arm/hand tingling sensation which may have stressed her and triggered symptoms 04/05 no changes; treatment plan continued Plan: CV Q 15 minute checks Continue home medications for now: Haloperidol? 2 mg PO BID [facility] Duloxetine HCl 60 mg PO daily (not bID) Benztropine Mesylate 0.5 mg PO DAILY [facility] Clonazepam 0.5 mg PO BID PRN Hydroxyzine HCl (Hydroxyzine Hcl 50 Mg Tablet)? 50 mg PO BID PRN Levothyroxine Sodium (Levothyroxine Sodium 50 Mcg Tablet)? 50 mcg PO DAILY@0600 [facility] Loratadine (Loratadine 10 Mg Tablet)? 10 mg PO DAILY [facility] Prazosin HCl (Prazosin Hcl 1 Mg Capsule)? 1 mg PO BEDTIME [facility]; Protocol Trazodone HCl (Trazodone Hcl 100 Mg Tablet)? 100 mg PO BEDTIME [facility] Verapamil HCl)? 40 mg PO BID [facility]; Atorvastatin Calcium (mg PO DAILY [facility] ??? Reason for continued inpatient stay Substantial Risk for: harm to self, inability to function and rapid decompensation Time Spent With Patient Time: Total time managing care of this patient today ____ minutes.
[2023-04-05] MEDS: hydrOXYzine HCL 50 MG TABLET PO ×2 (14:11→19:53)
[2023-04-05 19:44] VITALS: BP 112/71; PULSE 91; TEMP 36.4
[2023-04-05] MEDS: Benztropine Mesylate 0.5 MG TABLET PO (19:49)
[2023-04-05] MEDS: traZODone HCL 100 MG TABLET PO (19:49)
[2023-04-05] MEDS: Prazosin HCL 1 MG CAPSULE PO (19:50)
[2023-04-05] MEDS: traZODone HCL 50 MG TABLET PO (19:53)
[2023-04-06] MEDS: Levothyroxine Sodium 50 MCG TABLET PO (06:35)
[2023-04-06 10:25] VITALS: BP 117/81; PULSE 88; RESP 18; TEMP 37.2; O2SAT 95
[2023-04-06] MEDS: Atorvastatin Calcium 20 MG TABLET PO (10:27)
[2023-04-06] MEDS: HaloperidoL 1 MG TABLET 2 MG PO ×2 (10:27→20:18)
[2023-04-06] MEDS: Loratadine 10 MG TABLET PO (10:27)
[2023-04-06] MEDS: VerapamiL HCL 40 MG TABLET PO ×2 (10:28→20:18)
[2023-04-06] MEDS: DULoxetine HCl 60 MG CAPSULE.DR PO (10:28)
[2023-04-06] MEDS: Albuterol Sulfate 90 MCG 8 GM INHALER 2 PUFF INHALE ×2 (10:30→21:09)
[2023-04-06] MEDS: Nicotine Polacrilex 2 MG GUM 4 MG BUCCAL (11:47)
--- NOTE | 2023-04-06 12:32 | P.PNPSI_ITS ---
Subjective Subjective Date of Service: 04/06/23 Reason For Visit: HEARING VOICES/PSYCH/CHEST AND LEFT ARM PAIN Subjective Notes: Conditional Voluntary Interim History: Patient up and about more, showered. Taking care of ADLs. She says depression is a little better but auditory hallucinations remain. 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 She Denies any chest pain. Pt out of room and attended group today. Medication Compliance: Yes Side effects from medications: No Attending Groups: Yes Review of Systems Acute medical concerns: No Review of Systems Review of Systems Constitutional : No Weight loss, No Fever, No Chills, No Night Sweats, No Fatigue, No Malaise ENT/Mouth : No Hearing loss, No Ear Pain, No Nasal Congestion, No Sinus Pain, No Hoarseness, No sore throat, No Rhinorrhea, No Swallowing Difficulty Eyes: No Eye Pain, No Swelling, No Redness, No Foreign Body, No Discharge, No Vision Changes Cardiovascular : No Chest Pain, No SOB, No Dyspnea on Exertion, No Orthopnea, No Edema, No Palpitations Respiratory : No Cough, No Sputum, No Wheezing, No Smoke Exposure, No Dyspnea Gastrointestinal : No Nausea, No Vomiting, No Diarrhea, No Constipation, No abdominal Pain, No Hematochezia, No Melena Genitourinary : no irregular bleeding, No Dysuria, No Urinary Frequency, No Hematuria, No Urinary Incontinence, No Urgency, No Flank Pain, No Urinary Flow Changes, No Hesitancy Musculoskeletal : Complaining of chronic back pain, No joint pain, No Myalgias, No Joint Swelling Skin : No Skin Lesions, No rash Neuro : No Weakness, No Numbness, No Paresthesias, No Loss of Consciousness, No Dizziness, No Headache Psych : No Anxiety/Panic, No Depression, complaining of hearing voices telling her to kill herself, no HI Heme/Lymph: No Bruising, No Bleeding,No Lymphadenopathy Endocrine : No Polyuria, No Polydipsia, No Temperature Intolerance Mental Status Exam Mental Status Exam Narrative: Pt is alert and oriented; behavior is cooperative, friendly, calm; patient is not in distress; dressed in casual attire; adequate hygiene; mood is described as ok and affect congruent, blunted but a little brighter; eye contact improved; Speech is with a slowed rate, low volume; normal prosody; some psychomotor retardation present but less; thought process is goal directed; Thought content is on troubles auditory hallucinations; otherwise pertinent to relevant topics; currently no SI; no HI. Internally preoccupied and complains of AH. Patients insight and judgment impaired. Diagnostics Vital Signs (24Hr): Vital Signs - 24 hr 04/05/23 19:44 04/06/23 10:25 Temperature 97.5 F 98.9 F Pulse Rate 91 88 Respiratory Rate 18 Blood Pressure 112/71 117/81 Pulse Oximetry 95 Oxygen Delivery Method Room Air BMI result Body Mass Index 33.1 Labs 04/02/23 16:23 04/03/23 08:20 Labs: Laboratory Results - last 48 hr 04/04/23 14:01 Troponin I High Sens < 2.7 Medications Medications Current Medications Acetaminophen (Acetaminophen 325 Mg Tablet) 650 mg PO Q6H PRN PRN Reason: Headache/Pain Mild Scale (1-3) Last Admin: 04/05/23 08:38 Dose: 650 mg Al Hydroxide/Mg Hydroxide (Magnesium Hydrox/Alum Hydrox 30 Ml Oral.Susp) 30 ml PO Q6H PRN PRN Reason: Heartburn/Nausea Albuterol Sulfate (Albuterol Sulfate 90 Mcg 8 Gm Inhaler) 2 puff INHALE Q4H PRN PRN Reason: Respiratory Distress Last Admin: 04/06/23 10:30 Dose: 2 puff Atorvastatin Calcium (Atorvastatin Calcium 20 Mg Tablet) 20 mg PO DAILY [facility] Last Admin: 04/06/23 10:27 Dose: 20 mg Benztropine Mesylate (Benztropine Mesylate 0.5 Mg Tablet) 0.5 mg PO BEDTIME [facility] Last Admin: 04/05/23 19:49 Dose: 0.5 mg Clonazepam (Clonazepam 0.5 Mg Tablet) 0.5 mg PO BID PRN PRN Reason: Anxiety Last Admin: 04/04/23 14:20 Dose: 0.5 mg Duloxetine HCl (Duloxetine Hcl 60 Mg Capsule.Dr) 60 mg PO DAILY [facility] Last Admin: 04/06/23 10:28 Dose: 60 mg Haloperidol (Haloperidol 1 Mg Tablet) 2 mg PO BID [facility] Last Admin: 04/06/23 10:27 Dose: 2 mg Hydroxyzine HCl (Hydroxyzine Hcl 50 Mg Tablet) 50 mg PO BID PRN PRN Reason: anxiety Last Admin: 04/05/23 19:53 Dose: 50 mg Levothyroxine Sodium (Levothyroxine Sodium 50 Mcg Tablet) 50 mcg PO DAILY@0600 [facility] Last Admin: 04/06/23 06:35 Dose: 50 mcg Loratadine (Loratadine 10 Mg Tablet) 10 mg PO DAILY [facility] Last Admin: 04/06/23 10:27 Dose: 10 mg Magnesium Hydroxide (Milk Of Magnesia 30 Ml Oral.Susp) 30 ml PO DAILY PRN PRN Reason: Constipation Melatonin (Melatonin 3 Mg Tablet) 6 mg PO BEDTIME PRN PRN Reason: Insomnia Nicotine (Nicotine 21 Mg Patch.Td24) 21 mg TRANSDERMA DAILY PRN PRN Reason: smoking cessation Nicotine Polacrilex (Nicotine Polacrilex 2 Mg Gum) 4 mg BUCCAL Q2H PRN PRN Reason: nicotine cravings Last Admin: 04/06/23 11:47 Dose: 4 mg Pharmacy Consult (Consult Rx Perform Med Rec) 1 each MISCELLANE ONCE PRN PRN Reason: Consult order Prazosin HCl (Prazosin Hcl 1 Mg Capsule) 1 mg PO BEDTIME [facility]; Protocol Last Admin: 04/05/23 19:50 Dose: 1 mg Trazodone HCl (Trazodone Hcl 100 Mg Tablet) 100 mg PO BEDTIME [facility] Last Admin: 04/05/23 19:49 Dose: 100 mg Trazodone HCl (Trazodone Hcl 50 Mg Tablet) 50 mg PO BEDTIME PRN PRN Reason: Insomnia Last Admin: 04/05/23 19:53 Dose: 50 mg Verapamil HCl (Verapamil Hcl 40 Mg Tablet) 40 mg PO BID [facility]; Protocol Last Admin: 04/06/23 10:28 Dose: 40 mg Allergies Allergies Allergy/AdvReac Type Severity Reaction Status Date / Time amoxicillin [AMOXICILLIN] Allergy Intermediate HIVES Verified 04/02/23 17:39 carisoprodol [From [facility]] Allergy Intermediate HIVES Verified 04/02/23 17:39 Fish Containing Products Allergy Intermediate HIVES Verified 04/02/23 17:39 Penicillins [PENICILLINS] Allergy Intermediate HIVES Verified 04/02/23 17:39 latex [LATEX] Allergy Mild RASH Verified 04/02/23 17:39 fish Allergy Unknown shortness Uncoded 03/23/22 16:51 of breath MEAT AdvReac Mild SICK Uncoded 03/23/22 16:51 Assessment & Plan Assessment & Plan (1) Schizoaffective disorder: Status: Acute Code(s): F25.9 - Schizoaffective disorder, unspecified (2) PTSD (post-traumatic stress disorder): Status: Acute Code(s): F43.10 - Post-traumatic stress disorder, unspecified Plan Patient is a 52-year-old female, with CHD/ACCS services, history of schizoaffective disorder, PTSD, TBI, history of chronic UTI who presents for worsening auditory hallucinations without known trigger. -patient is cooperative but somewhat limited historian as she is not able to articulate much other than reporting symptoms -at this point it is not clear why patient all of the sudden developed auditory hallucinations. That said patient reports only 1 day of depression/auditory hallucinations; it would seem likely there is some trigger even if patient is unaware; will need collateral from retirement. To ED provider patient reported 2 weeks of chest pain though on admission she denied any chest pain and EKG WNL. However patient was experiencing this perhaps this was stressful enough to trigger symptoms. -some discrepancy with med reconciliation; will reach out to retirement for most updated med regimen -otherwise will continue home medication and monitor. Hospital course: 04/04 medications reviewed and patient continues on home medications. Says not so depressed today but AH remain bothersome. Agrees to continue on current medication regimen for now -consider increasing Haldol a little bit if AH remain; prior to coming to the emergency room, patient did complain of some chest pain (which resolved/neg trops) and left arm/hand tingling sensation which may have stressed her and triggered symptoms 04/05 no changes; treatment plan continued 04/06 no changes; continue treatment plan Plan: CV Q 15 minute checks Continue home medications for now: Haloperidol? 2 mg PO BID [facility] Duloxetine HCl 60 mg PO daily (not bID) Benztropine Mesylate 0.5 mg PO DAILY [facility] Clonazepam 0.5 mg PO BID PRN Hydroxyzine HCl (Hydroxyzine Hcl 50 Mg Tablet)? 50 mg PO BID PRN Levothyroxine Sodium (Levothyroxine Sodium 50 Mcg Tablet)? 50 mcg PO DAILY@0600 [facility] Loratadine (Loratadine 10 Mg Tablet)? 10 mg PO DAILY [facility] Prazosin HCl (Prazosin Hcl 1 Mg Capsule)? 1 mg PO BEDTIME [facility]; Protocol Trazodone HCl (Trazodone Hcl 100 Mg Tablet)? 100 mg PO BEDTIME [facility] Verapamil HCl)? 40 mg PO BID [facility]; Atorvastatin Calcium (mg PO DAILY [facility] ??? Reason for continued inpatient stay Substantial Risk for: harm to self and inability to function Time Spent With Patient Time: Total time managing care of this patient today ____ minutes.
[2023-04-06] MEDS: clonazePAM 0.5 MG TABLET PO (14:25)
[2023-04-06 20:16] VITALS: BP 113/71; PULSE 78; TEMP 36.5
[2023-04-06] MEDS: hydrOXYzine HCL 50 MG TABLET PO (20:18)
[2023-04-06] MEDS: Benztropine Mesylate 0.5 MG TABLET PO (20:18)
[2023-04-06] MEDS: traZODone HCL 100 MG TABLET PO (20:18)
[2023-04-06] MEDS: Prazosin HCL 1 MG CAPSULE PO (20:18)
[2023-04-06] MEDS: traZODone HCL 50 MG TABLET PO (20:28)
[2023-04-07] MEDS: Levothyroxine Sodium 50 MCG TABLET PO (06:20)
--- NOTE | 2023-04-07 09:21 | P.PNPSI_ITS ---
Subjective Subjective Date of Service: 04/07/23 Reason For Visit: HEARING VOICES/PSYCH/CHEST AND LEFT ARM PAIN Interim History: Met with patient; discussed with team; reviewed progress notes pt reports she's feeling better; no AH today (first day w/out), no seeing shadows. Denies depression or SI. Put in 3 day but agrees to wait out a few more days to make sure AH remain resolved. Will discuss with correction. Mental Status Exam Mental Status Exam Narrative: Pt is alert and oriented; behavior is cooperative, friendly, calm; patient is not in distress; dressed in casual attire with good grooming, adequate hygiene; mood is described as ok and affect congruent, blunted but a little brighter; eye contact adequate; Speech is a little slowed, normal rate and prosody; no psychomotor retardation; thought process is goal directed; Thought content is on feeling better and discharge; otherwise pertinent to relevant topics; no SI; no HI. Does not appear internally preoccupied and denies AH Patients insight and judgment fair. . Diagnostics Vital Signs (24Hr): Vital Signs - 24 hr 04/06/23 10:25 04/06/23 20:16 Temperature 98.9 F 97.7 F Pulse Rate 88 78 Respiratory Rate 18 Blood Pressure 117/81 113/71 Pulse Oximetry 95 Oxygen Delivery Method Room Air BMI result Body Mass Index 33.1 Labs 04/02/23 16:23 04/03/23 08:20 Medications Medications Current Medications Acetaminophen (Acetaminophen 325 Mg Tablet) 650 mg PO Q6H PRN PRN Reason: Headache/Pain Mild Scale (1-3) Last Admin: 04/05/23 08:38 Dose: 650 mg Al Hydroxide/Mg Hydroxide (Magnesium Hydrox/Alum Hydrox 30 Ml Oral.Susp) 30 ml PO Q6H PRN PRN Reason: Heartburn/Nausea Albuterol Sulfate (Albuterol Sulfate 90 Mcg 8 Gm Inhaler) 2 puff INHALE Q4H PRN PRN Reason: Respiratory Distress Last Admin: 04/06/23 21:09 Dose: 2 puff Atorvastatin Calcium (Atorvastatin Calcium 20 Mg Tablet) 20 mg PO DAILY [facility] Last Admin: 04/06/23 10:27 Dose: 20 mg Benztropine Mesylate (Benztropine Mesylate 0.5 Mg Tablet) 0.5 mg PO BEDTIME [facility] Last Admin: 04/06/23 20:18 Dose: 0.5 mg Clonazepam (Clonazepam 0.5 Mg Tablet) 0.5 mg PO BID PRN PRN Reason: Anxiety Last Admin: 04/06/23 14:25 Dose: 0.5 mg Duloxetine HCl (Duloxetine Hcl 60 Mg Capsule.Dr) 60 mg PO DAILY [facility] Last Admin: 04/06/23 10:28 Dose: 60 mg Haloperidol (Haloperidol 1 Mg Tablet) 2 mg PO BID [facility] Last Admin: 04/06/23 20:18 Dose: 2 mg Hydroxyzine HCl (Hydroxyzine Hcl 50 Mg Tablet) 50 mg PO BID PRN PRN Reason: anxiety Last Admin: 04/06/23 20:18 Dose: 50 mg Levothyroxine Sodium (Levothyroxine Sodium 50 Mcg Tablet) 50 mcg PO DAILY@0600 [facility] Last Admin: 04/07/23 06:20 Dose: 50 mcg Loratadine (Loratadine 10 Mg Tablet) 10 mg PO DAILY [facility] Last Admin: 04/06/23 10:27 Dose: 10 mg Magnesium Hydroxide (Milk Of Magnesia 30 Ml Oral.Susp) 30 ml PO DAILY PRN PRN Reason: Constipation Melatonin (Melatonin 3 Mg Tablet) 6 mg PO BEDTIME PRN PRN Reason: Insomnia Nicotine (Nicotine 21 Mg Patch.Td24) 21 mg TRANSDERMA DAILY PRN PRN Reason: smoking cessation Nicotine Polacrilex (Nicotine Polacrilex 2 Mg Gum) 4 mg BUCCAL Q2H PRN PRN Reason: nicotine cravings Last Admin: 04/06/23 11:47 Dose: 4 mg Pharmacy Consult (Consult Rx Perform Med Rec) 1 each MISCELLANE ONCE PRN PRN Reason: Consult order Prazosin HCl (Prazosin Hcl 1 Mg Capsule) 1 mg PO BEDTIME [facility]; Protocol Last Admin: 04/06/23 20:18 Dose: 1 mg Trazodone HCl (Trazodone Hcl 100 Mg Tablet) 100 mg PO BEDTIME [facility] Last Admin: 04/06/23 20:18 Dose: 100 mg Trazodone HCl (Trazodone Hcl 50 Mg Tablet) 50 mg PO BEDTIME PRN PRN Reason: Insomnia Last Admin: 04/06/23 20:28 Dose: 50 mg Verapamil HCl (Verapamil Hcl 40 Mg Tablet) 40 mg PO BID [facility]; Protocol Last Admin: 04/06/23 20:18 Dose: 40 mg Allergies Allergies Allergy/AdvReac Type Severity Reaction Status Date / Time amoxicillin [AMOXICILLIN] Allergy Intermediate HIVES Verified 04/02/23 17:39 carisoprodol [From [facility]] Allergy Intermediate HIVES Verified 04/02/23 17:39 Fish Containing Products Allergy Intermediate HIVES Verified 04/02/23 17:39 Penicillins [PENICILLINS] Allergy Intermediate HIVES Verified 04/02/23 17:39 latex [LATEX] Allergy Mild RASH Verified 04/02/23 17:39 fish Allergy Unknown shortness Uncoded 03/23/22 16:51 of breath MEAT AdvReac Mild SICK Uncoded 03/23/22 16:51 Assessment & Plan Assessment & Plan (1) Schizoaffective disorder: Status: Acute Code(s): F25.9 - Schizoaffective disorder, unspecified (2) PTSD (post-traumatic stress disorder): Status: Acute Code(s): F43.10 - Post-traumatic stress disorder, unspecified Plan Patient is a 52-year-old female, with CHD/ACCS services, history of schizoaffective disorder, PTSD, TBI, history of chronic UTI who presents for worsening auditory hallucinations without known trigger. -patient is cooperative but somewhat limited historian as she is not able to articulate much other than reporting symptoms -at this point it is not clear why patient all of the sudden developed auditory hallucinations. That said patient reports only 1 day of depression/auditory hallucinations; it would seem likely there is some trigger even if patient is unaware; will need collateral from correction. To ED provider patient reported 2 weeks of chest pain though on admission she denied any chest pain and EKG WNL. However patient was experiencing this perhaps this was stressful enough to trigger symptoms. -some discrepancy with med reconciliation; will reach out to correction for most updated med regimen -otherwise will continue home medication and monitor. Hospital course: 04/04 medications reviewed and patient continues on home medications. Says not so depressed today but AH remain bothersome. Agrees to continue on current medication regimen for now -consider increasing Haldol a little bit if AH remain; prior to coming to the emergency room, patient did complain of some chest pain (which resolved/neg trops) and left arm/hand tingling sensation which may have stressed her and triggered symptoms 04/08 symptoms resolved, no AVH; no depression or SI; pt feels back to regular self; agrees to remain a few days to make sure no return of AH Plan: 3 day Q 15 minute checks Continue home medications for now: Haloperidol? 2 mg PO BID [facility] Duloxetine HCl 60 mg PO daily (not bID) Benztropine Mesylate 0.5 mg PO DAILY [facility] Clonazepam 0.5 mg PO BID PRN Hydroxyzine HCl (Hydroxyzine Hcl 50 Mg Tablet)? 50 mg PO BID PRN Levothyroxine Sodium (Levothyroxine Sodium 50 Mcg Tablet)? 50 mcg PO DAILY@0600 [facility] Loratadine (Loratadine 10 Mg Tablet)? 10 mg PO DAILY [facility] Prazosin HCl (Prazosin Hcl 1 Mg Capsule)? 1 mg PO BEDTIME [facility]; Protocol Trazodone HCl (Trazodone Hcl 100 Mg Tablet)? 100 mg PO BEDTIME [facility] Verapamil HCl)? 40 mg PO BID [facility]; Atorvastatin Calcium (mg PO DAILY [facility] ??? Patient educated on: diagnosis and medication risk/benefits Informed Consent: understands Reason for continued inpatient stay Substantial Risk for: rapid decompensation Time Spent With Patient Time: Total time managing care of this patient today ____ minutes.
[2023-04-07] MEDS: HaloperidoL 1 MG TABLET 2 MG PO ×2 (09:24→19:54)
[2023-04-07] MEDS: Atorvastatin Calcium 20 MG TABLET PO (09:24)
[2023-04-07] MEDS: DULoxetine HCl 60 MG CAPSULE.DR PO (09:25)
[2023-04-07] MEDS: Loratadine 10 MG TABLET PO (09:25)
[2023-04-07 09:30] VITALS: BP 106/59; PULSE 70; RESP 18; TEMP 36.7
--- NOTE | 2023-04-07 11:27 | PC.NURSE ---
Pt. signed a 3-day notice today 04/07/2023Friday, up on 04/10
[2023-04-07] MEDS: clonazePAM 0.5 MG TABLET PO (11:37)
[2023-04-07] MEDS: Albuterol Sulfate 90 MCG 8 GM INHALER 2 PUFF INHALE (11:38)
[2023-04-07 19:52] VITALS: BP 116/75; PULSE 76; RESP 16; TEMP 36.9; O2SAT 93
[2023-04-07] MEDS: Benztropine Mesylate 0.5 MG TABLET PO (19:53)
[2023-04-07] MEDS: Prazosin HCL 1 MG CAPSULE PO (19:53)
[2023-04-07] MEDS: traZODone HCL 100 MG TABLET PO (19:54)
[2023-04-07] MEDS: VerapamiL HCL 40 MG TABLET PO (19:54)
[2023-04-07] MEDS: hydrOXYzine HCL 50 MG TABLET PO (19:56)
[2023-04-08] MEDS: hydrOXYzine HCL 50 MG TABLET PO (02:30)
[2023-04-08] MEDS: Levothyroxine Sodium 50 MCG TABLET PO (06:14)
[2023-04-08] MEDS: Atorvastatin Calcium 20 MG TABLET PO (08:26)
[2023-04-08] MEDS: Loratadine 10 MG TABLET PO (08:26)
[2023-04-08] MEDS: VerapamiL HCL 40 MG TABLET PO ×2 (08:26→20:19)
[2023-04-08] MEDS: DULoxetine HCl 60 MG CAPSULE.DR PO (08:26)
[2023-04-08] MEDS: HaloperidoL 1 MG TABLET 2 MG PO ×2 (08:26→20:19)
[2023-04-08 08:29] VITALS: BP 110/68; PULSE 70; RESP 16; TEMP 36.7; O2SAT 99
--- NOTE | 2023-04-08 10:03 | HO.PSYCHPN ---
Subjective Subjective Date of Service: 04/08/23 Reason For Visit: HEARING VOICES/PSYCH/CHEST AND LEFT ARM PAIN Interim History: met with pt; discussed with team pt remains feeling better and back to her regular self; no AVH; depression remains resolved and no SI. Patient would like to return home. Staff from [facility] report to adoption social worker that she is back to her regular self and they agree she is appropriate for discharge. Mental Status Exam Mental Status Exam Narrative: Pt is alert and oriented; behavior is cooperative, friendly, calm; patient is not in distress; dressed in casual attire with good grooming, adequate hygiene; mood is described as good and affect congruent, blunted but a little brighter; eye contact adequate; Speech is a little slowed, normal rate and prosody; no psychomotor retardation; thought process is goal directed; Thought content is on feeling better and discharge; otherwise pertinent to relevant topics; no SI; no HI. Does not appear internally preoccupied and denies AH Patients insight and judgment fair. . Diagnostics Vital Signs (24Hr): Vital Signs - 24 hr 04/07/23 19:52 04/08/23 08:29 Temperature 98.4 F 98.1 F Pulse Rate 76 70 Respiratory Rate 16 16 Blood Pressure 116/75 110/68 Pulse Oximetry 93 99 Oxygen Delivery Method Room Air Room Air BMI result Body Mass Index 33.1 Labs 04/02/23 16:23 04/03/23 08:20 Medications Medications Current Medications Acetaminophen (Acetaminophen 325 Mg Tablet) 650 mg PO Q6H PRN PRN Reason: Headache/Pain Mild Scale (1-3) Last Admin: 04/05/23 08:38 Dose: 650 mg Al Hydroxide/Mg Hydroxide (Magnesium Hydrox/Alum Hydrox 30 Ml Oral.Susp) 30 ml PO Q6H PRN PRN Reason: Heartburn/Nausea Albuterol Sulfate (Albuterol Sulfate 90 Mcg 8 Gm Inhaler) 2 puff INHALE Q4H PRN PRN Reason: Respiratory Distress Last Admin: 04/07/23 11:38 Dose: 2 puff Atorvastatin Calcium (Atorvastatin Calcium 20 Mg Tablet) 20 mg PO DAILY [facility] Last Admin: 04/08/23 08:26 Dose: 20 mg Benztropine Mesylate (Benztropine Mesylate 0.5 Mg Tablet) 0.5 mg PO BEDTIME [facility] Last Admin: 04/07/23 19:53 Dose: 0.5 mg Clonazepam (Clonazepam 0.5 Mg Tablet) 0.5 mg PO BID PRN PRN Reason: Anxiety Last Admin: 04/07/23 11:37 Dose: 0.5 mg Duloxetine HCl (Duloxetine Hcl 60 Mg Capsule.Dr) 60 mg PO DAILY [facility] Last Admin: 04/08/23 08:26 Dose: 60 mg Haloperidol (Haloperidol 1 Mg Tablet) 2 mg PO BID [facility] Last Admin: 04/08/23 08:26 Dose: 2 mg Hydroxyzine HCl (Hydroxyzine Hcl 50 Mg Tablet) 50 mg PO BID PRN PRN Reason: anxiety Last Admin: 04/08/23 02:30 Dose: 50 mg Levothyroxine Sodium (Levothyroxine Sodium 50 Mcg Tablet) 50 mcg PO DAILY@0600 [facility] Last Admin: 04/08/23 06:14 Dose: 50 mcg Loratadine (Loratadine 10 Mg Tablet) 10 mg PO DAILY [facility] Last Admin: 04/08/23 08:26 Dose: 10 mg Magnesium Hydroxide (Milk Of Magnesia 30 Ml Oral.Susp) 30 ml PO DAILY PRN PRN Reason: Constipation Melatonin (Melatonin 3 Mg Tablet) 6 mg PO BEDTIME PRN PRN Reason: Insomnia Nicotine (Nicotine 21 Mg Patch.Td24) 21 mg TRANSDERMA DAILY PRN PRN Reason: smoking cessation Nicotine Polacrilex (Nicotine Polacrilex 2 Mg Gum) 4 mg BUCCAL Q2H PRN PRN Reason: nicotine cravings Last Admin: 04/06/23 11:47 Dose: 4 mg Prazosin HCl (Prazosin Hcl 1 Mg Capsule) 1 mg PO BEDTIME [facility]; Protocol Last Admin: 04/07/23 19:53 Dose: 1 mg Trazodone HCl (Trazodone Hcl 100 Mg Tablet) 100 mg PO BEDTIME [facility] Last Admin: 04/07/23 19:54 Dose: 100 mg Trazodone HCl (Trazodone Hcl 50 Mg Tablet) 50 mg PO BEDTIME PRN PRN Reason: Insomnia Last Admin: 04/06/23 20:28 Dose: 50 mg Verapamil HCl (Verapamil Hcl 40 Mg Tablet) 40 mg PO BID [facility]; Protocol Last Admin: 04/08/23 08:26 Dose: 40 mg Allergies Allergies Allergy/AdvReac Type Severity Reaction Status Date / Time amoxicillin [AMOXICILLIN] Allergy Intermediate HIVES Verified 04/02/23 17:39 carisoprodol [From [facility]] Allergy Intermediate HIVES Verified 04/02/23 17:39 Fish Containing Products Allergy Intermediate HIVES Verified 04/02/23 17:39 Penicillins [PENICILLINS] Allergy Intermediate HIVES Verified 04/02/23 17:39 latex [LATEX] Allergy Mild RASH Verified 04/02/23 17:39 fish Allergy Unknown shortness Uncoded 03/23/22 16:51 of breath MEAT AdvReac Mild SICK Uncoded 03/23/22 16:51 Assessment & Plan Assessment & Plan (1) Schizoaffective disorder: Status: Acute Code(s): F25.9 - Schizoaffective disorder, unspecified (2) PTSD (post-traumatic stress disorder): Status: Acute Code(s): F43.10 - Post-traumatic stress disorder, unspecified Plan Patient is a 52-year-old female, with CHD/ACCS services, history of schizoaffective disorder, PTSD, TBI, history of chronic UTI who presents for worsening auditory hallucinations without known trigger. -patient is cooperative but somewhat limited historian as she is not able to articulate much other than reporting symptoms -at this point it is not clear why patient all of the sudden developed auditory hallucinations. That said patient reports only 1 day of depression/auditory hallucinations; it would seem likely there is some trigger even if patient is unaware; will need collateral from [facility]. To ED provider patient reported 2 weeks of chest pain though on admission she denied any chest pain and EKG WNL. However patient was experiencing this perhaps this was stressful enough to trigger symptoms. -some discrepancy with med reconciliation; will reach out to [facility] for most updated med regimen -otherwise will continue home medication and monitor. Hospital course: 04/04 medications reviewed and patient continues on home medications. Says not so depressed today but AH remain bothersome. Agrees to continue on current medication regimen for now -consider increasing Haldol a little bit if AH remain; prior to coming to the emergency room, patient did complain of some chest pain (which resolved/neg trops) and left arm/hand tingling sensation which may have stressed her and triggered symptoms 04/07 symptoms resolved, no AVH; no depression or SI; pt feels back to regular self; agrees to remain a few days to make sure no return of AH 04/08 pt remains feeling better and back to her regular self; no AVH; depression remains resolved and no SI. Patient would like to return home. Staff from [facility] report to adoption social worker that she is back to her regular self and they agree she is appropriate for discharge. Patient's 3 day notice is coming due. She is not in imminent risk for harm to self or others and back to her baseline. Patient is returning back to stable environment. Request for discharge honored. Plan: 3 day Q 15 minute checks Continue home medications for now: Haloperidol? 2 mg PO BID [facility] Duloxetine HCl 60 mg PO daily (not bID) Benztropine Mesylate 0.5 mg PO DAILY [facility] Clonazepam 0.5 mg PO BID PRN Hydroxyzine HCl (Hydroxyzine Hcl 50 Mg Tablet)? 50 mg PO BID PRN Levothyroxine Sodium (Levothyroxine Sodium 50 Mcg Tablet)? 50 mcg PO DAILY@0600 [facility] Loratadine (Loratadine 10 Mg Tablet)? 10 mg PO DAILY [facility] Prazosin HCl (Prazosin Hcl 1 Mg Capsule)? 1 mg PO BEDTIME [facility]; Protocol Trazodone HCl (Trazodone Hcl 100 Mg Tablet)? 100 mg PO BEDTIME [facility] Verapamil HCl)? 40 mg PO BID [facility]; Atorvastatin Calcium (mg PO DAILY [facility] ??? Patient educated on: diagnosis and medication risk/benefits Informed Consent: understands Reason for continued inpatient stay Substantial Risk for: stable for discharge Time Spent With Patient Time: Total time managing care of this patient today ____ minutes.
--- NOTE | 2023-04-08 16:15 | PM.PSYDC ---
DS: Providers Provider Date of Service: 04/09/23 Date of admission: 04/02/23 22:34 Date of discharge: 04/09/23 Primary care physician: Erik Cedeno MD Attending physician on admission: Dayron Fuentes Attending physician on discharge: Dayron Fuentes DS: Diagnosis Discharge Diagnosis (1) Schizoaffective disorder: Status: Acute (2) PTSD (post-traumatic stress disorder): Status: Acute DS: Medications Discharge Medications Home Medications: Home Medications Medication Instructions Recorded Confirmed atorvastatin 20 mg tablet 1 tab PO DAILY 07/13/22 04/02/23 benztropine 0.5 mg tablet 1 tab PO DAILY 07/13/22 04/02/23 duloxetine 60 mg capsule,delayed 1 cap PO BID 07/13/22 04/02/23 release levothyroxine 50 mcg tablet 1 tab PO DAILY 07/13/22 04/02/23 loratadine 10 mg tablet 1 tab PO DAILY 07/13/22 04/02/23 trazodone 100 mg tablet 1 tab PO BEDTIME 07/13/22 04/02/23 verapamil 40 mg tablet 1 tab PO BID 07/13/22 04/02/23 clonazepam 0.5 mg tablet 0.5 mg PO BID PRN Anxiety 04/02/23 04/02/23 haloperidol 2 mg tablet 2 mg PO BID 04/02/23 04/02/23 hydroxyzine HCl 50 mg tablet 50 mg PO BID 04/02/23 04/02/23 prazosin 1 mg capsule 1 mg PO BEDTIME 04/02/23 04/02/23 Previous Rx's Medication Instructions Recorded albuterol sulfate 90 mcg/actuation 2 inh inhalation Q4H PRN 07/10/22 aerosol inhaler Respiratory Distress #6.7 grams Mental Status Exam Mental Status Exam Narrative: Pt is alert and oriented; behavior is cooperative, friendly, calm; patient is not in distress; dressed in casual attire with good grooming, adequate hygiene; mood is described as good and affect congruent, blunted but a little brighter; eye contact adequate; Speech is a little slowed, normal rate and prosody; no psychomotor retardation; thought process is goal directed; Thought content is on feeling better and discharge; otherwise pertinent to relevant topics; no SI; no HI. Does not appear internally preoccupied and denies AH Patients insight and judgment fair. . Data Data Completed and Pending Completed studies during hospitalization [Text1]: 04/02/23 04/02/23 04/02/23 16:06 16:06 16:06 WBC RBC Hgb Hct MCV MCH MCHC RDW Plt Count MPV Immature Gran % (Auto) Neut % (Auto) Lymph % (Auto) [place] % (Auto) Eos % (Auto) Baso % (Auto) Lymph # (Auto) [place] # (Auto) Eos # (Auto) Baso # (Auto) Abs Immat Gran (auto) Absolute Neuts (auto) Absolute Nucleated RBC Nucleated RBC % (auto) Sodium Potassium Chloride Carbon Dioxide Anion Gap BUN Creatinine Estim Creat Clear Calc Estimated GFR Random Glucose Fasting Glucose Estimat Average Glucose Hemoglobin A1c % Calcium Total Bilirubin GGT AST ALT Alkaline Phosphatase Troponin I High Sens Total Protein Albumin Triglycerides Cholesterol LDL Cholesterol, Calc HDL Cholesterol Vitamin B12 TSH Urine Color Yellow Urine Appearance Clear Urine pH 7.0 Ur Specific [place] <= 1.005 Urine Protein Negative Urine Glucose (UA) Negative Urine Ketones Negative Urine Blood Negative Urine Nitrite Negative Ur Leukocyte Esterase Negative Urine Test NEGATIVE Salicylates Urine Opiates Screen Urine Fentanyl Screen Acetaminophen Ur Barbiturates Screen Ur Phencyclidine Scrn Ur Amphetamines Screen U Benzodiazepines Scrn Urine Cocaine Screen U Marijuana (THC) Screen Ethyl Alcohol COVID-19 ([facility]) Negative COVID-19 Clin Com See Note 04/02/23 04/02/23 04/02/23 16:06 16:23 16:23 WBC RBC Hgb Hct MCV MCH MCHC RDW Plt Count MPV Immature Gran % (Auto) Neut % (Auto) Lymph % (Auto) [place] % (Auto) Eos % (Auto) Baso % (Auto) Lymph # (Auto) [place] # (Auto) Eos # (Auto) Baso # (Auto) Abs Immat Gran (auto) Absolute Neuts (auto) Absolute Nucleated RBC Nucleated RBC % (auto) Sodium 141 Potassium 3.8 Chloride 107 Carbon Dioxide 26 Anion Gap 12 BUN 8 L Creatinine 0.96 Estim Creat Clear Calc 120.8 Estimated GFR > 60 Random Glucose 94 Fasting Glucose Estimat Average Glucose Hemoglobin A1c % Calcium 8.8 Total Bilirubin 0.3 GGT 11 AST 25 ALT 19 Alkaline Phosphatase 134 H Troponin I High Sens Total Protein 6.4 L Albumin 3.7 Triglycerides Cholesterol LDL Cholesterol, Calc HDL Cholesterol Vitamin B12 TSH Urine Color Urine Appearance Urine pH Ur Specific [place] Urine Protein Urine Glucose (UA) Urine Ketones Urine Blood Urine Nitrite Ur Leukocyte Esterase Urine Test Salicylates < 5.0 L Urine Opiates Screen Not Detected Urine Fentanyl Screen Not Detected Acetaminophen < 17 Ur Barbiturates Screen Not Detected Ur Phencyclidine Scrn Not Detected Ur Amphetamines Screen Not Detected U Benzodiazepines Scrn Not Detected Urine Cocaine Screen Not Detected U Marijuana (THC) Screen Not Detected Ethyl Alcohol < 10 COVID-19 ([facility]) COVID-19 Clin Com 04/02/23 04/02/23 04/03/23 16: 16:23 08:20 WBC 10.8 RBC 4.67 Hgb 13.3 Hct 39.4 MCV 84.4 MCH 28.5 MCHC 33.8 RDW 13.9 Plt Count 215 D MPV 11.5 Immature Gran % (Auto) 0.3 Neut % (Auto) 61.4 Lymph % (Auto) 30.5 [place] % (Auto) 5.3 Eos % (Auto) 1.9 Baso % (Auto) 0.6 Lymph # (Auto) 3.3 [place] # (Auto) 0.6 Eos # (Auto) 0.2 Baso # (Auto) 0.1 Abs Immat Gran (auto) 0.03 Absolute Neuts (auto) 6.6 Absolute Nucleated RBC 0.000 Nucleated RBC % (auto) 0.0 Sodium 140 Potassium 4.2 Chloride 109 H Carbon Dioxide 24 Anion Gap 11 L BUN 8 L Creatinine 0.89 Estim Creat Clear Calc 79.1 Estimated GFR > 60 Random Glucose Fasting Glucose 81 Estimat Average Glucose Hemoglobin A1c % Calcium 8.7 Total Bilirubin 0.6 GGT AST 24 ALT 17 Alkaline Phosphatase 113 Troponin I High Sens < 2.7 Total Protein 6.0 L Albumin 3.4 L Triglycerides 165 Cholesterol 147 LDL Cholesterol, Calc 70 HDL Cholesterol 44 Vitamin B12 TSH 2.65 Urine Color Urine Appearance Urine pH Ur Specific [place] Urine Protein Urine Glucose (UA) Urine Ketones Urine Blood Urine Nitrite Ur Leukocyte Esterase Urine Test Salicylates Urine Opiates Screen Urine Fentanyl Screen Acetaminophen Ur Barbiturates Screen Ur Phencyclidine Scrn Ur Amphetamines Screen U Benzodiazepines Scrn Urine Cocaine Screen U Marijuana (THC) Screen Ethyl Alcohol COVID-19 ([facility]) COVID-19 Clin Com 04/03/23 04/03/23 04/04/23 08:20 08:20 14:01 WBC RBC Hgb Hct MCV MCH MCHC RDW Plt Count MPV Immature Gran % (Auto) Neut % (Auto) Lymph % (Auto) [place] % (Auto) Eos % (Auto) Baso % (Auto) Lymph # (Auto) [place] # (Auto) Eos # (Auto) Baso # (Auto) Abs Immat Gran (auto) Absolute Neuts (auto) Absolute Nucleated RBC Nucleated RBC % (auto) Sodium Potassium Chloride Carbon Dioxide Anion Gap BUN Creatinine Estim Creat Clear Calc Estimated GFR Random Glucose Fasting Glucose Estimat Average Glucose 97 Hemoglobin A1c % 5.0 Calcium Total Bilirubin GGT AST ALT Alkaline Phosphatase Troponin I High Sens < 2.7 Total Protein Albumin Triglycerides Cholesterol LDL Cholesterol, Calc HDL Cholesterol Vitamin B12 486 TSH Urine Color Urine Appearance Urine pH Ur Specific [place] Urine Protein Urine Glucose (UA) Urine Ketones Urine Blood Urine Nitrite Ur Leukocyte Esterase Urine Test Salicylates Urine Opiates Screen Urine Fentanyl Screen Acetaminophen Ur Barbiturates Screen Ur Phencyclidine Scrn Ur Amphetamines Screen U Benzodiazepines Scrn Urine Cocaine Screen U Marijuana (THC) Screen Ethyl Alcohol COVID-19 ([facility]) COVID-19 Clin Com DS: Summary Hospital Course Hospital Course: HPI: Patient is a 52-year-old female, with CHD/ACCS services, history of schizoaffective disorder, PTSD, TBI, history of chronic UTI who presents for worsening auditory hallucinations without known trigger. -patient is cooperative but somewhat limited historian as she is not able to articulate much other than reporting symptoms -at this point it is not clear why patient all of the sudden developed auditory hallucinations. That said patient reports only 1 day of depression/auditory hallucinations; it would seem likely there is some trigger even if patient is unaware; will need collateral from [facility]. To ED provider patient reported 2 weeks of chest pain though on admission she denied any chest pain and EKG WNL.? However patient was experiencing this perhaps this was stressful enough to trigger symptoms. -some discrepancy with med reconciliation; will reach out to [facility] for most updated med regimen -otherwise will continue home medication and monitor. Hospital course: 04/04 medications reviewed and patient continues on home medications.? Says not so depressed today but AH remain bothersome.? Agrees to continue on current medication regimen for now -consider increasing Haldol a little bit if AH remain; prior to coming to the emergency room, patient did complain of some chest pain (which resolved/neg trops) and left arm/hand tingling sensation which may have stressed her and triggered symptoms 04/07 symptoms resolved, no AVH; no depression or SI; pt feels back to regular self; agrees to remain a few days to make sure no return of AH 04/08 pt remains feeling better and back to her regular self; no AVH; depression remains resolved and no SI.? Patient would like to return home.? Staff from [facility] report to social worker delinquency prevention that she is back to her regular self and they agree she is appropriate for discharge.? Patient's 3 day notice is coming due.? She is not in imminent risk for harm to self or others and back to her baseline.? Patient is returning back to supportive, stable [facility] environment.? Request for discharge honored. Time spent discussing smoking cessation with patient: 3 to 10 minutes Status at Discharge Functional status at discharge: independent ambulation Overall status at discharge: patient is back to baseline Time Spent with Patient Time attestation: Total time managing care of this patient today ____ minutes. Time spent: Less than 30 minutes Discharge Plan Discharge Anticipated Discharge Date/Time: 04/09/23 11:30 Patient Disposition: Home, Self-Care Discharge Diagnosis: Schizoaffective disorder, bipolar type Referrals: Bon Jurado MD [Physician] - 04/14/23 10:15 am (in office) Discharge Medications: Continued atorvastatin 20 mg tablet 1 tab PO DAILY benztropine 0.5 mg tablet 1 tab PO DAILY verapamil 40 mg tablet 1 tab PO BID trazodone 100 mg tablet 1 tab PO BEDTIME levothyroxine 50 mcg tablet 1 tab PO DAILY loratadine 10 mg tablet 1 tab PO DAILY albuterol sulfate 90 mcg/actuation HFA aerosol inhaler 2 inh inhalation Q4H PRN (Reason: Respiratory Distress) Qty: 6.7 0RF clonazepam 0.5 mg tablet 0.5 mg PO BID PRN (Reason: Anxiety) haloperidol 2 mg tablet 2 mg PO BID hydroxyzine HCl 50 mg tablet 50 mg PO BID prazosin 1 mg capsule 1 mg PO BEDTIME Changed duloxetine 60 mg capsule,delayed release(DR/EC) 60 mg PO DAILY 30 Days Qty: 30 0RF Discharge Orders: Discharge Order (Routine); Ordered 04/09/23 Ordered By: Dayron Fuentes Diet: Regular diet Activity on Discharge: As tolerated Stand Alone Forms: Patient Portal Discharge page, Community Support Care Plan Goals: Maintain mood and safe behaviors Take medications as prescribed Practice coping skills Continue with outpatient providers and reach out to them as needed Health Concerns: Mood stability and behaviors Plan of Treatment: Follow up with your PCP, psychiatric provider and other outpatient providers regarding above concerns Take medications as prescribed Assessment: Risk assessment at time of discharge:? Patient was interviewed prior to discharge and found to be fully oriented and without any SI or HI. Patient has insight and demonstrates good judgment in terms of wanting to pursue treatment. Patient is not in imminent risk of harm to self or others and has a safety plan that includes presenting to the closest ER or calling 911 if feeling unsafe.? Patient has been observed closely by nursing and unit staff throughout admission; patient has not engaged in any behaviors that suggest dangerousness to self or others and has demonstrated appropriate behaviors and impulse control
[2023-04-08 17:02] VITALS: BP 124/59; PULSE 82; RESP 16; TEMP 36.2; O2SAT 95
[2023-04-08] MEDS: Benztropine Mesylate 0.5 MG TABLET PO (20:19)
[2023-04-08] MEDS: Prazosin HCL 1 MG CAPSULE PO (20:19)
[2023-04-08] MEDS: traZODone HCL 100 MG TABLET PO (20:19)
[2023-04-08] MEDS: clonazePAM 0.5 MG TABLET PO (20:22)
[2023-04-09] MEDS: Levothyroxine Sodium 50 MCG TABLET PO (06:05)
[2023-04-09 09:00] VITALS: BP 103/64; PULSE 80; RESP 16; TEMP 36.1; O2SAT 100
[2023-04-09] MEDS: Loratadine 10 MG TABLET PO (09:00)
[2023-04-09] MEDS: Atorvastatin Calcium 20 MG TABLET PO (09:00)
[2023-04-09] MEDS: VerapamiL HCL 40 MG TABLET PO (09:00)
[2023-04-09] MEDS: HaloperidoL 1 MG TABLET 2 MG PO (09:00)
[2023-04-09] MEDS: DULoxetine HCl 60 MG CAPSULE.DR PO (09:00)
== END 2023-04-09 11:43 | disposition home or self-care (01) | DRG 885 ==
LOC: HO.ED 16:37 → HO.PM5 22:41
PROVIDERS: Physician Assistant Medical; Admitting Provider Social Worker; Emergency Provider Emergency Medicine; PCP Orthopaedic Surgery; Visit Provider Psychiatry & Neurology Psychiatry
DX: F25.9 Schizoaffective disorder, unspecified (principal); R45.851 Suicidal ideations; F43.10 Post-traumatic stress disorder, unspecified; E03.9 Hypothyroidism, unspecified; F17.210 Nicotine dependence, cigarettes, uncomplicated; Z71.6 Tobacco abuse counseling; Z20.822 Contact with and (suspected) exposure to COVID-19; Z87.440 Personal history of urinary (tract) infections; Z87.820 Personal history of traumatic brain injury; Z91.040 Latex allergy status; Z79.890 Hormone replacement therapy; Z79.899 Other long term (current) drug therapy
CPT/HCPCS: 36415; 80053; 80061; 80143; 80179; 80307; 81003; 81025; 82607; 82977; 83036; 84443; 84484; 85025; 87635; 93005; 99285; S9485

== ENCOUNTER → 2023-04-02 22:34 | Outpatient (BNV) | payer OTHER, SELFPAY | PROVIDERS: Admitting Provider Social Worker; Emergency Provider Emergency Medicine; PCP Orthopaedic Surgery; Visit Provider Psychiatry & Neurology Psychiatry | DX: F25.9 Schizoaffective disorder, unspecified (principal); F43.11 Post-traumatic stress disorder, acute | CPT/HCPCS: 90792; 99231; 99232; 99238 ==

== ENCOUNTER 2024-06-02 09:44 | Outpatient (AMB) | payer OTHER, SELFPAY ==
--- OUTSIDE RECORDS SUMMARY | 2024-06-02 09:46 | XMS_ITS | Continuity of Care Document ---
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 22 mmol/L - 29 mmol/L 06/09/23 15:15:00 Anion Gap 11 4 ??- 17 06/09/23 15:15:00 Glucose Level 91 mg/dL 70 mg/dL - 99 mg/dL 06/09/23 15:15:00 BUN 7 mg/dL 6 mg/dL - 20 mg/dL 06/09/23 15:15:00 Creatinine-Blood 1 mg/dL 0.5 mg/dL - 1 mg/dL 06/09/23 15:15:00 Estimated GFR Creatinine 69 ML/MIN/1.73 M2 ?? 06/09/23 15:15:00 Calcium 9 mg/dL 8.6 mg/dL - 10.5 mg/dL 06/09/23 15:15:00 TSH 4.25 uIU/mL??High 0.4 uIU/mL - 4.2 uIU/mL 06/09/23 15:15:00 Free T4 1.29 ng/dL 0.7 ng/dL - 1.8 ng/dL 06/09/23 15:15:00 Ethanol, Serum or Plasma NONE DETECTED ?? 06/09/23 15:15:00 Barbiturate Screen, Urine NONE DETECTED ?? 06/09/23 15:30:00 Cannabinoid Screen, Urine NONE DETECTED ?? 06/09/23 15:30:00 Cocaine Metabolite Screen, Urine NONE DETECTED ?? 06/09/23 15:30:00 Benzodiazepine Screen, Urine NONE DETECTED ?? 06/09/23 15:30:00 Amphetamine Screen, Urine NONE DETECTED ?? 06/09/23 15:30:00 Opiate Screen, Urine NONE DETECTED ?? 06/09/23 15:30:00 Appear/Color, Urine LIGHT YELLOW ?? 06/09/23 15:30:00 Specific Miles, Urine 1.007 1.002 ??- 1.03 06/09/23 15:30:00 pH, Urine 6.5 5 ??- 8 06/09/23 15:30:00 Albumin, Urine NEGATIVE ?? 06/09/23 15:30:00 Glucose, Urine NEGATIVE ?? 06/09/23 15:30:00 Ketones, Urine NEGATIVE ?? 06/09/23 15:30:00 Bilirubin, Urine NEGATIVE ?? 06/09/23 15:30:00 Hemoglobin, Urine NEGATIVE ?? 06/09/23 15:30:00 Nitrite, Urine POSITIVE Abnormal ?? 06/09/23 15:30:00 Leukocyte, Urine NEGATIVE ?? 06/09/23 15:30:00 Urobilinogen NORMAL ?? 06/09/23 15:30:00 WBC's, Urine 2 /HPF 0 /HPF - 5 /HPF 06/09/23 15:30:00 RBC's, Urine <1 0 /HPF - 3 /HPF 06/09/23 15:30:00 Bacteria SLIGHT Abnormal ?? 06/09/23 15:30:00 Squamous Epith 6 /HPF 0 /HPF - 8 /HPF 06/09/23 15:30:00 Hyaline Cast 1 LPF 0 LPF - 2 LPF 06/09/23 15:30:00 Mucus SLIGHT ?? 06/09/23 15:30:00 Hold Urine Culture Testing available 48 hours from time of collection. ?? 06/09/23 15:30:00 ? Diagnostic Results [id number] Ventricular Rate: 82 ??BPM Atrial Rate: 82 ??BPM P-R Interval: 140 ??ms QRS Duration: 82 ??ms Q-T Interval: 396 ??ms QTC Calculation(Bazett): 462 ??ms P [place]: 31 ??degrees R [place]: 44 ??degrees T [place]: 39 ??degrees Normal sinus rhythm Normal ECG When compared with ECG of 06-SEP-2022 12:49, No significant change was found Confirmed by ABDIAZIZ ART MD ([id number]) on 06/09/2023 4:26:10 PM [1] [1]??12 Lead ECG; Abdiaziz Art MD T 06/09/2023 15:35 EDT Patient Care team information Care Team Personnel Name: Bon Jurado MD Position: [facility] Outreach Member Role: PCP Address: Address: [address] [place] [id number]- [place] Name: Liliana Keen RN Position: [facility] RN Member Role: Primary Care Nurse Name: *[facility], ED Attending Position: [facility] ED Attendings Patient Name: Kiara Sanchez MD Position: [facility] ED Medicine MD Member Role: Admitting Physician Address: Address: [address] [place] [address] [place] [address]- Name: Ada MCCOY, Diana Clay Position: S ED RN W/OE and Tasks Member Role: Patient Care Provider Care Team Related Persons Name: ARRONMELISA MASCORRO Address: home [address] [place] [address] Name: MAME URIAS Name: PEG MEDEIROS Address: [address] [place] [address]
--- OUTSIDE RECORDS SUMMARY | 2024-06-02 09:46 | XMS_ITS | Continuity of Care Document ---
Author Organization [facility] ter Address [address] [place] [address]- Care Team Providers Care Crop Ranch Hand Name Role Phone Bon Jurado MD Primary Care Physician [phone] Encounter [facility] [place] Date(s): 08/30/23 - 09/01/[address] [address]- Encounter Diagnosis Auditory hallucination(Final) - 08/30/23 Suicidal ideation(Final) - 08/30/23 Discharge Disposition: Transfer to [facility] Facility Attending Physician: Bella Parikh DO Admitting Physician: Bella Parikh DO Referring Physician: Not on Staff, Referring MD Allergies, Adverse Reactions, Alerts Substance Reaction Severity Status penicillin hives Active Soma hives Active Fish Active Latex Active Egg Allergy Active Medications benztropine 0.5 mg oral tablet 0.5 mg, 1, tablet, By Mouth, Daily at bedtime, # 30 tablet, Refills 0, Tot. Refills 0, Maintenance,08/26/22 9:34:00 EST, Route to Pharmacy Electronically, [facility], Partial fill upon patient request if [...] 1 Refills, Maintenance, 08/26/22 9:34:00 EST, Capsule, [facility], Partial fill upon patient request if the prescription is for a schedule II opioid drug., 162.56, cm, 08/26/22 8:56:00 EST, H... Start Date: 08/26/22 Stop Date: 10/25/22 Status: Ordered haloperidol 10 mg oral tablet 10 mg, 1, tablet, By Mouth, 2 times a day, # 60 tablet, Refills 1, Tot. Refills 1, Maintenance, 08/26/22 9:35:00 EST, Route to Pharmacy Electronically, [facility], Partial fill upon patientrequest if the prescription is for a schedule II op... Start Date: 08/26/22 Stop Date: 10/25/22 Status: Ordered KlonoPIN 0.5 mg oral tablet 1 tablet = 0.5 mg, By Mouth, 2 times a day, # 60 tablet, 1 Refills, Maintenance, 08/26/22 9:34:00 EST, Tablet, [facility], Partial fill upon patient request if the prescription is for a schedule II opioid drug., 162.56, cm, 08/26/22 8:56:00... Start Date: 08/26/22 Stop Date: 10/25/22 Status: Ordered levothyroxine 0.025 mg oral tablet 2 tablet = 50 mcg, By Mouth, Daily, # 60 tablet, 1 Refills, Maintenance, 08/26/22 9:35:00 EST, Tablet, [facility], Partial fill upon patient request if the prescription is for a schedule IIopioid drug., 162.56, cm, 08/26/22 8:56:00 EST, Hei... Start Date: 08/26/22 [...] 08/26/22 9:35:00 EST, Route to Pharmacy Electronically, [facility], Partial fill upon patient requestif the prescription is for a schedule II opioid vicente... Start Date: 08/26/22 Stop Date: 10/25/22 Status: Ordered prazosin 1 mg oral capsule 1 mg, 1, capsule, By Mouth, Daily at bedtime, # 30 capsule, Refills 1, Tot. Refills 1, Maintenance,08/26/22 9:35:00 EST, Route to Pharmacy Electronically, [facility], Partial fill upon patient request if [...] 08/26/22 9:37:00 EST, Route to Pharmacy Electronically, [facility], Partial fill upon patient request if [...] 0 Refills, Maintenance, 08/26/22 9:36:00 EST, Tablet, [facility], Partial fill upon patient request if [...] Morbid obesity Confirmed Active Smoker Confirmed Active Vital Signs Most recent to oldest [Reference Range]: 1 2 3 Oxygen Saturation [94-100 %] 95 % (09/01/23 10:21 AM) 95 % (09/01/23 8:38 AM) 96 % (09/01/23 6:59 AM) Pulse Rate [55-90 bpm] 104 bpm *H* (09/01/23 10:21 AM) 72 bpm (09/01/23 8:38 AM) 69 bpm (1/15/24 6:59 AM) Blood Pressure [90-138/55-84 mm Hg] 95/56mm Hg (09/01/23 10:21 AM) 101/68mm Hg (09/01/23 8:38 AM) 98/54mm Hg (09/01/23 6:59 AM) Respiratory Rate [16-30 br/min] 16 br/min (09/01/23 10:21 AM) 16 br/min (09/01/23 8:38 AM) 16 br/min (09/01/23 6:59 AM) Temperature [96.8-100.4 DegF] 97.8 DegF (09/01/23 10:21 AM) 98.0 DegF (09/01/23 8:38 AM) 97.9 DegF (08/31/23 8:45 PM) Liters per Minute 16 L/min (08/31/23 6:03 AM) Mode of Delivery (Oxygen) Room air (09/01/23 10:21 AM) Room air (09/01/23 8:38 AM) Room air (09/01/23 6:59 AM) Blood pressure sites Arm, right (09/01/23 10:21 AM) Arm, right (09/01/23 8:38 AM) Arm, right (08/31/23 6:26 PM) Temperature Route Oral (09/01/23 10:21 AM) Oral (09/01/23 8:38 AM) Oral (08/31/23 8:45 PM) Social History Social History Type Response Smoking Status 10 or more cigarette s (1/2 pack or more)/day in last 30 days entered on: 07/30/22 Sex Patient Care team information Care Team Personnel Name: Bon Jurado MD Position: [facility] Outreach Member Role: PCP Address: Address: [address] [place] [id number] Name: Ashvin Gonzalez RN Position: [facility] RN Member Role: Primary Care Nurse Name: *[facility], ED Attending Position: [facility] ED Attendings Patient Name: Keisha Crespo RN Position: [facility] ED RN W/OE and Tasks Member Role: Patient Care Provider Name: Bella Parikh DO Position: [facility] Resident Member Role: Admitting Physician Address: Address: [address] [facility] [place] [address]- Care Team Related Persons Name: MELISA HELLER Address: home [address] [place] [address] Name: MAME URIAS Name: PEG MEDEIROS Address: [address] [place] [address]
--- OUTSIDE RECORDS SUMMARY | 2024-06-02 09:46 | XMS_ITS | Continuity of Care Document ---
Author Organization [facility] Address [address] [place] [phone]- Care Team Providers Care Retail Advertising Executive Name Role Phone Rhiannon HEDRICK, Bon Primary Care Physician Encounter [facility] [place] Date(s): 06/24/22 - 06/24/[address] [address]- Discharge Disposition: A-D/C Walkout Attending Physician: Not on Staff, Attending MD Admitting Physician: Not on Staff, Admitting MD Referring Physician: Not on Staff, Referring MD Allergies, Adverse Reactions, Alerts Substance Reaction Severity Status penicillin hives Active Soma hives Active Latex Active Medications Acetaminophen = 1,000 mg, By Mouth, Daily, 0 Refills, Maintenance, 01/27/17 13:33:28 Start Date: 01/27/17 Status: Ordered Albuterol 0 Refills, Maintenance Start Date: 07/03/12 Status: Ordered AneCream 4% topical cream 1 application, Topically, Daily, # 5 Gm, 0 Refills, Maintenance, 01/27/17 13:31:56, Cream Start Date: 01/27/17 Status: Ordered buPROPion 300 mg/24 hours (XL) oral tablet, extended release 1 tablet = 300 mg, By Mouth, Daily, # 30 tablet, 0 Refills, Maintenance, 01/27/17 13:26:38, ER Tablet Start Date: 01/27/17 Status: Ordered Calcium 600 +D See Instructions, By Mouth, 0 Refills, Maintenance, 01/27/17 13:41:59 Start Date: 01/27/17 Status: Ordered Claritin-D 1 tablet, By Mouth, Every 12 hours, 0 Refills, Maintenance, 01/27/17 13:32:14 Start Date: 01/27/17 Status: Ordered clonazePAM 0.5 mg oral tablet 0.5 tablet = 0.25 mg, By Mouth, Daily, 0 Refills, Maintenance, 01/27/17 13:28:03, Tablet Start Date: 01/27/17 Status: Ordered Cogentin Tablet 1 mg, By Mouth, 2 times a day, Refills 0, Maintenance, 01/27/17 13:31:03 Start Date: 01/27/17 Status: Ordered Colace Capsule By Mouth, 2 times a day, Maintenance, 07/03/12 16:54:19 Start Date: 07/03/12 Status: Ordered Cymbalta 30 mg oral enteric coated capsule 1 capsule = 30 mg, By Mouth, Daily, 0 Refills, Maintenance, 01/27/17 13:30:47 Start Date: 01/27/17 Status: Ordered Cymbalta 60 mg oral enteric coated capsule 1 capsule = 60 mg, By Mouth, Daily, # 30 capsule, 0 Refills, Maintenance, 01/27/17 13:26:54, EC Capsule Start Date: 01/27/17 Status: Ordered Flovent HFA Inhalation, 2 times a day, 0 Refills, Maintenance, 01/27/17 13:38:09 Start Date: 01/27/17 Status: Ordered HydroCORTisone 2.5% Topical 0 Refills, Maintenance Start Date: 07/03/12 Status: Ordered Kenalog 0.1% cream 0 Refills, Maintenance Start Date: 07/03/12 Status: Ordered KlonoPIN 1 mg oral tablet 1 tablet = 1 mg, By Mouth, Daily, 0 Refills, Maintenance, 01/27/17 13:27:29 Start Date: 01/27/17 Status: Ordered Lipitor 20 mg oral tablet 1 tablet = 20 mg, By Mouth, Daily, # 30 tablet, 0 Refills, Maintenance, Tablet Start Date: 01/27/17 Status: Ordered Macrodantin = 50 mg, By Mouth, Daily, prn to prevent UTI after intercourse, 0 Refills, Maintenance, 01/27/17 13:38:29 Start Date: 01/27/17 Status: Ordered RisperDAL 1 mg oral tablet 1 mg, 1, tablet, By Mouth, Daily, # 30 tablet, Refills 0, Maintenance, 01/27/17 13:28:32 Start Date: 01/27/17 Status: Ordered Risperidone = 1.5 mg, By Mouth, 1 1/2 tabs at bedtime, 0 Refills, Maintenance, 01/27/17 13:28:48 Start Date: 01/27/17 Status: Ordered Synthroid 0.025 mg oral tablet 1 tablet = 25 mcg, By Mouth, Daily, # 30 tablet, 0 Refills, Maintenance, 01/27/17 13:34:12, Tablet Start Date: 01/27/17 Status: Ordered Topamax 100 mg oral tablet 1 tablet = 100 mg, By Mouth, Daily, # 30 tablet, 0 Refills, Maintenance, 01/27/17 13:37:30, Tablet Start Date: 01/27/17 Status: Ordered Ventolin 90 mcg Inhaler 2, puffs, Inhalation, 4 times a day, Refills 0, Maintenance, 01/27/17 13:32:27 Start Date: 01/27/17 Status: Ordered Vitamin B-12 Inj 0 Refills, Maintenance, 01/27/17 13:32:06 Start Date: 01/27/17 Status: Ordered Zantac 150 oral tablet 1 tablet = 150 mg, By Mouth, Daily at bedtime, # 30 tablet, 0 Refills, Maintenance, 01/27/17 13:32:42, Tablet Start Date: 01/27/17 Status: Ordered Problem List Condition Confirmation Course Effective Dates Status Health St atus Informant Anemia Confirmed Active Anxiety Confirmed Active Asthma Confirmed Active Borderline personality disorder Confirmed Active Depression Confirmed Active Morbid obesity Confirmed Active Obese class I Confirmed Active Smoker Confirmed Active Vital Signs Most recent to oldest [Reference Range]: 1 2 Height 163 cm (06/24/22 3:37 PM) 163 cm (06/24/22 3:15 PM) Weight 87 kg (06/24/22 3:37 PM) 87 kg (06/24/22 3:15 PM) Oxygen Saturation [94-100 %] 100 % (06/24/22 3:15 PM) Pulse Rate [55-90 bpm] 83 bpm (06/24/22 3:15 PM) Body Mass Index [18.5-24.99 kg/m2] 32.74 kg/m2 *>HHI* (06/24/22 3:15 PM) Blood Pressure [90-138/55-84 mm Hg] 110/ 72mm Hg (06/24/22 3:15 PM) Respiratory Rate [16-30 br/min] 16 br/mi n (06/24/22 3:15 PM) Temperature [96.8-100.4 DegF] 98.3 DegF (06/24/22 3:15 PM) Mode of Delivery (Oxygen) Room air (06/24/22 3:15 PM) Blood pressure sites Arm, right (06/24/22 3:15 PM) Temperature Route Oral (06/24/22 3:15 PM) Dry Weight 87 kg (06/24/22 3:37 PM) 87 kg (06/24/22 3:15 PM) Weight Obtained Via Standing scale (06/24/22 3:15 PM) Dry Weight Obtained Via Standing scale (06/24/22 3:15 PM) Patient Care team information Care Team Personnel Name: Bon Jurado MD Position: [facility] Outreach Member Role: PCP Address: Address: [address] [place] [address]- Care Team Related Persons Name: MELISA HELLER Address: [address] [place] [address] Name: MAME URIAS Name: PEG MEDEIROS Address: [address] [place] [address]
--- OUTSIDE RECORDS SUMMARY | 2024-06-02 09:46 | XMS_ITS | Continuity of Care Document ---
Author Organization [facility] Address [address] [place] [phone]- Care Team Providers Care Television Director Name Role Phone Bon Jurado MD Primary Care Physician [phone] Encounter [facility] [place] Date(s): 09/06/22 - 09/06/[address] [address]- Encounter Diagnosis Pleuritic chest pain(Final) - 09/06/22 Cough(Final) - 09/06/22 Suicidal ideations(Final) - 09/06/22 Auditory hallucinations(Final) - 09/06/22 Schizoaffective disorder(Final) - 09/06/22 Discharge Disposition: Transfer to Psych Facility Attending Physician: Niyah Jensen MD Admitting Physician: Niyah Jensen MD Referring Physician: Not on Staff, Referring MD Allergies, Adverse Reactions, Alerts Substance Reaction Severity Status penicillin hives Active Soma hives Active Fish Active Latex Active Medications benztropine 0.5 mg oral tablet 0.5 mg, 1, tablet, By Mouth, Daily at bedtime, # 30 tablet, Refills 0, Tot. Refills 0, Maintenance,08/26/22 9:34:00 EST, Route to Pharmacy Electronically, [facility], Partial fill upon patient request if [...] 1 Refills, Maintenance, 08/26/22 9:34:00 EST, Capsule, [facility], Partial fill upon patient request if the prescription is for a schedule II opioid drug., 162.56, cm, 08/26/22 8:56:00 EST, H... Start Date: 08/26/22 Stop Date: 10/25/22 Status: Ordered haloperidol 10 mg oral tablet 10 mg, 1, tablet, By Mouth, 2 times a day, # 60 tablet, Refills 1, Tot. Refills 1, Maintenance, 08/26/22 9:35:00 EST, Route to Pharmacy Electronically, [facility], Partial fill upon patientrequest if the prescription is for a schedule II op... Start Date: 08/26/22 Stop Date: 10/25/22 Status: Ordered KlonoPIN 0.5 mg oral tablet 1 tablet = 0.5 mg, By Mouth, 2 times a day, # 60 tablet, 1 Refills, Maintenance, 08/26/22 9:34:00 EST, Tablet, [facility], Partial fill upon patient request if the prescription is for a schedule II opioid drug., 162.56, cm, 08/26/22 8:56:00... Start Date: 08/26/22 Stop Date: 10/25/22 Status: Ordered levothyroxine 0.025 mg oral tablet 2 tablet = 50 mcg, By Mouth, Daily, # 60 tablet, 1 Refills, Maintenance, 08/26/22 9:35:00 EST, Tablet, [facility], Partial fill upon patient request if [...] 08/26/22 9:35:00 EST, Route to Pharmacy Electronically, [facility], Partial fill upon patient requestif the prescription is for a schedule II opioid vicente... Start Date: 08/26/22 Stop Date: 10/25/22 Status: Ordered prazosin 1 mg oral capsule 1 mg, 1, capsule, By Mouth, Daily at bedtime, # 30 capsule, Refills 1, Tot. Refills 1, Maintenance,08/26/22 9:35:00 EST, Route to Pharmacy Electronically, [facility], Partial fill upon patient request if [...] 08/26/22 9:37:00 EST, Route to Pharmacy Electronically, [facility], Partial fill upon patient request if [...] 0 Refills, Maintenance, 08/26/22 9:36:00 EST, Tablet, [facility], Partial fill upon patient request if [...] Morbid obesity Confirmed Active Smoker Confirmed Active Results Radiology Reports * Exam Date Time Procedure Performing Provider Status 09/06/22 1:25 PM Chest Portable Dottie Millard; [place] (Verified) Notes: (Chest Portable) Reason For Exam: Shortness of Breath RESULT: Chest Portable Chest Portable HX OF PRESENT ILLNESS: Pt c o aud merino. x 2 days, command telling her to harm herself. COMPARISON: 07/31/2022. FINDINGS: LINES AND TUBES: None. LUNGS AND PLEURA: Clear lungs. Normal pulmonary vascularity. No pleural effusion. No pneumothorax. HEART, MEDIASTINUM AND RON: Heart is normal in size. Normal mediastinal and hilar contour. BONES AND SOFT TISSUES: No acute abnormality. IMPRESSION: No acute cardiopulmonary process. I have personally reviewed the images and I agree with this report. WSN: [id number] Ordering Physician: Kiara Richardson Dictated By: Nohemi Martin MD Dictated Date/Time: 09/06/22 1:36 pm Reviewed By: Laci Guzman MD Signed By: Laci Guzman MD Signed Date/Time: 09/06/22 1:41 pm Transcribed By: ANTONINO Transcribed Date/Time: 09/06/22 1:33 pm Vital Signs Most recent to oldest [Reference Range]: 1 2 Oxygen Saturation [94-100 %] 94 % (09/06/22 4:12 PM) 96 % (09/06/22 12:07 PM) Pulse Rate [55-90 bpm] 69 bpm (09/06/22 4:12 PM) 101 bpm *H* (09/06/22 12:07 PM) Blood Pressure [90-138/55-84 mm Hg] 103/ 64mm Hg (09/06/22 4:12 PM) 107/52mm Hg (09/06/22 12:07 PM) Respiratory Rate [16-30 br/min] 17 br/mi n (09/06/22 4:12 PM) 18 br/min (09/06/22 12:07 PM) Temperature [96.8-100.4 DegF] 98.1 DegF (09/06/22 4:12 PM) 97.6 DegF (09/06/22 12:07 PM) Liters per Minute 0 L/min (09/06/22 4:12 PM) Mode of Delivery (Oxygen) Room air (09/06/22 4:12 PM) Room air (09/06/22 12:07 PM) Blood pressure sites Arm, left (09/06/22 4:12 PM) Arm, right (09/06/22 12:07 PM) Temperature Route Oral (09/06/22 4:12 PM) Oral (09/06/22 12:07 PM) Social History Social History Type Response Smoking Status 10 or more cigarette s (1/2 pack or more)/day in last 30 days entered on: 07/30/22 Sex Portable XR Chest Views * [facility] , CIS S: TRANSCRIBE Laci Guzman MD S: VERIFY Nohemi Martin MD: SIGN Event Display: Result: Authored Date: [id number] Chest Portable HX OF PRESENT ILLNESS: Pt c o aud merino. x 2 days, command telling her to harm herself. COMPARISON: 07/31/2022. FINDINGS: LINES AND TUBES: None. LUNGS AND PLEURA: Clear lungs. Normal pulmonary vascularity. No pleural effusion. No pneumothorax. HEART, MEDIASTINUM AND RON: Heart is normal in size. Normal mediastinal and hilar contour. BONES AND SOFT TISSUES: No acute abnormality. IMPRESSION: No acute cardiopulmonary process. I have personally reviewed the images and I agree with this report. WSN: [id number] Ordering Physician: Kiara Richardson Dictated By: Nohemi Martin MD Dictated Date/Time: 09/06/22 1:36 pm Reviewed By: Laci Guzman MD Signed By: Laci Guzman MD Signed Date/Time: 09/06/22 1:41 pm Transcribed By: ANTONINO Transcribed Date/Time: 09/06/22 1:33 pm Patient Care team information Care Team Personnel Name: Bon Jurado MD Position: [facility] Outreach Member Role: PCP Address: Address: [address] [place] [id number]- Name: Ashvin Gonzalez RN Position: [facility] RN Member Role: Primary Care Nurse Name: Ngoc Mckeon RN Position: [facility] RN Member Role: Primary Care Nurse Name: Liliana Keen RN Position: [facility] RN Member Role: Primary Care Nurse Name: Esha Arita MD Position: [facility] Resident Member Role: ED Resident Address: Address: [address] [place] [address] [place] [address]- [place] Name: Danielle Ortega Position: [facility] ED [facility] Member Role: Tape Making Machine Operator Name: Mary Lou Alvarado RN Position: [facility] ED RN W/OE and Tasks Member Role: Patient Care Provider Name: Niyah Jensen MD Position: [facility] Resident Member Role: Admitting Physician Address: Address: [address] [place] [address] [place] [address]- Care Team Related Persons Name: ARRONMELISA Abraham Address: [address] [place] [address] Name: MAME URIAS Name: PEG MEDEIROS Address: [address] [place] [address]
--- OUTSIDE RECORDS SUMMARY | 2024-06-02 09:46 | XMS_ITS | Continuity of Care Document ---
Author Organization [facility] Address [address] [place] [address]- Care Team Providers Care Insulation Professional Name Role Phone Bon Jurado MD Primary Care Physician [place] [facility] [place]22 - 07/31/[address] [address]- Encounter Diagnosis Auditory hallucinations(Final) - 07/30/22 Visual hallucinations(Final) - 07/30/22 Suicidal ideations(Final) - 07/30/22 Discharge Disposition: A-D/C Home Attending Physician: Case Maynard MD Admitting Physician: Case Maynard MD Referring Physician: Not on Staff, Referring MD Allergies, Adverse Reactions, Alerts Substance Reaction Severity Status penicillin hives Active Soma hives Active Fish Active Latex Active Medications Albuterol PRN Wheezing/Shortness of Breath, 0 Refills, Maintenance, 07/03/12 16:53:26 EST Start Date: 07/03/12 Status: Ordered Albuterol (Eqv-ProAir HFA) 90 mcg/inh inhalation aerosol 0 Refills, Maintenance, 07/30/22 22:37:00 EST, Partial fill upon patient request if the prescription is for a schedule II opioid drug. Start Date: 07/30/22 Status: Ordered benztropine 0.5 mg oral tablet 0.5 mg, 1, tablet, By Mouth, Daily at bedtime, # 30 tablet, Refills 0, Maintenance, 07/30/22 22:37:00 EST, Partial fill upon patient request if the prescription is for a schedule II opioid drug. Start Date: 07/30/22 Status: Ordered Calcium 600 +D See Instructions, By Mouth, 0 Refills, Maintenance, 01/27/17 13:41:59 Start Date: 01/27/17 Status: Ordered Claritin-D 1 tablet, By Mouth, Daily, 0 Refills, Maintenance, 01/27/17 13:32:14 EDT Start Date: 01/27/17 Status: Ordered clonazePAM 0.5 mg oral tablet 0.5 tablet = 0.25 mg, By Mouth, Daily, 0 Refills, Maintenance, 07/30/22 22:37:00 EST, Tablet, Partial fill upon patient request if the prescription is for a schedule II opioid drug. Start Date: 07/30/22 Status: Ordered clonazePAM 0.5 mg oral tablet 1 tablet = 0.5 mg, By Mouth, PRN Anxiety, 0 Refills, Maintenance, 01/27/17 13:28:03 EDT, Tablet Start Date: 01/27/17 Status: Ordered Cogentin Tablet 0.5 mg, By Mouth, Daily at bedtime, Refills 0, Maintenance, 01/27/17 13:31:03 EDT Start Date: 01/27/17 Status: Ordered Compazine Tablet = 4.5 mg, By Mouth, Daily, 0 Refills, Maintenance, 07/30/22 19:25:00 EST, Tablet, Partial fill uponpatient request if the prescription is for a schedule II opioid drug. Start Date: 07/30/22 Status: Ordered Cymbalta 60 mg oral enteric coated capsule 1 capsule = 60 mg, By Mouth, 2 times a day, # 30 capsule, 0 Refills, Maintenance, 01/27/17 13:26:54EDT, EC Capsule Start Date: 01/27/17 Status: Ordered duloxetine 60 mg oral enteric coated capsule 1 capsule = 60 mg, By Mouth, Daily, # 30 capsule, 0 Refills, Maintenance, 07/30/22 22:38:00 EST, ECCapsule, Partial fill upon patient request if the prescription is for a schedule II opioid drug. Start Date: 07/30/22 Status: Ordered Flovent HFA Inhalation, 2 times a day, 0 Refills, Maintenance, 01/27/17 13:38:09 Start Date: 01/27/17 Status: Ordered haloperidol 10 mg oral tablet 10 mg, 1, tablet, By Mouth, Daily at bedtime, Refills 0, Maintenance, 07/30/22 19:05:00 EST, Partial fill upon patient request if the prescription is for a schedule II opioid drug. Start Date: 07/30/22 Status: Ordered haloperidol 10 mg oral tablet 10 mg, 1, tablet, By Mouth, 2 times a day, # 180 tablet, Refills 0, Maintenance, 07/30/22 22:37:00 EST, Partial fill upon patient request if the prescription is for a schedule II opioid drug. Start Date: 07/30/22 Status: Ordered levothyroxine 0.05 mg oral tablet 1 tablet = 50 mcg, By Mouth, Daily, # 30 tablet, 0 Refills, Maintenance, 07/30/22 19:22:00 EST, Tablet, Partial fill upon patient request if the prescription is for a schedule II opioid drug. Start Date: 07/30/22 Status: Ordered levothyroxine 0.05 mg oral tablet 1 tablet = 50 mcg, By Mouth, Daily, # 30 tablet, 0 Refills, Maintenance, 07/30/22 22:37:00 EST, Tablet, Partial fill upon patient request if the prescription is for a schedule II opioid drug. Start Date: 07/30/22 Status: Ordered Lipitor 20 mg oral tablet 1 tablet = 20 mg, By Mouth, Daily at bedtime, # 30 tablet, 0 Refills, Maintenance, Tablet Start Date: 01/27/17 Status: Ordered loratadine 10 mg oral tablet 10 mg, 1, tablet, By Mouth, Daily, # 30 tablet, Refills 0, Maintenance, 07/30/22 22:37:00 EST, Partial fill upon patient request if the prescription is for a schedule II opioid drug. Start Date: 07/30/22 Status: Ordered naproxen 500 mg oral tablet 1 tablet = 500 mg, By Mouth, PRN Pain , Moderate, 0 Refills, Maintenance, 07/30/22 19:28:00 EST, Partial fill upon patient request if the prescription is for a schedule II opioid drug. Start Date: 07/30/22 Status: Ordered prazosin 1 mg oral capsule 2 mg, Capsule, By Mouth, 07/31/22 15:00:00 EST Start Date: 07/31/22 Stop Date: 07/31/22 Status: Completed prazosin 2 mg oral capsule 1 capsule = 2 mg, By Mouth, Daily at bedtime, 0 Refills, Maintenance, 07/30/22 19:22:00 EST, Partial fill upon patient request if the prescription is for a schedule II opioid drug. Start Date: 07/30/22 Status: Ordered prazosin 2 mg oral capsule 1 capsule = 2 mg, By Mouth, 3 times a day, # 270 capsule, 0 Refills, Maintenance, 07/30/22 22:37:00EST, Capsule, Partial fill upon patient request if the prescription is for a schedule II opioid drug. Start Date: 07/30/22 Status: Ordered SUMAtriptan 50 mg oral tablet 1 tablet = 50 mg, By Mouth, PRN Headache, 0 Refills, Maintenance, 07/30/22 19:26:00 EST, Partial fill upon patient request if the prescription is for a schedule II opioid drug. Start Date: 07/30/22 Status: Ordered traZODone 100 mg oral tablet 100 mg, 1, tablet, By Mouth, PRN, Refills 0, Maintenance, Sleep, 07/30/22 19:29:00 EST, Partial fill upon patient request if the prescription is for a schedule II opioid drug. Start Date: 07/30/22 Status: Ordered traZODone 100 mg oral tablet 100 mg, 1, tablet, By Mouth, 2 times a day, # 180 tablet, Refills 0, Maintenance, 07/30/22 22:36:00EST, Partial fill upon patient request if the prescription is for a schedule II opioid drug. Start Date: 07/30/22 Status: Ordered Ventolin 90 mcg Inhaler 2, puffs, Inhalation, 4 times a day, Refills 0, Maintenance, 01/27/17 13:32:27 Start Date: 01/27/17 Status: Ordered verapamil 40 mg oral tablet 1 tablet = 40 mg, By Mouth, 2 times a day, 0 Refills, Maintenance, 07/30/22 18:57:00 EST, Partial fill upon patient request if the prescription is for a schedule II opioid drug. Start Date: 07/30/22 Status: Ordered verapamil 40 mg oral tablet 1 tablet = 40 mg, By Mouth, 2 times a day, # 120 tablet, 0 Refills, Maintenance, 07/30/22 22:37:00 EST, Tablet, Partial fill upon patient request if the prescription is for a schedule II opioid drug. Start Date: 07/30/22 Status: Ordered Verapamil Tablet 40 mg, Tablet, By Mouth, 07/31/22 9:00:00 EST Start Date: 07/31/22 Stop Date: 07/31/22 Status: Completed Vit B Complex Tablet 1 tablet, By Mouth, Daily, 0 Refills, Maintenance, 07/30/22 19:25:00 EST, Tablet, Partial fill uponpatient request if the prescription is for a schedule II opioid drug. Start Date: 07/30/22 Status: Ordered Problem List Condition Confirmation Course Effective Dates Status Health St atus Informant Anemia Confirmed Active Anxiety Confirmed Active Asthma Confirmed Active Borderline personality disorder Confirmed Active Depression Confirmed Active Morbid obesity Confirmed Active Smoker Confirmed Active Results Radiology Reports * Exam Date Time Procedure Performing Provider Status 07/31/22 12:23 AM Chest 2 Views Frontal and Lat Cynthia Campos; Auth (Verified) Notes: (Chest 2 Views Frontal and Lat) Reason For Exam: Shortness of Breath, Fever;Other: RESULT: Chest 2 Views Frontal and Lat Chest 2 Views Frontal and Lat Hx of Present Illness: EMS called by dustin Gallegos) for AH and VH. pt states I'm seeing shadows andhearing voices, the voices are telling me to kill myself with a knife. Denies past SI. States she is scared but feels better here. Also reports abd pain and nausea since this AM; Reason: Other:; Shortness of Breath, Fever; Clinical Question(s): Pneumonia COMPARISON: None. FINDINGS: LINES AND TUBES: None. LUNGS AND PLEURA: Clear lungs. Normal pulmonary vascularity. No pleural effusion. No pneumothorax. HEART, MEDIASTINUM AND RON: Heart is normal in size. Normal mediastinal and hilar contour. BONES AND SOFT TISSUES: No acute abnormality. Multiple surgical clips are noted projecting over the right upper quadrant ofthe abdomen probably related to a prior cholecystectomy. IMPRESSION: No acute abnormality. WSN: [id number] Ordering Physician: Luda Mcguire Dictated By: Ronn Engel MD, V Dictated Date/Time: 07/31/22 8:16 am Reviewed By: Ronn Engel MD, V Signed By: Ronn Engel MD, V Signed Date/Time: 07/31/22 8:16 am Transcribed By: ANTONINO Transcribed Date/Time: 07/31/22 8:13 am * Exam Date Time Procedure Performing Provider Status 07/30/22 11:[address] Abd/Pelvis W/ IV Contrast Only King Posey; Auth (Verified) Notes: (CT Abd/Pelvis W/ IV Contrast Only) Reason For Exam: LLQ abdominal pain;Other: RESULT: CT Abd/Pelvis W/ IV Contrast Only CT Abd/Pelvis W/ IV Contrast Only INDICATION: Abd pain and nausea since this AM; Reason: LLQ abdominal pain; Clinical Question(s): Hemorrhage Hematoma TECHNIQUE: Spiral CT through the abdomen and pelvis with IV contrast formatted in 3 planes. 100 cc of Omnipaque 300 was administered intravenously. This study was performed without oral contrast. Weight-based protocol using automatic tube modulation was used to optimize exposure parameters. COMPARISON: None. FINDINGS: Loop Tacker View Findings, Lines and Tubes: None. Visualized Chest: Lung bases are clear. No pleural effusion. The heart is normal in size. No pericardial effusion. Diaphragm: Right hemidiaphragm is intact. Focal defect in the left hemidiaphragm with superior herniation of a small amount of retroperitoneal fat (203:89). Liver: Subcentimeter hypodensity in hepatic segment 6/7, too small to characterize but statistically a benign cyst. Gallbladder: Status post cholecystectomy. Bile ducts: No biliary ductal dilation. Spleen: Normal. Pancreas: Normal. Adrenal glands: Normal. Kidneys and ureters: No hydronephrosis, stones, or suspicious masses. Small hypodensities that are too small to characterize are noted, requiring no dedicated follow up. Bladder: Underdistended but unremarkable. Reproductive organs: Unremarkable. Stomach, small bowel, and large bowel: No bowel obstruction. Mild fat stranding around the terminalileum and ascending colon, without significant wall thickening. Scant colon diverticulosis without evidence of acute diverticulitis. Appendix: No evidence of acute appendicitis. Peritoneum and retroperitoneum: No ascites or pneumoperitoneum. No omental or mesenteric lesions. Lymph nodes: No enlarged lymph nodes. Blood vessels: Normal. No aneurysm. No evidence of venous thrombosis. Abdominal and pelvic wall: Small fat-containing umbilical hernia. Small fat- containing bilateral inguinal hernias. Bones: No acute abnormality. IMPRESSION: Nonspecific mild fat stranding around the terminal ileum and ascending colon, may represent mild ileitis/colitis. No other acute abnormality within the abdomen or pelvis. Incidental defect in the left hemidiaphragm, could represent an atypical congenital diaphragmatic hernia versus sequela of prior injury. Please correlate with history. I have personally reviewed the images and I agree with this report. WSN: [id number] Ordering Physician: Luda Mcguire Dictated By: Suzy Johnson DO Dictated Date/Time: 07/30/22 11:46 p Reviewed By: Onel Whalen MD Signed By: Onel Whalen MD Signed Date/Time: 07/30/22 11:51 pm Transcribed By: ANTONINO Transcribed Date/Time: 07/30/22 11:33 pm * Exam Date Time Procedure Performing Provider Status 07/30/22 10:[address] Head/Brain W/O Contrast King Otero; Auth (Verified) Notes: (CT Head/Brain W/O Contrast) Reason For Exam: Behavior Problem RESULT: CT Head/Brain W/O Contrast CT Head/Brain W/O Contrast INDICATION: Pt states I'm seeing shadows and hearing voices, the voices are telling me to kill myself with a knife. Denies past SI. States she is scared but feels better here. Also reports abd painand nausea since this AM; Reason: Behavior Problem; Clinical Question(s): Hematoma. TECHNIQUE: Noncontrast head CT using axial technique and reconstructed in axial and coronal plane. Iterative reconstruction techniques are used to optimize radiation dose and image quality. COMPARISON: 06/04/2004. FINDINGS: BRAIN and EXTRA-AXIAL SPACES: No parenchymal hemorrhage, midline shift or mass effect. Rivero-white matter differentiation is well preserved. No acute infarct. Negative insular ribbon and hyperdense vessel signs. Ventricles, sulci and basilar cisterns are normal. No white matter lesions. No subarachnoid hemorrhage, subdural or epidural collections. CALVARIUM, SKULL BASE AND SOFT TISSUES: No fractures or suspicious bony lesions. Mucous retention cyst in the left frontal sinus. Remaining paranasal sinuses and mastoid air cells are clear. Visualized orbits and globes are intact. The extracranial soft tissues are unremarkable. IMPRESSION: No acute intracranial abnormality. I have personally reviewed the images and I agree with this report. WSN: [id number] Ordering Physician: Luda Mcguire Dictated By: Suzy Johnson DO Dictated Date/Time: 07/30/22 11:22 p Reviewed By: Eliceo Barajas MD Signed By: Eliceo Barajas MD Signed Date/Time: 07/30/22 11:27 pm Transcribed By: ANTONINO Transcribed Date/Time: 07/30/22 11:21 pm Vital Signs Most recent to oldest [Reference Range]: 1 2 3 Height 162 cm (07/31/22 5:45 PM) 162 cm (07/31/22 8:42 AM) 162 cm (07/30/22 5:27 PM) Weight 68.2 kg (07/31/22 5:45 PM) 68.2 kg (07/31/22 8:42 AM) 68.2 kg (07/30/22 5:27 PM) Oxygen Saturation [94-100 %] 98 % (07/31/22 5:45 PM) 98 % (07/31/22 8:42 AM) 97 % (07/31/22 6:01 AM) Pulse Rate [55-90 bpm] 76 bpm (07/31/22 5:45 PM) 74 bpm (07/31/22 9:18 AM) 79 bpm (07/31/22 8:42 AM) Body Mass Index [18.5-24.99 kg/m2] 25.99 kg/m2 *H* (07/31/22 5:45 PM) 25.99 kg/m2 *H* (07/31/22 8:42 AM) Blood Pressure [90-138/55-84 mm Hg] 124/70mm Hg (07/31/22 5:45 PM) 138/67mm Hg (07/31/22 3:40 PM) 110/66mm Hg (07/31/22 9:18 AM) Respiratory Rate [16-30 br/min] 18 br/min (07/31/22 5:45 PM) 18 br/min (07/31/22 8:42 AM) 15 br/min *L* (07/31/22 6:01 AM) Temperature [96.8-100.4 DegF] 99.0 DegF (07/31/22 6:01 AM) 98.9 DegF (07/31/22 12:32 AM) 99.6 DegF (07/30/22 5:27 PM) Mode of Delivery (Oxygen) Room air (07/31/22 5:45 PM) Room air (07/31/22 8:42 AM) Room air (07/31/22 6:01 AM) Blood pressure sites Arm, right (07/31/22 5:45 PM) Arm, right (07/31/22 8:42 AM) Arm, right (07/31/22 6:01 AM) Temperature Route Oral (07/31/22 6:01 AM) Oral (07/31/22 12:32 AM) Oral (07/30/22 5:27 PM) Dry Weight 68.2 kg (07/31/22 5:45 PM) 68.2 kg (07/31/22 8:42 AM) 68.2 kg (07/30/22 5:27 PM) Dry Weight Obtained Via Patient/family s tated (07/30/22 5:27 PM) Social History Social History Type Response Smoking Status 10 or more cigarette s (1/2 pack or more)/day in last 30 days entered on: 07/30/[address] Head WO contrast * [facility] , CIS S: TRANSCRIBE Eliceo Barajas MD: VERIFY Suzy Johnson DO P: SIGN Event Display: Result: Authored Date: [id number] CT Head/Brain W/O Contrast INDICATION: Pt states I'm seeing shadows and hearing voices, the voices are telling me to kill myself with a knife. Denies past SI. States she is scared but feels better here. Also reports abd painand nausea since this AM; Reason: Behavior Problem; Clinical Question(s): Hematoma. TECHNIQUE: Noncontrast head CT using axial technique and reconstructed in axial and coronal plane. Iterative reconstruction techniques are used to optimize radiation dose and image quality. COMPARISON: 06/04/2004. FINDINGS: BRAIN and EXTRA-AXIAL SPACES: No parenchymal hemorrhage, midline shift or mass effect. Rivero-white matter differentiation is well preserved. No acute infarct. Negative insular ribbon and hyperdense vessel signs. Ventricles, sulci and basilar cisterns are normal. No white matter lesions. No subarachnoid hemorrhage, subdural or epidural collections. CALVARIUM, SKULL BASE AND SOFT TISSUES: No fractures or suspicious bony lesions. Mucous retention cyst in the left frontal sinus. Remaining paranasal sinuses and mastoid air cells are clear. Visualized orbits and globes are intact. The extracranial soft tissues are unremarkable. IMPRESSION: No acute intracranial abnormality. I have personally reviewed the images and I agree with this report. WSN: [id number] Ordering Physician: Luda Mcguire Dictated By: Suzy Johnson DO Dictated Date/Time: 07/30/22 11:22 p Reviewed By: Eliceo Barajas MD Signed By: Eliceo Barajas MD Signed Date/Time: 07/30/22 11:27 pm Transcribed By: ANTONINO Transcribed Date/Time: 07/30/22 11:[address] Abdomen and Pelvis W contrast IV * [facility] , CIS S: TRANSCRIBE Onel Whalen MD: VERIFY Suzy Johnson DO P: SIGN Event Display: Result: Authored Date: [id number] CT Abd/Pelvis W/ IV Contrast Only INDICATION: Abd pain and nausea since this AM; Reason: LLQ abdominal pain; Clinical Question(s): Hemorrhage Hematoma TECHNIQUE: Spiral CT through the abdomen and pelvis with IV contrast formatted in 3 planes. 100 cc of Omnipaque 300 was administered intravenously. This study was performed without oral contrast. Weight-based protocol using automatic tube modulation was used to optimize exposure parameters. COMPARISON: None. FINDINGS: Loop Tacker View Findings, Lines and Tubes: None. Visualized Chest: Lung bases are clear. No pleural effusion. The heart is normal in size. No pericardial effusion. Diaphragm: Right hemidiaphragm is intact. Focal defect in the left hemidiaphragm with superior herniation of a small amount of retroperitoneal fat (203:89). Liver: Subcentimeter hypodensity in hepatic segment 6/7, too small to characterize but statistically a benign cyst. Gallbladder: Status post cholecystectomy. Bile ducts: No biliary ductal dilation. Spleen: Normal. Pancreas: Normal. Adrenal glands: Normal. Kidneys and ureters: No hydronephrosis, stones, or suspicious masses. Small hypodensities that are too small to characterize are noted, requiring no dedicated follow up. Bladder: Underdistended but unremarkable. Reproductive organs: Unremarkable. Stomach, small bowel, and large bowel: No bowel obstruction. Mild fat stranding around the terminalileum and ascending colon, without significant wall thickening. Scant colon diverticulosis without evidence of acute diverticulitis. Appendix: No evidence of acute appendicitis. Peritoneum and retroperitoneum: No ascites or pneumoperitoneum. No omental or mesenteric lesions. Lymph nodes: No enlarged lymph nodes. Blood vessels: Normal. No aneurysm. No evidence of venous thrombosis. Abdominal and pelvic wall: Small fat-containing umbilical hernia. Small fat- containing bilateral inguinal hernias. Bones: No acute abnormality. IMPRESSION: Nonspecific mild fat stranding around the terminal ileum and ascending colon, may represent mild ileitis/colitis. No other acute abnormality within the abdomen or pelvis. Incidental defect in the left hemidiaphragm, could represent an atypical congenital diaphragmatic hernia versus sequela of prior injury. Please correlate with history. I have personally reviewed the images and I agree with this report. WSN: [id number] Ordering Physician: Luda Mcguire Dictated By: Suzy Johnson DO Dictated Date/Time: 07/30/22 11:46 p Reviewed By: Onel Whalen MD Signed By: Onel Whalen MD Signed Date/Time: 07/30/22 11:51 pm Transcribed By: ANTONINO Transcribed Date/Time: 07/30/22 11:33 pm Note * [facility] , CIS S: TRANSCRIBE Ronn Engel MD, V: VERIFY Event Display: Result: Authored Date: Chest 2 Views Frontal and Lat Hx of Present Illness: EMS called by dustin Gallegos) for AH and VH. pt states I'm seeing shadows andhearing voices, the voices are telling me to kill myself with a knife. Denies past SI. States she is scared but feels better here. Also reports abd pain and nausea since this AM; Reason: Other:; Shortness of Breath, Fever; Clinical Question(s): Pneumonia COMPARISON: None. FINDINGS: LINES AND TUBES: None. LUNGS AND PLEURA: Clear lungs. Normal pulmonary vascularity. No pleural effusion. No pneumothorax. HEART, MEDIASTINUM AND RON: Heart is normal in size. Normal mediastinal and hilar contour. BONES AND SOFT TISSUES: No acute abnormality. Multiple surgical clips are noted projecting over the right upper quadrant ofthe abdomen probably related to a prior cholecystectomy. IMPRESSION: No acute abnormality. WSN: [id number] Ordering Physician: Luda Mcguire Dictated By: Ronn Engel MD, V Dictated Date/Time: 07/31/22 8:16 am Reviewed By: Ronn Engel MD, V Signed By: Ronn Engel MD, V Signed Date/Time: 07/31/22 8:16 am Transcribed By: ANTONINO Transcribed Date/Time: 07/31/22 8:13 am Patient Care team information Care Team Personnel Name: Bon Jurado MD Position: [facility] Outreach Member Role: PCP Address: Address: [address] [place] [id number]- [place] Name: *[facility], ED Attending Position: [facility] ED Attendings Patient Name: Emily Kulkarni RN Position: [facility] ED RN W/OE and Tasks Member Role: Patient Care Provider Name: Keira Overton Position: [facility] ED TA [facility] Member Role: Manager Of Procurement Name: Case Maynard MD Position: [facility] ED Medicine MD Member Role: Admitting Physician Address: Address: [address] [place] [address] [place] [address]- Care Team Related Persons Name: ARRON MELISA Address: [address] [place] [address] Name: MAME URIAS Name: PEG MEDEIROS Address: home [address] [place] [address]
--- NOTE | 2024-06-02 09:47 | AM.OFFWIN_ITS ---
Intake Vital Signs 06/02/24 09:49 Height 5 ft 4 in Weight 186 lb BMI 31.9 BP 122/80 Blood Pressure Location Rt brachial Position Sitting Pulse 123 H Pulse Source Pulse Oximeter Pulse Oximetry (%) 96 Oxygen Delivery Method Room Air Intake Visit Reasons: EP-lt ear green discharge, lt eye pain Intake Note: Patient here for green discharge coming out of left ear and left eye redness that started this morning. Patient Tobacco Use Status: Current everyday Tobacco user Allergies amoxicillin [AMOXICILLIN] Allergy (Intermediate, Verified 06/02/24 09:50) HIVES carisoprodol [From SOMA] Allergy (Intermediate, Verified 06/02/24 09:50) HIVES Fish Containing Products Allergy (Intermediate, Verified 06/02/24 09:50) HIVES Penicillins [PENICILLINS] Allergy (Intermediate, Verified 06/02/24 09:50) HIVES latex [LATEX] Allergy (Mild, Verified 06/02/24 09:50) RASH fish Allergy (Unknown, Uncoded 06/02/24 09:50) shortness of breath MEAT Adverse Reaction (Mild, Uncoded 06/02/24 09:50) SICK Do you need a note to return to daycare/school/sports/work: No HPI EP-lt ear green discharge, lt eye pain HPI Details This note is constructed using voice recognition software. While every effort has been made to ensure accuracy, creative lead errors may have been included. The patient is a 53 year old female who presents to the clinic today with left ear pain with discharge for the past week, and left eye redness since today. She notes that she has difficulty hearing out of the left ear, has been having green discharge. No fevers known. The area is painful, she is treating with Tylenol and Motrin, as well as warm compresses which minimally relieved the pain. She notes that today she woke with the redness in her eye, with some clear discharge. No change in her ability to see. [facility] Medical History (Updated 04/17/23 @ 00:02 by Rajesh Duenas) Sight impaired Ovarian cyst Classic migraine Hx of renal calculi Chronic back pain Asthma Borderline intellectual functioning Schizoaffective disorder Hx of drug overdose History of ETOH abuse PTSD (post-traumatic stress disorder) Depression Anxiety Surgical History Hx of cholecystectomy Hx of appendectomy Hx of tubal ligation Social History Household Members: Significant Other Housing: Apartment Do you presently have visiting nurse or other home services: Yes (through [facility]) Alcohol intake: current Alcohol intake frequency: a few times a week Patient Tobacco Use Status: Current everyday Tobacco user Tobacco use type: Cigarette Cigarette Packs Per Day: 1.5 Cigarettes Per Day: 30.0 Years Smoked: 37 years Second Hand Smoke Exposure: Yes Substance Use Type: Caffiene service: No Current occupational status: unemployed Current occupation: rt handed Sexual orientation: Unable to collect Review of Systems Const All systems reviewed & are unremarkable except as noted in HPI and below Physical Exam Vital Signs: Last Vital Signs Pulse 123 H 06/02/24 09:49 BP 122/80 06/02/24 09:49 Pulse Ox 96 06/02/24 09:49 Oxygen Delivery Method Room Air 06/02/24 09:49 BMI result Body Mass Index 31.9 Const General: cooperative, healthy appearing, comfortable and no acute distress Orientation/consciousness: patient oriented x3 HEENT Head: Yes normal to inspection, Yes No palpable skull fracture present and Yes normocephalic Ears: hearing grossly normal bilaterally, external ears normal, mastoids normal (no TTP) bilaterally, TM abnormal erythematous, with loss of landmarks and perforated with purulent discharge and other (Erythema to external canal) General nose exam: Normal external nose present Face and sinus: Yes normal facial exam Mouth: Normal oral and palatal mucosa present Teeth and gingiva: dentition normal Throat: Yes posterior oropharynx normal Eyes Other: Mild injection left eye, clear discharge. EOMI. No photophobia. Neck Neck: Yes normal visual inspection, Yes full ROM, Yes no lymphadenopathy, Yes no meningeal signs, Yes trachea midline and Yes supple Resp Effort & Inspection: normal respiratory effort and able to speak in complete sentences Skin General skin exam: no rashes or lesions noted Neuro General: patient oriented x3 and no meningeal signs Assessment & Plan Assessment & Plan (1) Otitis media: Code(s): H66.90 - Otitis media, unspecified, unspecified ear Qualifiers: Otitis media type: suppurative Chronicity: acute Laterality: left Recurrence: non-recurrent Spontaneous tympanic membrane rupture: with spontaneous rupture Qualified Code(s): H66.012 - Acute suppurative otitis media with spontaneous rupture of ear drum, left ear Plan: Supportive measures encouraged and reviewed. Antibiotic sent to requested pharmacy, taking into consideration patient's allergy profile, advised patient to take antibiotics until completed and not to stop if feeling better, unless the patient has side effects. Advised patient to follow up with primary care provider with worsening or failure to resolve. Plan See above for full details and plan. Medications: New doxycycline hyclate 100 mg PO BID 7 days 14 tabs 0RF Coding Level of Care Code Est Pt Level 3 (94582) Diagnoses Non-recurrent acute suppurative otitis media of left ear with spontaneous rupture of tympanic membrane H66.012 Otitis media type: suppurative Chronicity: acute Laterality: left Recurrence: non-recurrent Spontaneous tympanic membrane rupture: with spontaneous rupture
[2024-06-02 09:49] VITALS: BP 122/80; PULSE 123; O2SAT 96; BMI 31.9
== END 2024-06-02 10:03 | disposition home or self-care (01) ==
PROVIDERS: PCP Orthopaedic Surgery; Visit Provider Registered Nurse
DX: H66.012 Acute suppurative otitis media with spontaneous rupture of ear drum, left ear (principal)

== ENCOUNTER → 2024-06-02 09:44 | Outpatient (BNVA) | payer OTHER, SELFPAY | PROVIDERS: PCP Orthopaedic Surgery; Visit Provider Registered Nurse | DX: H66.012 Acute suppurative otitis media with spontaneous rupture of ear drum, left ear (principal) | CPT/HCPCS: 99212 ==

== ENCOUNTER 2024-06-04 10:54 | Emergency (ER) | payer OTHER, SELFPAY ==
[2024-06-04 10:58] VITALS: BP 119/74; PULSE 95; RESP 18; TEMP 36.5; O2SAT 98; BMI 32.3
--- NOTE | 2024-06-04 11:00 | ED_ITS ---
HPI - General Adult General Chief complaint: Eye Problems Stated complaint: eyes burning Time Seen by Provider: 06/04/24 11:06 Source: patient Mode of arrival: ambulatory Limitations: no limitations History of Present Illness ED Provider: Dedrick HAMILTON narrative: Patient is a 53-year-old female presenting with complaint of bilateral eye redness, clear drainage and burning sensation. Reports recent nasal congestion and sneezing. Denies vision changes. States woke with symptoms this morning. Does not wear contacts or glasses. Denies concern for foreign body/does not feels she got any foreign bodies into her eyes. complaint: eye redness Onset (ago): hour(s) Location: eyes Severity: severe Quality: burning Associated symptoms: denies other symptoms Treatments prior to arrival: none Related Data Home Medications ?Medication ?Instructions ?Recorded ?Confirmed atorvastatin 20 mg tablet 1 tab PO DAILY 07/13/22 04/02/23 benztropine 0.5 mg tablet 1 tab PO DAILY 07/13/22 04/02/23 levothyroxine 50 mcg tablet 1 tab PO DAILY 07/13/22 04/02/23 loratadine 10 mg tablet 1 tab PO DAILY 07/13/22 04/02/23 trazodone 100 mg tablet 1 tab PO BEDTIME 07/13/22 04/02/23 verapamil 40 mg tablet 1 tab PO BID 07/13/22 04/02/23 clonazepam 0.5 mg tablet 0.5 mg PO BID PRN Anxiety 04/02/23 04/02/23 haloperidol 2 mg tablet 2 mg PO BID 04/02/23 04/02/23 hydroxyzine HCl 50 mg tablet 50 mg PO BID 04/02/23 04/02/23 prazosin 1 mg capsule 1 mg PO BEDTIME 04/02/23 04/02/23 Previous Rx's ?Medication ?Instructions ?Recorded albuterol sulfate 90 mcg/actuation 2 inh inhalation Q4H PRN 07/10/22 aerosol inhaler Respiratory Distress #6.7 grams duloxetine 60 mg capsule,delayed 60 mg PO DAILY 30 days #30 caps 04/09/23 release doxycycline hyclate 100 mg tablet 100 mg PO BID 7 days #14 tabs 06/02/24 ofloxacin 0.3 % eye drops See Rx Instructions ophthalmic 06/04/24 (eye) .COMPLEX #10 mL Allergies Allergy/AdvReac Type Severity Reaction Status Date / Time amoxicillin [AMOXICILLIN] Allergy Intermediate HIVES Verified 06/04/24 11:02 carisoprodol [From SOMA] Allergy Intermediate HIVES Verified 06/04/24 11:02 Fish Containing Products Allergy Intermediate HIVES Verified 06/04/24 11:02 Penicillins [PENICILLINS] Allergy Intermediate HIVES Verified 06/04/24 11:02 latex [LATEX] Allergy Mild RASH Verified 06/04/24 11:02 fish Allergy Unknown shortness Uncoded 06/02/24 09:50 of breath MEAT AdvReac Mild SICK Uncoded 06/02/24 09:50 Review of Systems Review of Systems: As per HPI. Yes all other systems are reviewed and are negative Constitutional: Constitutional: Reports as per HPI [facility] Past Medical History Medical History (Updated 06/04/24 @ 11:06 by Shilpa Tse NP) Sight impaired Ovarian cyst Classic migraine Hx of renal calculi Chronic back pain Asthma Borderline intellectual functioning Schizoaffective disorder Hx of drug overdose History of ETOH abuse PTSD (post-traumatic stress disorder) Depression Anxiety Surgical History Hx of cholecystectomy Hx of appendectomy Hx of tubal ligation Social History Social History Household Members: Significant Other Housing: Apartment Do you presently have visiting nurse or other home services: Yes (through [facility]) Alcohol intake: current Alcohol intake frequency: a few times a week Patient Tobacco Use Status: Current everyday Tobacco user Tobacco use type: Cigarette Cigarette Packs Per Day: 1.5 Cigarettes Per Day: 30.0 Years Smoked: 37 years Second Hand Smoke Exposure: Yes Substance Use Type: Caffiene Do you have a plan to hurt others: No Plan service: No Current occupational status: unemployed Current occupation: rt handed Sexual orientation: Unable to collect Physical Exam ED Vital Signs: Vital Signs - 24 hr 06/04/24 10:58 Temperature 97.7 F Pulse Rate 95 Respiratory Rate 18 Blood Pressure 119/74 Pulse Oximetry 98 Oxygen Delivery Method Room Air BMI result Body Mass Index 32.3 Vital signs have been reviewed and appear to be correct. Blood pressure normal. Heart rate normal. Respiratory rate normal. Temperature normal. Oxygen saturation normal. Const General: cooperative, healthy appearing and no acute distress Orientation/consciousness: oriented to person, oriented to place, oriented to time and patient oriented x3 Limitations: no limitations HENMT Head: Yes normocephalic and Yes atraumatic Ears: external ears normal General nose exam: Normal external nose present Face and sinus: Yes face symmetric Mouth: oropharynx normal and moist mucous membranes Throat: Yes uvula midline Eyes Other: IOPs: OS 12, OD 15 Visual William: normal visual william by confrontation Alignment and Position: alignment normal and position normal Eyelids: Yes eyelid abnormality (erythema bilat upper and lower) Conjunctivae: conjunctival abnormal bilateral conjunctival injection diffuse Pupils: Equal, round and reactive pupils present EOM: EOMs intact bilaterally Direct Ophthalmoscopy: no photophobia Neck Neck: Yes normal visual inspection and Yes supple Resp Effort & Inspection: normal respiratory effort and able to speak in complete sentences Auscultation: clear to auscultation bilaterally Cardio Rate: regular rate Rhythm: regular rhythm Heart sounds: S1 normal heart sound present and S2 normal heart sound present GI Palpation (GI): Soft to palpation and nontender Auscultation: normoactive bowel sounds General: Yes no CVA tenderness Back/Spine/Pelvis Back: no CVA tenderness Skin General skin exam: elasticity normal and turgor normal Neuro General: oriented to person, oriented to place, oriented to time, patient oriented x3, moves all extremities, no focal motor deficits and CN's II-XI intact bilaterally Cranial nerves: Yes Equal, round and reactive pupils present Cognition (Neuro): normal cognition Extrem General: Yes full ROM, Yes no pedal edema and Yes no calf tenderness Psych Mental Status: mental status grossly normal Affect: normal affect Thought process: Normal thought process present Medical Decision Making Medical Decision Making [facility] Narrative: Patient is a 53-year-old female presenting with complaint of bilateral eye redness, clear drainage and burning sensation. On exam patient is awake, A+Ox3, VS WNL, afebrile, normal neurological exam without focal deficits, physical exam findings as above. Given reported symptoms and physical exam findings, ini tial differential includes viral vs allergic vs bacterial conjuctivitis. Do not suspect acute angle closure glaucoma. Will treat with ofloxacin drops. Instructed patient to follow up with PCP/stripper and taper as needed. Return with new or worsening symptoms. Patient verbalized understanding of and agreement with plan. Differential Diagnosis Differential Diagnoses: The differential diagnosis associated with the presentation includes As per MDM External Record Review External record reviewed: Inpatient record, Office record and Outpatient record Prescription Management I considered prescription management with: Antibiotic Discharge Plan Discharge Clinical Impression: Conjunctivitis Patient Disposition: Home, Self-Care Instructions: Conjunctivitis (ED) Additional Instructions: You were evaluated in the emergency department today for eye redness, itching, and discharge. You are being treated for conjunctivitis with antibiotic eyedrops. Please complete the full course as prescribed. Be sure to wash hands thoroughly before and after touching your eyes. You should follow up with your primary care provider or stripper and taper this week. Return to the emergency department if you develop changes in vision, increasing pain, fever 100.4F or greater, or any other concerning symptoms. Prescriptions: New ofloxacin 0.3 % drops See Rx Instructions .ROUTE .COMPLEX Qty: 10 0RF Rx Instructions: put 1-2 drps into affected eye(s) every 2-4 h x 2 days, then 1-2 drps 4 times/day days 3-7 No Action atorvastatin 20 mg tablet 1 tab PO DAILY benztropine 0.5 mg tablet 1 tab PO DAILY verapamil 40 mg tablet 1 tab PO BID trazodone 100 mg tablet 1 tab PO BEDTIME levothyroxine 50 mcg tablet 1 tab PO DAILY loratadine 10 mg tablet 1 tab PO DAILY albuterol sulfate 90 mcg/actuation HFA aerosol inhaler 2 inh inhalation Q4H PRN (Reason: Respiratory Distress) Qty: 6.7 0RF clonazepam 0.5 mg tablet 0.5 mg PO BID PRN (Reason: Anxiety) haloperidol 2 mg tablet 2 mg PO BID hydroxyzine HCl 50 mg tablet 50 mg PO BID prazosin 1 mg capsule 1 mg PO BEDTIME duloxetine 60 mg capsule,delayed release(DR/EC) 60 mg PO DAILY 30 Days Qty: 30 0RF doxycycline hyclate 100 mg tablet 100 mg PO BID 7 Days Qty: 14 0RF Print Language: Arabic
[2024-06-04 11:11] VITALS: BP 119/74; PULSE 95; RESP 18; TEMP 36.5; O2SAT 98
== END 2024-06-04 11:12 | disposition home or self-care (01) ==
PROVIDERS: Emergency Provider Emergency Medicine; PCP Orthopaedic Surgery
DX: H10.9 Unspecified conjunctivitis (principal); H57.89 Other specified disorders of eye and adnexa; R09.81 Nasal congestion; Z79.899 Other long term (current) drug therapy; F25.9 Schizoaffective disorder, unspecified; F43.10 Post-traumatic stress disorder, unspecified
CPT/HCPCS: 99282; 99283

== ENCOUNTER 2024-07-01 14:11 | Outpatient (REF) | payer OTHER, SELFPAY ==
[2024-07-01 17:45] LABS: MANUAL DIFF FLAG NO
[2024-07-01 17:52] LABS: Appearance Urine Cloudy; Color Urine Yellow; Glucose Urine UA Negative (Negative); Leukocyte Esterase Urine Small (1+) (Negative); Nitrite Urine Negative (Negative); PH 6.5 (5.0-9.0); UMIC TRIGGER UACC YES; Urine Blood Negative (Negative); Urine Ketones Negative (Negative); Urine Protein Negative (Neg-Trace)
[2024-07-01 17:59] LABS: Basophils Absolute Auto 0.1 X10*3/uL (0.0-0.2); Basophils Percent Auto 0.9 % (0-2); Eosinophils Absolute Auto 0.4 X10*3/uL (0.0-0.4); Eosinophils Percent Auto 4.4 % (0-4); Hematocrit 40.8 % (37.0-47.0); Hemoglobin 13.3 g/dl (12.0-16.0); Imm Gran Abs Auto 0.04 X10*3/uL (0.00-0.03); Imm Gran Pct Auto 0.4 % (0.0-0.4); Lymphocytes Absolute Auto 2.7 X10*3/uL (1.2-4.9); Lymphocytes Percent Auto 26.6 % (20-40); Mean Corpuscular HGB Conc 32.6 g/dl (31.0-35.0); Mean Corpuscular Hemoglobin 28.5 pg (27.0-33.0); Mean Corpuscular Volume 87.6 fL (80.0-98.0); Mean Platelet Volume 12.6 fL (9.4-12.3); Monocytes Absolute Auto 0.5 X10*3/uL (0.1-1.2); Monocytes Percent Auto 4.6 % (2-11); Neutrophils Absolute Auto 6.3 x10*3/uL (2.0-8.3); Neutrophils Percent Auto 63.1 % (45-73); Platelet Count 223 X10*3/uL (160-400); Red Blood Count 4.66 X10*6/uL (4.20-5.50); Red Cell Distribution Width 14.1 % (11.0-16.0)
[2024-07-01 18:08] LABS: Bacteria Urine 3+ (None Seen); Hyaline Casts Urine 0-2 /LPF (0-2); RBC Urine 0-2 /HPF (0-2); Squamous Epithelial Cell Urine >20 /HPF (0-2); UACC Culture Trigger YES; WBC Urine 0-5 /HPF (0-5)
[2024-07-01 18:55] LABS: Alanine Aminotransferase 14 U/L (0-31); Albumin Level 3.8 g/dL (3.5-5.0); Alkaline Phosphatase 118 U/L (39-117); Anion Gap 13 (12-20); Aspartate Amino Transferase 22 U/L (5-31); Bilirubin Total 0.4 mg/dL (0.0-1.0); Blood Urea Nitrogen 10 mg/dL (9-16); Calcium 8.4 mg/dL (8.4-10.2); Carbon Dioxide 24 mmol/L (22-29); Chloride 106 mmol/L (96-108); Cholesterol 133 mg/dL (<200); Estimated Glomerular Filt Rate > 60; Glucose Random 135 mg/dL (60-115); HDL Cholesterol 42 mg/dL (>40); LDL Cholesterol Calculated 67 mg/dL (<100); Potassium 4.1 mmol/L (3.3-5.1); Sodium 139 mmol/L (135-145); Total Protein 6.3 g/dL (6.5-8.0); Triglycerides 120 mg/dL (<150)
[2024-07-01 19:02] LABS: TSH reflex Free T4 3.93 uIU/mL (0.32-4.0)
[2024-07-02 07:53] LABS: Syphilis Screen Nonreactive (Nonreactive)
[2024-07-02 08:31] LABS: HIV AB/AG Nonreactive (Nonreactive); HIV Num 1 0.08 S/CO (0.00-0.99); ~HepC Num1 0.08 S/CO (0.00-0.79); ~Hepatitis C Antibody Nonreactive (Nonreactive)
== END 2024-07-01 14:12 | disposition home or self-care (01) ==
LOC: HO.CHCLDS 14:11
PROVIDERS: Visit Provider Internal Medicine
DX: Z11.3 Encounter for screening for infections with a predominantly sexual mode of transmission (principal); K80.20 Calculus of gallbladder without cholecystitis without obstruction; F25.8 Other schizoaffective disorders
CPT/HCPCS: 36415; 80053; 80061; 81001; 84443; 85025; 86780; 86803; 87086; 87147; 87389

== ENCOUNTER 2024-10-28 14:36 | Outpatient (REF) | payer OTHER, SELFPAY ==
--- OUTSIDE RECORDS SUMMARY | 2024-10-28 18:25 | XMS_ITS | Encounter Summary ---
Author Organization [email or web address] Address [address] [facility] [address] [place] [address] Care Team Providers Care Oracle Developer Name Role Phone Bon Jurado MD Primary Care Provider [phone] Encounter Details Date Type Department Care Team (Latest Contact Info) Description 10/28/2024 1:00 PM EDT Procedure Visit [facility] [address] [place], [place] [id number] Krista Ybarra, TAMIKO [address] [place] [address] Dysuria (Primary Dx); Visit for pelvic exam Social History Tobacco Use Types Packs/Day Years Used Date Smoking Tobacco: Every Day Cigarettes 1 35 Smokeless Tobacco: Never Alcohol Use Standard Drinks/Week Comments Not Currently 0 (1 standard drink = 0.6 oz pur e alcohol) Alcohol Answer Date Recorded Q1: How often do you have a drink containing alc ohol? 1 07/01/2024 Q2: How many drinks containi ng alcohol do you have on a typical day when you are drinking? 0 07/01/2024 Q3: How often do you have six or more drinks on one occasion? 1 07/01/2024 Depression Answer Date Recorded Patient Health Questionnaire-9 Score 1 07/01/2024 Patient Health Questionnaire-9 Score 1 07/01/2024 Last PHQ-9: Questionnaire Data Not on file 1 08/31/2023 Housing Stability Answer Date Recorded What is your housing situation today? I have ceciila rogers 02/09/[address] you li ve. Do you have problems with any of the following? None of the above 02/09/2024 Food Insecurity Answer Date Recorded Within the past 12 months, y ou worried that your food would run out before you got money to buy more: Never True 02/09/2024 Within the past 12 months,th e food you bought just didn't last and you didn't have enough money to get more: Never True Transportation Answer Date Recorded In the past 12 months, has l ack of transportation kept you from medical appts, meetings, work or from getting things needed for daily living? No 02/09/2024 Utilities Answer Date Recorded In the past 12 months, has t he electric, gas, oil or water company threatened to shut off services in your home? No 02/09/2024 Depression Answer Date Recorded Patient Health Questionnaire-2 Score 0 07/01/2024 Internet Access Answer Date Recorded Internet Access Q1 No 04/16/2024 Internet Access Q2 I do not want or need it 03/20 Comments No Sex and Gender Information Value Date Recorded Sex Assigned at Female 06/17/2022 10:21 AM EDT Legal Sex Female 10:21 AM EDT Gender Identity Female 06/17/2022 10:21 AM EDT Sexual Orientation Straight 06/17/2022 10 :21 AM EDT documented as of this encounter Last Filed Vital Signs Vital Sign Reading Time Taken Comments Blood Pressure 112/78 10/28/2024 1:11 PM EDT Pulse 82 10/28/2024 1:11 PM EDT Temperature 36.4 ??C (97.6 ??F) 10/28/2024 1:11 PM ED T Respiratory Rate 20 10/28/2024 1:11 PM EDT Oxygen Saturation 98% 10/28/2024 1:11 PM EDT Inhaled Oxygen Concentration - - Weight 89.5 kg (197 lb 6.4 oz) 10/28/2024 1:11 P M EDT Height 165.1 cm (5' 5 ) 10/28/2024 1:11 PM EDT Body Mass Index 32.85 10/28/2024 1:11 PM EDT documented in this encounter Progress Notes * Krista Ybarra CNM - 10/28/2024 1:00 PM EDT Subjective Patient ID: Rita Mendoza is a 54 y.o. female who presents for ANIMAL COP visit Pap NIL/HPV neg, Gonorrhea/Chlamydia neg 06/2021. Has tubal ligation. . Not sexually active in past few years, no current partner. Lives alone, has visiting nurse daily. Feels safe at home. Nopersonal fracture, father had hip fracture. She reports hysterectomy for bleeding at [facility] a few years ago, unsure if ovaries remain. Notes dysuria x 1 week. No other vaginal or urinary symptoms. Mammogram ordered 06/2024. HIV, syphilis, Hep C neg 06/2024. Gonorrhea/Chlamydia ordered, not run. She declines this testing today. Denies vasomotor symptoms. Sister with breast cancer in her 60s. Review of Systems Gastrointestinal: Negative for abdominal pain. Genitourinary: Positive for dysuria. Negative for dyspareunia, frequency, genital sores, hematuria,menstrual problem, pelvic pain, urgency, vaginal bleeding, vaginal discharge and vaginal pain. No abnormal pap, no abnormal bleeding, no breast pain, no breast mass, no nipple discharge Musculoskeletal: Negative for back pain. Objective BP 112/78 (BP Location: Right arm, Patient Position: Sitting, BP Cuff Size: Large adult) Pulse 82 Temp 97.6 ??F (36.4 ??C) (Oral) Resp 20 Ht 5' 5 (1.651 m) Wt 197 lb 6.4 oz (89.5 kg) LMP(LMP Unknown) SpO2 98% BMI 32.85 kg/m?? Physical Exam Constitutional: Appearance: Normal appearance. Chest: Breasts: Right: Normal. No swelling, bleeding, inverted nipple, mass, nipple discharge, skin change or tenderness. Left: Normal. No swelling, bleeding, inverted nipple, mass, nipple discharge, skin change or tenderness. Abdominal: Tenderness: There is no right CVA tenderness or left CVA tenderness. Genitourinary: General: Normal vulva. Labia: Right: No rash, tenderness, lesion or injury. Left: No rash, tenderness, lesion or injury. Vagina: Normal. No signs of injury and foreign body. No vaginal discharge, erythema, tenderness, bleeding or lesions. Cervix: No cervical motion tenderness, discharge, friability, lesion, erythema, cervical bleeding or eversion. Uterus: Normal. Not enlarged and not tender. Adnexa: Right adnexa normal and left adnexa normal. Right: No mass, tenderness or fullness. Left: No mass, tenderness or fullness. Comments: Possible tiny cervix seen on exam Lymphadenopathy: Upper Body: Right upper body: No supraclavicular or axillary adenopathy. Left upper body: No supraclavicular or axillary adenopathy. Neurological: Mental Status: She is alert. Psychiatric: Mood and Affect: Mood normal. Behavior: Behavior normal. Assessment/Plan Diagnoses and all orders for this visit: Dysuria - POCT urinalysis dipstick manually resulted - Culture, Urine, Routine Negative UA. Will send culture and treat positive results. If negative, may be component of atrophy. Could trial vaginal estrogen if so. Visit for pelvic exam Unable to locate any hysterectomy records at [facility]. Will have nurses look further. Pap/HPV 06/2026 if uterus remains. Report bleeding. Routine mammogram - will have DC fax results. Calculate Tyrer Cuzick once results in due to sister with breast cancer. Consider early BMD as father with hip fracture. documented in this encounter Plan of Treatment Upcoming Encounters Date Type Department Care Team (Late st Contact Info) Description 11/09/2024 2:00 PM EDT Office Visit [facility] PEDS [address] [place] [address] Bon Jurado MD [address] [place] [address] Scheduled Orders Name Type Priority Associated Diagnoses Orde r Schedule Culture, Urine, Routine Microbiology Routine Dysuria Ordered: 10/28/2024 documented as of this encounter Procedures Procedure Name Priority Date/Time Associated Diagnosis Comments POCT URINALYSIS DIPSTICK Routine 10/28/2024 1:57 PM EDT Dysuria documented in this encounter Results * POCT urinalysis dipstick manually resulted (10/28/2024 1:57 PM EDT) Color, UA Yellow Clarity, UA Clear Glucose, UA Negative Bilirubin, UA Negative Ketones, UA Negative Spec Grav, UA 1.015 Blood, UA Negative Negative, None Detected pH, UA 7.0 Protein, UA Negative Urobilinogen, UA 0.2 Leukocytes, UA Negative Negative, Rare, Trace Nitrite, UA Negative Negative, None Detected Appearance, UA clear QC Media Lot # Comment:[id number] Lot# Expiration Date Comment:05/17/2025 Urine 10/28/2024 1:57 PM EDT Krista Ybarra CNM POINT OF CARE TEST ENTER/ EDIT ORDERABLES Final Result documented in this encounter Visit Diagnoses Diagnosis Dysuria- Primary Visit for pelvic exam documented in this encounter Additional Health Concerns Assessment Noted Time PHQ-9 Depression Total Score: 1 07/01/20 24 1:42 PM EST documented as of this encounter Care Teams Oracle Developer Relationship Specialty Start Date End Date Bon Jurado MD [address] [place] [address] PCP - General Internal Medicine 08/18/18 documented as of this encounter
--- OUTSIDE RECORDS SUMMARY | 2024-10-28 18:25 | XMS_ITS | Encounter Summary ---
Author Organization [employer] Address [address] [facility] [address] [place] [address] Care Team Providers Care Tobacco Grader Name Role Phone Bon Jurado MD Primary Care Provider [phone] Reason for Visit * Reason Comments Med Refill Encounter Details Date Type Department Care Team ([facility] Contact Info) Description 10/14/2024 Refill [facility] [address] [place], [place] [phone] Bon Jurado MD [address] [place] [address] Chronic midline low back pain without sciatica Social History Tobacco Use Types Packs/Day Years [...] is your housing situation today? I have cecilia rogers 02/09/[address] you [...] not want or need it 03/20 Comments Unknown Sex and Gender Information Value Date Recorded Sex Assigned at Female 06/17/2022 10:21 AM EDT Legal Sex Female 10:21 AM EDT Gender Identity Female 06/17/2022 10:21 AM EDT Sexual Orientation Straight 06/17/2022 10 :21 AM EDT documented as of this encounter Plan of Treatment Upcoming Encounters Date Type Department Care Team (Late st Contact Info) Description 11/09/2024 2:00 PM EDT Office Visit [facility] MED & PEDS [address] [place] [address] Bon Jurado MD [address] [place] [address] documented as of this encounter Visit Diagnoses Diagnosis Chronic midline low back pain without sciatica documented in this encounter Additional Health Concerns Assessment Noted Time PHQ-9 Depression Total Score: 1 07/01/20 24 1:42 PM EST documented as of this encounter Care Teams Tobacco Grader Relationship Specialty Start Date End Date Bon Jurado MD [address] [place] [address] PCP - General Internal Medicine 08/18/18 documented as of this encounter
--- OUTSIDE RECORDS SUMMARY | 2024-10-28 18:25 | XMS_ITS | Encounter Summary ---
Author Organization [employer] [facility] Address [address] [place] [address] 7 [place] [address] Care Team Providers Care Firestop/Containment Worker Name Role Phone Bon Jurado MD Primary Care Provider [phone] Encounter Details Date Type Department Care Team (Latest Contact Info) Description 12/02/2018 Abstract [facility] CONVERSIONS Dental, Provider, DDS Social History Tobacco Use Types Packs/Day Years Used Date Smoking Tobacco: Never Assessed Comments Unknown Sex and Gender Information Value [...] Description 11/09/2024 2:00 PM EDT Office Visit [facility] CHC MED & PEDS [address] [place] [address] Bon Jurado MD [address] [place] [address] documented as of this encounter Visit Diagnoses Not on filedocumented in this encounter Care Teams Firestop/Containment Worker Relationship Specialty Start Date End Date Bon Jurado MD [address] [place] [address] PCP - General Internal Medicine 08/18/18 documented as of this encounter
--- OUTSIDE RECORDS SUMMARY | 2024-10-28 18:25 | XMS_ITS | Encounter Summary ---
Author Organization [employer] Address [address] [facility] 7t [place] [address] Care Team Providers Care Html Developer Name Role Phone Bon Jurado MD Primary Care Provider [phone] Reason for Visit * Reason Comments Med Refill Encounter Details Date Type Department Care Team ([facility] Contact Info) Description 09/30/2024 Refill [facility] CHC MED & PEDS [address] [place], [place] [phone] Felipa Lucia MD [address] [place], [place] [phone] Acquired hypothyroidism Social History Tobacco Use Types Packs/Day Years [...] Description 11/09/2024 2:00 PM EDT Office Visit [facility] CHC MED & PEDS [address] [place] [address] Bon Jurado MD [address] [place] [address] documented as of this encounter Visit Diagnoses Diagnosis Acquired hypothyroidism Unspecified hypothyroidism documented in this encounter Additional Health Concerns Assessment Noted Time PHQ-9 Depression Total Score: 1 07/01/20 24 1:42 PM EST documented as of this encounter Care Teams Html Developer Relationship Specialty Start Date End Date Bon Jurado MD [address] [place] [address] PCP - General Internal Medicine 08/18/18 documented as of this encounter
--- OUTSIDE RECORDS SUMMARY | 2024-10-28 18:25 | XMS_ITS | Encounter Summary ---
Author Organization [employer] Address [address] [facility] 7t [place] [address] Care Team Providers Care Sheet Metal Engineer Name Role Phone Bon Jurado MD Primary Care Provider [phone] Encounter Details Date Type Department Care Team (Latest Contact Info) Description 10/28/2024 Travel Social History Tobacco Use Types Packs/Day Years [...] Description 11/09/2024 2:00 PM EDT Office Visit [facility] MED & PEDS [address] [place] [address] Bon Jurado MD [address] [place] [address] documented as of this encounter Visit Diagnoses Not on filedocumented in this encounter Additional Health Concerns Assessment Noted Time PHQ-9 Depression Total Score: 1 07/01/20 24 1:42 PM EST documented as of this encounter Care Teams Sheet Metal Engineer Relationship Specialty Start Date End Date Bon Jurado MD [address] [place] [address] PCP - General Internal Medicine 08/18/18 documented as of this encounter
--- OUTSIDE RECORDS SUMMARY | 2024-10-28 18:25 | XMS_ITS | Encounter Summary ---
Author Organization [employer] Address [address] [facility] 7 [place] [address] Care Team Providers Care Marketing Programs Manager Name Role Phone Bon Jurado MD Primary Care Provider [phone] Reason for Visit * Reason Onset Date Comments Appointment Request 08/31/2024 Encounter Details Date Type Department Care Team ([facility] Contact Info) Description 08/31/2024 Telephone [facility] CHC MED & PEDS [address] [place] [address] Bon Jurado MD [address] [place] [address] Appointment Request Social History Tobacco Use Types Packs/Day Years [...] AM EDT documented as of this encounter Miscellaneous Notes * Telephone Encounter - Donna Clemens - 08/31/2024 9:21 AM EST Tc from pt requesting a PAP appt . No symptoms documented in this encounter Plan of Treatment Upcoming Encounters Date Type Department Care Team ([facility] st Contact Info) Description 11/09/2024 2:00 PM EDT Office Visit [facility] MED & PEDS [address] [place] [address] Bon Jurado MD [address] [place] [address] documented as of this encounter Visit Diagnoses Not on filedocumented in this encounter Additional Health Concerns Assessment Noted Time PHQ-9 Depression Total Score: 1 07/01/20 24 1:42 PM EST documented as of this encounter Care Teams Marketing Programs Manager Relationship Specialty Start Date End Date Bon Jurado MD [address] [place] [address] PCP - General Internal Medicine 08/18/18 documented as of this encounter
--- OUTSIDE RECORDS SUMMARY | 2024-10-28 18:25 | XMS_ITS | Data Portability ---
Author Organization [employer] Address [address] [place] [phone] Care Team Providers Care Manager General Name Role Phone [facility] Referring Provider [phone] Assessment Encounter Date Assessment Date Assessment LastModified by Organization Details LastModified Time 06/26/2023 06/26/2023 As noted, we were called to see this patient regarding concerns of cough. Evaluation in the field was performed by my bulking machine operator colleague, as noted above, I provided real-time direction and supervision for this visit. The evaluation revealed 52y F with viral syndrome. Flu and COVID negative. BP low is her normal. Pulse a bit up but feeling under the weather and improved on recheck. Chart reviewed and patient confirms no diagnosis of COPD or asthma. Impression: viral syndrome w cough Plan: - supportive care - symptomatic care - tea and honey - COVID PCR Primary care, consider outreach to confirm improvement Disposition: We discussed the diagnostic uncertainty of home visits and the risk associated with this. In this case, the patient and I felt this to be an acceptable and reasonable amount of risk given the benefit of avoiding an ED visit. We discussed the need to seek care urgently/emerge ntly in the setting of any new or worsening serious symptoms, particularly fever, chills, worsening shob atilhou Not available 06/26/2023 20:13:49 Plan of Treatment Reminders Order Date Submit Date Provider Last Modified By Organization Details Last Modified Time Details Appointments None recorded. Lab SARS CoV 2 RNA (COVID-19), QL, attorney general-PCR, respiratory specimen 2022 023 [facility], [address], [place], [address], 21:17:35 Referral None recorded. Procedures None recorded. Surgeries None recorded. Imaging None recorded. Medication Orders Tessalon Perles 100 mg capsule 2022 023 [facility], [address] [place] [address], [id number], 3 20:23:51 dextrometho rphan HBr 15 mg capsule 2022 023 [facility], [address] [place] [address], [id number], 3 20:23:50 Patient TargetsNo targets recorded. Patient InstructionsNo instructions recorded. Reason for Referral None Reported. Results Created Date Observation Date Name Description Value Unit Range Abnormal Flag Note LastModifiedBy Organization Detail LastModifiedTime 06/27/2006/28/2023 SARS COV 2 RNA(C OVID 19), QUALI TATIV E NAAT sars cov 2 RNA DETECT ED not detect ed abnormal A Detec jalen resul t indic ates that the patie nts' speci men was posit teressa for SARS- CoV-2 RNA. Test Metho d: Nucle ic Acid Ampli ficat ion Test inclu ding rever se trans cript ion polym erase chain react ion (RT-P CR) and trans cript ion media jalen ampli ficat ion (TMA) . The test metho d meets the [place] Cente rs for Disea se Contr ol and preve ntion (CDC) pre depar ture and arriv al requi remen t for viral test for COVID -19 dated 2020. Testi ng requi remen ts for angelefrem bradford e with time. The patie nt is respo nsibl e for deter minin g the test requi remen ts for each natio n while they are traveulalio underwood. This test has been autho rized by the FDA under an Emerg ency Use Autho rizat ion (EUA) for use by autho rized labor atori es. Joanne abdullahi w the Fact Sheet s and FDA autho rized label ing avail able for healt h care provi ders and patie nts using the follo wing websi ruddy: https ://saritha w.que stdia gnost ics.c om/ho me/Co vid-1 9/HCP /Ques tIVD/ fact- sheet .html https ://ww w.que stdia gnost ics.c om/ho me/Co vid-1 9/Pat ients / [facility] IVD/f act-s heet. html Due to the curre nt publi c healt h emerg ency, [facility] o[facility] s is accep ting sampl es from appro priat e clini ta sourc es colle cted using wide varie ty of swabs and trans port media for COVID -19. Not detec jalen test resul ts deriv ed from speci mens recei malik in non- comme rcial ly manuf actur ed viral colle ction kits or those not yet autho rized by FDA for COVID -19 testi ng shoul d be cauti ously evalu ated and take extra preca ution s such as addit ional clini ta monit oring , inclu ding colle ction of an addit ional speci men. Addit ional infor matio n about COVID -19 can be found at the [facility] websi te: www.[employer] uNomadeskD Visterra/ Covid 19. For patie nts with a Detec jalen or Incon clusi ve test resul t, pleas e see CDC's COVID -19 Treat ments and Medic ation s page locat ed at https ://ww w.cdc .gov/ coron aviru s/201 9-nco v/you r-hea lth/t reatm ents- for- sever e-ill ness. html for infor matio n on COVID -19 thera peuti cs. For patie nts with a Not Detec jalen test resul t, pleas e see CDC's Vacci kimberly for COVID -19 page locat ed at https ://ww w.cdc .gov/ coron aviru s/201 9-nco v/vac cines /inde x.htm l for infor matio n on COVID -19 vacci kimberly. Not Available [employer] [facility] [place] [facility] [address] [place] [address] [place], [place], [address], 06/28/2023 21:17:35 Result Notes None recorded. Medical Equipment None Reported. Allergies Allergen ID Allergen Name Allergen Category Reaction Reaction Severity Criticality Documentation Date Start Date Code Code System Note Provider Name and Address Organization Details Recorded Time 7235 latex environme nt,medica tion Not available Not available Not available 06/15/2024 34735 91 RxNorm Not Available [employer] - production 4 03:35:58 7236 Product containin g penicilli n (product) medicatio n Not available Not available Not available 06/15/2024 41562 8001 SNOMED Not Available [employer] - production 4 03:35:58 Medications Name Sig Start Date Stop Date Status Note LastModified by Organization Details LastModified Time atorvastatin 20 mg tablet TAKE 1 TABLET BY ORAL ROUTE IN EVENING active Not Available Not Available N ot Available benztropine 0.5 mg tablet TAKE ONE (1) TABLET BY MOUTH AT BEDTIME active Not Available Not Available No t Available clindamycin HCl 300 mg capsule active Not Available Not Available Not Available verapamil 40 mg tablet active Not Available Not Available No t Available prazosin 1 mg capsule active Not Available Not Available N ot Available clonazepam 0.5 mg tablet TAKE 1 TABLET BY MOUTH EVERY DAY NEEDED FOR ANXIETY active Not Available Not Available No t Available hydroxyzine HCl 50 mg tablet active Not Available Not Available Not Available melatonin 3 mg tablet active Not Available Not Available No t Available amoxicillin 500 mg tablet active Not Available Not Available Not Available levothyroxin e 25 mcg tablet active Not Available Not Available Not Available Tessalon Perles 100 mg capsule Take 1 capsule 3 times a day by oral route as needed for 7 days. 2022 active Not Available Not Available Not Avai lable cyanocobalam in (vit B-12) 500 mcg tablet TAKE 1 TABLET BY MOUTH EVERY DAY active Not Available Not Available No t Available trazodone 100 mg tablet TAKE 1 TABLET BY MOUTH DAILY AT BEDTIME NEEDED FOR INSOMNIA active Not Available Not Available No t Available doxycycline monohydrate 100 mg capsule active Not Available Not Available Not Available levothyroxin e 50 mcg tablet active Not Available Not Available Not Available haloperidol 10 mg tablet TAKE 1 TABLET BY MOUTH TWICE DAILY active Not Available Not Available No t Available nicotine 21 mg/24 hr daily transdermal patch active Not Available Not Available Not Available fluticasone 100 mcg-salmeter ol 50 mcg/dose blistr powdr for inhalation active Not Available Not Available N ot Available haloperidol 2 mg tablet active Not Available Not Available Not Available loratadine 10 mg tablet TAKE 1 TABLET BY MOUTH EVERY DAY active Not Available Not Available No t Available prazosin 2 mg capsule active Not Available Not Available N ot Available naproxen 500 mg tablet TAKE 1 TABLET BY MOUTH 2 TIMES A DAY ( 8 AM, 8 PM ) EVERY DAY NEEDED active Not Available Not Available No t Available Ventolin HFA 90 mcg/actuatio n aerosol inhaler INHALE 2 PUFFS EVERY FOUR HOURS NEEDED FOR RESPIRATORY DISTRESS active Not Available Not Available No t Available dextromethor wright HBr 15 mg capsule Take 1 capsule every 8 hours by oral route as needed. 2022 active Not Available Not Available Not Avai lable duloxetine 60 mg capsule,keisha yed release active Not Available Not Available Not Available calcium 600 mg (as carbonate)-v itamin D3 10 mcg (400 unit) tablet active Not Available Not Available Not Available Vraylar 4.5 mg capsule active Not Available Not Available N ot Available Paxlovid 300 mg (150 mg x 2)-100 mg tablets in a dose pack active Not Available Not Available No t Available Vitals Date Recorded Body height Body weight Body temperature Heart rate Respiratory rate Oxygen saturation Oxygen saturation in Arterial blood by Pulse oximetry Heart rate Systolic blood pressure Diastolic blood pressure Provider Name and Address Organization Details Last Updated DateTime 3 162.56 cm 93310.7 44 g 98 [degF] 104 /min 20 /min 96 % 96 % 96 /min 104 mm[Hg] 76 mm[Hg] Not Available [employer] - [facility] 3 19:54:45 Social History None recorded. Functional Status None recorded. Mental Status None recorded. Family History Nothing Reported. Medical History No medical history recorded. Gynecological HistoryNo gynecological history recorded. Obstetrics History GPAL:G 0 P 0 0 0 0 Past Encounters Encounter ID Performer Location Encounter Start Date Encounter Closed Date Diagnosis/Indication Diagnosis SNOMED-CT Code Diagnosis ICD10 Code Diagnosis Note [id number] Farida Schafeer MD [facility] - [facility] [address] [place] [address] 06/26/2023 19:54:38 06/27/2023 12:51:25 Upper respiratory infection 01274839 J06.9 Health Concerns Section Related Observation LastModified by Organization Detai ls LastModified Time None Recorded Concern Status LastModified by Organization Details LastModified Time None Recorded Advance Directives Directive None Recorded Payers Encounter Date Sequence Insurance Name Policy Number Policy Young Covered Member ID Young Member ID Guarantor Name 06/26/2023 1 [facility] - DOS ON OR AFTER 2022 - DUAL ELIGIBLE - [employer] OPT[employer] AND ONE CARE (MEDICARE REPLACEMENT/ADV ANTAGE - HMO) Rita Mendoza [id number] Rita Mcfadden Kelly Notes Date Note Type Note Provider Name and Address Organization Details Recorded Time 06/26/2023 text/html HPI: Sx of cough, ST, BATISTA x 5 days. Per pt did home kit for COVID-19 yesterday and negative. Pt having chills. No fever. Pt having bilateral ear pain. Pt also having productive cough. [facility] perla[facility] Currently at [facility] home at address below. .................. .................. .................. .................. .................. .................. .................. ............... [facility] Nursing Assessment: Comments: Reviewed - Sudhakar [facility] [place]PI: viral syndrome. poor PO for about 5 days. BATISTA throughout. pharyngitis, ear pain, congestion, cough. lower BP is normal for her. no fevers. COVID exposure 2 days ago............... .................. .................. .................. .................. .................. .................. .................. . Tire Repairer Note From Bartolo Carey: [facility] 3 arrived in [place] 52-year-old female seated in chair. Patient reports one week of dry cough, as well as congestion. Patient states PO intake is down however, drinking adequate amount of fluids. Patient reports she had an exposure to Covid two days ago but tested negative. Patient took Tylenol 500 mg at 4 PM for headache with no relief. Vital signs taken as noted. Covid and flu swab negative. PCR test required for send out. Lung sounds clear. Abdomen soft nontender. Patient does report umbilical pain. [facility] [place] it. Prescription sent to pharmacy. [facility] 3 clear. Tire Repairer Allergies: Latex, Penicillin .................. .................. .................. .................. .................. .................. .................. ............... Disposition: Fulfilled Farida Schaefer MD [address] [facility],[address], [place], [address], [employer] 06/26/2023 20:15:10 OBGyn Episode No OBEpisode recorded.
--- OUTSIDE RECORDS SUMMARY | 2024-10-28 18:25 | XMS_ITS | Encounter Summary ---
Author Organization [employer] Address [address] [place] [address] 7 [place] [address] Care Team Providers Care Diplomatic Officer Name Role Phone Bon Jurado MD Primary Care Provider [phone] Reason for Referral * Imaging (Routine) - Closed Specialty Diagnoses / Procedures Referred By Contac t Referred To Contact Radiology Diagnoses Elevated alkaline phosphatase level Procedures US Abdomen Complete Bon Jurado MD [address] [place] [address] Phone: tel: fax: [facility] [address] [place] [address] Phone: tel: fax: Referral ID Status Reason Start Date Expiration Date Visits Re quested Visits Authorized [id number] Closed 07/02/2024 07/02/2025 1 1 Encounter Details Date Type Department Care Team ([facility] st Contact Info) Description 06/28/2024 Orders Only [facility] [address] [place] [address] Bon Jurado MD [address] [place], [place] [phone] Screen for STD (sexually transmitted disease) (Primary Dx); Other schizoaffective disorders (CMS/HCC); Elevated alkaline phosphatase level; Elevated random blood glucose level Social History Tobacco Use Types Packs/Day Years [...] as of this encounter Miscellaneous Notes * Result Encounter Note - Bon Jurado MD - 06/28/2024 4:20 PM EST Please call. Mild elevation of glucose level with low protein. Please advise patient to come back to the office to get a repeat blood glucose level with an A1c level. I also recommend to increase protein in the diet. Mild elevation of alkaline phosphatase. Patient will need an ultrasound of the abdomen. documented in this encounter Plan of Treatment Upcoming Encounters Date Type Department Care Team (Late st Contact Info) Description 11/09/2024 2:00 PM EDT Office Visit [facility] MED [facility] P[facility] [address] [place] [address] Bon Jurado MD [address] [place] [address] Scheduled Orders Name Type Priority Associated Diagnoses Orde r Schedule Chlamydia/N. Gonorrhoeae RNA, TMA, Urogenitial Microbiology Routine Screen for STD (sexually transmitted disease) Expected: 06/28/2024 (Approximate), Expires: 06/28/2025 US Abdomen Complete Imaging Routine Elevated alkaline phosphatase level Expected: 07/02/2024, Expires: 07/02/2025 Hemoglobin A1c Lab Routine Elevated random blood glucose level Expected: 07/02/2024 (Approximate), Expires: 07/02/2025 Glucose, Random, Serum Lab Routine Elevated random blood glucose level Expected: 07/02/2024 (Approximate), Expires: 07/02/2025 documented as of this encounter Procedures Procedure Name Priority Date/Time Associated Diagnosis Comments URINALYSIS, COMPLETE, WITH REFLEX TO CULTURE Routine 07/01/2024 2:20 PM EST Screen for STD (sexually transmitted disease) SYPHILIS SCREEN Routine 07/01/2024 2:13 PM EST Screen for STD (sexually transmitted disease) TSH W/REFLEX TO FT4 Routine 07/01/2024 2 :13 PM EST Other schizoaffective disorders (CMS/HCC) HEPATITIS C AB W/REFL TO HCV RNA, QN, PCR Routine 07/01/2024 2:13 PM EST Screen for STD (sexually transmitted disease) HIV 1/2 ANTIGEN/ANTIBODY, FOURTH GENERATION W/RFL Routine 07/01/2024 2:13 PM EST Screen for STD (sexually transmitted disease) COMPREHENSIVE METABOLIC PANEL Routine 07/01/2024 2:13 PM EST Other schizoaffective disorders (CMS/HCC) CULTURE, URINE, ROUTINE Routine 07/01/2024 12:00 AM EST Screen for STD (sexually transmitted disease) documented in this encounter Results * (ABNORMAL) Urinalysis, Complete, with Reflex to Culture (07/01/2024 2:20 PM EST) Color Urine Yellow [facility] Appearance Urine Cloudy [facility] PH 6.5 5.0 - 9.0 [facility] Glucose Urine UA Negative Negative mg/dL [facility] Urine Blood Negative Negative [facility] Specific [place] - Urine 1.020 1.005 - 1.025 [facility] Urine Protein Negative Neg-Trace mg/dL [facility] Urine Ketones Negative Negative mg/dL [facility] Nitrite Urine Negative Negative [facility] Leukocyte Esterase Urine Small (1+)(A) Negative [facility] RBC Urine 0-2 0 - 2 /HPF [facility] Urine WBC 0-5 0 - 5 /HPF [facility] Urine Squamous Epithelial Cell >20 0 - 2 /HPF [facility] Urine Bacteria 3+ None Seen [facility] Hyaline Casts, Urine 0-2 0 - 2 /LPF [facility] 07/01/2024 2:20 PM EST 07/01/2024 5:40 PM EST Narrative [facility] - 07/01/2024 6:12 PM EST [id number], Clean Catch us Bon Jurado MD LAB URINE ORDERABLES Final Result [facility] [address] [place] [address] [phone] * Syphilis Screen (07/01/2024 2:13 PM EST) [facility] Syphilis Screen Nonreactive Nonreactive [facility] Blood 07/01/2024 2:13 PM EST 07/01/2024 5:43 PM EST us Bon Jurado MD LAB BLOOD ORDERABLES Final Result Performing Organization Address [facility]/ZIP Co de Phone Number [facility] [address] [place] [address] [phone] * Hepatitis C Antibody with Reflex to HCV, RNA, Quantitative, Real-Time PCR (07/01/2024 2:13 PM EST) [facility] Hepatitis C Antibody Nonreactive Nonreactive [facility] Comment:Antibodies to HCV no t detected; does not exclude early acuteHCV infection. Blood Venous blood specimen / Unknown 07/01/2024 2:13 PM EST 07/01/2024 5:36 PM EST us Bon Jurado MD LAB BLOOD ORDERABLES Final Result Performing Organization Address [facility] Co de Phone Number [facility] [address] [place] [address] [phone] * HIV-1/2 Antigen and Antibodies, Fourth Generation, with Reflexes (07/01/2024 2:13 PM EST) [facility] HIV AB/AG Nonreactive Nonreactive [facility] Comment:HIV-1 p24 Ag and/or HIV-1/HIV-2 Ab not detected.A test result that is nonreactive does not exclude thepossibility of exposure to or infection with HIV-1 and/orHIV-2. Nonreactive results in this assay for individualswith prior exposure to HIV-1 and/or HIV-2 may be due toantigen and antibody levels that are below the limit ofdetection of this assay.The [facility]ISHI HIV Ag/Ab Combo assay result andsupplemental assay results should be interpreted inconjunction with the patient's clinical presentation,history and other laboratory results. If the results areinconsistent with clinical evidence, additional testing issuggested to confirm the result. Blood Venous blood specimen / Unknown 07/01/2024 2:13 PM EST 07/01/2024 5:36 PM EST us Bon Jurado MD LAB BLOOD ORDERABLES Final Result Performing Organization Address [facility] Co de Phone Number [facility] [address] [place] [phone] * TSH W/Reflex to FT4 (07/01/2024 2:13 PM EST) Pathologist [facility] TSH reflex Free T4 3.93 0.32 - 4.0 uIU/mL [facility] Blood Venous blood specimen / Unknown 07/01/2024 2:13 PM EST 07/01/2024 5:37 PM EST us Bon Jurado MD LAB BLOOD ORDERABLES Final Result Performing Organization Address [facility] Co de Phone Number [facility] [address] [place] [phone] * (ABNORMAL) Comprehensive Metabolic Panel (07/01/2024 2:13 PM EST) Pathologist [facility] Sodium 139 135 - 145 mmol/L [facility] Potassium 4.1 3.3 - 5.1 mmol/L [facility] Chloride 106 96 - 108 mmol/L [facility] Carbon Dioxide 24 22 - 29 mmol/L [facility] Anion Gap 13 12 - 20 [facility] Urea Nitrogen (BUN) 10 9 - 16 mg/dL [facility] Creatinine, Serum 0.88 0.5 - 1.4 mg/dL [facility] Estimated Glomerular Filt Rate >60 [facility] Comment:Chronic Kidney Disea se: Estimated GFR < 60 mL/min/[id number] Kidney Disease: Estimated GFR < 15 mL/min/1.73m2 Glucose 135(H) 60 - 115 mg/dL [facility] Calcium 8.4 8.4 - 10.2 mg/dL [facility] Bilirubin, Total 0.4 0.0 - 1.0 mg/dL [facility] Aspartate Amino Transferase 22 5 - 31 U/L [facility] Alanine Aminotransferase 14 0 - 31 U/L [facility] Total Protein 6.3(L) 6.5 - 8.0 g/dL [facility] Albumin Level 3.8 3.5 - 5.0 g/dL [facility] Alkaline Phosphatase 118(H) 39 - 117 U/L [facility] Blood Venous blood specimen / Unknown 07/01/2024 2:13 PM EST 07/01/2024 5:37 PM EST Bon Jurado MD LAB BLOOD ORDERABLES Final Result Performing Organization Address [facility] Co de Phone Number [facility] [address] [place] [phone] * Culture, Urine, Routine (07/01/2024 12:00 AM EST) Urine Urine specimen obtained by clean catch procedure / Unknown 07/01/2024 07/01/2024 Comment:[facility]ACC Narrative [facility] - 07/03/2024 8:41 AM EST Urine Culture Report Result Urine Culture > 100,000 cfu/ml Urine Culture Mixed bacterial dez characteristic of Urine Culture urogenital contamination. Strep agalactiae (Grp B) Quant 10,000 to 50,000 cfu/mL CATH PAPER MAKING MACHINE OPERATOR? Susceptibility not routinely performed on this isolate. Specimen Source: Urine clean catch Bon Jurado MD LAB MICROBIOLOGY - GENERAL ORDERABLES Final Result Performing Organization Address [facility] Co de Phone Number [facility] [address] [place] [address] [phone] documented in this encounter Visit Diagnoses Diagnosis Screen for STD (sexually transmitted disease)- Primary Screening examination for venereal disease Other schizoaffective disorders (CMS/HCC) Elevated alkaline phosphatase level Elevated random blood glucose level documented in this encounter Additional Health Concerns Assessment Noted Time PHQ-9 Depression Total Score: 1 10/03/19 23 10:16 AM EST documented as of this encounter Care Teams Diplomatic Officer Relationship Specialty Start Date End Date Bon Jurado MD [address] [place] [phone] PCP - General Internal Medicine 08/18/18 documented as of this encounter
--- OUTSIDE RECORDS SUMMARY | 2024-10-28 18:25 | XMS_ITS | Encounter Summary ---
Author Organization [employer] Address [address] [facility] 7 [place] [address] Care Team Providers Care System Analyst Name Role Phone Bon Jurado MD Primary Care Provider [phone]- [phone] Reason for Visit * Reason Onset Date Comments Hospital Follow-up 07/30/2022 Encounter Details Date Type Department Care Team ([facility] st Contact Info) Description 07/30/2022 Telephone [facility] MEDICINE [address] [place], [place] [phone] Bon Jurado MD [address] [place], [place] [phone] Hospital Follow-up Social History Tobacco Use Types Packs/Day Years Used Date Smoking Tobacco: Never Assessed Comments Unknown Sex and Gender Information Value Date Recorded Sex Assigned at Female 06/17/2022 10:21 AM EDT Legal Sex Female 10:21 AM EDT Gender Identity Female 06/17/2022 10:21 AM EDT Sexual Orientation Straight 06/17/2022 10 :21 AM EDT documented as of this encounter Miscellaneous Notes * Telephone Encounter - Petra Dowell RN - 07/30/2022 1:52 PM EST Call returned, spoke with pt who reports 07/13 went into [facility] ED, pt was admitted for pneumonia and discharge 08/04/22. Per pt was not discharge on any medication. No med changes done. Per pt only told to follow up with PCP. Pt still having cough. Pt given HDF with Dr. Dias 08/01 at 2:30pm. PERRY active in [facility]. Message routed to CM team for HDF log tracking and obtaining [facility] discharge summary. * Telephone Encounter - Rafi Ortega - 07/30/2022 10:22 AM EST Patient calling for HDF follow up appointment. Patient hospitalized at [facility] and discharged on 07/25/22. Patient advised will forward to team nurse for follow up and appointment scheduling. documented in this encounter Plan of Treatment Upcoming Encounters Date Type Department Care Team (Late st Contact Info) Description 11/09/2024 2:00 PM EDT Office Visit [facility] [address] [place] [address] Bon Jurado MD [address] [place] [address] documented as of this encounter Visit Diagnoses Not on filedocumented in this encounter Care Teams System Analyst Relationship Specialty Start Date End Date Bon Jurado MD [address] [place] [address] PCP - General Internal Medicine 08/18/18 documented as of this encounter
--- OUTSIDE RECORDS SUMMARY | 2024-10-28 18:26 | XMS_ITS | Clinical Summary ---
Author Organization [employer] Address [address] [facility] 7t [place] [address] Care Team Providers Care Rpg Programmer Analyst Name Role Phone Bon Jurado MD Primary Care Provider [phone] Allergies Active Allergy Reactions Criticality Noted Date Comments Carisoprodol 03/11/2014 Latex 07/31/2022 Penicillins Unknown Other reaction(s): unspecified Shellfish Allergy 07/31/2022 Medications * This document contains information received from the source organization and may not represent a complete record from that organization. cholecalciferol (Vitamin D-3) 25 MCG (1000 UT) capsule take 1 Capsule by Oral route once a day 04/18/20 22 Active clonazePAM (KlonoPIN) 0.5 MG tablet Take 1 tablet by mouth if needed in the morning and at bedtime. Active Diclofenac Sodium (Voltaren) 1 % gel Apply 2 g topically every 6 (six) hours. 10/24/19 22 Active DULoxetine (Cymbalta) [address] capsule Take 1 capsule by mouth 1 (one) time each day. daily Active lidocaine (LMX) 4 % cream every 12 (twelve) hours. Apply 1 small amount to skin BID PRN 04/18/20 22 Active nicotine (Nicoderm, Step 1) 21 MG/24HR patch Place 1 patch on the skin. daily Active traZODone (Desyrel) 100 MG tablet Take 1.5 tablets by mouth at bedtime. Active benztropine (Cogentin) 0.5 MG tablet Take 1 tablet by mouth at bedtime. Active prazosin (Minipress) 1 MG capsule Take 1 capsule by mouth at bedtime. 08/27/19 23 Active Calcium Carb-Cholecalcife rol 600-10 MG-MCG tablet Take 1 tablet by mouth 2 times daily. 07/29/20 22 Active melatonin 3 MG tablet Take 2 tablets by mouth if needed at bedtime for sleep. Active hydrOXYzine HCl (Atarax) 50 MG tablet Take 1 tablet by mouth if needed in the morning and at bedtime. 09/20/19 23 Active haloperidol (Haldol) 2 MG tablet Take 1 tablet by mouth 2 times daily. 09/20/19 23 Active Hypertonic Nasal Wash (Sinus Rinse Kit) packIndications:N regino congestion To use daily 1 each 10/03/19 23 Active albuterol 108 (90 Base) MCG/ACT inhaler Inhale 2 puffs every 6 (six) hours if needed for wheezing. 8.5 g 3 05/19/20 23 Active cyanocobalamin (Vitamin B-12) 1000 MCG tablet Take 1 tablet by mouth 1 (one) time each day. Active Nirmatrelvir&Anders navir 300/100 (Paxlovid, 300/100,) 20 x 150 MG & 10 x 100MG tablet therapy pack Take 1 Dose by mouth 2 times daily. 30 each 06/30/20 23 Active lidocaine (Lidoderm) 5 % patchIndications: Low back pain of over 3 months duration Apply 1 patch topically Once per day. Remove & discard patch within 12 hours or as directed by MD. 30 patch 1 04/26/20 24 Active bacitracin-polymy starr b (Polysporin) ointment Apply topically 2 times daily. 30 g 1 06/08/20 24 Active econazole nitrate 1 % cream Apply bid to groin area 85 g 1 06/08/20 24 Active Fluticasone-Salme terol 100-50 MCG/ACT aerosol powderIndications :Moderate asthma, unspecified whether complicated, unspecified whether persistent INHALE 1 PUFF EVERY 12 (TWELVE) HOURS. 60 each 11 06/28/20 24 Active atorvastatin (Lipitor) 20 MG tabletIndications :Hypercholesterol emia TAKE 1 TABLET BY MOUTH EVERY EVENING 30 tablet 4 08/20/19 25 Active verapamil (Calan) 40 MG tablet TAKE 1 TABLET (40 MG) BY MOUTH 2 TIMES DAILY. 60 tablet 3 08/30/19 25 Active levothyroxine (Synthroid, Levoxyl) 50 MCG tabletIndications :Acquired hypothyroidism TAKE 1 TABLET BY MOUTH IN THE MORNING. 30 tablet 10/01/19 25 Active loratadine (Claritin) 10 MG tablet TAKE 1 TABLET BY MOUTH EVERY DAY 30 tablet 10/01/19 25 Active naproxen (Naprosyn) 500 MG tabletIndications :Chronic midline low back pain without sciatica TAKE 1 TABLET BY ORAL ROUTE 2 TIMES A DAY ( 8 AM, 8 PM ) EVERY DAY NEEDED 60 tablet 10/15/19 25 Active loratadine (Claritin) 10 MG tablet TAKE 1 TABLET BY MOUTH EVERY DAY 30 tablet 1 07/28/20 24 025 Discontinued levothyroxine (Synthroid, Levoxyl) 50 MCG tabletIndications :Acquired hypothyroidism TAKE 1 TABLET BY MOUTH IN THE MORNING. 30 tablet 1 07/28/20 24 025 Discontinued naproxen (Naprosyn) 500 MG tabletIndications :Chronic midline low back pain without sciatica TAKE 1 TABLET BY ORAL ROUTE 2 TIMES A DAY ( 8 AM, 8 PM ) EVERY DAY NEEDED 60 tablet 08/20/19 25 025 Discontinued Active Problems Problem Noted Date Diagnosed Date Schizoaffective disorder 07/31/2022 Asthma 06/05/2021 Candidiasis 01/09/2018 Acute hemorrhagic cystitis 07/19/2016 Drowsy 07/19/2016 Solitary pulmonary nodule 06/24/2014 Gallbladder calculus 02/28/2014 Sore throat 01/20/2014 Anemia 11/05/2011 Cough 11/05/2011 Vitamin B deficiency 11/05/2011 Chest pain 09/20/2011 Contact dermatitis 09/20/2011 Constipation 05/30/2011 Acute bronchitis 04/11/2011 Encounters Date Type Department Care Team Description 10/28/2024 1:00 PM EDT Procedure Visit [facility] [address] [place] [address] Krista Ybarra CNM Dysuria (Primary Dx); Visit for pelvic exam 10/28/2024 Travel 10/14/2024 Refill [facility] [address] [place] [address] Bon Jurado MD Chronic midline low back pain without sciatica 09/30/2024 Refill [facility] [address] [place] [address] Felipa Lucia MD Acquired hypothyroidism 08/31/2024 Telephone [facility] [address] [place] [address] Bon Jruado MD Appointment Request 08/28/2024 Refill [facility] [address] [place] [address] Bon Jurado MD 08/26/2024 Telephone [facility] [address] [place] [address] Bon Jurado MD 08/24/2024 1:30 PM EST Clinical Support [facility] [address] [place], [place] [phone] Diana Hoover RN Encounter for immunization 08/24/2024 Travel 08/19/2024 Refill [facility] [address] [place] [address] Sher Bennett MD Hypercholesterolemia 08/19/2024 Refill [facility] [address] [place], [place] [phone] Bon Jurado MD Chronic midline low back pain without sciatica 08/16/2024 Telephone [facility] [address] [place] [address] [phone] Bon Jurado MD NO SHOWED 08/02/2024 Telephone [facility] [address] [place] [address] Bon Jurado MD NO SHOW from Last 3 Months Immunizations Name Administration Dates Next Due Hep B, adult 08/24/2024,07/01/2024 Influenza Injectable Quadriv alant Preservative Free IIV4 MDCK 06/15/2018 Influenza injectable quadriv alent IIV4 with preservative 06/04/2019,05/08/2017,05/06/2016 Influenza injectable quadriv alent preservative free 07/03/2021 Influenza, IIV3, injectable 07/06/2014 Influenza, Split (incl. eb fied surface antigen) 05/13/2013,04/14/2012 Influenza, seasonal, injecta ble, preservative free 06/08/2024 Pneumococcal Conjugate PCV 20 07/01/2024 Td (adult), 5 Lf tetanus tox oid, preservative free, adsorbed 09/28/2014,02/01/2012 Tdap 05/30/2016 Zoster, Recombinant 08/20/2021 Family History Medical History Relation Name Comments Breast cancer Sister Relation Name Status Comments Sister Social History Tobacco Use Types Packs/Day Years Used Date Smoking Tobacco: Every Day Cigarettes 1 35 Smokeless Tobacco: Never Tobacco Cessation:Ready to Q uit: Not Asked; Counseling Given: Not Answered Alcohol Use Standard Drinks/Week Comments Not Currently [...] Orientation Straight 06/17/2022 10 :21 AM EDT Last Filed Vital Signs Vital Sign Reading [...] Mass Index 32.85 10/28/2024 1:11 PM EDT Plan of Treatment Upcoming Encounters Date Type Department Care Team (Late st Contact Info) Description 11/09/2024 2:00 PM EDT Office Visit [facility] [address] [place] [address] Bon Jurado MD [address] [place] [address] Health Maintenance Due Date Last Done Comments CT Colonography 1970 Colonoscopy 1970 Colorectal Cancer Screening 1970 FIT DNA/Cologuard 1970 FIT 1970 FOBT 1970 Sigmoidoscopy 1970 Mammogram 2010 Lung Cancer Screening 2020 Zoster Vaccines (2 of 2) 10/15/2021 08/20/2021 COVID-19 Vaccine ( season) 2024 06/06/2021, 10/05/2020, 09/14/2020 Hepatitis B Vaccines (3 of 3 - 19+ 3-dose series) 12/29/2024 08/24/2024, 07/01/2024 SDOH Screening 02/08/2025 02/09/2024 Alcohol/Substance Use Screening 07/01/2025 07/01/2024 Depression Screening 07/01/2025 07/01/2024, 07/01/20 Tobacco Screening 07/01/2025 07/01/2024 DTaP/Tdap/Td Vaccines (2 - Td or Tdap) 05/30/2026 05/30/2016, 09/28/2014, 02/01/2012 Cervical Cancer Screening 07/03/2026 HPV/Cotest 07/03/2026 07/03/2021, 07/14/2018 Pap Smear 07/03/2026 07/03/2021 Lipid Panel 07/01/2029 07/01/2024, 12/21/2020 RSV Patients and Patients Aged 60 years or older (1 - 1-dose 75+ series) 2045 Influenza Vaccine Completed 06/08/2024, , 06/04/2019, Additional history exists HIV Screening Completed 07/01/2024 Hepatitis C Screening Completed 07/01/2024 Pneumococcal Vaccine: 50+ Years Completed 07/01/2024 HIB Vaccines Aged Out No longer eligi ble based on patient's age to complete this topic HPV Vaccines Aged Out No longer eligi ble based on patient's age to complete this topic Hepatitis A Vaccines Aged Out No long er eligible based on patient's age to complete this topic IPV Vaccines Aged Out No longer eligi ble based on patient's age to complete this topic Meningococcal Vaccine Aged Out No [place] martha eligible based on patient's age to complete this topic RSV under 20 months Aged Out No longe r eligible based on patient's age to complete this topic Rotavirus Vaccines Aged Out No longer eligible based on patient's age to complete this topic Procedures Procedure Name Priority Date/Time Associated Diagnosis Comments POCT URINALYSIS DIPSTICK Routine 10/28/2024 1:57 PM EDT Dysuria HEPATITIS C AB W/REFL TO HCV RNA, QN, PCR Routine 07/01/2024 2:13 PM EST Screen for STD (sexually transmitted disease) HIV 1/2 ANTIGEN/ANTIBODY, FOURTH GENERATION W/RFL Routine 07/01/2024 2:13 PM EST Screen for STD (sexually transmitted disease) LIPID PANEL, STANDARD Routine 07/01/2024 2:13 PM EST Calculus of gallbladder without cholecystitis without obstruction THINPREP IMAGING PAP AND HPV MRNA E6/E7 WITH REFLEX TO HPV 16,18/45 Routine 07/03/2021 10:22 AM EST from Last 3 Months or Most Recently Relevant to Health Maintenance Results * POCT urinalysis dipstick manually resulted [...] Appearance, UA clear QC Media Lot # Comment:[id number] Lot# Expiration Date Comment:05/17/2025 Urine 10/28/2024 1:57 PM EDT Krista Ybarra CNM POINT OF CARE TEST ENTER/ EDIT ORDERABLES Final Result * Hepatitis C Antibody with Reflex to HCV, RNA, Quantitative, Real-Time PCR (07/01/2024 2:13 PM EST) Hepatitis C Antibody Nonreactive Nonreactive [facility] Comment:Antibodies to HCV no t detected; does not exclude early acuteHCV infection. Blood Venous blood specimen / Unknown 07/01/2024 2:13 PM EST 07/01/2024 5:36 PM EST us Bon Jurado MD LAB BLOOD ORDERABLES Final Result [facility] [address] [place] [phone] * HIV-1/2 Antigen and Antibodies, Fourth Generation, with Reflexes (07/01/2024 2:13 PM EST) Pathologist [facility] HIV AB/AG Nonreactive Nonreactive [facility] Comment:HIV-1 p24 Ag and/or HIV-1/HIV-2 Ab not detected.A test result that is nonreactive does not exclude thepossibility of exposure to or infection with HIV-1 and/orHIV-2. Nonreactive results in this assay for individualswith prior exposure to HIV-1 and/or HIV-2 may be due toantigen and antibody levels that are below the limit ofdetection of this assay.The [employer] HIV Ag/Ab Combo assay result andsupplemental assay results should be interpreted inconjunction with the patient's clinical presentation,history and other laboratory results. If the results areinconsistent with clinical evidence, additional testing issuggested to confirm the result. Blood Venous blood specimen / Unknown 07/01/2024 2:13 PM EST 07/01/2024 5:36 PM EST us Bon Jurado MD LAB BLOOD ORDERABLES Final Result [facility] [address] [place] [phone] * Lipid Panel, Standard (07/01/2024 2:13 PM EST) Pathologist [facility] Triglycerides 120 <150 mg/dL [facility] Comment:Desirable Triglyceri de: less than 150 mg/dLBorderline High Triglyceride 150-199 mg/dLHigh Triglyceride: 200-499 mg/dLVery High Triglyceride: greater than or equal to 5OO mg/dL Cholesterol 133 <200 mg/dL [facility] Comment:Desirable Cholestero l: less than 200 mg/dLBorderline High Cholesterol: 200-239 mg/dLHigh Cholesterol: greater than 239 mg/dL LDL Cholesterol Calculated 67 <100 mg/dL [facility] Comment:Desirable LDL: less than 100 mg/dLNear Optimal/Above Optimal LDL: 110- 129 mg/dLBorderline High LDL: 130-159 mg/dLHigh LDL: 160-189 mg/dLVery High LDL: greater than or equal to 190 mg/dL HDL Cholesterol 42 >40 mg/dL [facility] Comment:Desirable HDL: great er than 40 mg/dL Note: This HDL assay may give artificially low results in patients with liver disease. Blood Venous blood specimen / Unknown 07/01/2024 2:13 PM EST 07/01/2024 5:37 PM EST us Bon Jurado MD LAB BLOOD ORDERABLES Final Result [facility] [address] [place] [phone] * THINPREP TIS PAP AND HPV mRNA E6/E7 REFLEX HPV 16,18/45 (07/03/2021 10:22 AM EST) Clinical Information: None given [facility] COMMENT SEE COMMENT [facility] Comment: EXPLANATORY NOTE: ? The Pap is a screening test for cervical cancer. It is ?? not a diagnostic test and is subject to false negative ?? and false positive results. It is most reliable when a ?? satisfactory sample, regularly obtained, is submitted ?? with relevant clinical findings and history, and when ?? the Pap result is evaluated along with historic and ?? current clinical information. ?? COMMENT: This Pap test has been evaluated with computer assisted technology. [facility] Cofounder: SEE COMMENT [facility] Comment: KN, CT(ASCP) CT screening location: [address] ??[address] HPV nRNA E6/E7 Not Detected Not Detected [facility] [employer] [facility] Comment: Methodology: Recreation Facilities Supervisor-Mediated Amplification This assay detects E6/E7 viral messenger RNA (mRNA) from 14 high-risk HPV types (16,18,31,33,35,39,45,51,52,56,58,59,66,68). ? The analytical performance characteristics of this assay have been determined by [employer]. The modifications have not been cleared or approved by the FDA. This assay has been validated pursuant to the CLIA regulations and is used for clinical purposes. ?? For additional information, please refer to http://education.hhgregg.twiDAQ/faq/YBR278x6 (This link if provided for information/ educational purposes only.) Interpretation/Re sult: Negative for intraepithelial lesion or malignancy. [facility] LMP: NONE [facility] PATHOLOGIST: SEE COMMENT [facility] Comment: Erik Rudd M.D., Direct , Board Certified in Anatomic Pathology and Cytopathology (electronic signature) Consulting Pathologist [facility] [address] [place] [address] Prev. BX: NONE [facility]IVEN [facility] Prev. PAP: NONE [facility]IVEN [facility] SOURCE: None given [facility] Statement Of Adequacy: SEE COMMENT [facility] Comment: Satisfactory for evaluation. Endocervical/transformation zone component present. Age and/or menstrual status not provided 07/03/2021 10:2 2 AM EST us Krista ABDI LAB PATHOLOGY ORDERABLES Final Result [facility] [address] from Last 3 Months or Most Recently Relevant to Health Maintenance Insurance [facility] Care Teams Rpg Programmer Analyst Relationship Specialty Start Date End Date Bon Jurado MD [address] [place] [address] [place] [id number] PCP - General Internal Medicine 08/18/18
== END 2024-10-28 14:37 | disposition home or self-care (01) ==
LOC: HO.CHCLNP 14:36
PROVIDERS: Visit Provider Advanced Practice Midwife
DX: R30.0 Dysuria (principal)
CPT/HCPCS: 87086; 87088; 87186

== ENCOUNTER 2024-11-09 14:38 | Outpatient (REF) | payer OTHER, SELFPAY ==
[2024-11-09 18:57] LABS: TSH reflex Free T4 3.64 uIU/mL (0.32-4.0)
== END 2024-11-09 14:39 | disposition home or self-care (01) ==
LOC: HO.CHCLDS 14:38
PROVIDERS: Visit Provider Internal Medicine
DX: E03.8 Other specified hypothyroidism (principal)
CPT/HCPCS: 36415; 84443

== ENCOUNTER 2025-02-08 12:25 | Outpatient (REF) | payer OTHER, SELFPAY ==
--- OUTSIDE RECORDS SUMMARY | 2025-02-08 13:56 | XMS_ITS | Encounter Summary ---
Author Organization [employer] Address [address] [facility] 7 h Floor [address] Care Team Providers Care Upscale Security Officer Name Role Phone Bon Jurado MD Primary Care Provider [phone] Reason for Visit * Reason Onset Date Comments Appointment Request 08/31/2024 Encounter Details Date Type Department Care Team ([facility] Contact Info) Description 08/31/2024 Telephone [facility] [address] [place] [address] Bon Jurado MD [address] [place] [address] Appointment Request Social History Tobacco Use Types [...] documented in this encounter Plan of Treatment Not on file documented as of this encounter Visit Diagnoses Not on filedocumented in this encounter Additional Health Concerns Assessment Noted Time PHQ-9 Depression Total Score: 1 07/01/20 24 1:42 PM EST documented as of this encounter Care Teams Upscale Security Officer Relationship Specialty Start Date End Date Bon Jurado MD [address] [place] [id number] PCP - General Internal Medicine 08/18/18 documented as of this encounter
[2025-02-08 14:02] LABS: MANUAL DIFF FLAG NO
[2025-02-08 14:10] LABS: Basophils Absolute Auto 0.1 X10*3/uL (0.0-0.2); Basophils Percent Auto 0.7 % (0-2); Eosinophils Absolute Auto 0.5 X10*3/uL (0.0-0.4); Eosinophils Percent Auto 5.1 % (0-4); Hematocrit 37.9 % (37.0-47.0); Hemoglobin 12.7 g/dl (12.0-16.0); Imm Gran Abs Auto 0.04 X10*3/uL (0.00-0.03); Imm Gran Pct Auto 0.4 % (0.0-0.4); Lymphocytes Absolute Auto 2.6 X10*3/uL (1.2-4.9); Lymphocytes Percent Auto 25.6 % (20-40); Mean Corpuscular HGB Conc 33.5 g/dl (31.0-35.0); Mean Corpuscular Hemoglobin 28.6 pg (27.0-33.0); Mean Corpuscular Volume 85.4 fL (80.0-98.0); Mean Platelet Volume 11.9 fL (9.4-12.3); Monocytes Absolute Auto 0.4 X10*3/uL (0.1-1.2); Monocytes Percent Auto 4.4 % (2-11); Neutrophils Absolute Auto 6.3 x10*3/uL (2.0-8.3); Neutrophils Percent Auto 63.8 % (45-73); Platelet Count 249 X10*3/uL (160-400); Red Blood Count 4.44 X10*6/uL (4.20-5.50); Red Cell Distribution Width 14.3 % (11.0-16.0)
[2025-02-08 14:34] LABS: Alanine Aminotransferase 15 U/L (0-31); Albumin Level 3.9 g/dL (3.5-5.0); Alkaline Phosphatase 112 U/L (39-117); Anion Gap 11 (12-20); Aspartate Amino Transferase 22 U/L (5-31); Bilirubin Total 0.3 mg/dL (0.0-1.0); Blood Urea Nitrogen 9 mg/dL (9-16); Calcium 8.7 mg/dL (8.4-10.2); Carbon Dioxide 24 mmol/L (22-29); Chloride 109 mmol/L (96-108); Estimated Glomerular Filt Rate 58; Glucose Random 86 mg/dL (60-115); Potassium 4.2 mmol/L (3.3-5.1); Sodium 140 mmol/L (135-145); Total Protein 6.2 g/dL (6.5-8.0)
[2025-02-08 14:54] LABS: TSH reflex Free T4 3.16 uIU/mL (0.32-4.0)
== END 2025-02-08 12:26 | disposition home or self-care (01) ==
LOC: HO.CHCLDS 12:25
PROVIDERS: Visit Provider Internal Medicine
DX: E03.8 Other specified hypothyroidism (principal)
CPT/HCPCS: 36415; 80053; 84443; 85025

== ENCOUNTER 2025-03-28 09:52 | Outpatient (AMB) | payer OTHER, SELFPAY ==
--- NOTE | 2025-03-28 10:05 | A.OFFVIS_ITS ---
Intake Visit Reasons: 3 Month , Migranes Allergies amoxicillin (AMOXICILLIN) Allergy (Intermediate, Verified 06/04/24 11:02) HIVES carisoprodol (From SOMA) Allergy (Intermediate, Verified 06/04/24 11:02) HIVES Fish Containing Products Allergy (Intermediate, Verified 06/04/24 11:02) HIVES Penicillins (PENICILLINS) Allergy (Intermediate, Verified 06/04/24 11:02) HIVES latex (LATEX) Allergy (Mild, Verified 06/04/24 11:02) RASH fish Allergy (Unknown, Uncoded 06/02/24 09:50) shortness of breath MEAT Adverse Reaction (Mild, Uncoded 06/02/24 09:50) SICK HPI Comments Details: 54 years old woman with history polysubstance abuse, diagnosis of schizoaffect teressa disorder, and migraine without aura. She also had an episode suggestive of seizure, had an EEG that revealed mild slowing but no epileptic tendency. She was taking verapamil and headaches were better. No obvious side-effects. COUNT INCLUDES THE [facility] Medical History (Updated 03/28/25 @ 10:09 by Victoriano Sauceda MD) H/O polydrug abuse Migraine Sight impaired Ovarian cyst Classic migraine Hx of renal calculi Chronic back pain Asthma Borderline intellectual functioning Schizoaffective disorder Hx of drug overdose History of ETOH abuse PTSD (post-traumatic stress disorder) Depression Anxiety Surgical History Hx of cholecystectomy Hx of appendectomy Hx of tubal ligation Social History Household Members: Significant Other Housing: Apartment Do you presently have visiting nurse or other home services: Yes (through [facility]) Alcohol intake: current Alcohol intake frequency: a few times a week Patient Tobacco Use Status: Current everyday Tobacco user Tobacco use type: Cigarette Cigarette Packs Per Day: 1.5 Cigarettes Per Day: 30.0 Years Smoked: 37 years Second Hand Smoke Exposure: Yes Substance Use Type: Caffiene service: No Current occupational status: unemployed Current occupation: rt handed Sexual orientation: Unable to collect Review of Systems Const Details: Constitutional:?No fever, chills, fatigue, weight loss, or night sweats. HEENT:?No headache, vision changes, hearing loss, nasal congestion, sore throat. Neurological:?No dizziness, syncope, seizures, numbness, tingling, weakness, tremors, memory loss. Psychiatric:?No anxiety, depression, mood swings, sleep disturbance, or hallucinations. Endocrine:?No heat/cold intolerance, polydipsia, polyuria, or hair/skin changes. Hematologic/Lymphatic:?No easy bruising, bleeding, or lymphadenopathy. Integumentary (Skin):?No rash, lesions, itching, or color changes. ? Physical Exam Neuro Other: Mental Status: Alert and oriented to person, place, and time. Normal attention. Normal spontaneous speech, fluency, and comprehension. No obvious issues with mood and memory. Affect is appropriate. Cranial Nerves: CN II: Visual william full to confrontation, visual acuity intact. CN III, IV, : Pupils equal, round, reactive to light and accommodation. Extraocular movements are normal. CN V: Facial sensation is normal. CN VII: Facial movements symmetrical. CN VIII: Hearing intact to bedside conversation is normal. CN IX, X: Palate elevates symmetrically. CN XI: Shoulder shrug and head turn symmetrical. CN XII: Tongue midline without atrophy or fasciculations. Extrapyramidal: Full facial expressions and blinking. No rigidity. Movements are appropriate with no tremor or abnormality. Speech: Normal; no dysarthria or tremor. Assessment & Plan Assessment & Plan (1) Chronic migraine w/o aura w/o status migrainosus, not intractable: Code(s): G43.709 - Chronic migraine without aura, not intractable, without status migrainosus Category: Medical Plan Impression: Chronic migraine without aura Recommendations: Verapamil 120 mg long-acting once a day Medications: New verapamil ER 120 mg PO DAILY 90 caps 1RF Coding Level of Care Code Est Pt Level 4 (17849) Diagnoses Chronic migraine w/o aura w/o status migrainosus, not intractable G43.709
--- OUTSIDE RECORDS SUMMARY | 2025-03-28 10:27 | XMS_ITS | Encounter Summary ---
Author Organization [employer] Address 75 [facility] 7 [place] [address] Care Team Providers Care Chemical Laboratory Technician Name Role Phone Bon Jurado MD Primary Care Provider [phone] Reason for Visit * Reason Onset Date Comments Appointment Request 08/31/2024 Encounter Details Date Type Department Care Team ([facility] Contact Info) Description 08/31/2024 Telephone [facility] & PEDS [address] [place] [address] Bon Jurado MD [address] [place] [address] Appointment Request Social History Tobacco Use Types [...] Encounters Date Type Department Care Team ([facility] st Contact Info) Description 05/09/2025 11:00 AM EDT Office Visit [facility] [address] [place] [address] Bon Jurado MD [address] [place] [address] documented as of this encounter Visit Diagnoses Not on filedocumented in this encounter Additional Health Concerns Assessment Noted Time PHQ-9 Depression Total Score: 1 07/01/20 24 1:42 PM EST documented as of this encounter Care Teams Chemical Laboratory Technician Relationship Specialty Start Date End Date Bon Jurado MD [address] [place] [id number] PCP - General Internal Medicine 08/18/18 documented as of this encounter
== END 2025-03-28 10:12 | disposition home or self-care (01) ==
LOC: HO.HSM 09:53
PROVIDERS: PCP Internal Medicine; Referring Provider Internal Medicine; Visit Provider Psychiatry & Neurology Neurology
DX: G43.709 Chronic migraine without aura, not intractable, without status migrainosus (principal)
CPT/HCPCS: 99214

== ENCOUNTER → 2025-03-28 09:52 | Outpatient (BNVA) | payer OTHER, SELFPAY | PROVIDERS: PCP Internal Medicine; Referring Provider Internal Medicine; Visit Provider Psychiatry & Neurology Neurology | DX: G43.709 Chronic migraine without aura, not intractable, without status migrainosus (principal); F25.9 Schizoaffective disorder, unspecified | CPT/HCPCS: 99212 ==

== ENCOUNTER 2025-07-27 10:54 | Outpatient (REF) | payer OTHER, SELFPAY ==
[2025-07-27 15:22] LABS: MANUAL DIFF FLAG NO
[2025-07-27 15:33] LABS: Hematocrit 39.1 % (37.0-47.0); Hemoglobin 13.1 g/dl (12.0-16.0); Imm Gran Abs Auto 0.04 X10*3/uL (0.00-0.03); Imm Gran Pct Auto 0.4 % (0.0-0.4); Lymphocytes Absolute Auto 2.7 X10*3/uL (1.2-4.9); Mean Corpuscular HGB Conc 33.5 g/dl (31.0-35.0); Mean Corpuscular Hemoglobin 28.9 pg (27.0-33.0); Mean Corpuscular Volume 86.3 fL (80.0-98.0); NRBC Abs Auto 0.000 X10*3/uL (0.0-0.012); NRBC Pct Auto 0.0 /100WBC (0.0-0.2); Platelet Count 200 X10*3/uL (160-400); Red Blood Count 4.53 X10*6/uL (4.20-5.50); White Blood Count 9.1 X10*3/uL (4.8-10.8)
[2025-07-27 16:41] LABS: Alanine Aminotransferase 18 U/L (0-31); Albumin Level 3.8 g/dL (3.5-5.0); Alkaline Phosphatase 128 U/L (39-117); Anion Gap 9 (12-20); Aspartate Amino Transferase 30 U/L (5-31); Blood Urea Nitrogen 15 mg/dL (9-16); Calcium 8.5 mg/dL (8.4-10.2); Carbon Dioxide 24 mmol/L (22-29); Chloride 109 mmol/L (96-108); Cholesterol 127 mg/dL (<200); Estimated Glomerular Filt Rate > 60; HDL Cholesterol 40 mg/dL (>40); Potassium 4.2 mmol/L (3.3-5.1); Sodium 138 mmol/L (135-145); Total Protein 6.1 g/dL (6.5-8.0); Triglycerides 155 mg/dL (<150)
== END 2025-07-27 10:55 | disposition home or self-care (01) ==
LOC: HO.CHCLDS 10:54
PROVIDERS: Visit Provider Internal Medicine
DX: E03.8 Other specified hypothyroidism (principal)
CPT/HCPCS: 36415; 80053; 80061; 84443; 85025